=== PATIENT | female | born 1935 | race Caucasian/White ===

== ENCOUNTER 2017-06-25 21:30 | Emergency (ER) | payer MEDICARE, SELFPAY ==
[2016-11-30 11:50] VITALS: BMI 16.0
[2017-06-25 21:30] VITALS: BP 131/80; PULSE 56; RESP 18; TEMP 36.8; O2SAT 100; BMI 17.7
--- NOTE | 2017-06-25 22:03 | NURSING ---
CALLED THE ENDONURSE, SHAE
[2017-06-25] MEDS: 0.9% Normal Saline 1,000 ML 150 ML IV (22:08)
--- NOTE | 2017-06-25 22:35 | ED.VISSUMM ---
- ER Visit Summary Date of Service: 06/25/17 Chief Complaint: [Foreign body sensation esophagus] History of Present Illness: The patient is a 82 F [to the emergency department chief complaint of feeling like a piece of food is stuck in her esophagus. Patient apparently was eating at [employer] around 5:30 PM when she thinks a piece of hamburger may have gotten stuck. Patient has not had this happen before. Patient denies any chest pain or shortness of breath. Patient states that she has been trying to sip some water and it seems like it is staying down and going into the stomach. Patient is somewhat of a poor historian as she does have some history of dementia. And also with history of hypertension, pulmonary hypertension, A. fib, hypothyroidism.] Physical Examination: [HEENT-PERRLA, EOMI. Cranial nerves II through XII grossly intact. TMs clear. Mucous membranes moist. No adenopathy. Cardiovascular-regular rate and rhythm without murmur or ectopy Lungs-clear to auscultation, chest wall stable without crepitus or subcu emphysema Abdomen-normoactive bowel sounds, soft, nontender, no rebound or rigidity, no peritoneal signs. Extremities-intact ?4, normal range of motion, normal pulses, atraumatic] Test Results: [None indicated] Emergency Department Course and Treatment: [I had patient drink Coke and she was able to swallow however with each swallow she had discomfort in her esophagus and would belch.] Treatment Plan: [Case discussed with Dr. Romario Dupree who will present to the emergency department to perform endoscopy.] Patient had endoscopy and was noted that she had a large piece of meat within the stomach. Patient had appearance of Marshall's esophagitis. Disposition: [discharged to home in stable condition] Impression: [Esophageal foreign body-passed] This note was generated with [employer] dictation software. It may contain incorrect words, spelling, and punctuation that were not noted in review of the chart prior to signing ED Disposition - Plan for ED Patient: Chief Complaint: Foreign Body Referrals: Augie Rajan Chi, MD [Primary Care Provider] -
--- NOTE | 2017-06-25 22:38 | ED.DCSUM_ITS ---
- ER Visit Summary Date of Service: 06/25/17 Chief Complaint: [Foreign body sensation esophagus] History of Present Illness: The patient is a 82 F [to the emergency department chief complaint of feeling like a piece of food is stuck in her esophagus. Patient apparently was eating at [employer] around 5:30 PM when she thinks a piece of hamburger may have gotten stuck. Patient has not had this happen before. Patient denies any chest pain or shortness of breath. Patient states that she has been trying to sip some water and it seems like it is staying down and going into the stomach. Patient is somewhat of a poor historian as she does have some history of dementia. And also with history of hypertension, pulmonary hypertension, A. fib, hypothyroidism.] Physical Examination: [HEENT-PERRLA, EOMI. Cranial nerves II through XII grossly intact. TMs clear. Mucous membranes moist. No adenopathy. Cardiovascular-regular rate and rhythm without murmur or ectopy Lungs-clear to auscultation, chest wall stable without crepitus or subcu emphysema Abdomen-normoactive bowel sounds, soft, nontender, no rebound or rigidity, no peritoneal signs. Extremities-intact ?4, normal range of motion, normal pulses, atraumatic] Test Results: [None indicated] Emergency Department Course and Treatment: [I had patient drink Coke and she was able to swallow however with each swallow she had discomfort in her esophagus and would belch.] Treatment Plan: [Case discussed with Dr. Romario Dupree who will present to the emergency department to perform endoscopy.] Patient had endoscopy and was noted that she had a large piece of meat within the stomach. Patient had appearance of Marshall's esophagitis. Disposition: [discharged to home in stable condition] Impression: [Esophageal foreign body-passed] This note was generated with [employer] dictation software. It may contain incorrect words, spelling, and punctuation that were not noted in review of the chart prior to signing ED Disposition - Plan for ED Patient: Chief Complaint: Foreign Body Referrals: Augie Rajan Chi, MD [Primary Care Provider] -
--- NOTE | 2017-06-25 23:20 | ED.DEP ---
ED Disposition - Plan for ED Patient: Chief Complaint: Foreign Body Instructions: ED Foreign Body Esophageal Rslv Referrals: Augie Rajan Chi, MD [Primary Care Provider] - Romario Dupree MD [STAFF PHYSICIAN] - 1-2 Weeks
[2017-06-25] MEDS: Propofol 200 MG/20 ML Vial IV BOLUS (23:23)
[2017-06-25 23:24] VITALS: BP 178/55; PULSE 55; RESP 20; O2SAT 100
--- NOTE | 2017-06-25 23:25 | ED.RN ---
Dr. Dupree and Johanna (RN) here to do scope.
--- NOTE | 2017-06-25 23:28 | ED.DEP ---
ED Disposition - Plan for ED Patient: Chief Complaint: Foreign Body Instructions: ED Foreign Body Esophageal Rslv Prescriptions: Sucralfate [Carafate] 1 gm PO 4X/DAY #400 ml Referrals: Romario Dupree MD [STAFF PHYSICIAN] - 1-2 Weeks Augie Rajan Chi, MD [Primary Care Provider] -
--- NOTE | 2017-06-25 23:29 | PCM.CONS.GEN ---
Problem List (1) Esophageal foreign body Status: Acute (2) History of left heart catheterization Status: Chronic Comment: PTCA/DONNELL to LCX 09/24/2016; DONNELL to PDA and RELATIONSHIP MANAGEMENT LEAD-PLVB 11/17/2016; PCI to Diag and LAD 11/29/2016 (3) Atherosclerosis of [place] coronary artery of [place] heart without angina pectoris Status: Chronic (4) UDAY (acute kidney injury) Status: Acute Comment: Due to prerenal azotemia, related to Lasix (5) Hypotension Status: Resolved Comment: with hydration (6) Hypophosphatemia Status: Acute (7) NSTEMI (non-ST elevated myocardial infarction) Status: Chronic Comment: NSTEMI December 2016 (8) Hypothyroidism Status: Chronic Qualifiers: Reason for Consult Date of Consultation: 06/25/17 History of Present Illness: The patient is a 82 year old F with complaint of esophageal foreign body. She ate a hamburger at approximately 4PM. She has a sensation of choking since that time. She was given liquids in the ER which caused her to choke further. I was called for esophageal foreign body. EGD was performed in the ED. The food had passed into the stomach, but the patent was noted to have distal esophageal changes consistent with Marshall's esophagitis. Past Medical History Past Medical History (Chronic Problems): Chronic Problems (Last Updated 04/28/17 @ 09:04 by Todd Steiner HAIR DRESSER-C) History of left heart catheterization (Chronic) PTCA/DONNELL to LCX 09/24/2016; DONNELL to PDA and RELATIONSHIP MANAGEMENT LEAD-PLVB 11/17/2016; PCI to Diag and LAD 11/29/2016 Atherosclerosis of [place] coronary artery of [place] heart without angina pectoris (Chronic) Essential (primary) hypertension (Chronic) Dysphagia (Chronic) Elevated troponin (Chronic) not trending Pulmonary hypertension (Chronic) Malnutrition (Chronic) Dementia (Chronic) History of PTCA (Chronic) PTCA to the OD on 11/29/16 with no stent PTCA/DONNELL Proximal LAD 11/29/16 HFrEF (heart failure with reduced ejection fraction) (Chronic) EF 01/12 65% Chronic anemia (Chronic) Paroxysmal atrial fibrillation (Chronic) Coronary artery disease (Chronic) Vitamin D deficiency (Chronic) Hyperlipidemia (Chronic) NSTEMI (non-ST elevated myocardial infarction) (Chronic) NSTEMI December 2016 ST elevation (STEMI) myocardial infarction involving left circumflex coronary artery (Chronic) stent 09/24/16 Hypothyroidism (Chronic) Adult BMI <19 kg/sq m (Chronic) Allergies tuberculin,PPD,multi-puncture Adverse Reaction (Verified 06/25/17 21:32) Unknown caused big blister on lip Home Medications: Ambulatory Orders Medication Instructions Recorded Levothyroxine Sodium 125 mcg PO DAILY 05/31/16 Aspirin E.C. [Ecotrin] 81 mg PO DAILY@0800 tab 09/26/16 Ferrous Gluconate 325 mg PO BIDCM 02/03/17 Acetaminophen [Tylenol Tablet] 650 mg PO Q6H PRN PRN tab 02/08/17 Donepezil HCl [Aricept] 5 mg PO QHS tab 02/08/17 Quetiapine Fumarate [Seroquel] 12.5 mg PO DAILY tab 02/08/17 Quetiapine Fumarate [Seroquel] 25 mg PO QHS tab 02/08/17 amiodarone 200 mg tablet 200 mg PO DAILY #90 tab 05/19/17 atorvastatin 20 mg tablet 20 mg PO QHS #90 tab 05/19/17 clopidogrel 75 mg tablet 75 mg PO DAILY #90 tab 05/19/17 lisinopril 20 mg tablet 20 mg PO DAILY #90 tab 05/19/17 metoprolol tartrate 50 mg tablet 50 mg PO BID #180 tab 05/19/17 pantoprazole 40 mg tablet,delayed 40 mg PO DAILY #90 tab 05/19/17 release Surgical History: total hip arthroplasty Psychiatric History: No pertinent psych hx Smoking Status: Never smoker - *Family History Maternal History Items: Stroke Paternal History Items: Stroke Patient Problems: Active and Suspected Problems (Last Updated 04/28/17 @ 09:04 by Todd Steinre HAIR DRESSER-C) Esophageal foreign body (Acute) - Physical Exam General: Alert, Oriented x3, - - anxious and choking on spit Lungs: Clear to auscultation, Normal air movement Cardiovascular: Regular rate, Murmur Abdomen: Soft, Non Tender Vital Signs Temp Pulse Resp BP Pulse Ox 98.2 F 55 L 20 H 178/55 H 100 06/25/17 21:30 06/25/17 23:24 06/25/17 23:24 06/25/17 23:24 06/25/17 23:24 Oxygen Flow Rate 4 Oxygen Delivery Method Nasal Cannula Weight: 42.7 kg Body Mass Index (BMI) 17.7 Finger Stick Blood Glucose 71 Assessment/Plan Active and Suspected Problems (Last Updated 04/28/17 @ 09:04 by Todd Steiner HAIR DRESSER-C) Esophageal foreign body (Acute) Marshall's esophagitis - esophageal foreign body. The patient will be discharged on Carafate and to continue her PPI. She should follow up in 1 week in my office and plan for repeaat EGD in 3-4 weeks. She should stay on clear liquids for the next 3 days
[2017-06-25 23:34] VITALS: BP 149/68; PULSE 57; RESP 14; O2SAT 100
--- NOTE | 2017-06-25 23:35 | CON.PCM_ITS ---
Problem List (1) Esophageal foreign body Status: Acute (2) History of left heart catheterization Status: Chronic Comment: PTCA/DONNELL to LCX 09/24/2016; DONNELL to PDA and IOS PROGRAMMER-PLVB 11/17/2016; PCI to Diag and LAD 11/29/2016 (3) Atherosclerosis of [place] coronary artery of [place] heart without angina pectoris Status: Chronic (4) UDAY (acute kidney injury) Status: Acute Comment: Due to prerenal azotemia, related to Lasix (5) Hypotension Status: Resolved Comment: with hydration (6) Hypophosphatemia Status: Acute (7) NSTEMI (non-ST elevated myocardial infarction) Status: Chronic Comment: NSTEMI December 2016 (8) Hypothyroidism Status: Chronic Qualifiers: Reason for Consult Date of Consultation: 06/25/17 History of Present Illness: The patient is a 82 year old F with complaint of esophageal foreign body. She ate a hamburger at approximately 4PM. She has a sensation of choking since that time. She was given liquids in the ER which caused her to choke further. I was called for esophageal foreign body. EGD was performed in the ED. The food had passed into the stomach, but the patent was noted to have distal esophageal changes consistent with Marshall's esophagitis. Past Medical History Past Medical History (Chronic Problems): Chronic Problems (Last Updated 04/28/17 @ 09:04 by Todd Steiner ORTHOTICS ASSISTANT-C) History of left heart catheterization (Chronic) PTCA/DONNELL to LCX 09/24/2016; DONNELL to PDA and IOS PROGRAMMER-PLVB 11/17/2016; PCI to Diag and LAD 11/29/2016 Atherosclerosis of [place] coronary artery of [place] heart without angina pectoris (Chronic) Essential (primary) hypertension (Chronic) Dysphagia (Chronic) Elevated troponin (Chronic) not trending Pulmonary hypertension (Chronic) Malnutrition (Chronic) Dementia (Chronic) History of PTCA (Chronic) PTCA to the OD on 11/29/16 with no stent PTCA/DONNELL Proximal LAD 11/29/16 HFrEF (heart failure with reduced ejection fraction) (Chronic) EF 01/12 65% Chronic anemia (Chronic) Paroxysmal atrial fibrillation (Chronic) Coronary artery disease (Chronic) Vitamin D deficiency (Chronic) Hyperlipidemia (Chronic) NSTEMI (non-ST elevated myocardial infarction) (Chronic) NSTEMI December 2016 ST elevation (STEMI) myocardial infarction involving left circumflex coronary artery (Chronic) stent 09/24/16 Hypothyroidism (Chronic) Adult BMI <19 kg/sq m (Chronic) Allergies tuberculin,PPD,multi-puncture Adverse Reaction (Verified 06/25/17 21:32) Unknown caused big blister on lip Home Medications: Ambulatory Orders Medication Instructions Recorded Levothyroxine Sodium 125 mcg PO DAILY 05/31/16 Aspirin E.C. [Ecotrin] 81 mg PO DAILY@0800 tab 09/26/16 Ferrous Gluconate 325 mg PO BIDCM 02/03/17 Acetaminophen [Tylenol Tablet] 650 mg PO Q6H PRN PRN tab 02/08/17 Donepezil HCl [Aricept] 5 mg PO QHS tab 02/08/17 Quetiapine Fumarate [Seroquel] 12.5 mg PO DAILY tab 02/08/17 Quetiapine Fumarate [Seroquel] 25 mg PO QHS tab 02/08/17 amiodarone 200 mg tablet 200 mg PO DAILY #90 tab 05/19/17 atorvastatin 20 mg tablet 20 mg PO QHS #90 tab 05/19/17 clopidogrel 75 mg tablet 75 mg PO DAILY #90 tab 05/19/17 lisinopril 20 mg tablet 20 mg PO DAILY #90 tab 05/19/17 metoprolol tartrate 50 mg tablet 50 mg PO BID #180 tab 05/19/17 pantoprazole 40 mg tablet,delayed 40 mg PO DAILY #90 tab 05/19/17 release Surgical History: total hip arthroplasty Psychiatric History: No pertinent psych hx Smoking Status: Never smoker - *Family History Maternal History Items: Stroke Paternal History Items: Stroke Patient Problems: Active and Suspected Problems (Last Updated 04/28/17 @ 09:04 by Todd Steiner ORTHOTICS ASSISTANT- C) Esophageal foreign body (Acute) - Physical Exam General: Alert, Oriented x3, - - anxious and choking on spit Lungs: Clear to auscultation, Normal air movement Cardiovascular: Regular rate, Murmur Abdomen: Soft, Non Tender Vital Signs Temp Pulse Resp BP Pulse Ox 98.2 F 55 L 20 H 178/55 H 100 06/25/17 21:30 06/25/17 23:24 06/25/17 23:24 06/25/17 23:24 06/25/17 23:24 Oxygen Flow Rate 4 Oxygen Delivery Method Nasal Cannula Weight: 42.7 kg Body Mass Index (BMI) 17.7 Finger Stick Blood Glucose 71 Assessment/Plan Active and Suspected Problems (Last Updated 04/28/17 @ 09:04 by Todd Steiner ORTHOTICS ASSISTANT- C) Esophageal foreign body (Acute) Marshall's esophagitis - esophageal foreign body. The patient will be discharged on Carafate and to continue her PPI. She should follow up in 1 week in my office and plan for repeaat EGD in 3-4 weeks. She should stay on clear liquids for the next 3 days
--- NOTE | 2017-06-25 23:35 | PCM.OPRPT ---
Problem List (1) Esophageal foreign body Status: Acute (2) History of left heart catheterization Status: Chronic Comment: PTCA/DONNELL to LCX 09/24/2016; DONNELL to PDA and SHELL SHOP SUPERVISOR-PLVB 11/17/2016; PCI to Diag and LAD 11/29/2016 (3) Atherosclerosis of [place] coronary artery of [place] heart without angina pectoris Status: Chronic (4) UDAY (acute kidney injury) Status: Acute Comment: Due to prerenal azotemia, related to Lasix (5) Hypotension Status: Resolved Comment: with hydration (6) Hypophosphatemia Status: Acute (7) NSTEMI (non-ST elevated myocardial infarction) Status: Chronic Comment: NSTEMI December 2016 (8) Hypothyroidism Status: Chronic Qualifiers: Report of Operation Date of Procedure: 06/25/17 Pre-Operative Diagnosis: esophageal foreign body Post-Operative Diagnosis: esophageal foreign body, Marshall's esophagitis Surgery/Procedure Performed:: EGD reflector driller and deburrer: None Type of Anesthesia:: IV Sedation Specimen's removed: None Description of Procedure: The patient was maintained in the emergency department. Sign in was performed verifying patient, site, planned procedure, critical nursing information, the patient was monitored with cardiac, pulse oximetric, and blood pressure monitoring devices. propofol was provided for sedation - Dr Machado by the emergency room physician and documented under separate cover. Following IV sedation and after the oropharynx was sprayed with Cetacaine spray, a video gastroscope was inserted in the oropharynx and advanced down the esophagus without difficulty. There was no residual esophageal foreign bodies. The scope was advanced through the stomach,There was food in the body of the stomach The scope was retroflexed area. There was felt to be no abnormalities. As the scope was withdrawn, the patient had distal esophagitis consistent with longer segment Marshall's esophagitis The remainder the esophagus was normal. - Admit VTE Documentation VTE Present on Admission: No
== END 2017-06-25 23:51 | disposition home or self-care (01) ==
PROVIDERS: Surgery; Emergency Provider Emergency Medicine; Family Provider Family Medicine Geriatric Medicine; PCP Family Medicine Geriatric Medicine
PROC: 0DJ08ZZ Inspection of Upper Intestinal Tract, Via Natural or Artificial Opening Endoscopic (ICD-10-PCS; CPT 43235; principal; 2017-06-25 23:00)
DX: T18.128A Food in esophagus causing other injury, initial encounter (principal); X58.XXXA Exposure to other specified factors, initial encounter; Y93.89 Activity, other specified; Y92.511 Restaurant or cafe as the place of occurrence of the external cause; Y99.8 Other external cause status; K22.70 Barrett's esophagus without dysplasia; N17.9 Acute kidney failure, unspecified; R39.2 Extrarenal uremia; I25.2 Old myocardial infarction; E83.39 Other disorders of phosphorus metabolism; I95.9 Hypotension, unspecified; F03.90 Unspecified dementia, unspecified severity, without behavioral disturbance, psychotic disturbance, mood disturbance, and anxiety; I25.10 Atherosclerotic heart disease of native coronary artery without angina pectoris; I27.20 Pulmonary hypertension, unspecified; I10 Essential (primary) hypertension; I48.0 Paroxysmal atrial fibrillation; E03.9 Hypothyroidism, unspecified; D64.9 Anemia, unspecified; E78.5 Hyperlipidemia, unspecified; Z79.01 Long term (current) use of anticoagulants; Z79.82 Long term (current) use of aspirin; Z79.899 Other long term (current) drug therapy; Z98.61 Coronary angioplasty status
CPT/HCPCS: 43235; 96360; 99283; J7030; A4216

== ENCOUNTER 2017-07-07 21:56 | Emergency (ER) | payer MEDICARE, SELFPAY ==
[2016-11-30 11:50] VITALS: BMI 16.0
[2017-07-07 21:56] VITALS: BP 126/78; PULSE 55; RESP 16; TEMP 36.3; O2SAT 100; BMI 16.2
--- NOTE | 2017-07-07 22:27 | EKG12_ITS ---
Test Reason : EDEMA Blood Pressure : / mmHG Vent. Rate : 052 BPM Atrial Rate : 052 BPM P-R Int : 208 ms QRS Dur : 096 ms QT Int : 500 ms P-R-T Axes : 026 -62 -14 degrees QTc Int : 465 ms Sinus bradycardia Left anterior fascicular block Nonspecific ST and T wave abnormality Abnormal ECG Confirmed by ADA GARAY ([id number]), editorial assistant SHARMILA MURCIA ([id number] on 07/11/2017 1:00:09 PM Referred By: ZAINAB Confirmed By:ADA GARAY
--- NOTE | 2017-07-07 22:40 | RAD_ITS ---
STUDY: X-RAY CHEST REASON FOR EXAM: Female, 82 years old. CHF TECHNIQUE: Frontal and lateral views COMPARISON: February 03, 2017 FINDINGS: The lungs are mildly hyperaerated. There is no demonstrated pleural abnormality. Normal size heart. Normal mediastinum and marcella. Normal visualized pulmonary arteries. Calcified aortic arch and descending thoracic aorta. Normal visualized thoracic spine. Normal visualized ribs, clavicles, and shoulders. There is no demonstrated abnormality of the visualized soft tissue structures of the upper abdomen. RAD/Chest PA and Lateral IMPRESSION: Mild hyperaeration. Electronically Signed: Christopher Blood DO at 23:07 EST Tel [phone], Service support ,
[2017-07-07 22:44] LABS: Absolute Lymphocyte Count 0.76 X10^3/ul (0.83-4.51); Basophil# 0.02 X10^3/uL; Basophil% 0.5 % (0-1); Eosinophil# 0.06 X10^3/uL; Eosinophils% 1.4 % (0-5); Hematocrit 27.7 % (37-47); Hemoglobin 8.8 g/dl (12.0-15.0); Lymphocyte # 0.76 X10^3/ul (4.0); Lymphocyte % 17.4 % (19-41); Mean Corp Hgb Conc 31.8 g/gl (32-36); Mean Corpuscular Hgb 33.3 pg (27.0-32.0); Mean Corpuscular Volume 104.9 fL (81-99); Monocyte% 11.5 % (0-10); Neutrophil # 3.02 X10^3/uL (2.7-7.7); Neutrophil % 69.2 % (47-70); Platelet Count 301 K/mm3 (150-450); RBC Distribution Width CV 13.4 % (11.6-14.6); RBC Distribution Width SD 50.6 fl (35.1-43.9); Red Blood Count 2.64 M/mm3 (4.2-5.4); White Blood Count 4.4 K/mm3 (4.4-11.0)
[2017-07-07 22:45] LABS: POSITIVE COUNT NO; POSITIVE DIFFERENTIAL NO; POSITIVE MORPHOLOGY NO
[2017-07-07 23:20] LABS: Anion Gap 7 (5-15); BUN 20 mg/dL (7-18); Calcium,Total 8.4 mg/dL (8.5-10.1); Chloride 101 mmol/L (98-107); Creatinine, Serum 0.95 mg/dL (0.55-1.02); EST Glomerular Filtration Rate 60 mL/min (>60); Est Glom Filt Rate - Afr Amer 72 mL/min (>60); Estimated Creatinine Clearance 29.91 ml/min; Glucose 86 mg/dL (74-106); Potassium 3.5 mmol/L (3.5-5.1); Sodium Level 139 mmol/L (136-145)
--- NOTE | 2017-07-07 23:51 | ED.VISSUMM ---
- ER Visit Summary Date of Service: 07/07/17 Chief Complaint: Leg swelling History of Present Illness: The patient is a 82 F presenting for evaluation secondary to leg swelling. Patient states that over the course of the last 3-4 days she has been noticing significant amount of fluid retention in her lower legs. Patient states that she typically was not on Lasix, but restarted this 40 mg once a day and has not been getting any sort of relief from this. Patient denies that there was any preceding chest pain she denies any recent illnesses such as fever cough nausea vomiting diarrhea dysuria. She has had a mild amount of increased dyspnea on exertion lately. Patient has an underlying history of coronary disease [place] and congestive heart failure as well as A. fib does see cardiology. Physical Examination: Thin elderly female no acute distress vital signs stable. Head normocephalic. Moist mucous membranes. No JVD. Heart was regular rate and rhythm 2 out of 6 systolic murmur. Lungs sounds clear to auscultation bilaterally no rhonchi is rales or wheezes. Abdomen soft nontender. Peripheral edema noted in the lower extremities 2+ and symmetric and pitting. No skin rashes. Patient alert and oriented. Test Results: EKG demonstrates sinus bradycardia with a rate of 52. Left anterior fascicular block is noted and diffuse nonspecific T-wave flattening that is consistent with a prior EKG in January 2017. CBC demonstrates chronic anemia, chemistry negative, troponin found to be elevated at 0.16 Emergency Department Course and Treatment: Patient presented for evaluation secondary to leg swelling. Workup showed evidence of chronic anemia, normal kidney function, and an elevated troponin of 0.16. Chest x-ray did not demonstrate evidence of significant CHF and EKG showed no changes there were acute. Trending the patient's labs backwards shows that her anemia is basically unchanged, and that she chronically has a troponin leak and actually has never really had a normal troponin. Troponins were as high as 2.5 in November when she had a end STEMI, and troponin at this point is actually the lowest it has been. Given the fact that she does not have any chest discomfort associated with this I believe that she potentially could safely be discharged with increase Lasix dosing. I did discuss this with Dr. Sweet who is in agreement. Patient was given a dose of IV Lasix in the emergency department was recommended to double her dose of Lasix to 80 mg every morning and follow-up with cardiology next week. Disposition: Discharged Impression: 1. Peripheral edema 2. Chronic anemia 3. Chronic troponin leak This note was generated with [employer] dictation software. It may contain incorrect words, spelling, and punctuation that were not noted in review of the chart prior to signing ED Disposition - Plan for ED Patient: Disposition: Home or Assisted Living Chief Complaint: Edema Diagnosis: CHF (congestive heart failure) Instructions: ED CHF General Referrals: Colton White MD [STAFF PHYSICIAN] - 3-5 Days Additional Instructions: Take 80mg of lasix every morning and followup with cardiology next week
--- NOTE | 2017-07-07 23:56 | ED.DCSUM_ITS ---
- ER Visit Summary Date of Service: 07/07/17 Chief Complaint: Leg swelling History of Present Illness: The patient is a 82 F presenting for evaluation secondary to leg swelling. Patient states that over the course of the last 3-4 days she has been noticing significant amount of fluid retention in her lower legs. Patient states that she typically was not on Lasix, but restarted this 40 mg once a day and has not been getting any sort of relief from this. Patient denies that there was any preceding chest pain she denies any recent illnesses such as fever cough nausea vomiting diarrhea dysuria. She has had a mild amount of increased dyspnea on exertion lately. Patient has an underlying history of coronary disease [place] and congestive heart failure as well as A. fib does see cardiology. Physical Examination: Thin elderly female no acute distress vital signs stable. Head normocephalic. Moist mucous membranes. No JVD. Heart was regular rate and rhythm 2 out of 6 systolic murmur. Lungs sounds clear to auscultation bilaterally no rhonchi is rales or wheezes. Abdomen soft nontender. Peripheral edema noted in the lower extremities 2+ and symmetric and pitting. No skin rashes. Patient alert and oriented. Test Results: EKG demonstrates sinus bradycardia with a rate of 52. Left anterior fascicular block is noted and diffuse nonspecific T-wave flattening that is consistent with a prior EKG in January 2017. CBC demonstrates chronic anemia, chemistry negative, troponin found to be elevated at 0.16 Emergency Department Course and Treatment: Patient presented for evaluation secondary to leg swelling. Workup showed evidence of chronic anemia, normal kidney function, and an elevated troponin of 0.16. Chest x-ray did not demonstrate evidence of significant CHF and EKG showed no changes there were acute. Trending the patient's labs backwards shows that her anemia is basically unchanged, and that she chronically has a troponin leak and actually has never really had a normal troponin. Troponins were as high as 2.5 in November when she had a end STEMI, and troponin at this point is actually the lowest it has been. Given the fact that she does not have any chest discomfort associated with this I believe that she potentially could safely be discharged with increase Lasix dosing. I did discuss this with Dr. Sweet who is in agreement. Patient was given a dose of IV Lasix in the emergency department was recommended to double her dose of Lasix to 80 mg every morning and follow- up with cardiology next week. Disposition: Discharged Impression: 1. Peripheral edema 2. Chronic anemia 3. Chronic troponin leak This note was generated with [employer] dictation software. It may contain incorrect words, spelling, and punctuation that were not noted in review of the chart prior to signing ED Disposition - Plan for ED Patient: Disposition: Home or Assisted Living Chief Complaint: Edema Diagnosis: CHF (congestive heart failure) Instructions: ED CHF General Referrals: Colton White MD [STAFF PHYSICIAN] - 3-5 Days Additional Instructions: Take 80mg of lasix every morning and followup with cardiology next week
[2017-07-08] MEDS: Furosemide 40 MG/4 ML Vial IV (00:09)
[2017-07-08 00:11] VITALS: BP 132/55; PULSE 57; RESP 16; O2SAT 96
== END 2017-07-08 00:51 | disposition home or self-care (01) ==
PROVIDERS: Emergency Provider Emergency Medicine; Family Provider Family Medicine Geriatric Medicine; PCP Family Medicine Geriatric Medicine
DX: R60.0 Localized edema (principal); D64.9 Anemia, unspecified; R79.89 Other specified abnormal findings of blood chemistry; I25.10 Atherosclerotic heart disease of native coronary artery without angina pectoris; I25.2 Old myocardial infarction; I27.20 Pulmonary hypertension, unspecified; I11.0 Hypertensive heart disease with heart failure; I50.9 Heart failure, unspecified; K21.9 Gastro-esophageal reflux disease without esophagitis; F03.90 Unspecified dementia, unspecified severity, without behavioral disturbance, psychotic disturbance, mood disturbance, and anxiety; E07.9 Disorder of thyroid, unspecified; Z79.82 Long term (current) use of aspirin; Z79.01 Long term (current) use of anticoagulants; Z79.899 Other long term (current) drug therapy
CPT/HCPCS: 71046; 80048; 84484; 85025; 93005; 96374; 99283; A4216; J1940

== ENCOUNTER 2017-09-04 17:45 | Emergency (ER) | payer MEDICARE, SELFPAY ==
[2016-11-30 11:50] VITALS: BMI 16.0
[2017-09-04 17:47] VITALS: PULSE 57; RESP 24; TEMP 36.6; O2SAT 97; BMI 15.7
--- NOTE | 2017-09-04 18:07 | CT_ITS ---
STUDY: CT BRAIN WITHOUT CONTRAST REASON FOR EXAM: Female, 82 years old. Trauma RADIATION DOSAGE (If Supplied By Facility): CTDIvol = ( 44.99 ) mGy, DLP = ( 745.49 ) mGycm TECHNIQUE: Transaxial CT imaging of the brain was performed without administration of intravenous contrast material. Individualized dose optimization techniques were used for this CT. COMPARISON: Prior study of 12/16/2016 FINDINGS: There is a scalp hematoma of the right frontal region. Normal calvarium. There is mild cerebral atrophy with widening of the extra-axial spaces and ventricular dilatation. Normal white matter tracts of the cerebral hemispheres. Normal basal ganglia and thalami. Normal brainstem. Normal cerebellum. There is no intracranial hemorrhage. There are no findings of an acute ischemic infarction. Normal visualized paranasal sinuses. CT/Brain/Head without Contrast IMPRESSION: Chronic involutional changes of the brain. Findings are stable in the interval. Electronically Signed: Marcus Dietz MD at 19:08 EDT , Service support ,
[2017-09-04] MEDS: Diphth,Pertuss(Acell),Tet Vac 0.5 ML Vial IM (18:52)
--- NOTE | 2017-09-04 19:52 | ED.DCSUM_ITS ---
- ER Visit Summary Date of Service: 09/04/17 Chief Complaint: Head injury History of Present Illness: The patient is a 82 F who tripped and fell in the restroom at a local store. She hit her head on the [place] entrance. She did not lose consciousness. She denies headache. Medication list is reviewed and does include Plavix. Physical Examination: Vital signs are unremarkable. Patient sitting upright in bed no acute distress. Head neck examination reveals a 4 x 3 cm hematoma on the right forehead with a very superficial abrasion. There is a 1/2 cm laceration with scab already in place in the anterior parietal scalp. No active bleeding. Patient has no C- spine tenderness. Heart is regular rate and rhythm. Lung sounds are clear. Abdomen is soft nontender. Neuro exam reveals no focal neuro deficits. Test Results: CT scan of the head shows chronic involutional changes. Emergency Department Course and Treatment: Tetanus update is provided. The scalp wound is cleansed and sealed with Dermabond. On repeat evaluation neuro exam remains unremarkable. Treatment Plan: [] Disposition: Discharge Impression: 1. Mechanical fall 2. Forehead hematoma 3. Scalp laceration This note was generated with [employer] dictation software. It may contain incorrect words, spelling, and punctuation that were not noted in review of the chart prior to signing ED Disposition - Plan for ED Patient: Chief Complaint: Fall Referrals: Augie Rajan Chi, MD [Primary Care Provider] -
--- NOTE | 2017-09-04 19:52 | ED.DEP ---
ED Disposition - Plan for ED Patient: Disposition: Home or Assisted Living Chief Complaint: Fall Instructions: ED Mechanical Fall, ED Laceration Facial Skin Glue Referrals: Augie Rajan Chi, MD [Primary Care Provider] - 1-2 Weeks
[2017-09-04 20:23] VITALS: BP 107/57; PULSE 98; RESP 23; O2SAT 98
== END 2017-09-04 20:24 | disposition home or self-care (01) ==
PROVIDERS: Emergency Provider Emergency Medicine; Family Provider Family Medicine Geriatric Medicine; PCP Family Medicine Geriatric Medicine
DX: S01.01XA Laceration without foreign body of scalp, initial encounter (principal); S00.83XA Contusion of other part of head, initial encounter; W01.0XXA Fall on same level from slipping, tripping and stumbling without subsequent striking against object, initial encounter; Y93.9 Activity, unspecified; Y92.512 Supermarket, store or market as the place of occurrence of the external cause; I25.10 Atherosclerotic heart disease of native coronary artery without angina pectoris; I48.0 Paroxysmal atrial fibrillation; I25.2 Old myocardial infarction; I10 Essential (primary) hypertension; E78.00 Pure hypercholesterolemia, unspecified; F03.90 Unspecified dementia, unspecified severity, without behavioral disturbance, psychotic disturbance, mood disturbance, and anxiety; Z79.01 Long term (current) use of anticoagulants; Z79.82 Long term (current) use of aspirin; Z79.899 Other long term (current) drug therapy
CPT/HCPCS: 12001; 70450; 90471; 90715; 99282

== ENCOUNTER → 2017-09-14 13:42 | Outpatient (CLI) | payer MEDICARE, SELFPAY ==
[2016-11-30 11:50] VITALS: BMI 16.0
[2017-09-14 15:44] LABS: AST(SGOT) 33 U/L (15-37); Alanine Aminotransfer ALT/SGPT 57 U/L (13-56); Albumin, Serum 3.4 g/dL (3.2-5.0); Alkaline Phosphatase 73 U/L (45-117); Anion Gap 6 (5-15); BUN 30 mg/dL (7-18); BUN/Creat Ratio 20.3 RATIO (10-20); Calcium,Total 8.8 mg/dL (8.5-10.1); Chloride 104 mmol/L (98-107); Cholesterol 191 mg/dL (200); Creatinine, Serum 1.48 mg/dL (0.55-1.02); EST Glomerular Filtration Rate 36 mL/min (>60); Est Glom Filt Rate - Afr Amer 43 mL/min (>60); Globulin 3.4 g/dL (2.2-4.2); Glucose 88 mg/dL (74-106); High Density Lipoprotein 66 mg/dL; Potassium 4.5 mmol/L (3.5-5.1); Protein, Total 6.8 g/dL (6.4-8.2); Sodium Level 138 mmol/L (136-145); Thyroid Stim Hormone (TSH) 2.86 uIU/mL (0.358-3.74); Triglycerides 164 mg/dL; Very Low Density Lipoprotein 33 mg/dL (5-40)
[2017-09-14 15:52] LABS: Absolute Lymphocyte Count 0.76 X10^3/ul (0.83-4.51); Basophil# 0.02 X10^3/uL; Basophil% 0.6 % (0-1); Eosinophil# 0.14 X10^3/uL; Eosinophils% 4.2 % (0-5); Hemoglobin 10.3 g/dl (12.0-15.0); Lymphocyte # 0.76 X10^3/ul (4.0); Lymphocyte % 22.8 % (19-41); Mean Corp Hgb Conc 31.2 g/gl (32-36); Mean Corpuscular Hgb 32.8 pg (27.0-32.0); Mean Corpuscular Volume 105.1 fL (81-99); Mean Platelet Vol. 9.6 fl (6.2-12.0); Neutrophil # 2.01 X10^3/uL (2.7-7.7); Neutrophil % 60.4 % (47-70); Platelet Count 285 K/mm3 (150-450); RBC Distribution Width CV 12.8 % (11.6-14.6); RBC Distribution Width SD 47.2 fl (35.1-43.9); Red Blood Count 3.14 M/mm3 (4.2-5.4); White Blood Count 3.3 K/mm3 (4.4-11.0)
[2017-09-14 15:54] LABS: POSITIVE COUNT NO; POSITIVE DIFFERENTIAL NO; POSITIVE MORPHOLOGY NO
[2017-09-15 08:42] LABS: Vitamin D,25 Hydroxy 31.9 ng/mL (29.95-100.01)
== END ==
PROVIDERS: Family Provider Family Medicine Geriatric Medicine; PCP Family Medicine Geriatric Medicine; Visit Provider Family Medicine Geriatric Medicine
DX: E03.9 Hypothyroidism, unspecified (principal); E55.9 Vitamin D deficiency, unspecified; E78.4 Other hyperlipidemia
CPT/HCPCS: 36415; 80053; 80061; 82306; 84443; 85025

== ENCOUNTER → 2018-01-24 11:34 | Outpatient (CLI) | payer MEDICARE, SELFPAY ==
[2016-11-30 11:50] VITALS: BMI 16.0
[2018-01-24 13:12] LABS: ALB/GLOB Ratio 0.8 RATIO (0.9-2.4); AST(SGOT) 26 U/L (15-37); Alanine Aminotransfer ALT/SGPT 36 U/L (13-56); Albumin, Serum 3.2 g/dL (3.2-5.0); Alkaline Phosphatase 104 U/L (45-117); Anion Gap 9 (5-15); BUN 22 mg/dL (7-18); BUN/Creat Ratio 18.8 RATIO (10-20); Calcium,Total 8.7 mg/dL (8.5-10.1); Chloride 99 mmol/L (98-107); Creatinine, Serum 1.17 mg/dL (0.55-1.02); EST Glomerular Filtration Rate 47 mL/min (>60); Est Glom Filt Rate - Afr Amer 57 mL/min (>60); Globulin 3.8 g/dL (2.2-4.2); Glucose 67 mg/dL (74-106); Potassium 4.4 mmol/L (3.5-5.1); Sodium Level 135 mmol/L (136-145); Thyroid Stim Hormone (TSH) 5.42 uIU/mL (0.358-3.74); Vitamin D,25 Hydroxy 19.8 ng/mL (29.95-100.01)
== END ==
PROVIDERS: Family Provider Family Medicine Geriatric Medicine; PCP Family Medicine Geriatric Medicine; Visit Provider Family Medicine Geriatric Medicine
DX: E55.9 Vitamin D deficiency, unspecified (principal); I10 Essential (primary) hypertension
CPT/HCPCS: 36415; 80053; 82306; 84443

== ENCOUNTER 2018-03-01 22:43 | Inpatient (IN) | payer MEDICARE, SELFPAY ==
[2016-11-30 11:50] VITALS: BMI 16.0
[2018-03-01 22:46] VITALS: BP 153/83; PULSE 50; RESP 16; TEMP 36.1; O2SAT 92; BMI 16.0
--- NOTE | 2018-03-01 22:56 | CT_ITS ---
STUDY: CT BRAIN WITHOUT CONTRAST REASON FOR EXAM: Female, 82 years old. Altered mental status RADIATION DOSAGE (If Supplied By Facility): CTDIvol = ( 44.99 ) mGy, DLP = ( 728.62 ) mGycm TECHNIQUE: Transaxial CT imaging of the brain was performed without administration of intravenous contrast material. Individualized dose optimization techniques were used for this CT. COMPARISON: September 04, 2017 FINDINGS: Normal soft tissue structures. Normal calvarium. Normal size ventricles and extra-axial spaces for the patient's age. Stable white matter microangiopathic ischemic changes of the cerebral hemispheres. Normal basal ganglia and thalami. Normal brainstem. Normal cerebellum. There is no intracranial hemorrhage. There are no findings of an acute ischemic infarction. Normal visualized paranasal sinuses. CT/Brain/Head without Contrast IMPRESSION: Stable age-related and chronic changes of the brain. Electronically Signed: Christopher Blood DO at 23:45 EDT Tel [phone], Service support ,
--- NOTE | 2018-03-01 22:56 | RAD_ITS ---
STUDY: X-RAY CHEST REASON FOR EXAM: Female, 82 years old. Confusion, shortness of breath TECHNIQUE: Single AP portable view of the chest. COMPARISON: 07/07/2017 FINDINGS: There is hyperinflation of the lungs consistent with chronic obstructive lung disease (COPD). There is no demonstrated pleural abnormality. There is mild cardiac enlargement. Normal mediastinum and marcella. Normal visualized pulmonary arteries. There is atherosclerotic calcification of the aortic arch with tortuosity. There is demineralization of the osseous structures. Normal visualized ribs, clavicles, and shoulders. There is no demonstrated abnormality of the visualized soft tissue structures of the upper abdomen. RAD/Chest 1 View IMPRESSION: Stable COPD, osteopenia, atherosclerosis. Mild cardiac enlargement, exam. No pulmonary edema, congestive heart failure or confluent pneumonia. Electronically Signed: Amy Childers MD at 0:28 EDT , Service support ,
--- NOTE | 2018-03-01 22:56 | EKG12_ITS ---
Test Reason : NEURO Blood Pressure : / mmHG Vent. Rate : 050 BPM Atrial Rate : 050 BPM P-R Int : 230 ms QRS Dur : 094 ms QT Int : 528 ms P-R-T Axes : 070 -73 -34 degrees QTc Int : 481 ms Sinus bradycardia with 1st degree A-V block Left anterior fascicular block Nonspecific ST and T wave abnormality Abnormal ECG Confirmed by WALE ROJO, CARTER ([id number]), editor news JOSE MANUEL KING ([id number]) on 03/05/2018 12:46:53 PM Referred By: TERESA Confirmed By:CARTER ECHEVARRIA MD
--- NOTE | 2018-03-01 22:59 | ED.DCSUM_ITS ---
- ER Visit Summary Date of Service: 03/01/18 Chief Complaint: Garbled speech History of Present Illness: The patient is a 82 F who presents with garbled speech. The states that this is been intermittent for the past 2 days. At times her speech is hard to understand. Triage nurse noted that in triage the initial conversation was normal but that her speech became garbled after that. She denies any weakness of any arms or legs. She has not had any fevers. No headache. Patient has chronic left hip pain which she complains about tonight. Physical Examination: Vital signs reviewed. HEENT exam unremarkable. Heart is regular rate and rhythm without murmurs. Lungs are clear to auscultation. Abdomen is soft and nontender. Extremities reveal no edema. Does have some left hip tenderness to palpation which is chronic. Skin exam normal. Neurologic exam normal. Her NIH stroke scale score is 0. Her speech is clear and understandable at this time. Test Results: EKG is normal sinus rhythm with a rate of 50. Nonspecific ST and T wave changes noted. Chest x-ray and CAT scan of the head revealed chronic changes. Hemoglobin 9.7, sodium 135, creatinine 1.09. Glucose 82. Troponin is slightly elevated at 0.09 Emergency Department Course and Treatment: The patient had a fingerstick glucose which read 18 and then 40. I administer D50 in case this was the cause of her symptoms. However, the BMP which was drawn before the D50 showed a glucose of 82. I relayed this to the hospitalist who will recheck this as an inpatient. I am concerned the patient may be having some TIAs which are causing the garbled speech. The elevated troponin is also of concern. Patient will be admitted to the hospital on telemetry Treatment Plan: [] Disposition: Admit Impression: Elevated troponin, speech difficulty This note was generated with [employer] dictation software. It may contain incorrect words, spelling, and punctuation that were not noted in review of the chart prior to signing ED Disposition - Plan for ED Patient: Chief Complaint: Neuro S/Sx Referrals: Augie Rajan Chi, MD [Primary Care Provider] -
[2018-03-01] MEDS: Dextrose 50%-Water 25 GM/50 ML DISP.SYRIN IV (23:17)
[2018-03-01 23:18] LABS: Absolute Lymphocyte Count 0.93 X10^3/ul (0.83-4.51); Absolute Neutrophil Count 2.2 X10^3/uL (2.0-7.7); Basophil# 0.03 X10^3/uL; Basophil% 0.8 % (0-1); Eosinophils% 2.6 % (0-5); Hematocrit 31.7 % (37-47); Hemoglobin 9.7 g/dl (12.0-15.0); Lymphocyte # 0.93 X10^3/ul (4.0); Lymphocyte % 24.2 % (19-41); Mean Corp Hgb Conc 30.6 g/gl (32-36); Mean Corpuscular Hgb 31.3 pg (27.0-32.0); Mean Corpuscular Volume 102.3 fL (81-99); Mean Platelet Vol. 9.1 fl (6.2-12.0); Monocyte# 0.56 X10^3/uL; Monocyte% 14.6 % (0-10); Neutrophil # 2.22 X10^3/uL (2.7-7.7); Neutrophil % 57.8 % (47-70); Platelet Count 292 K/mm3 (150-450); RBC Distribution Width CV 14.9 % (11.6-14.6); RBC Distribution Width SD 55.7 fl (35.1-43.9); White Blood Count 3.8 K/mm3 (4.4-11.0)
[2018-03-01 23:29] LABS: POSITIVE COUNT NO; POSITIVE DIFFERENTIAL NO; POSITIVE MORPHOLOGY NO
[2018-03-01 23:31] LABS: Partial Thromboplast Time 28.4 Seconds (24.1-36.2); Prothrombin Time (Protime)PT. 12.9 SECONDS (11.7-14.9)
[2018-03-01 23:36] LABS: Anion Gap 4 (5-15); BUN 22 mg/dL (7-18); BUN/Creat Ratio 20.2 RATIO (10-20); Calcium,Total 8.9 mg/dL (8.5-10.1); Chloride 103 mmol/L (98-107); Creatinine, Serum 1.09 mg/dL (0.55-1.02); EST Glomerular Filtration Rate 51 mL/min (>60); Est Glom Filt Rate - Afr Amer 62 mL/min (>60); Estimated Creatinine Clearance 23.37 ml/min; Glucose 82 mg/dL (74-106); Potassium 4.6 mmol/L (3.5-5.1); Sodium Level 135 mmol/L (136-145)
[2018-03-01 23:57] LABS: Bacteria 0 SEEN /hpf (None Seen); Mucous, Urine 0 SEEN /hpf (<or=2+); Red Blood Cells-Urine 0 SEEN /hpf (0-5); Squamous Epithelial Cells - UA 0 SEEN /hpf (5-10); White Blood Cells 0 SEEN /hpf (0-5)
[2018-03-02] VITALS (14 sets, daily range): BP systolic 146–169; BP diastolic 50–62; PULSE 48–101; RESP 14–20; TEMP 36.6–37.1; O2SAT 97–100; BMI 13.2; BMI 13.3
[2018-03-02 00:04] LABS: Color, Urine Yellow (Yellow); Glucose, Dipstick 1000 mg/dl (Normal); Ketone-Dipstick Negative (Negative); Leukocyte Esterase-Dipstick Negative /ul (Negative); Nitrite-Dipstick Negative (Negative); Occult Blood-Urine Negative /ul (Negative); Protein-Dipstick 15 mg/dl (Negative); Urine Bilirubin Dipstick Negative (Negative); Urine Clarity Clear (Clear); Urine Urobilinogen Normal (Normal)
--- NOTE | 2018-03-02 02:19 | HP.PCM_ITS ---
Problem List (1) CVA (cerebral vascular accident) Status: Acute History of Present Illness Date of Admission: 03/02/18 Chief Complaint: decreased response The patient is a 82 year old F with a significant history of dementia; stage IV kidney disease; chronic left hip pain ;paroxysmal A. fib; ischemic cardiomyopathy status post stent; hypothyroidism and hypertension who presents with decreased response started the day before admission. Per patient's patient is no active right. Patient has become weaker and does not comprehend reports her Cherie. reported that patient is hesitant on answering questions. Patient reported that patient's has episodes where she mumbles but this is chronic. Patient denies that patient has been having garbled speech. However ED doctor reported that patient's notify him that patient has been having episodic garbled speech. Also ED doctor reported that whiles at the triage patient was noted to have episodic garbled speech. ED doctor reported that first fingerstick blood sugar was 18 and a repeat fingerstick blood sugar was 48. However BMP drawn before this to fingerstick blood sugars returned 82. Patient receive D50 in the emergency department. Importantly patient was found to have severely elevated glucose on urinalysis. Patient was found to have elevated troponin at emergency department. Past Medical History Past Medical History (Chronic Problems): Chronic Problems (Last Reviewed 03/02/18 @ 02:31 by Kel Mireles MD) Hypertension (Chronic) Ischemic cardiomyopathy (Chronic) Presence of stent in coronary artery (Chronic) PTCA/DONNELL to proximal LCx in September 2016; PTCA/DONNELL to PDA and PTCA of PLVB on November 17, 2016; PCI with PTCA to ostial diagonal and PTCA/DONNELL to proximal LAD in November 29, 2016; senior living current use of 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 drug (Chronic) Atherosclerosis of [place] coronary artery of [place] heart without angina pectoris (Chronic) Essential (primary) hypertension (Chronic) Pulmonary hypertension (Chronic) Malnutrition (Chronic) Dementia (Chronic) Chronic anemia (Chronic) Paroxysmal atrial fibrillation (Chronic) Hyperlipidemia (Chronic) NSTEMI (non-ST elevated myocardial infarction) (Chronic) NSTEMI December 2016 ST elevation (STEMI) myocardial infarction involving left circumflex coronary artery (Chronic) stent 09/24/16 Hypothyroidism (Chronic) Adult BMI <19 kg/sq m (Chronic) Medical History: Medical History (Last Reviewed 03/02/18 @ 02:31 by Kel Mireles MD) Hypertension (Chronic) I10 Ischemic cardiomyopathy (Chronic) I25.5 Atherosclerosis of [place] coronary artery of [place] heart without angina pectoris (Chronic) I25.10 Essential (primary) hypertension (Chronic) I10 UDAY (acute kidney injury) (Acute) N17.9 Due to prerenal azotemia, related to Lasix Pulmonary hypertension (Chronic) I27.2 Malnutrition (Chronic) E46 Dementia (Chronic) F03.90 Chronic anemia (Chronic) D64.9 Paroxysmal atrial fibrillation (Chronic) I48.0 Hyperlipidemia (Chronic) E78.5 NSTEMI (non-ST elevated myocardial infarction) (Chronic) I21.[address] elevation (STEMI) myocardial infarction involving left circumflex coronary artery (Chronic) I21.21 stent 09/24/16 Hypothyroidism (Chronic) E03.9 Adult BMI <19 kg/sq m (Chronic) Z68.1 Coronary artery disease (Inactive) I25.10 Dysphagia (Inactive) R13.10 Elevated troponin (Inactive) R74.8 not trending HFrEF (heart failure with reduced ejection fraction) (Inactive) I50.20 EF 01/12 65% Hypomagnesemia (Inactive) E83.42 Hypophosphatemia (Inactive) E83.39 Hypotension (Inactive) I95.9 with hydration Vitamin D deficiency (Inactive) E55.9 Allergies tuberculin,PPD,multi-puncture Adverse Reaction (Verified 03/01/18 22:48) Unknown caused big blister on lip Home Medications: Ambulatory Orders Medication Instructions Recorded Levothyroxine Sodium 125 mcg PO DAILY 05/31/16 Aspirin E.C. [Ecotrin] 81 mg PO DAILY@0800 tab 09/26/16 Ferrous Gluconate 325 mg PO BIDCM 02/03/17 Donepezil HCl [Aricept] 5 mg PO QHS tab 02/08/17 atorvastatin 20 mg tablet 20 mg PO QHS #90 tab 05/19/17 lisinopril 20 mg tablet 20 mg PO DAILY #90 tab 05/19/17 pantoprazole 40 mg tablet,delayed 40 mg PO DAILY #90 tab 05/19/17 release Cholecalciferol (VIT D3) [Vitamin 1,000 unit PO DAILY 07/07/17 D] Cyanocobalamin (Vitamin B-12) 2,500 mcg PO DAILY 07/07/17 [Vitamin B12] sucralfate 1 gram tablet 1 g PO .COMPLEX #120 tab 08/09/17 clopidogrel 75 mg tablet 75 mg PO DAILY #90 tab 11/23/17 amiodarone 200 mg tablet 200 mg PO DAILY #90 tab MDD 05/1602/07/18 tablet a day furosemide 40 mg tablet 40 mg PO QDAY 02/07/18 magnesium oxide 400 mg capsule 400 mg PO DAILY cap 02/07/18 metoprolol tartrate 50 mg tablet 50 mg PO BID #180 tab MDD 05/1602/07/18 tablet twice a day potassium chloride ER 20 mEq 20 meq PO DAILY #90 tab 02/19/18 tablet,extended release Surgical History: Surgical History (Last Reviewed 02/07/18 @ 15:13 by Staci Asencio) Presence of stent in coronary artery (Chronic) Z95.5 PTCA/DONNELL to proximal LCx in September 2016; PTCA/DONNELL to PDA and PTCA of PLVB on November 17, 2016; PCI with PTCA to ostial diagonal and PTCA/DONNELL to proximal LAD in November 29, 2016; History of cholecystectomy Z98.890, Z90.49 Hx of tonsillectomy Z98.890, Z90.89 Postsurgical percutaneous transluminal coronary angioplasty (PTCA) status Z98.61 PTCA/DONNELL to proximal LCx in September 2016; PTCA/DONNELL to PDA and PTCA of PLVB on November 17, 2016; PCI with PTCA to ostial diagonal and PTCA/DONNELL to proximal LAD in November 29, 2016; History of left heart catheterization Z98.890 Surgical History: total hip arthroplasty Psychiatric History: No pertinent psych hx Lives: Spouse/ Significant Other Smoking Status: Never smoker - *Family History Maternal Family History: Family History (Last Reviewed 03/02/18 @ 02:33 by Kel Mireles MD) Father CVA (cerebral vascular accident) Mother CVA (cerebral vascular accident) History Items: Stroke Paternal Family History: Family History (Last Reviewed 03/02/18 @ 02:33 by Kel Mireles MD) Father CVA (cerebral vascular accident) Mother CVA (cerebral vascular accident) History Items: Stroke Review of Systems Constitutional: Denies: Chills, Fever, Weight Change HEENT: Denies: Head Aches, Sinus Congestion, Sinus Drainage Cardiovascular: Denies: Chest Pain, Palpitations Respiratory: Denies: Cough, Shortness of breath at rest, Sputum production Gastrointestinal: Denies: Abdominal Pain, Nausea, Vomiting Genitourinary: Denies: Dysuria Musculoskeletal: Reports: Joint Pain - Left hip pain. Denies: Joint Tenderness Skin: Denies: Rash, Wounds Neurological: Denies: Numbness, Tingling, Focal weakness Psychiatric: Denies: Anxiety, Depression, Homicidal Ideations, Suicidal Ideations Hematologic/ Lymphatic: Denies: Easy Bruising, Easy Bleeding VTE Information - Inpt Only VTE Present on Admission: No VTE Mechan Device Prophylaxis: None VTE Pharm Prophylaxis ordered?: Yes Patient Problems: Active and Suspected Problems (Last Reviewed 03/02/18 @ 02:31 by Kel Mireles MD) CVA (cerebral vascular accident) (Acute) - Physical Exam General: Alert, Oriented x3, Cooperative, - - Patient does not know why she is at the hospital. HEENT: Atraumatic, PERRLA, EOMI, Normocephalic Neck: Supple, No JVD, Negative Carotid Bruits Lungs: Clear to auscultation, Normal air movement Cardiovascular: No murmurs, Bradycardic Abdomen: Bowel Sounds Present, Soft, Non Tender Extremities: No edema, Capillary Refill Less than 3 Seconds Skin: No rashes, No breakdown Musculoskeletal: No Tenderness to Palpation of Joints or Extremities, - - Decreased range of motion and strength in left lower extremities secondary to pain (?osteoarthritis). Right leg strength 5/5; right leg with full range of motion. Neurological: - - Hard of hearing; even with hearing aids. Psych/Mental Status: Normal Affect, Appropriate Vital Signs Temp Pulse Resp BP Pulse Ox 96.9 F L 48 L 14 156/54 H 100 03/01/18 22:46 03/02/18 01:00 03/02/18 01:00 03/02/18 01:00 03/02/18 01:00 Oxygen Flow Rate (L/min) 2 Oxygen Delivery Method Nasal Cannula Weight: 37.195 kg Body Mass Index (BMI) 16.0 Finger Stick Blood Glucose 46 Laboratory Tests Past 24 Hrs 03/01/18 03/01/18 03/01/18 23:08 23:08 23:08 WBC 3.8 L RBC 3.10 L Hgb 9.7 L Hct 31.7 L MCV 102.3 H MCH 31.3 MCHC 30.6 L RDW 14.9 H RDW Differential 55.7 H Plt Count 292 MPV 9.1 Immature Gran % (Auto) 0.000 Neut % (Auto) 57.8 Lymph % (Auto) 24.2 [place] % (Auto) 14.6 H Eos % (Auto) 2.6 Baso % (Auto) 0.8 Absolute Neuts (auto) 2.2 Absolute Lymphs (auto) 0.93 Total Counted Not Reportable PT 12.9 INR 1.0 APTT 28.4 Sodium 135 L Potassium 4.6 Chloride 103 Carbon Dioxide 28.0 Anion Gap 4 L BUN 22 H Creatinine 1.09 H Estim Creat Clear Calc 23.37 Est GFR (MDRD) Af Amer 62 Est GFR (MDRD) Non-Af 51 L BUN/Creatinine Ratio 20.2 H Glucose 82 Calcium 8.9 Troponin I 0.090 H Urine Color Urine Clarity Urine pH Ur Specific [place] Urine Protein Urine Glucose (UA) Urine Ketones Urine Occult Blood Urine Nitrite Urine Bilirubin Urine Urobilinogen Ur Leukocyte Esterase Urine RBC Urine WBC Ur Squamous Epith Cells Urine Bacteria Urine Mucus 03/01/18 23:50 WBC RBC Hgb Hct MCV MCH MCHC RDW RDW Differential Plt Count MPV Immature Gran % (Auto) Neut % (Auto) Lymph % (Auto) [place] % (Auto) Eos % (Auto) Baso % (Auto) Absolute Neuts (auto) Absolute Lymphs (auto) Total Counted PT INR APTT Sodium Potassium Chloride Carbon Dioxide Anion Gap BUN Creatinine Estim Creat Clear Calc Est GFR (MDRD) Af Amer Est GFR (MDRD) Non-Af BUN/Creatinine Ratio Glucose Calcium Troponin I Urine Color Yellow Urine Clarity Clear Urine pH 7.0 Ur Specific [place] 1.010 Urine Protein 15 H Urine Glucose (UA) 1000 H Urine Ketones Negative Urine Occult Blood Negative Urine Nitrite Negative Urine Bilirubin Negative Urine Urobilinogen Normal Ur Leukocyte Esterase Negative Urine RBC 0 SEEN Urine WBC 0 SEEN Ur Squamous Epith Cells 0 SEEN Urine Bacteria 0 SEEN Urine Mucus 0 SEEN Assessment/Plan All Active Problems (Last Reviewed 03/02/18 @ 02:31 by Kel Mireles MD) CVA (cerebral vascular accident) (Acute) Esophageal foreign body (Acute) UDAY (acute kidney injury) (Acute) Acute systolic (congestive) heart failure (Resolved) The patient is a 82 year old F with a significant history of dementia; stage IV kidney disease; chronic left hip pain ;paroxysmal A. fib; ischemic cardiomyopathy status post stent; hypothyroidism and hypertension who presents with decreased response to conversation; weakness; psychomotor retardation and of questionable garbled speech and inconsistent hypoglycemia Probable TIA Independent review of CT of head confirms that there is no acute pathology. Discussed with patient and her . Her as not want MRI imaging of patient's head. -Check TTE -Check Hba1c, -Permissive HTN for 24 hrs Review of old records showed that lipid panel on 09/14/2017 was unremarkable. Her LDL was 92; cholesterol was 191 and a triglyceride was 164. PT, OT and ST to work with patient. Aspirin Plavix and statin the patient takes for CAD continue. Differential diagnosis of her decreased response includes debility or dementia. Hypoglycemia Low blood glucose on Accu-Chek at the could be false positive. If true could explain her strokelike symptoms. Accu-Chek every 2 hours x2 ordered. 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 Elevated troponin Patient with no chest pain. Chronic. Will stop trending. Severe Protein Malnutrition Prealbumin and albumin ordered. Ensure Enlive 120 ml 4 times a day Nutritional consult Hypothyroidism Synthroid continued. First-degree AV block. Patient on metoprolol: will hold at this time due to stroke protocol. Consider discussing with patient manager manufacturing Dr. White. Amiodarone is on home medication list. Consider discussing with her manager manufacturing because of bradycardia. Paroxysmal A. fib Metoprolol and amiodarone on hold at this time. History of CAD with stents Aspirin, Plavix and statin continued. Ischemic cardiomyopathy Aspirin, Plavix and statin continue as above. Lasix and potassium continued. Dementia Aricept continued. DVT prophylaxis Subcutaneous heparin. Miscellaneous: Please verify home medications in am since patient has dementia and is unable to help verify home meds Code Visit OBSV E&M: [id number] Initial observation care L3
[2018-03-02 05:33] LABS: Albumin, Serum 3.1 g/dL (3.2-5.0); Anion Gap 7 (5-15); BUN 20 mg/dL (7-18); Calcium,Total 8.5 mg/dL (8.5-10.1); Chloride 103 mmol/L (98-107); Cholesterol 148 mg/dL (200); Creatinine, Serum 0.91 mg/dL (0.55-1.02); EST Glomerular Filtration Rate 63 mL/min (>60); Est Glom Filt Rate - Afr Amer 76 mL/min (>60); Estimated Creatinine Clearance 26.41 ml/min; Glucose 72 mg/dL (74-106); High Density Lipoprotein 73 mg/dL; Potassium 4.2 mmol/L (3.5-5.1); Prealbumin 19.1 mg/dL (20.0-40.0); Sodium Level 138 mmol/L (136-145); Triglycerides 51 mg/dL; Very Low Density Lipoprotein 10 mg/dL (5-40)
[2018-03-02] MEDS: Levothyroxine 125 MCG Tablet PO (06:28)
[2018-03-02 06:36] LABS: Bedside Glucose 60 mg/dL (70-110)
[2018-03-02] MEDS: Dextrose 50%-Water 25 GM/50 ML DISP.SYRIN IV ×2 (07:12→12:17)
[2018-03-02] MEDS: 0.9% NaCl Peripheral Flush Adult/Peds IV (07:13)
[2018-03-02 07:34] LABS: Hemoglobin A1c 4.8 % (4.2-6.3)
[2018-03-02 08:06] LABS: Bedside Glucose 127 mg/dL (70-110)
[2018-03-02 08:51] LABS: Insulin 2.8 mU/L (2.6-37.6)
[2018-03-02] MEDS: Furosemide 40 MG Tablet PO (10:56)
[2018-03-02] MEDS: Clopidogrel Bisulfate 75 MG Tablet PO (10:56)
[2018-03-02 10:58] LABS: Mucous, Urine 0 SEEN /hpf (<or=2+); Red Blood Cells-Urine 0 SEEN /hpf (0-5)
[2018-03-02 10:59] LABS: Color, Urine Yellow (Yellow); Glucose, Dipstick Normal (Normal); Ketone-Dipstick Negative (Negative); Leukocyte Esterase-Dipstick 25 /ul (Negative); Nitrite-Dipstick Negative (Negative); Occult Blood-Urine Negative /ul (Negative); Protein-Dipstick 15 mg/dl (Negative); Urine Bilirubin Dipstick Negative (Negative); Urine Clarity Sl. Cloudy (Clear); Urine Urobilinogen Normal (Normal)
[2018-03-02 11:05] LABS: Bacteria RARE /hpf (None Seen); Squamous Epithelial Cells - UA 0-5 SEEN /hpf (5-10); White Blood Cells 0-5 SEEN /hpf (0-5)
[2018-03-02 15:25] LABS: Bedside Glucose 42 mg/dL (70-110)
[2018-03-02 15:25] LABS: Bedside Glucose 69 mg/dL (70-110)
[2018-03-02 20:11] LABS: Bedside Glucose 46 mg/dL (70-110)
[2018-03-02 20:31] LABS: Bedside Glucose 84 mg/dL (70-110)
[2018-03-02] MEDS: Donepezil HCl 5 MG Tablet PO (20:54)
[2018-03-02] MEDS: Heparin Injection (Vial) 5,000 UNIT/ML VIAL 5000 UNIT SC (20:54)
[2018-03-02] MEDS: Atorvastatin Calcium 20 MG Tablet PO (20:54)
[2018-03-03] VITALS (16 sets, daily range): BP systolic 110–161; BP diastolic 41–78; PULSE 55–73; RESP 14–18; TEMP 36.4–37.4; O2SAT 94–100; BMI 13.2
[2018-03-03 00:50] LABS: Bedside Glucose 79 mg/dL (70-110)
[2018-03-03 05:06] LABS: Bedside Glucose 80 mg/dL (70-110)
[2018-03-03] MEDS: Levothyroxine 125 MCG Tablet PO (05:06)
[2018-03-03 06:58] LABS: Absolute Lymphocyte Count 0.83 X10^3/ul (0.83-4.51); Absolute Neutrophil Count 1.8 X10^3/uL (2.0-7.7); Basophil# 0.02 X10^3/uL; Basophil% 0.6 % (0-1); Eosinophils% 3.2 % (0-5); Hematocrit 30.4 % (37-47); Hemoglobin 9.7 g/dl (12.0-15.0); Lymphocyte # 0.83 X10^3/ul (4.0); Lymphocyte % 26.4 % (19-41); Mean Corp Hgb Conc 31.9 g/gl (32-36); Mean Corpuscular Hgb 32.1 pg (27.0-32.0); Mean Corpuscular Volume 100.7 fL (81-99); Mean Platelet Vol. 9.1 fl (6.2-12.0); Monocyte% 12.7 % (0-10); Neutrophil # 1.79 X10^3/uL (2.7-7.7); Neutrophil % 57.1 % (47-70); Platelet Count 273 K/mm3 (150-450); RBC Distribution Width CV 14.6 % (11.6-14.6); RBC Distribution Width SD 53.5 fl (35.1-43.9); Red Blood Count 3.02 M/mm3 (4.2-5.4); White Blood Count 3.1 K/mm3 (4.4-11.0)
[2018-03-03 07:00] LABS: POSITIVE COUNT NO; POSITIVE DIFFERENTIAL NO; POSITIVE MORPHOLOGY NO
[2018-03-03 07:25] LABS: Anion Gap 7 (5-15); BUN 16 mg/dL (7-18); BUN/Creat Ratio 20.4 RATIO (10-20); Calcium,Total 8.4 mg/dL (8.5-10.1); Chloride 94 mmol/L (98-107); Creatinine, Serum 0.78 mg/dL (0.55-1.02); EST Glomerular Filtration Rate 74 mL/min (>60); Est Glom Filt Rate - Afr Amer 90 mL/min (>60); Estimated Creatinine Clearance 24.03 ml/min; Glucose 79 mg/dL (74-106); Potassium 4.1 mmol/L (3.5-5.1); Sodium Level 131 mmol/L (136-145)
[2018-03-03 08:26] LABS: Bedside Glucose 69 mg/dL (70-110)
[2018-03-03] MEDS: Clopidogrel Bisulfate 75 MG Tablet PO (10:12)
[2018-03-03] MEDS: Furosemide 40 MG Tablet PO (10:12)
[2018-03-03] MEDS: Heparin Injection (Vial) 5,000 UNIT/ML VIAL 5000 UNIT SC ×2 (10:12→20:54)
[2018-03-03 13:20] LABS: Bedside Glucose 78 mg/dL (70-110)
[2018-03-03 17:06] LABS: Bedside Glucose 60 mg/dL (70-110)
--- NOTE | 2018-03-03 20:17 | PCM.PN.HOSP ---
Patient Problems: Active and Suspected Problems (Last Reviewed 03/02/18 @ 02:31 by Kel Mireles MD) Hypoglycemia (Acute) CVA (cerebral vascular accident) (Acute) Subjective: Still confused and unable to have a coherent conversation at times. Per the this is her baseline though a little worse. She has dementia at baseline Vitals/I&O's: Vital Signs Temp Pulse Resp BP Pulse Ox 98.2 F 69 18 161/68 H 95 03/03/18 17:05 03/03/18 19:06 03/03/18 17:05 03/03/18 17:05 03/03/18 17:05 Oxygen Flow Rate (L/min) 2 Oxygen Delivery Method Room Air Weight: 77 lb 6.116 oz Body Mass Index (BMI) 13.2 Finger Stick Blood Glucose 46 Intake and Output for Last 24 Hours 03/01/18 03/02/18 03/03/18 23:59 23:59 23:59 Intake Total 1902 / 1902 1713 / 1713 Output Total 300 / 300 0 / 0 Balance 1602 / 1602 1713 / 1713 General: Alert, Oriented x3, Cooperative, No apparent distress HEENT: Atraumatic, EOMI, Normocephalic Oral: Moist Mucosa Neck: Supple, No JVD Lungs: Clear to auscultation, Normal air movement, No rhonchi, No wheeze, No rales Cardiovascular: Regular rate, Regular Rhythm, Normal S1, Normal S2, No murmurs Abdomen: Soft, Non Tender, Non-Distended, No Hepato-splenomegaly Extremities: No edema, Capillary Refill Less than 3 Seconds Skin: No rashes, No breakdown Musculoskeletal: No Tenderness to Palpation of Joints or Extremities Neurological: Neuro grossly intact, Sensory exam intact to light touch and pain Psych/Mental Status: Normal Affect, Appropriate Laboratory Results 03/02/18 20:24: POC Glucose 84 03/03/18 00:44: POC Glucose 79 03/03/18 04:54: POC Glucose 80 03/03/18 06:24: WBC 3.1 L, RBC 3.02 L, Hgb 9.7 L, Hct 30.4 L, MCV 100.7 H, MCH 32.1 H, MCHC 31.9 L, RDW 14.6, RDW Differential 53.5 H, Plt Count 273, MPV 9.1, Immature Gran % (Auto) 0.000, Neut % (Auto) 57.1, Lymph % (Auto) 26.4, [place] % (Auto) 12.7 H, Eos % (Auto) 3.2, Baso % (Auto) 0.6, Absolute Neuts (auto) 1.8 L, Absolute Lymphs (auto) 0.83, Total Counted Not Reportable 03/03/18 06:24: Sodium 131 L, Potassium 4.1, Chloride 94 L, Carbon Dioxide 30.0, Anion Gap 7, BUN 16, Creatinine 0.78, Estim Creat Clear Calc 24.03, Est GFR (MDRD) Af Amer 90, Est GFR (MDRD) Non-Af 74, BUN/Creatinine Ratio 20.4 H, Glucose 79, Calcium 8.4 L 03/03/18 08:22: POC Glucose 69 L 03/03/18 12:56: POC Glucose 78 03/03/18 16:32: POC Glucose 60 L Current Medications Atorvastatin Calcium (Lipitor) 20 mg PO QHS [facility] Last Admin: 03/02/18 20:54 Dose: 20 mg Clopidogrel Bisulfate (Plavix) 75 mg PO DAILY [facility] Last Admin: 03/03/18 10:12 Dose: 75 mg Donepezil HCl (Aricept) 5 mg PO QHS [facility] Last Admin: 03/02/18 20:54 Dose: 5 mg Furosemide (Lasix) 40 mg PO DAILY [facility] Last Admin: 03/03/18 10:12 Dose: 40 mg Heparin Sodium (Porcine) (Heparin Na) 5,000 unit SC Q12 [facility] Last Admin: 03/03/18 10:12 Dose: 5,000 unit Dextrose () 1,000 mls @ 60 mls/hr IV .[id number] [facility] Last Admin: 03/03/18 16:45 Dose: 60 mls/hr Levothyroxine Sodium (Synthroid) 125 mcg PO DAILY@0600 [facility] Last Admin: 03/03/18 05:06 Dose: 125 mcg Magnesium Hydroxide (Milk Of Magnesia) 30 ml PO DAILY PRN PRN Reason: Constipation Nutritional Formula (Lactose Free) (Ensure Enlive) 120 ml PO 4X/DAY [facility] Last Admin: 03/03/18 17:07 Dose: Not Given Potassium Chloride (K-Dur) 20 meq PO DAILYCM [facility] Last Admin: 03/03/18 10:11 Dose: 20 meq Sodium Chloride () 5 - 30 ml IV UD PRN PRN Reason: SALINE FLUSH Last Admin: 03/02/18 07:13 Dose: 10 ml Medical Necessity - Tobacco Use Smoking Status: Never smoker Assessment/Plan All Active Problems (Last Reviewed 03/02/18 @ 02:31 by Kel Mireles MD) Hypoglycemia (Acute) CVA (cerebral vascular accident) (Acute) Esophageal foreign body (Acute) UDAY (acute kidney injury) (Acute) Acute systolic (congestive) heart failure (Resolved) 1. Dementia possibly worsening vs TIA/Debility - refuses MRI - Will continue with her medical management which she is already on at home - ASA/Plavix and a statin - c/w aricept - Of concern is her lack of appetite. He states that she eats well and we attempt to give her ensure which she does not take. I had a long discussion with the who understands that there may not be an explanation for why she is not eating other that worsening dementia. I offered remeron as a possible appetite stimulant which he refused. - Here she is requiring 2 people to steady her with a walker. I discussed that she would benefit from placement, which he also agrees to. Given our inability to improve her status, will convert to inpatient and have CM start on authorization for placement 2. Ischemic cardiomyopathy without failure/HTN/HLD/Pulm HTN/A-fib/CAD s/p 3 stents - Will c/w amiodarone and her metoprolol and monitor - On review of her medical record she had 1st degree block on EKG at her cardiologists office at the end of january and her amio and metoprolol were continued at that time - No anticoagulation d/t fall risk - c/w asa/plavix and statin - Her troponin level is at the lowest it has ever been 3. Hypoglycemia and glycosuria/Protein malnutrition - The glucose in the urine was spurious and normal on repeat - She has needed a few D50 boluses during her stay and has been continued on D5NS - Proinsulin levels and C-peptide pending, insulin level is low normal - Likely d/t lack of intake - Albumin is 3.1 and pre-albumin is 19.1, very mild protein malnutrition at this time - C/w to encourage to eat 4. Hypothyroidism - Stable - c/w synthroid DVT: heparin Diet: Regular, pureed Code Visit Inpatient E&M: 73222 Subs Hosp L2
--- NOTE | 2018-03-03 20:38 | PN_ITS ---
Patient Problems: Active and Suspected Problems (Last Reviewed 03/02/18 @ 02:31 by Kel Mireles MD) Hypoglycemia (Acute) CVA (cerebral vascular accident) (Acute) Subjective: Still confused and unable to have a coherent conversation at times. Per the this is her baseline though a little worse. She has dementia at baseline Vitals/I&O's: Vital Signs Temp Pulse Resp BP Pulse Ox 98.2 F 69 18 161/68 H 95 03/03/18 17:05 03/03/18 19:06 03/03/18 17:05 03/03/18 17:05 03/03/18 17:05 Oxygen Flow Rate (L/min) 2 Oxygen Delivery Method Room Air Weight: 77 lb 6.116 oz Body Mass Index (BMI) 13.2 Finger Stick Blood Glucose 46 Intake and Output for Last 24 Hours 03/01/18 03/02/18 03/03/18 23:59 23:59 23:59 Intake Total 1902 / 1902 1713 / 1713 Output Total 300 / 300 0 / 0 Balance 1602 / 1602 1713 / 1713 General: Alert, Oriented x3, Cooperative, No apparent distress HEENT: Atraumatic, EOMI, Normocephalic Oral: Moist Mucosa Neck: Supple, No JVD Lungs: Clear to auscultation, Normal air movement, No rhonchi, No wheeze, No rales Cardiovascular: Regular rate, Regular Rhythm, Normal S1, Normal S2, No murmurs Abdomen: Soft, Non Tender, Non-Distended, No Hepato-splenomegaly Extremities: No edema, Capillary Refill Less than 3 Seconds Skin: No rashes, No breakdown Musculoskeletal: No Tenderness to Palpation of Joints or Extremities Neurological: Neuro grossly intact, Sensory exam intact to light touch and pain Psych/Mental Status: Normal Affect, Appropriate Laboratory Results 03/02/18 20:24: POC Glucose 84 03/03/18 00:44: POC Glucose 79 03/03/18 04:54: POC Glucose 80 03/03/18 06:24: WBC 3.1 L, RBC 3.02 L, Hgb 9.7 L, Hct 30.4 L, MCV 100.7 H, MCH 32.1 H, MCHC 31.9 L, RDW 14.6, RDW Differential 53.5 H, Plt Count 273, MPV 9.1, Immature Gran % (Auto) 0.000, Neut % (Auto) 57.1, Lymph % (Auto) 26.4, [place] % (Auto) 12.7 H, Eos % (Auto) 3.2, Baso % (Auto) 0.6, Absolute Neuts (auto) 1.8 L, Absolute Lymphs (auto) 0.83, Total Counted Not Reportable 03/03/18 06:24: Sodium 131 L, Potassium 4.1, Chloride 94 L, Carbon Dioxide 30.0, Anion Gap 7, BUN 16, Creatinine 0.78, Estim Creat Clear Calc 24.03, Est GFR (MDRD) Af Amer 90, Est GFR (MDRD) Non-Af 74, BUN/Creatinine Ratio 20.4 H, Glucose 79, Calcium 8.4 L 03/03/18 08:22: POC Glucose 69 L 03/03/18 12:56: POC Glucose 78 03/03/18 16:32: POC Glucose 60 L Current Medications Atorvastatin Calcium (Lipitor) 20 mg PO QHS [facility] Last Admin: 03/02/18 20:54 Dose: 20 mg Clopidogrel Bisulfate (Plavix) 75 mg PO DAILY [facility] Last Admin: 03/03/18 10:12 Dose: 75 mg Donepezil HCl (Aricept) 5 mg PO QHS [facility] Last Admin: 03/02/18 20:54 Dose: 5 mg Furosemide (Lasix) 40 mg PO DAILY [facility] Last Admin: 03/03/18 10:12 Dose: 40 mg Heparin Sodium (Porcine) (Heparin Na) 5,000 unit SC Q12 [facility] Last Admin: 03/03/18 10:12 Dose: 5,000 unit Dextrose () 1,000 mls @ 60 mls/hr IV .[id number] [facility] Last Admin: 03/03/18 16:45 Dose: 60 mls/hr Levothyroxine Sodium (Synthroid) 125 mcg PO DAILY@0600 [facility] Last Admin: 03/03/18 05:06 Dose: 125 mcg Magnesium Hydroxide (Milk Of Magnesia) 30 ml PO DAILY PRN PRN Reason: Constipation Nutritional Formula (Lactose Free) (Ensure Enlive) 120 ml PO 4X/DAY [facility] Last Admin: 03/03/18 17:07 Dose: Not Given Potassium Chloride (K-Dur) 20 meq PO DAILYCM [facility] Last Admin: 03/03/18 10:11 Dose: 20 meq Sodium Chloride () 5 - 30 ml IV UD PRN PRN Reason: SALINE FLUSH Last Admin: 03/02/18 07:13 Dose: 10 ml Medical Necessity - Tobacco Use Smoking Status: Never smoker Assessment/Plan All Active Problems (Last Reviewed 03/02/18 @ 02:31 by Kel Mireles MD) Hypoglycemia (Acute) CVA (cerebral vascular accident) (Acute) Esophageal foreign body (Acute) UDAY (acute kidney injury) (Acute) Acute systolic (congestive) heart failure (Resolved) 1. Dementia possibly worsening vs TIA/Debility - refuses MRI - Will continue with her medical management which she is already on at home - ASA/Plavix and a statin - c/w aricept - Of concern is her lack of appetite. He states that she eats well and we attempt to give her ensure which she does not take. I had a long discussion with the who understands that there may not be an explanation for why she is not eating other that worsening dementia. I offered remeron as a possible appetite stimulant which he refused. - Here she is requiring 2 people to steady her with a walker. I discussed that she would benefit from placement, which he also agrees to. Given our inability to improve her status, will convert to inpatient and have CM start on authorization for placement 2. Ischemic cardiomyopathy without failure/HTN/HLD/Pulm HTN/A-fib/CAD s/p 3 stents - Will c/w amiodarone and her metoprolol and monitor - On review of her medical record she had 1st degree block on EKG at her cardiol ogists office at the end of january and her amio and metoprolol were continued at that time - No anticoagulation d/t fall risk - c/w asa/plavix and statin - Her troponin level is at the lowest it has ever been 3. Hypoglycemia and glycosuria/Protein malnutrition - The glucose in the urine was spurious and normal on repeat - She has needed a few D50 boluses during her stay and has been continued on D5NS - Proinsulin levels and C-peptide pending, insulin level is low normal - Likely d/t lack of intake - Albumin is 3.1 and pre-albumin is 19.1, very mild protein malnutrition at this time - C/w to encourage to eat 4. Hypothyroidism - Stable - c/w synthroid DVT: heparin Diet: Regular, pureed Code Visit Inpatient E&M: 70236 Subs Hosp L2
[2018-03-03] MEDS: Donepezil HCl 5 MG Tablet PO (20:53)
[2018-03-03] MEDS: Atorvastatin Calcium 20 MG Tablet PO (20:54)
[2018-03-03] MEDS: Sucralfate 1 GM Tablet PO (21:59)
[2018-03-04] VITALS (14 sets, daily range): BP systolic 100–145; BP diastolic 46–78; PULSE 58–76; RESP 16–20; TEMP 36.6–37.1; O2SAT 96–99; BMI 13.2
[2018-03-04 00:21] LABS: Bedside Glucose 98 mg/dL (70-110)
[2018-03-04 00:36] LABS: Bedside Glucose 83 mg/dL (70-110)
[2018-03-04] MEDS: Levothyroxine 125 MCG Tablet PO (06:31)
[2018-03-04] MEDS: Sucralfate 1 GM Tablet PO ×4 (06:31→20:58)
[2018-03-04 06:39] LABS: Anion Gap 7 (5-15); BUN 16 mg/dL (7-18); BUN/Creat Ratio 17.5 RATIO (10-20); Calcium,Total 8.2 mg/dL (8.5-10.1); Chloride 91 mmol/L (98-107); Creatinine, Serum 0.91 mg/dL (0.55-1.02); EST Glomerular Filtration Rate 63 mL/min (>60); Est Glom Filt Rate - Afr Amer 76 mL/min (>60); Estimated Creatinine Clearance 26.41 ml/min; Glucose 80 mg/dL (74-106); Sodium Level 125 mmol/L (136-145)
[2018-03-04 06:55] LABS: Bedside Glucose 92 mg/dL (70-110)
[2018-03-04 07:31] LABS: C-Peptide 2.3 ng/mL (1.1-4.4)
[2018-03-04] MEDS: Ferrous Gluconate 324 MG Tablet PO ×2 (07:56→17:10)
[2018-03-04] MEDS: Amiodarone 200 MG Tablet PO (07:56)
[2018-03-04] MEDS: Aspirin E.C. 81 MG Tablet PO (07:56)
[2018-03-04] MEDS: Furosemide 40 MG Tablet PO (07:57)
[2018-03-04] MEDS: Pantoprazole Sodium 40 MG Tablet PO (07:57)
[2018-03-04] MEDS: Clopidogrel Bisulfate 75 MG Tablet PO (07:57)
[2018-03-04] MEDS: Metoprolol Tartrate 50 MG Tablet PO ×2 (07:58→20:58)
[2018-03-04] MEDS: Cyanocobalamin 500 MCG Tablet 2500 MCG PO (07:58)
[2018-03-04] MEDS: Magnesium Oxide 400 MG Tablet PO (07:58)
[2018-03-04] MEDS: Lisinopril 20 MG Tablet PO (07:59)
--- NOTE | 2018-03-04 08:00 | PCM.PN.HOSP ---
Patient Problems: Active and Suspected Problems (Last Reviewed 03/02/18 @ 02:31 by Kel Mireles MD) Hypoglycemia (Acute) CVA (cerebral vascular accident) (Acute) Subjective: Responds to direct questions appropriately and will perform task if specifically directed, otherwise mumbles and conversation is unintelligible. No issues overnight but this morning she seems very sad and scared, I tried to redirect and even feed her without success. Vitals/I&O's: Vital Signs Temp Pulse Resp BP Pulse Ox 97.8 F 75 16 145/73 H 98 03/04/18 02:53 03/04/18 07:58 03/04/18 02:53 03/04/18 02:53 03/04/18 02:53 Oxygen Flow Rate (L/min) 2 Oxygen Delivery Method Room Air Weight: 77 lb 6.116 oz Body Mass Index (BMI) 13.2 Finger Stick Blood Glucose 46 Intake and Output for Last 24 Hours 03/02/18 03/03/18 03/04/18 23:59 23:59 23:59 Intake Total 1902 / 1902 210 / 2101 446 / 446 Output Total 300 / 300 0 / 0 Balance 1602 / 1602 210 / 2100 446 / 446 General: Alert, sad and confused this morning HEENT: Atraumatic, EOMI, Normocephalic Oral: Moist Mucosa Neck: Supple, No JVD Lungs: Clear to auscultation, Normal air movement, No rhonchi, No wheeze, No rales Cardiovascular: Regular rate, Regular Rhythm, Normal S1, Normal S2, No murmurs Abdomen: Soft, Non Tender, Non-Distended, No Hepato-splenomegaly Extremities: No edema, Capillary Refill Less than 3 Seconds Skin: No rashes, No breakdown Laboratory Results 03/02/18 06:56: C-Peptide 2.3 03/03/18 08:22: POC Glucose 69 L 03/03/18 12:56: POC Glucose 78 03/03/18 16:32: POC Glucose 60 L 03/03/18 20:30: POC Glucose 98 03/04/18 00:30: POC Glucose 83 03/04/18 04:26: POC Glucose 92 03/04/18 05:22: Sodium 125 L, Potassium 4.0, Chloride 91 L, Carbon Dioxide 27.0, Anion Gap 7, BUN 16, Creatinine 0.91, Estim Creat Clear Calc 26.41, Est GFR (MDRD) Af Amer 76, Est GFR (MDRD) Non-Af 63, BUN/Creatinine Ratio 17.5, Glucose 80, Calcium 8.2 L Current Medications Amiodarone HCl (Cordarone) 200 mg PO DAILY [facility] Last Admin: 03/04/18 07:56 Dose: 200 mg Aspirin (Ecotrin) 81 mg PO DAILY@0800 [facility] Last Admin: 03/04/18 07:56 Dose: 81 mg Atorvastatin Calcium (Lipitor) 20 mg PO QHS [facility] Last Admin: 03/03/18 20:54 Dose: 20 mg Cholecalciferol (Vitamin D) 1,000 unit PO DAILY [facility] Last Admin: 03/04/18 07:59 Dose: 1,000 unit Clopidogrel Bisulfate (Plavix) 75 mg PO DAILY [facility] Last Admin: 03/04/18 07:57 Dose: 75 mg Cyanocobalamin (Vitamin B12) 2,500 mcg PO DAILY [facility] Last Admin: 03/04/18 07:58 Dose: 2,500 mcg Donepezil HCl (Aricept) 5 mg PO QHS [facility] Last Admin: 03/03/18 20:53 Dose: 5 mg Ferrous Gluconate (Ferrous Gluconate) 324 mg PO BIDCM [facility] Last Admin: 03/04/18 07:56 Dose: 324 mg Furosemide (Lasix) 40 mg PO DAILY [facility] Last Admin: 03/04/18 07:57 Dose: 40 mg Heparin Sodium (Porcine) (Heparin Na) 5,000 unit SC Q12 [facility] Last Admin: 03/03/18 20:54 Dose: 5,000 unit Dextrose () 1,000 mls @ 60 mls/hr IV .[id number] [facility] Last Admin: 03/03/18 16:45 Dose: 60 mls/hr Levothyroxine Sodium (Synthroid) 125 mcg PO DAILY@0600 [facility] Last Admin: 03/04/18 06:31 Dose: 125 mcg Lisinopril (Zestril) 20 mg PO DAILY [facility] Last Admin: 03/04/18 07:59 Dose: 20 mg Magnesium Hydroxide (Milk Of Magnesia) 30 ml PO DAILY PRN PRN Reason: Constipation Magnesium Oxide (Mag-Ox 400) 400 mg PO DAILY [facility] Last Admin: 10/21/18 07:58 Dose: 400 mg Metoprolol Tartrate (Lopressor (Beta [place])) 50 mg PO BID [facility] Last Admin: 03/04/18 07:58 Dose: 50 mg Nutritional Formula (Lactose Free) (Ensure Enlive) 120 ml PO 4X/DAY [facility] Last Admin: 03/04/18 07:57 Dose: Not Given Pantoprazole Sodium (Protonix) 40 mg PO DAILY [facility] Last Admin: 03/04/18 07:57 Dose: 40 mg Potassium Chloride (K-Dur) 20 meq PO DAILYCM [facility] Last Admin: 03/04/18 07:56 Dose: 20 meq Sodium Chloride () 5 - 30 ml IV UD PRN PRN Reason: SALINE FLUSH Last Admin: 03/02/18 07:13 Dose: 10 ml Sucralfate (Carafate) 1 gm PO [id number] [facility] Last Admin: 03/04/18 06:31 Dose: 1 gm Medical Necessity - Tobacco Use Smoking Status: Never smoker Assessment/Plan All Active Problems (Last Reviewed 03/02/18 @ 02:31 by Kel Mireles MD) Hypoglycemia (Acute) CVA (cerebral vascular accident) (Acute) Esophageal foreign body (Acute) UDAY (acute kidney injury) (Acute) Acute systolic (congestive) heart failure (Resolved) 1. Dementia possibly worsening vs TIA/Debility - refuses MRI - Will continue with her medical management which she is already on at home - ASA/Plavix and a statin - c/w aricept - Of concern is her lack of appetite. He states that she eats well and we attempt to give her ensure which she does not take. I had a long discussion with the who understands that there may not be an explanation for why she is not eating other that worsening dementia. I offered remeron as a possible appetite stimulant which he refused. - Here she is requiring 2 people to steady her with a walker. I discussed that she would benefit from placement, which he also agrees to. Given our inability to improve her status, will convert to inpatient and have CM start on authorization for placement - Her TSH recently was close to normal and she is on synthroid, B12 a year ago was >2000 2. Ischemic cardiomyopathy without failure/HTN/HLD/Pulm HTN/A-fib/CAD s/p 3 stents - Will c/w amiodarone and her metoprolol and monitor - On review of her medical record she had 1st degree block on EKG at her cardiologists office at the end of january and her amio and metoprolol were continued at that time - No anticoagulation d/t fall risk - c/w asa/plavix and statin - Her troponin level is at the lowest it has ever been 3. Hypoglycemia and glycosuria/Protein malnutrition - The glucose in the urine was spurious and normal on repeat - She has needed a few D50 boluses during her stay and has been continued on D5NS - Proinsulin levels and C-peptide pending, insulin level is low normal - Likely d/t lack of intake - Albumin is 3.1 and pre-albumin is 19.1, very mild protein malnutrition at this time - C/w to encourage to eat 4. Hypothyroidism - Stable - c/w synthroid DVT: heparin Diet: Regular, pureed Code Visit Inpatient E&M: [id number] Subs Hosp L2
[2018-03-04] MEDS: Heparin Injection (Vial) 5,000 UNIT/ML VIAL 5000 UNIT SC ×2 (11:28→20:58)
[2018-03-04 11:40] LABS: Bedside Glucose 78 mg/dL (70-110)
[2018-03-04 16:55] LABS: Bedside Glucose 60 mg/dL (70-110)
[2018-03-04 20:15] LABS: Bedside Glucose 71 mg/dL (70-110)
[2018-03-04] MEDS: Atorvastatin Calcium 20 MG Tablet PO (20:58)
[2018-03-04] MEDS: 0.9% NaCl Peripheral Flush Adult/Peds IV (21:04)
[2018-03-04] MEDS: Donepezil HCl 5 MG Tablet PO (21:08)
[2018-03-05] VITALS (11 sets, daily range): BP systolic 99–136; BP diastolic 31–54; PULSE 50–60; RESP 16; TEMP 36.6–36.9; O2SAT 93–100
[2018-03-05 01:06] LABS: Bedside Glucose 70 mg/dL (70-110)
[2018-03-05 04:06] LABS: Bedside Glucose 69 mg/dL (70-110)
[2018-03-05 04:41] LABS: Bedside Glucose 83 mg/dL (70-110)
[2018-03-05] MEDS: Levothyroxine 125 MCG Tablet PO (06:23)
[2018-03-05] MEDS: Sucralfate 1 GM Tablet PO ×4 (06:23→20:45)
[2018-03-05 06:57] LABS: Anion Gap 9 (5-15); BUN 16 mg/dL (7-18); BUN/Creat Ratio 17.9 RATIO (10-20); Calcium,Total 8.7 mg/dL (8.5-10.1); Chloride 95 mmol/L (98-107); EST Glomerular Filtration Rate 64 mL/min (>60); Est Glom Filt Rate - Afr Amer 77 mL/min (>60); Glucose 67 mg/dL (74-106); Sodium Level 130 mmol/L (136-145)
[2018-03-05 07:01] LABS: Absolute Neutrophil Count 1.9 X10^3/uL (2.0-7.7); Basophil# 0.01 X10^3/uL; Basophil% 0.3 % (0-1); Eosinophil# 0.09 X10^3/uL; Eosinophils% 2.8 % (0-5); Hematocrit 29.5 % (37-47); Hemoglobin 9.5 g/dl (12.0-15.0); Lymphocyte % 18.6 % (19-41); Mean Corp Hgb Conc 32.2 g/gl (32-36); Mean Corpuscular Hgb 31.7 pg (27.0-32.0); Mean Corpuscular Volume 98.3 fL (81-99); Mean Platelet Vol. 9.1 fl (6.2-12.0); Monocyte# 0.59 X10^3/uL; Monocyte% 18.3 % (0-10); Neutrophil # 1.93 X10^3/uL (2.7-7.7); Neutrophil % 59.7 % (47-70); Platelet Count 281 K/mm3 (150-450); RBC Distribution Width CV 14.3 % (11.6-14.6); RBC Distribution Width SD 51.9 fl (35.1-43.9); White Blood Count 3.2 K/mm3 (4.4-11.0)
[2018-03-05 07:08] LABS: Differential Indicated SCAN CRITERIA MET; POSITIVE COUNT NO; POSITIVE DIFFERENTIAL YES; POSITIVE MORPHOLOGY NO
[2018-03-05 07:18] LABS: Differential Comment SCANNED
--- NOTE | 2018-03-05 08:13 | CPS ---
unable to get pulse ox reading....fingers cold. pt shows no signs of distress and is sitting up in chair eating breakfast.
[2018-03-05] MEDS: Ferrous Gluconate 324 MG Tablet PO ×2 (08:38→16:36)
[2018-03-05] MEDS: Heparin Injection (Vial) 5,000 UNIT/ML VIAL 5000 UNIT SC ×2 (08:38→20:46)
[2018-03-05] MEDS: Aspirin E.C. 81 MG Tablet PO (08:38)
[2018-03-05] MEDS: Amiodarone 200 MG Tablet PO (08:38)
[2018-03-05] MEDS: Furosemide 40 MG Tablet PO (08:39)
[2018-03-05] MEDS: Metoprolol Tartrate 50 MG Tablet PO (08:39)
[2018-03-05] MEDS: Pantoprazole Sodium 40 MG Tablet PO (08:40)
[2018-03-05] MEDS: Clopidogrel Bisulfate 75 MG Tablet PO (08:40)
[2018-03-05] MEDS: Magnesium Oxide 400 MG Tablet PO (08:40)
[2018-03-05] MEDS: Cyanocobalamin 500 MCG Tablet 2500 MCG PO (08:40)
[2018-03-05] MEDS: Lisinopril 20 MG Tablet PO (08:41)
[2018-03-05 09:00] LABS: Bedside Glucose 57 mg/dL (70-110)
--- NOTE | 2018-03-05 11:43 | PCM.PROGNOTE ---
<Arsenio Talbert - Last Filed: 03/05/18 11:43> Patient Problems: Active and Suspected Problems (Last Reviewed 03/02/18 @ 02:31 by Kel Mireles MD) CVA (cerebral vascular accident) (Acute) Subjective: Pt remains confused and anxious. She has difficulty expressing concerns. She speaks in short incomplete sentences. is present. He is interested in homegoing options. He notes she eats very little at home and he cannot get her to eat very much. She remains very weak, weaker than normal. She has no cough, SOB, swelling, CP, fever/chills, dizziness/lh today. She has no abdominal pain, she cannot remember when she had her last BM. No dysuria. - Physical Exam General: Alert, Cooperative, Confused HEENT: Atraumatic, PERRLA, EOMI, Normocephalic Neck: Supple, No JVD, Negative Carotid Bruits Lungs: Clear to auscultation, Normal air movement Cardiovascular: Regular rate, No murmurs Abdomen: Bowel Sounds Present, Soft, Non Tender Extremities: No edema, Capillary Refill Less than 3 Seconds Skin: No rashes, No breakdown Musculoskeletal: No Tenderness to Palpation of Joints or Extremities Neurological: Cranial nerves II-XII grossly intact Psych/Mental Status: Anxious, Depressed Vital Signs Temp Pulse Resp BP Pulse Ox 98.4 F 57 L 16 105/53 L 93 03/05/18 08:55 03/05/18 08:55 03/05/18 08:55 03/05/18 08:55 03/05/18 08:55 Oxygen Flow Rate (L/min) 2 Oxygen Delivery Method Room Air Weight: 77 lb 6.116 oz Body Mass Index (BMI) 13.2 Finger Stick Blood Glucose 46 Intake and Output for Last 24 Hours 03/03/18 03/04/18 03/05/18 23:59 23:59 23:59 Intake Total 2100 746 / 746 360 / 360 Output Total 0 / 0 650 / 650 Balance 2100 96 / 96 360 / 360 Laboratory Tests Past 24 Hrs 03/02/18 03/05/18 03/05/18 06:56 06:00 06:00 WBC 3.2 L RBC 3.00 L Hgb 9.5 L Hct 29.5 L MCV 98.3 MCH 31.7 MCHC 32.2 RDW 14.3 RDW Differential 51.9 H Plt Count 281 MPV 9.1 Immature Gran % (Auto) 0.300 Neut % (Auto) 59.7 Lymph % (Auto) 18.6 L [place] % (Auto) 18.3 H Eos % (Auto) 2.8 Baso % (Auto) 0.3 Absolute Neuts (auto) 1.9 L Absolute Lymphs (auto) 0.60 L Total Counted Not Reportable Differential Comment SCANNED Sodium 130 L Potassium 4.0 Chloride 95 L Carbon Dioxide 26.0 Anion Gap 9 BUN 16 Creatinine 0.90 Estim Creat Clear Calc 26.70 Est GFR (MDRD) Af Amer 77 Est GFR (MDRD) Non-Af 64 BUN/Creatinine Ratio 17.9 Glucose 67 L Calcium 8.7 Phosphorus Magnesium Miscellaneous Test Cancelled 03/05/18 03/05/18 06:00 09:26 WBC RBC Hgb Hct MCV MCH MCHC RDW RDW Differential Plt Count MPV Immature Gran % (Auto) Neut % (Auto) Lymph % (Auto) [place] % (Auto) Eos % (Auto) Baso % (Auto) Absolute Neuts (auto) Absolute Lymphs (auto) Total Counted Differential Comment Sodium Potassium Chloride Carbon Dioxide Anion Gap BUN Creatinine Estim Creat Clear Calc Est GFR (MDRD) Af Amer Est GFR (MDRD) Non-Af BUN/Creatinine Ratio Glucose Calcium Phosphorus Pending Magnesium Pending Miscellaneous Test Pending POC Glucose 03/05/18 03/05/18 03/05/18 08:46 04:35 03:59 POC Glucose 57 L 83 69 L 03/05/18 03/04/18 03/04/18 00:02 20:01 16:49 POC Glucose 70 71 60 L Medical Necessity - Tobacco Use Smoking Status: Never smoker Assessment/Plan All Active Problems (Last Reviewed 03/02/18 @ 02:31 by Kel Mireles MD) Hypoglycemia (Acute) CVA (cerebral vascular accident) (Acute) Esophageal foreign body (Acute) UDAY (acute kidney injury) (Acute) Acute systolic (congestive) heart failure (Resolved) 1. Acute metabolic encephalopathy 2/2 Hypoglycemia 2/2 malnutrition, decreased appetite, poor PO intake - resolved. Continue dietary supplements, encourage PO intake. refused remeron. CT with age related changes. refused MRI. TIA possible etiology, but less likely. Patient is on asa/plavix/statin. Insulin and C peptide are normal. Check TSH. 2. Dementia - progressively worsening contributing to above. Continue home meds. Hospice appropriate. 3. Severe protein calorie malnutrition - as above. check mag phos. Continue supplements, Vit D. 4. Hyponatremia - 2/2 IV fluids, fluids changed. 5. Ischemic CM, HTN, pulm HTN, Afib, CAD - stable. Conitnue home meds. No CP/SOB 6. Hypothyroidism - synthroid. Check TSH. DVT ppx: Heparin DC planning: SNF, HH, Home hospice all considerations. is considering options. This patient was seen by Arsenio Talbert PA-C under the supervision of Doctor Dillan. <Guanaco Grimaldo F - Last Filed: 03/05/18 16:28> - Physical Exam Vital Signs Temp Pulse Resp BP Pulse Ox 98.1 F 54 L 16 107/54 L 97 03/05/18 16:06 03/05/18 16:06 03/05/18 16:06 03/05/18 16:06 03/05/18 16:06 Oxygen Flow Rate (L/min) 2 Oxygen Delivery Method Room Air Weight: 77 lb 6.116 oz Body Mass Index (BMI) 13.2 Finger Stick Blood Glucose 46 Intake and Output for Last 24 Hours 03/03/18 03/04/18 03/05/18 23:59 23:59 23:59 Intake Total 2101 / 2101 746 / 746 600 / 600 Output Total 0 / 0 650 / 650 Balance 2101 / 2101 96 / 96 600 / 600 Laboratory Tests Past 24 Hrs 03/02/18 03/05/18 03/05/18 06:56 06:00 06:00 WBC 3.2 L RBC 3.00 L Hgb 9.5 L Hct 29.5 L MCV 98.3 MCH 31.7 MCHC 32.2 RDW 14.3 RDW Differential 51.9 H Plt Count 281 MPV 9.1 Immature Gran % (Auto) 0.300 Neut % (Auto) 59.7 Lymph % (Auto) 18.6 L [place] % (Auto) 18.3 H Eos % (Auto) 2.8 Baso % (Auto) 0.3 Absolute Neuts (auto) 1.9 L Absolute Lymphs (auto) 0.60 L Total Counted Not Reportable Differential Comment SCANNED Sodium 130 L Potassium 4.0 Chloride 95 L Carbon Dioxide 26.0 Anion Gap 9 BUN 16 Creatinine 0.90 Estim Creat Clear Calc 26.70 Est GFR (MDRD) Af Amer 77 Est GFR (MDRD) Non-Af 64 BUN/Creatinine Ratio 17.9 Glucose 67 L Calcium 8.7 Phosphorus Magnesium TSH Miscellaneous Test Cancelled 03/05/18 03/05/18 03/05/18 06:00 06:00 09:26 WBC RBC Hgb Hct MCV MCH MCHC RDW RDW Differential Plt Count MPV Immature Gran % (Auto) Neut % (Auto) Lymph % (Auto) [place] % (Auto) Eos % (Auto) Baso % (Auto) Absolute Neuts (auto) Absolute Lymphs (auto) Total Counted Differential Comment Sodium Potassium Chloride Carbon Dioxide Anion Gap BUN Creatinine Estim Creat Clear Calc Est GFR (MDRD) Af Amer Est GFR (MDRD) Non-Af BUN/Creatinine Ratio Glucose Calcium Phosphorus 3.8 Magnesium 1.7 TSH 3.27 Miscellaneous Test Pending 03/05/18 12:35 WBC RBC Hgb Hct MCV MCH MCHC RDW RDW Differential Plt Count MPV Immature Gran % (Auto) Neut % (Auto) Lymph % (Auto) [place] % (Auto) Eos % (Auto) Baso % (Auto) Absolute Neuts (auto) Absolute Lymphs (auto) Total Counted Differential Comment Sodium Potassium Chloride Carbon Dioxide Anion Gap BUN Creatinine Estim Creat Clear Calc Est GFR (MDRD) Af Amer Est GFR (MDRD) Non-Af BUN/Creatinine Ratio Glucose 161 H Calcium Phosphorus Magnesium TSH Miscellaneous Test POC Glucose 03/05/18 03/05/18 03/05/18 12:49 08:46 04:35 POC Glucose 161 H 57 L 83 03/05/18 03/05/18 03/04/18 03:59 00:02 20:01 POC Glucose 69 L 70 71 03/04/18 16:49 POC Glucose 60 L Code Visit Addendum: Dr. Grimaldo I personally examined the patient and reviewed the chart. I agree with the above. 1. Dementia possibly worsening vs TIA/Debility - refuses MRI - Will continue with her medical management which she is already on at home - ASA/Plavix and a statin - c/w aricept - Her TSH recently was close to normal and she is on synthroid, B12 a year ago was >2000 2. Ischemic cardiomyopathy without failure/HTN/HLD/Pulm HTN/A-fib/CAD s/p 3 stents - Will c/w amiodarone and her metoprolol and monitor - On review of her medical record she had 1st degree block on EKG at her cardiologists office at the end of january and her amio and metoprolol were continued at that time - No anticoagulation d/t fall risk - c/w asa/plavix and statin - Her troponin level is at the lowest it has ever been 3. Hypoglycemia and glycosuria/Protein malnutrition - The glucose in the urine was spurious and normal on repeat - She has needed a few D50 boluses during her stay and has been continued on D5NS - Proinsulin levels and C-peptide pending, insulin level is low normal - Likely d/t lack of intake - Albumin is 3.1 and pre-albumin is 19.1, very mild protein malnutrition at this time - C/w to encourage to eat 4. Hypothyroidism - Stable - c/w synthroid DVT: heparin Diet: Regular, pureed Inpatient E&M: 35512 Subs Hosp L2
[2018-03-05 11:53] LABS: Magnesium 1.7 mg/dL (1.6-2.6); Phosphorus 3.8 mg/dL (2.5-4.9)
[2018-03-05] MEDS: Dextrose 50%-Water 25 GM/50 ML DISP.SYRIN IV ×2 (12:13→12:14)
[2018-03-05 12:56] LABS: Bedside Glucose 161 mg/dL (70-110)
[2018-03-05 13:42] LABS: Glucose 161 mg/dL (74-106)
--- NOTE | 2018-03-05 14:32 | CASEMGMT ---
Addendum entered by Claudine Kumar 03/05/18 15:25: Return call from Pt spouse. SW spoke with him about d/c plan and recommendations for SNF at time of d/c. Pt spouse states he cannot care for pt at this time if pt continues to have issues with her blood sugar. SW presented options regarding SNF placement. would like pt to possibly go to [facility] but he would like to speak to pt prior to making a firm decision. Spouse will talk to pt tonight and notify SW of decision tomorrow. PARAMJIT Carbajal Original Note: Social Work SW met with pt in room. Pt alert and spoke with SW but unable to answer questions about homegoing plans. SW phoned pt and left VM requesting return call to discuss discharge plans. SW to continue to follow for d/c planning. PARAMJIT Carbajal
[2018-03-05 14:35] LABS: Thyroid Stim Hormone (TSH) 3.27 uIU/mL (0.358-3.74)
[2018-03-05 17:41] LABS: Bedside Glucose 102 mg/dL (70-110)
[2018-03-05] MEDS: Atorvastatin Calcium 20 MG Tablet PO (20:45)
[2018-03-05] MEDS: Donepezil HCl 5 MG Tablet PO (20:45)
[2018-03-05 22:16] LABS: Bedside Glucose 69 mg/dL (70-110)
[2018-03-05 22:51] LABS: Bedside Glucose 95 mg/dL (70-110)
[2018-03-06] VITALS (17 sets, daily range): BP systolic 95–130; BP diastolic 33–88; PULSE 52–67; RESP 16–18; TEMP 36.6–36.7; O2SAT 94–100
[2018-03-06 02:26] LABS: Bedside Glucose 80 mg/dL (70-110)
[2018-03-06 06:10] LABS: Bedside Glucose 48 mg/dL (70-110)
[2018-03-06] MEDS: Levothyroxine 125 MCG Tablet PO (06:11)
[2018-03-06] MEDS: Sucralfate 1 GM Tablet PO ×4 (06:11→21:57)
--- NOTE | 2018-03-06 06:14 | NURSING ---
blood sugar 48. Pt had blood drawn. apple sauce w 3 packetd of sugar given
[2018-03-06] MEDS: 0.9% NaCl Peripheral Flush Adult/Peds IV (06:44)
[2018-03-06 06:56] LABS: Bedside Glucose 49 mg/dL (70-110)
[2018-03-06 07:00] LABS: Bedside Glucose 107 mg/dL (70-110)
[2018-03-06 07:21] LABS: Anion Gap 8 (5-15); BUN 25 mg/dL (7-18); Calcium,Total 8.6 mg/dL (8.5-10.1); Chloride 95 mmol/L (98-107); Creatinine, Serum 0.96 mg/dL (0.55-1.02); EST Glomerular Filtration Rate 59 mL/min (>60); Est Glom Filt Rate - Afr Amer 71 mL/min (>60); Estimated Creatinine Clearance 25.04 ml/min; Glucose 71 mg/dL (74-106); Potassium 4.1 mmol/L (3.5-5.1); Sodium Level 132 mmol/L (136-145)
[2018-03-06 07:30] LABS: Bedside Glucose 41 mg/dL (70-110)
[2018-03-06 07:30] LABS: Bedside Glucose 16 mg/dL (70-110)
[2018-03-06 07:30] LABS: Bedside Glucose 19 mg/dL (70-110)
[2018-03-06 07:30] LABS: Bedside Glucose 50 mg/dL (70-110)
[2018-03-06] MEDS: Aspirin E.C. 81 MG Tablet PO (09:29)
[2018-03-06] MEDS: Ferrous Gluconate 324 MG Tablet PO ×2 (09:29→15:34)
[2018-03-06] MEDS: Amiodarone 200 MG Tablet PO (09:29)
[2018-03-06] MEDS: Magnesium Oxide 400 MG Tablet PO (09:30)
[2018-03-06] MEDS: Furosemide 40 MG Tablet PO (09:30)
[2018-03-06] MEDS: Clopidogrel Bisulfate 75 MG Tablet PO (09:30)
[2018-03-06] MEDS: Cyanocobalamin 500 MCG Tablet 2500 MCG PO (09:31)
[2018-03-06] MEDS: Lisinopril 20 MG Tablet PO (09:31)
[2018-03-06] MEDS: Pantoprazole Sodium 40 MG Tablet PO (09:31)
[2018-03-06] MEDS: Heparin Injection (Vial) 5,000 UNIT/ML VIAL 5000 UNIT SC ×2 (09:36→21:58)
[2018-03-06 09:46] LABS: Bedside Glucose 84 mg/dL (70-110)
[2018-03-06] MEDS: Metoprolol Tartrate 50 MG Tablet PO (10:58)
--- NOTE | 2018-03-06 11:14 | CASEMGMT ---
SW spoke with patient's son and regarding d/c plan. They told SW their two choices are [facility] and [facility]. SW told them SW will work on making these referrals and will get back with them. SW called [facility] and left a vm with referral and faxed over information. SW also called [facility] with referral and faxed referral. Johanna at [facility] said they do not have a contract with [facility], but they do have someone there on a one time contract agreement. Rajani CIFUENTES MSW
--- NOTE | 2018-03-06 12:30 | CASEMGMT ---
KATHRYN has not heard from [facility]. KATHRYN received call from [facility] and they are ok with taking her, but she will check with insurance to see if they will authorize one time contract. She will let KATHRYN know. Rajani CHAPPELL
[2018-03-06 12:45] LABS: Bedside Glucose 110 mg/dL (70-110)
--- NOTE | 2018-03-06 12:53 | PN_ITS ---
Addendum entered and electronically signed by MARIJA Madrid 03/06/18 14:24: Code Visit Addendum: Primary diagnosis is acute metabolic encephalopathy 2/2 hypoglycemic state complicated by underlying dementia, stroke ruled out. Original Note: <Arsenio Talbert - Last Filed: 03/06/18 14:24> Patient Problems: Active and Suspected Problems (Last Reviewed 03/02/18 @ 02:31 by Kel Mireles MD) CVA (cerebral vascular accident) (Acute) Subjective: Had episode of hypoglycemia about 1200 yesterday and was given d50 with good response. So far no hypoglycemic episodes. PO intake remains minimal. Pt resting comfortably in chair today no complaints. to decide on nursing facility today. Pt remains very confused and not forming complete thoughts verbally. - Physical Exam General: Alert, Cooperative, Confused, - - cachectic HEENT: Atraumatic, PERRLA, EOMI, Normocephalic Neck: Supple, No JVD, Negative Carotid Bruits Lungs: Clear to auscultation, Normal air movement Cardiovascular: Regular rate, No murmurs Abdomen: Bowel Sounds Present, Soft, Non Tender Extremities: No edema, Capillary Refill Less than 3 Seconds Skin: No rashes, No breakdown Musculoskeletal: No Tenderness to Palpation of Joints or Extremities Neurological: Cranial nerves II-XII grossly intact Psych/Mental Status: Normal Affect, Anxious Vital Signs Temp Pulse Resp BP Pulse Ox 97.9 F 54 L 18 121/64 H 96 03/06/18 08:18 03/06/18 12:15 03/06/18 08:18 03/06/18 08:18 03/06/18 08:18 Oxygen Flow Rate (L/min) 2 Oxygen Delivery Method Room Air Weight: 77 lb 6.116 oz Body Mass Index (BMI) 13.2 Finger Stick Blood Glucose 46 Intake and Output for Last 24 Hours 03/04/18 03/05/18 03/06/18 23:59 23:59 23:59 Intake Total 746 / 746 1040 / 1040 220 / 220 Output Total 650 / 650 150 / 150 Balance 96 / 96 890 / 890 220 / 220 Laboratory Tests Past 24 Hrs 03/05/18 03/05/18 03/06/18 06:00 12:35 05:40 Sodium 132 L Potassium 4.1 Chloride 95 L Carbon Dioxide 29.0 Anion Gap 8 BUN 25 H Creatinine 0.96 Estim Creat Clear Calc 25.04 Est GFR (MDRD) Af Amer 71 Est GFR (MDRD) Non-Af 59 L BUN/Creatinine Ratio 26.0 H Glucose 161 H 71 L Calcium 8.6 TSH 3.27 POC Glucose 03/06/18 03/06/18 03/06/18 12:40 09:28 06:57 POC Glucose 110 84 107 03/06/18 03/06/18 03/06/18 06:28 06:05 02:10 POC Glucose 49 L 48 L 80 03/05/18 03/05/18 03/05/18 22:46 20:33 17:36 POC Glucose 95 69 L 102 03/05/18 03/05/18 03/05/18 16:40 16:38 12:49 POC Glucose 50 L 41 L* 161 H 03/05/18 03/05/18 12:03 12:02 POC Glucose 19 L* 16 L* Medical Necessity - Tobacco Use Smoking Status: Never smoker Assessment/Plan All Active Problems (Last Reviewed 03/02/18 @ 02:31 by Kel Mireles MD) Hypoglycemia (Acute) CVA (cerebral vascular accident) (Acute) Esophageal foreign body (Acute) UDAY (acute kidney injury) (Acute) Acute systolic (congestive) heart failure (Resolved) 1. Acute metabolic encephalopathy 2/2 Hypoglycemia 2/2 malnutrition, decreased appetite, poor PO intake - Episodes of hypoglycemia continue periodically. refused remeron. Pt continues to have minimal PO intake. Will need supervision to closely monitor eating and blood sugars. 2. Dementia - progressively worsening contributing to above. Continue home meds. Hospice appropriate. 3. Severe protein calorie malnutrition - supplement, support electrolyte disturbances as needed. 4. Hyponatremia - improved 5. Ischemic CM, HTN, pulm HTN, Afib, CAD - stable. Conitnue home meds. No CP/SOB 6. Hypothyroidism - synthroid. Check TSH. DVT ppx: Heparin DC planning: SNF placement. This patient was seen by Arsenio Talbert PA-C under the supervision of Doctor Dillan. <Guanaco Grimaldo F - Last Filed: 03/06/18 15:37> - Physical Exam Vital Signs Temp Pulse Resp BP Pulse Ox 98.1 F 67 18 121/49 H 95 03/06/18 14:57 10/23/18 14:57 03/06/18 14:57 03/06/18 14:57 03/06/18 14:57 Oxygen Flow Rate (L/min) 2 Oxygen Delivery Method Room Air Weight: 77 lb 6.116 oz Body Mass Index (BMI) 13.2 Finger Stick Blood Glucose 46 Intake and Output for Last 24 Hours 03/04/18 03/05/18 03/06/18 23:59 23:59 23:59 Intake Total 746 / 746 1040 / 1040 220 / 220 Output Total 650 / 650 150 / 150 Balance 96 / 96 890 / 890 220 / 220 Laboratory Tests Past 24 Hrs 03/06/18 05:40 Sodium 132 L Potassium 4.1 Chloride 95 L Carbon Dioxide 29.0 Anion Gap 8 BUN 25 H Creatinine 0.96 Estim Creat Clear Calc 25.04 Est GFR (MDRD) Af Amer 71 Est GFR (MDRD) Non-Af 59 L BUN/Creatinine Ratio 26.0 H Glucose 71 L Calcium 8.6 POC Glucose 03/06/18 03/06/18 03/06/18 12:40 09:28 06:57 POC Glucose 110 84 107 03/06/18 03/06/18 03/06/18 06:28 06:05 02:10 POC Glucose 49 L 48 L 80 03/05/18 03/05/18 03/05/18 22:46 20:33 17:36 POC Glucose 95 69 L 102 03/05/18 03/05/18 03/05/18 16:40 16:38 12:03 POC Glucose 50 L 41 L* 19 L* 03/05/18 12:02 POC Glucose 16 L* Code Visit Addendum: Dr. Grimaldo I personally examined the patient and reviewed the chart. I agree with the above. 82-year-old female presenting with confusion, weakness, and hypoglycemia. She has a baseline dementia, and has malnutrition also at baseline with a low albumin and prealbumin. She has been extensively worked up for her hypoglycemia, and has not been found to be either due to elevated insulin levels, or sugar lowering medications. I feel that her hypoglycemia is mostly due to her lack of appetite. Family would not like to pursue Remeron at this time to stimulate her appetite. Currently looking for SNF placement. Inpatient E&M: 99773 Subs Hosp L2
[2018-03-06] MEDS: 0.9% Normal Saline 1,000 ML 250 ML IV (14:36)
[2018-03-06 16:06] LABS: Bedside Glucose 90 mg/dL (70-110)
[2018-03-06 20:55] LABS: Bedside Glucose 136 mg/dL (70-110)
[2018-03-06] MEDS: Atorvastatin Calcium 20 MG Tablet PO (21:58)
[2018-03-06] MEDS: Donepezil HCl 5 MG Tablet PO (21:58)
[2018-03-07] VITALS (7 sets, daily range): BP systolic 93–144; BP diastolic 43–54; PULSE 54–58; RESP 16–18; TEMP 36.4–36.7; O2SAT 98–100
[2018-03-07 00:51] LABS: Bedside Glucose 94 mg/dL (70-110)
[2018-03-07 04:25] LABS: Bedside Glucose 71 mg/dL (70-110)
[2018-03-07] MEDS: Levothyroxine 125 MCG Tablet PO (05:38)
[2018-03-07] MEDS: Sucralfate 1 GM Tablet PO ×2 (05:38→11:16)
[2018-03-07 07:05] LABS: Bedside Glucose 102 mg/dL (70-110)
[2018-03-07] MEDS: Ferrous Gluconate 324 MG Tablet PO (09:10)
[2018-03-07] MEDS: Pantoprazole Sodium 40 MG Tablet PO (09:10)
[2018-03-07] MEDS: Amiodarone 200 MG Tablet PO (09:11)
[2018-03-07] MEDS: Magnesium Oxide 400 MG Tablet PO (09:11)
[2018-03-07] MEDS: Clopidogrel Bisulfate 75 MG Tablet PO (09:11)
[2018-03-07] MEDS: Cyanocobalamin 500 MCG Tablet 2500 MCG PO (09:12)
[2018-03-07] MEDS: Aspirin E.C. 81 MG Tablet PO (09:13)
[2018-03-07] MEDS: Heparin Injection (Vial) 5,000 UNIT/ML VIAL 5000 UNIT SC (09:15)
[2018-03-07 10:00] LABS: Bedside Glucose 80 mg/dL (70-110)
--- NOTE | 2018-03-07 10:13 | CASEMGMT ---
Patient is ready for d/c today. KATHRYN did receive a call from [facility] and they can take patient. KATHRYN also received a call from Johanna at [facility] and they can take patient and [employer] gave them the one time contract. KATHRYN called patient's son, Conner and let him know. He said they will probably transport her. KATHRYN also called patient's per the son's request. Patient's other son, Dane answered the phone and said he would tell patient's . He said he will be in to the hospital today. KATHRYN called Adriane at [facility] and left her a vm letting her know that patient is going to [facility] at d/c. Plan: d/c to [facility] under skilled level of care on a convalescent stay. Family is stating they will transport patient. Rajani CHAPPELL
--- NOTE | 2018-03-07 11:28 | PCM.TXEXTCAR ---
- Diet 03/02/18 11:23 Diet: Regular Diet Food consistency:: Puree Liquid Consistency:: Regular/Thin Dietary Modifications:: Pureed Diet Is pt able to select menu?: No Diet Comments: Supervision by staff / family, seated in chair, crush meds in applesauce - Routine Orders/Code Status Routine Lab Work: CBC - 1 week, BMP - 1 week Code Status: Full Code - Wound(s) RIGHT HEEL Wound Type: Pressure Injury BUTTOCKS Wound Type: Pressure Injury - Therapies Physical Therapy: Eval and Treat Occupational Therapy: Eval and Treat Speech Therapy: Eval and Treat - Problem/Diagnosis (1) Hypoglycemia Status: Acute Current Visit: No (2) Adult BMI <19 kg/sq m Status: Chronic Current Visit: No (3) Dementia Status: Chronic Current Visit: No (4) Essential (primary) hypertension Status: Chronic Current Visit: No (5) Hyperlipidemia Status: Chronic Current Visit: No (6) Hypothyroidism Status: Chronic Current Visit: No (7) Malnutrition Status: Chronic Current Visit: No (8) Paroxysmal atrial fibrillation Status: Chronic Current Visit: No (9) Pulmonary hypertension Status: Chronic Current Visit: No (10) Dysphagia Status: Chronic Current Visit: Yes - Allergies/Procedures Done in Hospital Allergies/Adverse Reactions: Allergies tuberculin,PPD,multi-puncture Adverse Reaction (Verified 03/01/18 22:48) Unknown caused big blister on lip Procedures: None - Type of Care/Length of Stay Estimated LOS: Convalescent Care Less Than 30 days Type of Care Needed: Skilled Rehab Potential: Fair Prognosis: Fair - Additional Orders/Day of Discharge Day of Discharge: 03/07/18 - Dietary and Speech Recommendations Dietitian Recommendations/Changes: Rec TF support for nutrition as PO is inadequate & negligible to meet est. nutrition needs. Please check daily wt. Pt mostly refusing ONS but, will continue with meals as tolerated. - Follow Up Care Primary Care Physician: Augie Rajan Chi, MD [Primary Care Provider] - Please follow up with your Primary Care Physician in: 2 weeks
--- NOTE | 2018-03-07 13:48 | CASEMGMT ---
Faxed orders to [facility] at [place]. Completed convalescent on HENS. SW spoke with patient's and he said he will call his son to come and pick them up. KATHRYN let RN know patient is okay to go to [facility]. Plan: d/c to [facility] under skilled level of care on a convalescent stay. Patient's family transported her via private vehicle. Rajani CHAPPELL
--- NOTE | 2018-03-07 14:14 | DS.PCM_ITS ---
<Arsenio Talbert - Last Filed: 03/07/18 14:17> Discharge Date and Diagnosis Date of Admission: 03/02/18 Date of Discharge: 03/07/18 - Primary Discharge Diagnosis Active and Suspected Problems (Last Reviewed 03/02/18 @ 02:31 by Kel Mireles MD) Acute metabolic encephalopathy secondary to hypoglycemia secondary to poor, inadequate p.o. intake. CVA (cerebral vascular accident) (Acute) ruled out Progressively worsening dementia Dysphagia Severe protein calorie malnutrition Hyponatremia History of ischemic cardiomyopathy, hypertension, pulmonary hypertension, atrial fibrillation, coronary artery disease Hypothyroidism - Secondary Discharge Diagnosis Chronic Problems (Last Reviewed 03/02/18 @ 02:31 by Kel Mireles MD) Dysphagia (Chronic) Hypertension (Chronic) Ischemic cardiomyopathy (Chronic) Presence of stent in coronary artery (Chronic) PTCA/DONNELL to proximal LCx in September 2016; PTCA/DONNELL to PDA and PTCA of PLVB on November 17, 2016; PCI with PTCA to ostial diagonal and PTCA/DONNELL to proximal LAD in November 29, 2016; 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 coronary artery of [place] heart without angina pectoris (Chronic) Essential (primary) hypertension (Chronic) Pulmonary hypertension (Chronic) Malnutrition (Chronic) Dementia (Chronic) Chronic anemia (Chronic) Paroxysmal atrial fibrillation (Chronic) Hyperlipidemia (Chronic) NSTEMI (non-ST elevated myocardial infarction) (Chronic) NSTEMI December 2016 ST elevation (STEMI) myocardial infarction involving left circumflex coronary artery (Chronic) stent 09/24/16 Hypothyroidism (Chronic) Adult BMI <19 kg/sq m (Chronic) Hospital Course and Treatment Imaging Results: CT/Brain/Head without Contrast IMPRESSION: Stable age-related and chronic changes of the brain. RAD/Chest 1 View IMPRESSION: Stable COPD, osteopenia, atherosclerosis. Mild cardiac enlargement, exam. No pulmonary edema, congestive heart failure or confluent pneumonia. Operations: None Procedures: None Summary of Care Provided: Hospital course: The patient is a 82 year old F with a pmhx of CKDIV, ischemic CM, PAfib, hypothyroidism, HTN, dementia, hypothyroidism, chronic anemia, who presented to the ER with c/o confusion and garbled speech. She was found to be hypoglycemic at 18 which responded well to D50. She remained confused but has significant underlying dementia. She has not been eating or drinking very much at all lately per her . She was admitted to the PCU on tele to rule about concomitant CVA. CT brain was negative. refused MRI. Remeron was recommended for appetite stimulation. refused this as well. She was significantly malnourished with a BMI of 13. She was given supplements and encouraged to eat. She was seen by speech and placed on modified diet for some underlying dysphagia. She continued to eat poorly and had several more hypoglycemic episodes requiring d50. She went as low at 17 without developing typical symptoms of hypoglycemia, however this is masked by her chronic confusions. She was advised to be placed in shelter given her ongoing need for close monitoring of PO intake and glucose, and the did admit that he did not feel comfortable taking care of this at home. Also of note lisinopril was decreased while here for hypertension. She was discharged to shelter in stable condition and will need PTOT and ST, modified diet, suppelements, and monitoring of PO intake and blood sugar. Follow up with PCP in 2 weeks. This patient was seen by Arsenio Talbert PA-C under the supervision of Doctor Grimaldo. [] - Physical Exam General: Alert, Cooperative, Confused - Unable to formulate full sentences, speaks incoherently, - - Cachectic HEENT: Atraumatic, PERRLA, EOMI, Normocephalic Neck: Supple, No JVD, Negative Carotid Bruits Lungs: Clear to auscultation, Normal air movement Cardiovascular: Regular rate, No murmurs Abdomen: Bowel Sounds Present, Soft, Non Tender Extremities: No edema, Capillary Refill Less than 3 Seconds Skin: No rashes, No breakdown Musculoskeletal: No Tenderness to Palpation of Joints or Extremities Neurological: Cranial nerves II-XII grossly intact Psych/Mental Status: Normal Affect, Appropriate, Alert and oriented to time, place, person, mood and affect Vital Signs Temp Pulse Resp BP Pulse Ox 97.8 F 56 L 17 93/43 L 99 03/07/18 08:58 03/07/18 11:52 03/07/18 08:58 03/07/18 08:58 03/07/18 08:58 Oxygen Flow Rate (L/min) 2 Oxygen Delivery Method Room Air Weight: 77 lb 6.116 oz Body Mass Index (BMI) 13.2 Finger Stick Blood Glucose 46 Intake and Output for Last 24 Hours 03/05/18 03/06/18 03/07/18 23:59 23:59 23:59 Intake Total 1040 / 1040 820 / 820 150 / 150 Output Total 150 / 150 800 / 800 Balance 890 / 890 820 / 820 -650 / -650 Laboratory Tests Past 24 Hrs 03/02/18 06:56 Miscellaneous Test POC Glucose 03/07/18 03/07/18 03/07/18 09:48 05:04 04:20 POC Glucose 80 102 71 03/07/18 03/06/18 03/06/18 00:48 20:13 16:01 POC Glucose 94 136 H 90 Discharge Diet: No Restrictions, - - Supervised meals, encourage p.o. intake, monitor blood sugar. Modify diet as directed by speech therapy: Pur?ed consistency regular thin liquids okay. Crush meds in applesauce Discharge Activity: Return to Normal Activity Home Medications: Medications to take at Discharge Levothyroxine Sodium 125 mcg PO DAILY 05/31/16 Aspirin E.C. [Ecotrin] 81 mg PO DAILY@0800 tab 09/26/16 Ferrous Gluconate 325 mg PO BIDCM 02/03/17 Donepezil HCl [Aricept] 5 mg PO QHS tab 02/08/17 atorvastatin 20 mg tablet 20 mg PO QHS #90 tab 05/19/17 pantoprazole 40 mg tablet,delayed release 40 mg PO DAILY #90 tab 05/19/17 Cholecalciferol (VIT D3) [Vitamin D3] 1,000 unit PO DAILY 07/07/17 Cyanocobalamin (Vitamin B-12) [Vitamin B12] 2,500 mcg PO DAILY 07/07/17 clopidogrel 75 mg tablet 75 mg PO DAILY #90 tab 11/23/17 amiodarone 200 mg tablet 200 mg PO DAILY #90 tab MDD 1/2 tablet a day 02/07/18 furosemide 40 mg tablet 20 mg PO QDAY 02/07/18 magnesium oxide 400 mg capsule 400 mg PO DAILY cap 02/07/18 metoprolol tartrate 50 mg tablet 50 mg PO BID #180 tab MDD 1/2 tablet twice a day 02/07/18 potassium chloride ER 20 mEq tablet,extended release 20 meq PO DAILY #90 tab 02/19/18 Lisinopril [Zestril] 10 mg PO DAILY tablet 03/07/18 Magnesium Hydroxide [Milk Of Magnesia] 30 ml PO DAILY PRN udc 03/07/18 Sucralfate [Carafate] 1 gm PO 1HR_ACHS tablet 03/07/18 Primary Care Physician: Augie Rajan Chi, MD [Primary Care Provider] - Please follow up with your Primary Care Physician in: 2 weeks Disposition: [facility] facility Minutes spent on discharge:: 35 Patient Condition:: Stable Medical Necessity - Tobacco Use Smoking Status: Never smoker Meaningful Use Info Meaningful Use Diagnoses (Choose all that apply): None applicable <[place] Grimaldo - Last Filed: 03/07/18 15:28> Discharge Date and Diagnosis - Secondary Discharge Diagnosis Chronic Problems (Last Reviewed 03/02/18 @ 02:31 by Kel Mireles MD) Dysphagia (Chronic) Hypertension (Chronic) Ischemic cardiomyopathy (Chronic) Presence of stent in coronary artery (Chronic) PTCA/DONNELL to proximal LCx in September 2016; PTCA/DONNELL to PDA and PTCA of PLVB on November 17, 2016; PCI with PTCA to ostial diagonal and PTCA/DONNELL to proximal LAD in November 29, 2016; 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 coronary artery of [place] heart without angina pectoris (Chronic) Essential (primary) hypertension (Chronic) Pulmonary hypertension (Chronic) Malnutrition (Chronic) Dementia (Chronic) Chronic anemia (Chronic) Paroxysmal atrial fibrillation (Chronic) Hyperlipidemia (Chronic) NSTEMI (non-ST elevated myocardial infarction) (Chronic) NSTEMI December 2016 ST elevation (STEMI) myocardial infarction involving left circumflex coronary artery (Chronic) stent 09/24/16 Hypothyroidism (Chronic) Adult BMI <19 kg/sq m (Chronic) Hospital Course and Treatment Summary of Care Provided: The patient is a 82 year old F [] - Physical Exam Vital Signs Temp Pulse Resp BP Pulse Ox 98.0 F 58 L 18 144/54 H 98 03/07/18 14:00 03/07/18 14:00 03/07/18 14:00 03/07/18 14:00 03/07/18 14:00 Oxygen Flow Rate (L/min) 2 Oxygen Delivery Method Room Air Weight: 77 lb 6.116 oz Body Mass Index (BMI) 13.2 Finger Stick Blood Glucose 46 Intake and Output for Last 24 Hours 10/22/18 10/23/18 10/24/18 23:59 23:59 23:59 Intake Total 1040 / 1040 820 / 820 150 / 150 Output Total 150 / 150 800 / 800 Balance 890 / 890 820 / 820 -650 / -650 Laboratory Tests Past 24 Hrs 03/02/18 06:56 Miscellaneous Test POC Glucose 03/07/18 03/07/18 03/07/18 14:16 13:49 13:18 POC Glucose 76 42 L* 53 L 03/07/18 03/07/18 03/07/18 09:48 05:04 04:20 POC Glucose 80 102 71 03/07/18 03/06/18 03/06/18 00:48 20:13 16:01 POC Glucose 94 136 H 90 Code Visit Addendum: Dr. Grimaldo I personally examined the patient and reviewed the chart. I agree with the above. 82-year-old female with a history of dementia, stage IV kidney disease, chronic left hip pain, paroxysmal A. fib, ischemic cardiomyopathy status post stent, hypothyroidism, and hypertension who presented with decreased response an d weakness. She had a brain CT on admission which was negative for stroke and was found to be significantly hypoglycemic at times with a blood sugar of 16-19. At that time she would be asymptomatic and will respond with an amp of D50. She was maintained on D5 W at 100 however she developed hyponatremia and that had to be discontinued. The workup for stroke was limited because the refused to have her undergo an MRI. This was felt that a lot of her symptomatology was due to her significant hypoglycemia. She had a C-peptide and proinsulin level ordered which were both normal not indicating hyperinsulinemia or insulinoma. Will be to discharge to a detention for rehab prior to going home. Inpatient E&M: [id number] Disch Hosp
[2018-03-07 14:21] LABS: Bedside Glucose 76 mg/dL (70-110)
[2018-03-07 14:21] LABS: Bedside Glucose 53 mg/dL (70-110)
[2018-03-07 14:21] LABS: Bedside Glucose 42 mg/dL (70-110)
--- NOTE | 2018-03-07 14:45 | NURSING ---
Attempted to call report to receiving RN at the [facility]. was sent to [place]. left message for admissions nurse with return phone number for this RN. Luis Alberto ALVARENGA
== END 2018-03-07 14:30 | disposition skilled nursing facility (03) | DRG 70 ==
LOC: ED 23:11 → PCU 03-02 01:36
PROVIDERS: Physician Assistant; Admitting Provider Hospitalist; Emergency Provider Emergency Medicine; Family Provider Family Medicine Geriatric Medicine; PCP Family Medicine Geriatric Medicine; Visit Provider Family Medicine
DX: G93.41 Metabolic encephalopathy (principal); E43 Unspecified severe protein-calorie malnutrition; Z68.1 Body mass index [BMI] 19.9 or less, adult; E87.1 Hypo-osmolality and hyponatremia; I25.5 Ischemic cardiomyopathy; Z95.5 Presence of coronary angioplasty implant and graft; I25.10 Atherosclerotic heart disease of native coronary artery without angina pectoris; E03.9 Hypothyroidism, unspecified; E78.5 Hyperlipidemia, unspecified; F03.90 Unspecified dementia, unspecified severity, without behavioral disturbance, psychotic disturbance, mood disturbance, and anxiety; I27.20 Pulmonary hypertension, unspecified; E16.2 Hypoglycemia, unspecified; I48.91 Unspecified atrial fibrillation; R13.10 Dysphagia, unspecified; I25.2 Old myocardial infarction
CPT/HCPCS: 36415; 70450; 71045; 80048; 80061; 81001; 82040; 82947; 82962; 83036; 83525; 83735; 84100; 84134; 84443; 84484; 84681; 85025; 85610; 85730; 92526; 93005; 97110; 97162; 97165; 97530; 97535; 97802; 99284; J7030; J7040; A4216

== ENCOUNTER → 2018-03-12 04:00 | Outpatient (REF) | payer MEDICARE, SELFPAY ==
[2016-11-30 11:50] VITALS: BMI 16.0
[2018-03-12 07:49] LABS: Cholesterol 148 mg/dL (200); High Density Lipoprotein 68 mg/dL; Thyroid Stim Hormone (TSH) 4.32 uIU/mL (0.358-3.74); Triglycerides 53 mg/dL; Very Low Density Lipoprotein 11 mg/dL (5-40)
[2018-03-12 08:34] LABS: Vitamin D,25 Hydroxy 25.2 ng/mL (29.95-100.01)
== END ==
LOC: OLS.AVEB 04:00
PROVIDERS: Visit Provider Family Medicine
DX: I27.20 Pulmonary hypertension, unspecified (principal); E03.9 Hypothyroidism, unspecified; D63.8 Anemia in other chronic diseases classified elsewhere
CPT/HCPCS: 36415; 80061; 82306; 84443

== ENCOUNTER 2018-04-19 15:33 | Observation (INO) | payer MEDICARE, SELFPAY ==
[2016-11-30 11:50] VITALS: BMI 16.0
[2018-04-19] VITALS (7 sets, daily range): BP systolic 118–140; BP diastolic 30–51; PULSE 42–57; RESP 9–20; TEMP 36.4–36.8; O2SAT 95–100; BMI 14.7; BMI 14.1
--- NOTE | 2018-04-19 15:49 | EKG12_ITS ---
Test Reason : SYNCOPE Blood Pressure : / mmHG Vent. Rate : 046 BPM Atrial Rate : 046 BPM P-R Int : 250 ms QRS Dur : 080 ms QT Int : 532 ms P-R-T Axes : 114 -69 099 degrees QTc Int : 465 ms Sinus bradycardia with sinus arrhythmia with 1st degree A-V block Left anterior fascicular block ST & T wave abnormality, consider lateral ischemia Abnormal ECG Confirmed by BRAYAN ROJO, ESTELA ([id number]), image editor SHARMILA MURCIA ([id number]) on 04/23/2018 2:45:55 PM Referred By: MARI Confirmed By:ESTELA SCHMIDT MD
--- NOTE | 2018-04-19 15:55 | RAD_ITS ---
STUDY: X-RAY CHEST REASON FOR EXAM: Female, 83 years old. Syncopal episode. History of dementia. TECHNIQUE: Single AP portable upright view of the chest. The patient is mildly rotated to the right. COMPARISON: Upright AP chest x-ray March 01, 2018. FINDINGS: The lungs are clear and moderately expanded. There is no demonstrated pleural abnormality. The heart size is upper normal. Normal mediastinum and marcella. Normal visualized pulmonary arteries. There is stable atherosclerotic calcification of the aortic arch. There are stable degenerative changes at a few levels of the visualized lower thoracic spine. Stable old healed fracture deformities of the posterolateral left eighth and ninth ribs. 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 Surgical clips consistent with prior cholecystectomy project in the right upper quadrant of the abdomen. RAD/Chest 1 View (Portable) IMPRESSION: No acute cardiopulmonary disease. Electronically Signed: Avinash Jacques MD at 16:12 EST , Service support ,
[2018-04-19] MEDS: Aspirin 81 MG TAB.CHEW 324 MG PO (15:56)
[2018-04-19 16:06] LABS: Absolute Lymphocyte Count 0.76 X10^3/ul (0.83-4.51); Absolute Neutrophil Count 2.6 X10^3/uL (2.0-7.7); Basophil# 0.02 X10^3/uL; Basophil% 0.5 % (0-1); Eosinophil# 0.09 X10^3/uL; Eosinophils% 2.2 % (0-5); Hemoglobin 9.4 g/dl (12.0-15.0); Lymphocyte # 0.76 X10^3/ul (4.0); Lymphocyte % 18.5 % (19-41); Mean Corp Hgb Conc 31.3 g/gl (32-36); Mean Corpuscular Hgb 31.5 pg (27.0-32.0); Mean Corpuscular Volume 100.7 fL (81-99); Mean Platelet Vol. 8.9 fl (6.2-12.0); Monocyte# 0.66 X10^3/uL; Monocyte% 16.1 % (0-10); Neutrophil # 2.58 X10^3/uL (2.7-7.7); Neutrophil % 62.7 % (47-70); Platelet Count 249 K/mm3 (150-450); RBC Distribution Width CV 14.3 % (11.6-14.6); RBC Distribution Width SD 51.7 fl (35.1-43.9); Red Blood Count 2.98 M/mm3 (4.2-5.4); White Blood Count 4.1 K/mm3 (4.4-11.0)
[2018-04-19 16:07] LABS: POSITIVE COUNT NO; POSITIVE DIFFERENTIAL NO; POSITIVE MORPHOLOGY NO
[2018-04-19 16:26] LABS: Anion Gap 5 (5-15); BUN 40 mg/dL (7-18); BUN/Creat Ratio 27.4 RATIO (10-20); Calcium,Total 8.6 mg/dL (8.5-10.1); Chloride 101 mmol/L (98-107); Creatinine, Serum 1.46 mg/dL (0.55-1.02); EST Glomerular Filtration Rate 36 mL/min (>60); Est Glom Filt Rate - Afr Amer 44 mL/min (>60); Estimated Creatinine Clearance 16.87 ml/min; Glucose 75 mg/dL (74-106); Potassium 5.9 mmol/L (3.5-5.1); Sodium Level 135 mmol/L (136-145)
[2018-04-19 16:39] LABS: BNP,B-Type NATRIURETIC PEPTIDE 337.5 pg/mL (0-100)
--- NOTE | 2018-04-19 17:04 | ED.VISSUMM ---
- ER Visit Summary Date of Service: 04/19/18 Chief Complaint: [] Syncope x2 History of Present Illness: The patient is a 83 F [] history of heart disease A. fib reports that she had syncope x2 at nursing center she apparently had syncope 2 or 3 days ago at nursing Center her workup there was unremarkable, per the she was simply sitting in her wheelchair when she passed out twice for about 10 seconds each, she had no muscle movement during these episodes or incontinence or tongue biting. She woke after about 10-20 seconds, she has not been ill in any way with no fever cough chest pain normal bowel bladder habits no new medications Physical Examination: [] Heart rate is about 50 she appears to have A. fib but a baseline underlying sinus rhythm her blood pressure is 120/80 she is awake and alert now General, no distress resting comfortably HEENT is generally unremarkable The neck is supple no adenopathy Cardiovascular, irregular rate and rhythm, anywhere from 45-55 Lungs, clear bilateral Abdomen, soft nontender Extremities, no clubbing cyanosis or edema Neurologic, awake alert answering questions appropriately moving all 4 extremities NIH is 0, per she is at her mental status and neurologic baseline EKG shows a sinus rhythm with a first-degree block but on the monitor she appears to be going in and out of A. fib and there is some history to support A. fib Given all the above screening labs are obtained, screening labs are generally unremarkable her troponin returns at 0.06, chest x-ray unremarkable, EKG again showed nothing acute, she is remained stable here in the department he was dynamically stable, I spoke with the hospitalist above I see her for admission Test Results: [] Emergency Department Course and Treatment: [] Treatment Plan: [] Disposition: [] Admit stable Impression: [] Syncope x2, A. fib, abnormal troponin This note was generated with [employer] software. It may contain incorrect words, spelling, and punctuation that were not noted in review of the chart prior to signing ED Disposition - Plan for ED Patient: Chief Complaint: Syncope Referrals: Augie Rajan Chi, MD [Primary Care Provider] -
--- NOTE | 2018-04-19 17:25 | PCM.HP.STD ---
History of Present Illness Date of Admission: 04/19/18 Chief Complaint: Syncope The patient is a 83 year old F with an extensive past medical history as listed below. She was admitted through the ED with a complaint of recurrent episodes of syncope for the past few days. She had one episode of brief loss of consciousness about 2 days ago which resolved after a few seconds. Subsequent to that she had 2 more episodes of syncope today and states that he noted that her blood pressure dropped at that time. She denied any lightheadedness or dizziness or any chest pain or palpitations. She has not had such symptoms in the past. She was never brought to the ED. In the ED, vitals were significant for blood pressure 1 37/43 and pulse rate of 42 on admission. Labs showed sodium of 135 and K of 5.9. Creatinine 1.46. Initial troponin was 0.061 and BNP was 337.5. CBC showed white cell count of 4.1 and hemoglobin of 9.4. She is being admitted to be managed for syncope, for syncope likely cardiac. [] Past Medical History Past Medical History (Chronic Problems): Chronic Problems (Last Reviewed 03/02/18 @ 02:31 by Kel Mireles MD) Dysphagia (Chronic) Hypertension (Chronic) Ischemic cardiomyopathy (Chronic) Presence of stent in coronary artery (Chronic) PTCA/DONNELL to proximal LCx in September 2016; PTCA/DONNELL to PDA and PTCA of PLVB on November 17, 2016; PCI with PTCA to ostial diagonal and PTCA/DONNELL to proximal LAD in November 29, 2016; [facility] current use of 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 drug (Chronic) Atherosclerosis of [place] coronary artery of [place] heart without angina pectoris (Chronic) Essential (primary) hypertension (Chronic) Pulmonary hypertension (Chronic) Malnutrition (Chronic) Dementia (Chronic) Chronic anemia (Chronic) Paroxysmal atrial fibrillation (Chronic) Hyperlipidemia (Chronic) NSTEMI (non-ST elevated myocardial infarction) (Chronic) NSTEMI December 2016 ST elevation (STEMI) myocardial infarction involving left circumflex coronary artery (Chronic) stent 09/24/16 Hypothyroidism (Chronic) Adult BMI <19 kg/sq m (Chronic) Medical History: Medical History (Last Reviewed 03/02/18 @ 02:31 by Kel Mireles MD) Hypertension (Chronic) I10 Ischemic cardiomyopathy (Chronic) I25.5 Atherosclerosis of [place] coronary artery of [place] heart without angina pectoris (Chronic) I25.10 Essential (primary) hypertension (Chronic) I10 UDAY (acute kidney injury) (Acute) N17.9 Due to prerenal azotemia, related to Lasix Pulmonary hypertension (Chronic) I27.2 Malnutrition (Chronic) E46 Dementia (Chronic) F03.90 Chronic anemia (Chronic) D64.9 Paroxysmal atrial fibrillation (Chronic) I48.0 Hyperlipidemia (Chronic) E78.5 NSTEMI (non-ST elevated myocardial infarction) (Chronic) I21.[address] elevation (STEMI) myocardial infarction involving left circumflex coronary artery (Chronic) I21.21 stent 09/24/16 Hypothyroidism (Chronic) E03.9 Adult BMI <19 kg/sq m (Chronic) Z68.1 Coronary artery disease (Inactive) I25.10 Dysphagia (Inactive) R13.10 Elevated troponin (Inactive) R74.8 not trending HFrEF (heart failure with reduced ejection fraction) (Inactive) I50.20 EF 01/12 65% Hypomagnesemia (Inactive) E83.42 Hypophosphatemia (Inactive) E83.39 Hypotension (Inactive) I95.9 with hydration Vitamin D deficiency (Inactive) E55.9 Allergies tuberculin,PPD,multi-puncture Adverse Reaction (Verified 04/19/18 15:47) Unknown caused big blister on lip Home Medications: Ambulatory Orders Medication Instructions Recorded Aspirin E.C. [Ecotrin] 81 mg PO DAILY@0800 tab 09/26/16 Ferrous Gluconate 325 mg PO BIDCM 02/03/17 Donepezil HCl [Aricept] 5 mg PO QHS tab 02/08/17 atorvastatin 20 mg tablet 20 mg PO QHS #90 tab 05/19/17 Cholecalciferol (VIT D3) [Vitamin 1,000 unit PO DAILY 07/07/17 D3] clopidogrel 75 mg tablet 75 mg PO DAILY #90 tab 11/23/17 amiodarone 200 mg tablet 200 mg PO DAILY #90 tab 02/07/18 magnesium oxide 400 mg capsule 400 mg PO DAILY cap 02/07/18 metoprolol tartrate 50 mg tablet 50 mg PO BID #180 tab 02/07/18 Lisinopril [Zestril] 10 mg PO DAILY tablet 03/07/18 Magnesium Hydroxide [Milk Of 30 ml PO DAILY PRN udc 03/07/18 Magnesia] Acetaminophen [Tylenol] 650 mg PO Q6H PRN PRN 04/19/18 Bisacodyl [Dulcolax] 10 mg RECTAL DAILY PRN PRN 04/19/18 Cyanocobalamin [Vitamin B12] 2,500 mcg PO DAILY@0800 04/19/18 Furosemide [Lasix] 20 mg PO DAILY 04/19/18 Levothyroxine [Synthroid] 137 mcg PO DAILY 04/19/18 Mineral Oil 1 bottle RC DAILY PRN PRN 04/19/18 Multivitamins,Therapeutic 1 tablet PO DAILY 04/19/18 [Multivitamin] Pantoprazole Sodium [Protonix] 40 mg PO DAILY 04/19/18 Potassium Chloride [K-Dur] 20 meq PO DAILY 04/19/18 Sucralfate [Carafate] 1 gm PO 4X/DAY 04/19/18 busPIRone [Buspar] 10 mg PO TID 04/19/18 Surgical History: Surgical History (Last Reviewed 02/07/18 @ 15:13 by Staci Asencio) Presence of stent in coronary artery (Chronic) Z95.5 PTCA/DONNELL to proximal LCx in September 2016; PTCA/DONNELL to PDA and PTCA of PLVB on November 17, 2016; PCI with PTCA to ostial diagonal and PTCA/DONNELL to proximal LAD in November 29, 2016; History of cholecystectomy Z98.890, Z90.49 Hx of tonsillectomy Z98.890, Z90.89 Postsurgical percutaneous transluminal coronary angioplasty (PTCA) status Z98.61 PTCA/DONNELL to proximal LCx in September 2016; PTCA/DONNELL to PDA and PTCA of PLVB on November 17, 2016; PCI with PTCA to ostial diagonal and PTCA/DONNELL to proximal LAD in November 29, 2016; History of left heart catheterization Z98.890 Surgical History: total hip arthroplasty Psychiatric History: No pertinent psych hx Lives: Prison Smoking Status: Never smoker - *Family History Maternal Family History: Family History (Last Reviewed 03/02/18 @ 02:33 by Kel Mireles MD) Father CVA (cerebral vascular accident) Mother CVA (cerebral vascular accident) History Items: Stroke Paternal Family History: Family History (Last Reviewed 03/02/18 @ 02:33 by Kel Mireles MD) Father CVA (cerebral vascular accident) Mother CVA (cerebral vascular accident) History Items: Stroke Review of Systems Constitutional: Denies: Chills, Fever, Malaise, Weakness, Weight Change, Fatigue Eyes: Denies: Blurred vision HEENT: Denies: Head Aches, Sinus Congestion, Sinus Drainage Cardiovascular: Reports: Syncope. Denies: Chest Pain, Chest Pressure, Chest Tightness, Edema, Heaviness, Orthopnea, Palpitations, Paroxysmal Noc. Dyspnea Respiratory: Denies: Cough, Shortness of Breath, Shortness of breath at rest, Shortness of breath upon exertion, Sputum production Gastrointestinal: Denies: Abdominal Pain, Nausea, Vomiting Genitourinary: Denies: Dysuria Musculoskeletal: Reports: - - heel pain from pressure ulcer. Denies: Joint Pain, Joint Tenderness Skin: Denies: Rash, Wounds Neurological: Denies: Numbness, Tingling, Focal weakness Psychiatric: Denies: Anxiety, Depression, Homicidal Ideations, Suicidal Ideations Hematologic/ Lymphatic: Denies: Easy Bruising, Easy Bleeding VTE Information - Inpt Only VTE Present on Admission: No VTE Pharm Prophylaxis ordered?: Yes - Physical Exam General: Alert, Oriented x3, Cooperative, No apparent distress HEENT: Atraumatic, PERRLA, EOMI, Normocephalic Oral: Moist Mucosa Neck: Supple, No JVD, Negative Carotid Bruits Lungs: Clear to auscultation, Normal air movement, No rhonchi, No wheeze, No rales Cardiovascular: Normal S1, Normal S2, No murmurs, Bradycardic Abdomen: Bowel Sounds Present, Soft, Non Tender, Non-Distended, No Hepato-splenomegaly Extremities: No clubbing, No cyanosis, No edema, Capillary Refill Less than 3 Seconds Skin: No rashes, No breakdown, Ulcer/ Wound - on right heel- bandaged Musculoskeletal: No Tenderness to Palpation of Joints or Extremities Lymphatic: No Cervical, Supraclavicular, or Inguinal Adenopathy Neurological: Cranial nerves II-XII grossly intact Psych/Mental Status: Normal Affect, Appropriate, Alert and oriented to time, place, person, mood and affect Vital Signs Temp Pulse Resp BP Pulse Ox 98.3 F 52 L 17 136/43 H 98 04/19/18 15:34 04/19/18 17:06 04/19/18 17:06 04/19/18 17:06 04/19/18 17:06 Oxygen Delivery Method Room Air Weight: 80 lb 11.027 oz Body Mass Index (BMI) 14.7 Finger Stick Blood Glucose 46 Laboratory Tests Past 24 Hrs 04/19/18 04/19/18 04/19/18 16:00 16:00 16:00 WBC 4.1 L RBC 2.98 L Hgb 9.4 L Hct 30.0 L MCV 100.7 H MCH 31.5 MCHC 31.3 L RDW 14.3 RDW Differential 51.7 H Plt Count 249 MPV 8.9 Immature Gran % (Auto) 0.000 Neut % (Auto) 62.7 Lymph % (Auto) 18.5 L [place] % (Auto) 16.1 H Eos % (Auto) 2.2 Baso % (Auto) 0.5 Absolute Neuts (auto) 2.6 Absolute Lymphs (auto) 0.76 L Total Counted Not Reportable Sodium 135 L Potassium 5.9 H Chloride 101 Carbon Dioxide 29.0 Anion Gap 5 BUN 40 H Creatinine 1.46 H Estim Creat Clear Calc 16.87 Est GFR (MDRD) Af Amer 44 L Est GFR (MDRD) Non-Af 36 L BUN/Creatinine Ratio 27.4 H Glucose 75 Calcium 8.6 Troponin I 0.061 H B-Natriuretic Peptide 337.5 H Diagnostic Data Chest X-Ray 04/19/18 15:55 IMPRESSION: No acute cardiopulmonary disease. Electronically Signed: Avinash Jacques MD at 16:12 EST , Service support , Assessment/Plan All Active Problems (Last Reviewed 03/02/18 @ 02:31 by Kel Mireles MD) Hypoglycemia (Acute) CVA (cerebral vascular accident) (Acute) Esophageal foreign body (Acute) UDAY (acute kidney injury) (Acute) Acute systolic (congestive) heart failure (Resolved) 83 y/o female presenting with repeated episodes of syncope 1. Syncope, likely due to cardiac etiology has had 4 episodes of syncope over last 3 days says she gets hypotensive with syncope, but cannot say how low BP gets BP was in 12s on admission; HR was in 40s on admission EKG showed no acute ST changes admit to PCU with telemetry cardiology consult in the morning. Hold rate limiting meds fall precautions. 2. Symptomatic Bradycardia: as under 1. 3. Afib: now bradycardic. Will hold amiodarone and metoprolol. 4.Hyperkalemia: K is 5.9. Will give kayexalate and monitor. EKG showed no significant changes. 5. Hypertension: on lisinopril. Will hold o/a of hyperkalemia. Hold metoprolol o/.a of bradycardia and syncope 6. Hypothyroidism: On Synthroid. 7. Heart Failure preserved ejection fraction: EF is known to be 65%. On lisinopril and metoprolol as well as furosemide. Will hold lisinopril and metoprolol stated above. 8. CAD: On aspirin, Plavix and statin. 9. UDAY: Creatinine is 1.45 with baseline being around 1. Will hydrate and monitor. 10. Dementia: On donepezil 11. Right heel pressure ulcer: present on admission. Foot is heavily bandaged and painful to touch , so unable to review to stage ulcer. WIll consult wound nurse. DVT prophylaxis: Heparin CODE STATUS: Patient counseled extensively about different types of CODE STATUS including full code, DNR CCA and DNR CCA. Patient elects to be full code. Total [id number]-rt-[id number] time 17 minutes. Code Visit Inpatient E&M: 21132 Init Hosp L3 Procedures: 09999 Advncd Care Plan 30 Min
--- NOTE | 2018-04-19 17:29 | HP.PCM_ITS ---
History of Present Illness Date of Admission: 04/19/18 Chief Complaint: Syncope The patient is a 83 year old F with an extensive past medical history as listed below. She was admitted through the ED with a complaint of recurrent episodes of syncope for the past few days. She had one episode of brief loss of consciousness about 2 days ago which resolved after a few seconds. Subsequent to that she had 2 more episodes of syncope today and states that he noted that her blood pressure dropped at that time. She denied any lightheadedness or dizziness or any chest pain or palpitations. She has not had such symptoms in the past. She was never brought to the ED. In the ED, vitals were significant for blood pressure 1 37/43 and pulse rate of 42 on admission. Labs showed sodium of 135 and K of 5.9. Creatinine 1.46. Initial troponin was 0.061 and BNP was 337.5. CBC showed white cell count of 4.1 and hemoglobin of 9.4. She is being admitted to be managed for syncope, for syncope likely cardiac. [] Past Medical History Past Medical History (Chronic Problems): Chronic Problems (Last Reviewed 03/02/18 @ 02:31 by Kel Mireles MD) Dysphagia (Chronic) Hypertension (Chronic) Ischemic cardiomyopathy (Chronic) Presence of stent in coronary artery (Chronic) PTCA/DONNELL to proximal LCx in September 2016; PTCA/DONNELL to PDA and PTCA of PLVB on November 17, 2016; PCI with PTCA to ostial diagonal and PTCA/DONNELL to proximal LAD in November 29, 2016; [facility] current use of 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 drug (Chronic) 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) Essential (primary) hypertension (Chronic) Pulmonary hypertension (Chronic) Malnutrition (Chronic) Dementia (Chronic) Chronic anemia (Chronic) Paroxysmal atrial fibrillation (Chronic) Hyperlipidemia (Chronic) NSTEMI (non-ST elevated myocardial infarction) (Chronic) NSTEMI December 2016 ST elevation (STEMI) myocardial infarction involving left circumflex coronary artery (Chronic) stent 09/24/16 Hypothyroidism (Chronic) Adult BMI <19 kg/sq m (Chronic) Medical History: Medical History (Last Reviewed 03/02/18 @ 02:31 by Kel Mireles MD) Hypertension (Chronic) I10 Ischemic cardiomyopathy (Chronic) I25.5 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) I25.10 Essential (primary) hypertension (Chronic) I10 UDAY (acute kidney injury) (Acute) N17.9 Due to prerenal azotemia, related to Lasix Pulmonary hypertension (Chronic) I27.2 Malnutrition (Chronic) E46 Dementia (Chronic) F03.90 Chronic anemia (Chronic) D64.9 Paroxysmal atrial fibrillation (Chronic) I48.0 Hyperlipidemia (Chronic) E78.5 NSTEMI (non-ST elevated myocardial infarction) (Chronic) I21.[address] elevation (STEMI) myocardial infarction involving left circumflex coronary artery (Chronic) I21.21 stent 09/24/16 Hypothyroidism (Chronic) E03.9 Adult BMI <19 kg/sq m (Chronic) Z68.1 Coronary artery disease (Inactive) I25.10 Dysphagia (Inactive) R13.10 Elevated troponin (Inactive) R74.8 not trending HFrEF (heart failure with reduced ejection fraction) (Inactive) I50.20 EF 01/12 65% Hypomagnesemia (Inactive) E83.42 Hypophosphatemia (Inactive) E83.39 Hypotension (Inactive) I95.9 with hydration Vitamin D deficiency (Inactive) E55.9 Allergies tuberculin,PPD,multi-puncture Adverse Reaction (Verified 04/19/18 15:47) Unknown caused big blister on lip Home Medications: Ambulatory Orders Medication Instructions Recorded Aspirin E.C. [Ecotrin] 81 mg PO DAILY@0800 tab 09/26/16 Ferrous Gluconate 325 mg PO BIDCM 02/03/17 Donepezil HCl [Aricept] 5 mg PO QHS tab 02/08/17 atorvastatin 20 mg tablet 20 mg PO QHS #90 tab 05/19/17 Cholecalciferol (VIT D3) [Vitamin 1,000 unit PO DAILY 07/07/17 D3] clopidogrel 75 mg tablet 75 mg PO DAILY #90 tab 11/23/17 amiodarone 200 mg tablet 200 mg PO DAILY #90 tab 02/07/18 magnesium oxide 400 mg capsule 400 mg PO DAILY cap 02/07/18 metoprolol tartrate 50 mg tablet 50 mg PO BID #180 tab 02/07/18 Lisinopril [Zestril] 10 mg PO DAILY tablet 03/07/18 Magnesium Hydroxide [Milk Of 30 ml PO DAILY PRN udc 03/07/18 Magnesia] Acetaminophen [Tylenol] 650 mg PO Q6H PRN PRN 04/19/18 Bisacodyl [Dulcolax] 10 mg RECTAL DAILY PRN PRN 04/19/18 Cyanocobalamin [Vitamin B12] 2,500 mcg PO DAILY@0800 04/19/18 Furosemide [Lasix] 20 mg PO DAILY 04/19/18 Levothyroxine [Synthroid] 137 mcg PO DAILY 04/19/18 Mineral Oil 1 bottle RC DAILY PRN PRN 04/19/18 Multivitamins,Therapeutic 1 tablet PO DAILY 04/19/18 [Multivitamin] Pantoprazole Sodium [Protonix] 40 mg PO DAILY 04/19/18 Potassium Chloride [K-Dur] 20 meq PO DAILY 04/19/18 Sucralfate [Carafate] 1 gm PO 4X/DAY 04/19/18 busPIRone [Buspar] 10 mg PO TID 04/19/18 Surgical History: Surgical History (Last Reviewed 02/07/18 @ 15:13 by Staci Asencio) Presence of stent in coronary artery (Chronic) Z95.5 PTCA/DONNELL to proximal LCx in September 2016; PTCA/DONNELL to PDA and PTCA of PLVB on November 17, 2016; PCI with PTCA to ostial diagonal and PTCA/DONNELL to proximal LAD in November 29, 2016; History of cholecystectomy Z98.890, Z90.49 Hx of tonsillectomy Z98.890, Z90.89 Postsurgical percutaneous transluminal coronary angioplasty (PTCA) status Z98.61 PTCA/DONNELL to proximal LCx in September 2016; PTCA/DONNELL to PDA and PTCA of PLVB on November 17, 2016; PCI with PTCA to ostial diagonal and PTCA/DONNELL to proximal LAD in November 29, 2016; History of left heart catheterization Z98.890 Surgical History: total hip arthroplasty Psychiatric History: No pertinent psych hx Lives: [place] Smoking Status: Never smoker - *Family History Maternal Family History: Family History (Last Reviewed 03/02/18 @ 02:33 by Kel Mireles MD) Father CVA (cerebral vascular accident) Mother CVA (cerebral vascular accident) History Items: Stroke Paternal Family History: Family History (Last Reviewed 03/02/18 @ 02:33 by Kel Mireles MD) Father CVA (cerebral vascular accident) Mother CVA (cerebral vascular accident) History Items: Stroke Review of Systems Constitutional: Denies: Chills, Fever, Malaise, Weakness, Weight Change, Fatigue Eyes: Denies: Blurred vision HEENT: Denies: Head Aches, Sinus Congestion, Sinus Drainage Cardiovascular: Reports: Syncope. Denies: Chest Pain, Chest Pressure, Chest Tightness, Edema, Heaviness, Orthopnea, Palpitations, Paroxysmal Noc. Dyspnea Respiratory: Denies: Cough, Shortness of Breath, Shortness of breath at rest, Shortness of breath upon exertion, Sputum production Gastrointestinal: Denies: Abdominal Pain, Nausea, Vomiting Genitourinary: Denies: Dysuria Musculoskeletal: Reports: - - heel pain from pressure ulcer. Denies: Joint Pain, Joint Tenderness Skin: Denies: Rash, Wounds Neurological: Denies: Numbness, Tingling, Focal weakness Psychiatric: Denies: Anxiety, Depression, Homicidal Ideations, Suicidal Ideations Hematologic/ Lymphatic: Denies: Easy Bruising, Easy Bleeding VTE Information - Inpt Only VTE Present on Admission: No VTE Pharm Prophylaxis ordered?: Yes - Physical Exam General: Alert, Oriented x3, Cooperative, No apparent distress HEENT: Atraumatic, PERRLA, EOMI, Normocephalic Oral: Moist Mucosa Neck: Supple, No JVD, Negative Carotid Bruits Lungs: Clear to auscultation, Normal air movement, No rhonchi, No wheeze, No rales Cardiovascular: Normal S1, Normal S2, No murmurs, Bradycardic Abdomen: Bowel Sounds Present, Soft, Non Tender, Non-Distended, No Hepato- splenomegaly Extremities: No clubbing, No cyanosis, No edema, Capillary Refill Less than 3 Seconds Skin: No rashes, No breakdown, Ulcer/ Wound - on right heel- bandaged Musculoskeletal: No Tenderness to Palpation of Joints or Extremities Lymphatic: No Cervical, Supraclavicular, or Inguinal Adenopathy Neurological: Cranial nerves II-XII grossly intact Psych/Mental Status: Normal Affect, Appropriate, Alert and oriented to time, place, person, mood and affect Vital Signs Temp Pulse Resp BP Pulse Ox 98.3 F 52 L 17 136/43 H 98 04/19/18 15:34 04/19/18 17:06 04/19/18 17:06 04/19/18 17:06 04/19/18 17:06 Oxygen Delivery Method Room Air Weight: 80 lb 11.027 oz Body Mass Index (BMI) 14.7 Finger Stick Blood Glucose 46 Laboratory Tests Past 24 Hrs 04/19/18 04/19/18 04/19/18 16:00 16:00 16:00 WBC 4.1 L RBC 2.98 L Hgb 9.4 L Hct 30.0 L MCV 100.7 H MCH 31.5 MCHC 31.3 L RDW 14.3 RDW Differential 51.7 H Plt Count 249 MPV 8.9 Immature Gran % (Auto) 0.000 Neut % (Auto) 62.7 Lymph % (Auto) 18.5 L [place] % (Auto) 16.1 H Eos % (Auto) 2.2 Baso % (Auto) 0.5 Absolute Neuts (auto) 2.6 Absolute Lymphs (auto) 0.76 L Total Counted Not Reportable Sodium 135 L Potassium 5.9 H Chloride 101 Carbon Dioxide 29.0 Anion Gap 5 BUN 40 H Creatinine 1.46 H Estim Creat Clear Calc 16.87 Est GFR (MDRD) Af Amer 44 L Est GFR (MDRD) Non-Af 36 L BUN/Creatinine Ratio 27.4 H Glucose 75 Calcium 8.6 Troponin I 0.061 H B-Natriuretic Peptide 337.5 H Diagnostic Data Chest X-Ray 04/19/18 15:55 IMPRESSION: No acute cardiopulmonary disease. Electronically Signed: Avinash Jacques MD at 16:12 EST , Service support , Assessment/Plan All Active Problems (Last Reviewed 03/02/18 @ 02:31 by Kel Mireles MD) Hypoglycemia (Acute) CVA (cerebral vascular accident) (Acute) Esophageal foreign body (Acute) UDAY (acute kidney injury) (Acute) Acute systolic (congestive) heart failure (Resolved) 83 y/o female presenting with repeated episodes of syncope 1. Syncope, likely due to cardiac etiology * has had 4 episodes of syncope over last 3 days * says she gets hypotensive with syncope, but cannot say how low BP gets * BP was in 12s on admission; HR was in 40s on admission * EKG showed no acute ST changes * admit to PCU with telemetry * cardiology consult in the morning. Hold rate limiting meds * fall precautions. * 2. Symptomatic Bradycardia: as under 1. 3. Afib: now bradycardic. Will hold amiodarone and metoprolol. 4.Hyperkalemia: K is 5.9. Will give kayexalate and monitor. EKG showed no significant changes. 5. Hypertension: on lisinopril. Will hold o/a of hyperkalemia. Hold metoprolol o/.a of bradycardia and syncope 6. Hypothyroidism: On Synthroid. 7. Heart Failure preserved ejection fraction: * EF is known to be 65%. On lisinopril and metoprolol as well as furosemide. * Will hold lisinopril and metoprolol stated above. * 8. CAD: On aspirin, Plavix and statin. 9. UDAY: Creatinine is 1.45 with baseline being around 1. Will hydrate and monitor. 10. Dementia: On donepezil 11. Right heel pressure ulcer: present on admission. Foot is heavily bandaged and painful to touch , so unable to review to stage ulcer. WIll consult wound nurse. DVT prophylaxis: Heparin CODE STATUS: Patient counseled extensively about different types of CODE STATUS including full code, DNR CCA and DNR CCA. Patient elects to be full code. Total bjpg-fl-mawn time 17 minutes. Code Visit Inpatient E&M: 37512 Init Hosp L3 Procedures: 81483 Advncd Care Plan 30 Min
--- NOTE | 2018-04-19 17:39 | ED.RN ---
ALL PILLS CRUSHED AND GIVEN IN APPLESAUCE OR PUDDING PER .
[2018-04-19] MEDS: busPIRone 15 MG TABLET 10 MG PO (22:29)
[2018-04-19] MEDS: Sodium Polystyrene Sulfonate 15 GM/60 ML UDC 30 GM PO (22:29)
[2018-04-19] MEDS: Donepezil HCl 5 MG Tablet PO (22:29)
[2018-04-19] MEDS: Sucralfate 1 GM Tablet PO (22:29)
[2018-04-19] MEDS: Atorvastatin Calcium 20 MG Tablet PO (22:29)
[2018-04-19 23:56] LABS: Bedside Glucose 83 mg/dL (70-110)
[2018-04-20] VITALS (7 sets, daily range): BP systolic 95–108; BP diastolic 40–50; PULSE 53–63; RESP 18; TEMP 36.3–37.3; O2SAT 95–98
[2018-04-20 03:15] LABS: Bedside Glucose 72 mg/dL (70-110)
[2018-04-20] MEDS: Sucralfate 1 GM Tablet PO ×2 (06:37→12:10)
[2018-04-20] MEDS: busPIRone 15 MG TABLET 10 MG PO ×2 (06:37→13:09)
[2018-04-20] MEDS: Levothyroxine 137 MCG Tablet PO (06:37)
[2018-04-20 06:50] LABS: Absolute Lymphocyte Count 0.82 X10^3/ul (0.83-4.51); Absolute Neutrophil Count 1.8 X10^3/uL (2.0-7.7); Basophil# 0.02 X10^3/uL; Basophil% 0.7 % (0-1); Eosinophil# 0.08 X10^3/uL; Eosinophils% 2.6 % (0-5); Hematocrit 27.5 % (37-47); Hemoglobin 8.6 g/dl (12.0-15.0); Lymphocyte # 0.82 X10^3/ul (4.0); Lymphocyte % 26.8 % (19-41); Mean Corp Hgb Conc 31.3 g/gl (32-36); Mean Corpuscular Hgb 31.5 pg (27.0-32.0); Mean Corpuscular Volume 100.7 fL (81-99); Mean Platelet Vol. 8.8 fl (6.2-12.0); Monocyte# 0.31 X10^3/uL; Monocyte% 10.1 % (0-10); Neutrophil # 1.83 X10^3/uL (2.7-7.7); Neutrophil % 59.8 % (47-70); Platelet Count 240 K/mm3 (150-450); RBC Distribution Width CV 14.2 % (11.6-14.6); RBC Distribution Width SD 51.4 fl (35.1-43.9); Red Blood Count 2.73 M/mm3 (4.2-5.4); White Blood Count 3.1 K/mm3 (4.4-11.0)
[2018-04-20 06:52] LABS: POSITIVE COUNT NO; POSITIVE DIFFERENTIAL NO; POSITIVE MORPHOLOGY NO
[2018-04-20 07:07] LABS: Anion Gap 7 (5-15); BUN 27 mg/dL (7-18); BUN/Creat Ratio 27.1 RATIO (10-20); Calcium,Total 8.3 mg/dL (8.5-10.1); Chloride 105 mmol/L (98-107); EST Glomerular Filtration Rate 56 mL/min (>60); Est Glom Filt Rate - Afr Amer 68 mL/min (>60); Glucose 72 mg/dL (74-106); Potassium 4.5 mmol/L (3.5-5.1); Sodium Level 140 mmol/L (136-145)
[2018-04-20 07:10] LABS: Bedside Glucose 82 mg/dL (70-110)
--- NOTE | 2018-04-20 07:24 | EKG12_ITS ---
Test Reason : ARRYTHMIA Blood Pressure : / mmHG Vent. Rate : 056 BPM Atrial Rate : 056 BPM P-R Int : 208 ms QRS Dur : 090 ms QT Int : 486 ms P-R-T Axes : 049 -75 156 degrees QTc Int : 468 ms Sinus bradycardia Left anterior fascicular block Possible Lateral infarct , age undetermined Abnormal ECG When compared with ECG of 19-APR-2018 15:45, MANUAL COMPARISON REQUIRED, DATA IS UNCONFIRMED Confirmed by BRAYAN ROJO, ESTELA ([id number]), production editor SHARMILA MURCIA ([id number] on 04/23/2018 2:53:18 PM Referred By: LINDA Confirmed By:ESTELA SCHMIDT MD
--- NOTE | 2018-04-20 07:24 | ECHOD_ITS ---
Reason For Study: aRRHYTHMIA Procedure This was a 2D Doppler, Color Flow transthoracic echocardiogram. Exam performed portable in patient room. Left Ventricle Normal LV size. Left ventricular systolic function is normal. The estimated ejection fraction is 60 %. Stage 1 diastolic dysfunction. No regional wall motion abnormalities noted. Right Ventricle Normal RV size. Normal systolic function. Atria Normal left atrium. Normal right atrium. Mitral Valve Normal mitral valve. Tricuspid Valve Normal tricuspid valve. Mild tricuspid valve insufficiency. Pulmonary artery systolic pressure is 30 mmHg. Aortic Valve Trisinus/trileaflet aortic valve. Mild focal aortic valve calcification. Pulmonic Valve Normal pulmonic valve. Great Vessels Normal aortic root. The pulmonary artery is normal size. Normal inferior vena cava. Pericardium/Pleural No pericardial effusion. MMode/2D Measurements & Calculations LVIDd: 3.3 cm IVSd: 1.0 cm LVOT diam: 2.0 cm LVIDs: 2.4 cm LVPWd: 0.97 cm LVOT area: 3.0 cm2 FS: 29.0 % ACS: 1.0 cm LAV(MOD-bp): 46.3 ml LA A4 area: 18.0 cm2 LA dimension: 3.8 cm LAV(MOD-bp) Indexed: 36.4 ml/m2 LAV(MOD-sp2): 42.3 ml LAV(MOD-sp4): 51.8 ml RA A4 area: 15.1 cm2 Time Measurements MV dec time: 0.26 sec Doppler Measurements & Calculations MV E max german: 76.0 cm/sec Med Peak E' German: 5.5 cm/sec MV V2 max: 96.3 cm/sec MV A max german: 87.9 cm/sec E/E' med: 13.9 MV max P.7 mmHg MV E/A: 0.87 MV V2 mean: 56.5 cm/sec MV mean P.5 mmHg MV V2 VTI: 31.2 cm MVA(VTI): 2.2 cm2 MV P1/2t max german: 94.4 cm/sec Ao V2 max: 163.5 cm/sec LV V1 max: 100.8 cm/sec MV P1/2t: 75.0 msec Ao max P.7 mmHg LV V1 max P.1 mmHg Ao V2 mean: 108.3 cm/sec LV V1 mean P.9 mmHg MV dec slope: 368.5 cm/sec2 Ao mean P.3 mmHg LV V1 mean: 63.4 cm/sec MVA(P1/2t): 2.9 cm2 Ao V2 VTI: 35.4 cm LV V1 VTI: 22.2 cm MIKE(I,D): 1.9 cm2 MIKE(V,D): 1.9 cm2 SV(LVOT): 67.7 ml PA V2 max: 87.6 cm/sec TR max german: 251.8 cm/sec TR max P.4 mmHg Interpretation Summary Normal LV size. Left ventricular systolic function is normal. The estimated ejection fraction is 60 %. Stage 1 diastolic dysfunction. Mild focal aortic valve calcification. Mild tricuspid valve insufficiency. Compared to prior study, there is no significant change. Ordering Physician: Alexia White Referring Physician: Augie Rajan Chi Performed By: Jayy Santiago RCS
--- NOTE | 2018-04-20 07:43 | PCM.CONS.C ---
Reason for Consult Date of Consultation: 04/20/18 History of Present Illness: The patient is a 83 year old F with a history of previous ST elevation myocardial infarction for which she underwent angioplasty and stenting of the circumflex artery. She also had disease in the left anterior descending artery and right coronary artery. She presented today to the emergency room with a syncopal episode. [] She was admitted through the ED with a complaint of recurrent episodes of syncope for the past few days. She had one episode of brief loss of consciousness about 2 days ago which resolved after a few seconds. Subsequent to that she had 2 more episodes of syncope today and states that he noted that her blood pressure dropped at that time. She denied any lightheadedness or dizziness or any chest pain or palpitations. She has not had such symptoms in the past. She was never brought to the ED. In the ED, vitals were significant for blood pressure 1 37/43 and pulse rate of 42 on admission. Labs showed sodium of 135 and K of 5.9. Creatinine 1.46. Initial troponin was 0.061 and BNP was 337.5. CBC showed white cell count of 4.1 and hemoglobin of 9.4. She is being admitted to be managed for syncope, for syncope likely cardiac. Her EKG did not demonstrate any significant cardiac abnormalities. [] Past Medical History Allergies/Adverse Reactions: Allergies tuberculin,PPD,multi-puncture Adverse Reaction (Verified 04/19/18 15:47) Unknown caused big blister on lip Home Medications: Ambulatory Orders Medication Instructions Recorded Aspirin E.C. [Ecotrin] 81 mg PO DAILY@0800 tab 09/26/16 Ferrous Gluconate 325 mg PO BIDCM 02/03/17 Donepezil HCl [Aricept] 5 mg PO QHS tab 02/08/17 atorvastatin 20 mg tablet 20 mg PO QHS #90 tab 05/19/17 Cholecalciferol (VIT D3) [Vitamin 1,000 unit PO DAILY 07/07/17 D3] clopidogrel 75 mg tablet 75 mg PO DAILY #90 tab 11/23/17 amiodarone 200 mg tablet 200 mg PO DAILY #90 tab 02/07/18 magnesium oxide 400 mg capsule 400 mg PO DAILY cap 02/07/18 metoprolol tartrate 50 mg tablet 50 mg PO BID #180 tab 02/07/18 Lisinopril [Zestril] 10 mg PO DAILY tablet 03/07/18 Magnesium Hydroxide [Milk Of 30 ml PO DAILY PRN udc 03/07/18 Magnesia] Acetaminophen [Tylenol] 650 mg PO Q6H PRN PRN 04/19/18 Bisacodyl [Dulcolax] 10 mg RECTAL DAILY PRN PRN 04/19/18 Cyanocobalamin [Vitamin B12] 2,500 mcg PO DAILY@0800 04/19/18 Furosemide [Lasix] 20 mg PO DAILY 04/19/18 Levothyroxine [Synthroid] 137 mcg PO DAILY 04/19/18 Mineral Oil 1 bottle RC DAILY PRN PRN 04/19/18 Multivitamins,Therapeutic 1 tablet PO DAILY 04/19/18 [Multivitamin] Pantoprazole Sodium [Protonix] 40 mg PO DAILY 04/19/18 Potassium Chloride [K-Dur] 20 meq PO DAILY 04/19/18 Sucralfate [Carafate] 1 gm PO 4X/DAY 04/19/18 busPIRone [Buspar] 10 mg PO TID 04/19/18 Past Medical History (Chronic Problems): Chronic Problems (Last Reviewed 03/02/18 @ 02:31 by Kel Mireles MD) Dysphagia (Chronic) Hypertension (Chronic) Ischemic cardiomyopathy (Chronic) Presence of stent in coronary artery (Chronic) PTCA/DONNELL to proximal LCx in September 2016; PTCA/DONNELL to PDA and PTCA of PLVB on November 17, 2016; PCI with PTCA to ostial diagonal and PTCA/DONNELL to proximal LAD in November 29, 2016; detention current use of 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 drug (Chronic) Atherosclerosis of [place] coronary artery of [place] heart without angina pectoris (Chronic) Essential (primary) hypertension (Chronic) Pulmonary hypertension (Chronic) Malnutrition (Chronic) Dementia (Chronic) Chronic anemia (Chronic) Paroxysmal atrial fibrillation (Chronic) Hyperlipidemia (Chronic) NSTEMI (non-ST elevated myocardial infarction) (Chronic) NSTEMI December 2016 ST elevation (STEMI) myocardial infarction involving left circumflex coronary artery (Chronic) stent 09/24/16 Hypothyroidism (Chronic) Adult BMI <19 kg/sq m (Chronic) Surgical History: total hip arthroplasty Psychiatric History: No pertinent psych hx - *Family History Maternal Family History: Family History (Last Reviewed 03/02/18 @ 02:33 by Kel Mireles MD) Father CVA (cerebral vascular accident) Mother CVA (cerebral vascular accident) History Items: Stroke Paternal Family History: Family History (Last Reviewed 03/02/18 @ 02:33 by Kel Mireles MD) Father CVA (cerebral vascular accident) Mother CVA (cerebral vascular accident) History Items: Stroke Lives: Skilled Nursing Smoking Status: Never smoker Alcohol: None Drugs: None Subjectve: Elderly lady in no apparent distress Objective: Vital Signs Temp Pulse Resp BP Pulse Ox 99.2 F H 58 L 18 107/50 L 95 04/20/18 06:41 04/20/18 06:41 04/20/18 06:41 04/20/18 06:41 04/20/18 06:41 Oxygen Delivery Method Room Air Weight: 77 lb Body Mass Index (BMI) 14.1 Finger Stick Blood Glucose 46 Intake and Output for Last 24 Hours 04/18/18 04/19/18 04/20/18 23:59 23:59 23:59 Intake Total 240 / 240 Output Total 650 / 650 Balance -410 / -410 General: Awake, Alert, Oriented x 3 HEENT: PERRL, EOMI, Sclera Non Icteric Neck: Supple, Good ROM, No Lymph Node Enlargement Lungs: Clear to auscultation Cardiovascular: Regular Rhythm, Normal S1, Normal S2, No Murmurs, No Rubs, No Gallops Vascular: No Carotid Bruits, Normal Femoral Pulses, Normal Radial Pulses, Normal Dorsalis Pedal Pulse, Normal Posterior Tibial Pulses Abdomen: Bowel Sounds Present, Soft, Non Tender, No HSM, No Organomegaly Extremities: No Cyanosis, No Clubbing, No edema Lymphatic: No Lymph Node Enlargement Neurological: No Focal Motor or Sensory Deficit 04/19/18 16:00: WBC 4.1 L, RBC 2.98 L, Hgb 9.4 L, Hct 30.0 L, MCV 100.7 H, MCH 31.5, MCHC 31.3 L, RDW 14.3, RDW Differential 51.7 H, Plt Count 249, MPV 8.9, Immature Gran % (Auto) 0.000, Neut % (Auto) 62.7, Lymph % (Auto) 18.5 L, [place] % (Auto) 16.1 H, Eos % (Auto) 2.2, Baso % (Auto) 0.5, Absolute Neuts (auto) 2.6, Total Counted Not Reportable 04/19/18 16:00: Sodium 135 L, Potassium 5.9 H, Chloride 101, Carbon Dioxide 29.0, Anion Gap 5, BUN 40 H, Creatinine 1.46 H, Est GFR (MDRD) Af Amer 44 L, Est GFR (MDRD) Non-Af 36 L, BUN/Creatinine Ratio 27.4 H, Glucose 75, Calcium 8.6, Troponin I 0.061 H 04/19/18 16:00: B-Natriuretic Peptide 337.5 H 04/20/18 06:25: WBC 3.1 L, RBC 2.73 L, Hgb 8.6 L, Hct 27.5 L, MCV 100.7 H, MCH 31.5, MCHC 31.3 L, RDW 14.2, RDW Differential 51.4 H, Plt Count 240, MPV 8.8, Immature Gran % (Auto) 0.000, Neut % (Auto) 59.8, Lymph % (Auto) 26.8, [place] % (Auto) 10.1 H, Eos % (Auto) 2.6, Baso % (Auto) 0.7, Absolute Neuts (auto) 1.8 L, Total Counted Not Reportable 04/20/18 06:25: Sodium 140, Potassium 4.5, Chloride 105, Carbon Dioxide 28.0, Anion Gap 7, BUN 27 H, Creatinine 1.00, Est GFR (MDRD) Af Amer 68, Est GFR (MDRD) Non-Af 56 L, BUN/Creatinine Ratio 27.1 H, Glucose 72 L, Calcium 8.3 L Rhythm: Sinus rhythm no bradycardia arrhythmias noted EKG: Normal sinus rhythm with no acute changes Assessment/Plan 1. Recurrent syncope The etiology is not clear at this particular time I would recommend continued telemetry monitoring. If no apparent etiology is found then I would suggest that she have an implantable loop recorder placed as an outpatient. Her blood pressure medications would be adjusted. 2. Atrial fibrillation Patient has history of atrial fibrillation. At this particular time she appears to be maintaining sinus rhythm. The plan will be to continue the same medications with a reduction in her beta-mary dose. 3. History of congestive heart failure Appears to have a mildly elevated natruretic peptide level and appears to have mild congestive heart failure. Will reassess left ventricular function. Thank you for allowing me to participate in the care of your patient. Please don't hesitate to call if any issues arise
--- NOTE | 2018-04-20 07:51 | CON.PCM_ITS ---
Reason for Consult Date of Consultation: 04/20/18 History of Present Illness: The patient is a 83 year old F with a history of previous ST elevation myocardial infarction for which she underwent angioplasty and stenting of the circumflex artery. She also had disease in the left anterior descending artery and right coronary artery. She presented today to the emergency room with a syncopal episode. [] She was admitted through the ED with a complaint of recurrent episodes of syncope for the past few days. She had one episode of brief loss of consciousness about 2 days ago which resolved after a few seconds. Subsequent to that she had 2 more episodes of syncope today and states that he noted that her blood pressure dropped at that time. She denied any lightheadedness or dizziness or any chest pain or palpitations. She has not had such symptoms in the past. She was never brought to the ED. In the ED, vitals were significant for blood pressure 1 37/43 and pulse rate of 42 on admission. Labs showed sodium of 135 and K of 5.9. Creatinine 1.46. Initial troponin was 0.061 and BNP was 337.5. CBC showed white cell count of 4.1 and hemoglobin of 9.4. She is being admitted to be managed for syncope, for syncope likely cardiac. Her EKG did not demonstrate any significant cardiac abnormalities. [] Past Medical History Allergies/Adverse Reactions: Allergies tuberculin,PPD,multi-puncture Adverse Reaction (Verified 04/19/18 15:47) Unknown caused big blister on lip Home Medications: Ambulatory Orders Medication Instructions Recorded Aspirin E.C. [Ecotrin] 81 mg PO DAILY@0800 tab 09/26/16 Ferrous Gluconate 325 mg PO BIDCM 02/03/17 Donepezil HCl [Aricept] 5 mg PO QHS tab 02/08/17 atorvastatin 20 mg tablet 20 mg PO QHS #90 tab 05/19/17 Cholecalciferol (VIT D3) [Vitamin 1,000 unit PO DAILY 07/07/17 D3] clopidogrel 75 mg tablet 75 mg PO DAILY #90 tab 11/23/17 amiodarone 200 mg tablet 200 mg PO DAILY #90 tab 02/07/18 magnesium oxide 400 mg capsule 400 mg PO DAILY cap 02/07/18 metoprolol tartrate 50 mg tablet 50 mg PO BID #180 tab 02/07/18 Lisinopril [Zestril] 10 mg PO DAILY tablet 03/07/18 Magnesium Hydroxide [Milk Of 30 ml PO DAILY PRN udc 03/07/18 Magnesia] Acetaminophen [Tylenol] 650 mg PO Q6H PRN PRN 04/19/18 Bisacodyl [Dulcolax] 10 mg RECTAL DAILY PRN PRN 04/19/18 Cyanocobalamin [Vitamin B12] 2,500 mcg PO DAILY@0800 04/19/18 Furosemide [Lasix] 20 mg PO DAILY 04/19/18 Levothyroxine [Synthroid] 137 mcg PO DAILY 04/19/18 Mineral Oil 1 bottle RC DAILY PRN PRN 04/19/18 Multivitamins,Therapeutic 1 tablet PO DAILY 04/19/18 [Multivitamin] Pantoprazole Sodium [Protonix] 40 mg PO DAILY 04/19/18 Potassium Chloride [K-Dur] 20 meq PO DAILY 04/19/18 Sucralfate [Carafate] 1 gm PO 4X/DAY 04/19/18 busPIRone [Buspar] 10 mg PO TID 04/19/18 Past Medical History (Chronic Problems): Chronic Problems (Last Reviewed 03/02/18 @ 02:31 by Kel Mireles MD) Dysphagia (Chronic) Hypertension (Chronic) Ischemic cardiomyopathy (Chronic) Presence of stent in coronary artery (Chronic) PTCA/DONNELL to proximal LCx in September 2016; PTCA/DONNELL to PDA and PTCA of PLVB on November 17, 2016; PCI with PTCA to ostial diagonal and PTCA/DONNELL to proximal LAD in November 29, 2016; [facility] current use of 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 drug (Chronic) Atherosclerosis of [place] coronary artery of [place] heart without angina pectoris (Chronic) Essential (primary) hypertension (Chronic) Pulmonary hypertension (Chronic) Malnutrition (Chronic) Dementia (Chronic) Chronic anemia (Chronic) Paroxysmal atrial fibrillation (Chronic) Hyperlipidemia (Chronic) NSTEMI (non-ST elevated myocardial infarction) (Chronic) NSTEMI December 2016 ST elevation (STEMI) myocardial infarction involving left circumflex coronary artery (Chronic) stent 09/24/16 Hypothyroidism (Chronic) Adult BMI <19 kg/sq m (Chronic) Surgical History: total hip arthroplasty Psychiatric History: No pertinent psych hx - *Family History Maternal Family History: Family History (Last Reviewed 03/02/18 @ 02:33 by Kel Mireles MD) Father CVA (cerebral vascular accident) Mother CVA (cerebral vascular accident) History Items: Stroke Paternal Family History: Family History (Last Reviewed 03/02/18 @ 02:33 by Kel Mireles MD) Father CVA (cerebral vascular accident) Mother CVA (cerebral vascular accident) History Items: Stroke Lives: Care Home Smoking Status: Never smoker Alcohol: None Drugs: None Subjectve: Elderly lady in no apparent distress Objective: Vital Signs Temp Pulse Resp BP Pulse Ox 99.2 F H 58 L 18 107/50 L 95 04/20/18 06:41 04/20/18 06:41 04/20/18 06:41 04/20/18 06:41 04/20/18 06:41 Oxygen Delivery Method Room Air Weight: 77 lb Body Mass Index (BMI) 14.1 Finger Stick Blood Glucose 46 Intake and Output for Last 24 Hours 04/18/18 04/19/18 04/20/18 23:59 23:59 23:59 Intake Total 240 / 240 Output Total 650 / 650 Balance -410 / -410 General: Awake, Alert, Oriented x 3 HEENT: PERRL, EOMI, Sclera Non Icteric Neck: Supple, Good ROM, No Lymph Node Enlargement Lungs: Clear to auscultation Cardiovascular: Regular Rhythm, Normal S1, Normal S2, No Murmurs, No Rubs, No Gallops Vascular: No Carotid Bruits, Normal Femoral Pulses, Normal Radial Pulses, Normal Dorsalis Pedal Pulse, Normal Posterior Tibial Pulses Abdomen: Bowel Sounds Present, Soft, Non Tender, No HSM, No Organomegaly Extremities: No Cyanosis, No Clubbing, No edema Lymphatic: No Lymph Node Enlargement Neurological: No Focal Motor or Sensory Deficit 04/19/18 16:00: WBC 4.1 L, RBC 2.98 L, Hgb 9.4 L, Hct 30.0 L, MCV 100.7 H, MCH 31.5, MCHC 31.3 L, RDW 14.3, RDW Differential 51.7 H, Plt Count 249, MPV 8.9, Immature Gran % (Auto) 0.000, Neut % (Auto) 62.7, Lymph % (Auto) 18.5 L, [place] % (Auto) 16.1 H, Eos % (Auto) 2.2, Baso % (Auto) 0.5, Absolute Neuts (auto) 2.6, Total Counted Not Reportable 04/19/18 16:00: Sodium 135 L, Potassium 5.9 H, Chloride 101, Carbon Dioxide 29.0, Anion Gap 5, BUN 40 H, Creatinine 1.46 H, Est GFR (MDRD) Af Amer 44 L, Est GFR (MDRD) Non-Af 36 L, BUN/Creatinine Ratio 27.4 H, Glucose 75, Calcium 8.6, Troponin I 0.061 H 04/19/18 16:00: B-Natriuretic Peptide 337.5 H 04/20/18 06:25: WBC 3.1 L, RBC 2.73 L, Hgb 8.6 L, Hct 27.5 L, MCV 100.7 H, MCH 31.5, MCHC 31.3 L, RDW 14.2, RDW Differential 51.4 H, Plt Count 240, MPV 8.8, Immature Gran % (Auto) 0.000, Neut % (Auto) 59.8, Lymph % (Auto) 26.8, [place] % (Auto) 10.1 H, Eos % (Auto) 2.6, Baso % (Auto) 0.7, Absolute Neuts (auto) 1.8 L, Total Counted Not Reportable 04/20/18 06:25: Sodium 140, Potassium 4.5, Chloride 105, Carbon Dioxide 28.0, Anion Gap 7, BUN 27 H, Creatinine 1.00, Est GFR (MDRD) Af Amer 68, Est GFR (MDRD) Non-Af 56 L, BUN/Creatinine Ratio 27.1 H, Glucose 72 L, Calcium 8.3 L Rhythm: Sinus rhythm no bradycardia arrhythmias noted EKG: Normal sinus rhythm with no acute changes Assessment/Plan 1. Recurrent syncope * The etiology is not clear at this particular time I would recommend continued telemetry monitoring. If no apparent etiology is found then I would suggest that she have an implantable loop recorder placed as an outpatient. * Her blood pressure medications would be adjusted. * 2. Atrial fibrillation * Patient has history of atrial fibrillation. At this particular time she appears to be maintaining sinus rhythm. The plan will be to continue the same medications with a reduction in her beta-mary dose. * 3. History of congestive heart failure * Appears to have a mildly elevated natruretic peptide level and appears to have mild congestive heart failure. * Will reassess left ventricular function. * * Thank you for allowing me to participate in the care of your patient. Please don't hesitate to call if any issues arise
[2018-04-20 08:15] LABS: Magnesium 1.8 mg/dL (1.6-2.6)
--- NOTE | 2018-04-20 08:22 | NURSING ---
wound photo: right heel
[2018-04-20] MEDS: Aspirin E.C. 81 MG Tablet PO (12:08)
[2018-04-20] MEDS: Multivitamins,Therapeutic Tablet 1 TABLET PO (12:09)
[2018-04-20] MEDS: Magnesium Oxide 400 MG Tablet PO (12:09)
[2018-04-20] MEDS: Ferrous Gluconate 324 MG Tablet PO (12:09)
[2018-04-20] MEDS: Amiodarone 200 MG Tablet PO (12:09)
[2018-04-20] MEDS: Clopidogrel Bisulfate 75 MG Tablet PO (12:09)
[2018-04-20] MEDS: Pantoprazole Sodium 40 MG Tablet PO (12:10)
[2018-04-20] MEDS: Dextrose 50%-Water 25 GM/50 ML DISP.SYRIN IV (13:04)
[2018-04-20] MEDS: 0.9% NaCl Peripheral Flush Adult/Peds IV (13:08)
--- NOTE | 2018-04-20 13:12 | CASEMGMT ---
POA form on chart w/Living will provision completed. SW printed and placed copy of POA in paper chart. STEPHANIE Garza, JDE DEVELOPER
--- NOTE | 2018-04-20 13:13 | CASEMGMT ---
Addendum entered by Jeanette Panda 04/20/18 13:26: Son called to nurse's station, states he cannot call back but is in room, can speak w/him. SW spoke w/ in room, he confirms the plan is to return to [facility] at discharge. will take pt back as long as he can go get pt's clothing. also asked about pt being in observation status. SW explained will look into this and let him know. SW spoke w/CM, pt will likely stay in observation status. SW spoke w/, let him know that pt does not have an inpt diagnosis, cannot change it to inpt unless pt qualifies. states that if pt stays observation he will have to pay 3/4 of the bill. SW explained that even if we make pt inpt, if she does not qualify, insurance would not cover it. SW explained to pt and that there is actually a chance pt may be discharged today, the doctor is just waiting to hear back from the leather tacker. states understanding, but states that telling pt she may be discharged just made her anxious. SW apologized to , explained was not the intent to make the pt anxious. states he understands, he is not mad at this SW, he is just frustrated. SW offered support. Green sheet will be placed on chart in event pt is not able to be discharged today. STEPHANIE Garza, ROUTE DELIVERY CLERK Original Note: SW called pt's son to check that discharge plan is for pt to return to [facility] at discharge. Message left to call SW back. STEPHANIE Garza, ROUTE DELIVERY CLERK
[2018-04-20 13:25] LABS: Bedside Glucose 58 mg/dL (70-110)
[2018-04-20 13:25] LABS: Bedside Glucose 49 mg/dL (70-110)
[2018-04-20 13:25] LABS: Bedside Glucose 127 mg/dL (70-110)
--- NOTE | 2018-04-20 13:41 | CASEMGMT ---
Patient is from [facility]. KATHRYN spoke with Johanna at [facility] and patient can return whenever she is ready. KATHRYN put green sheet on the chart. Plan: d/c back to [facility] at [place]. Rajani CIFUENTES MSW
--- NOTE | 2018-04-20 14:15 | PCM.TXEXTCAR ---
- Diet 04/19/18 18:26 Diet: Regular diet with continued MNS medpass Food consistency:: Puree Liquid Consistency:: Regular/Thin Supplementation: provide chocolate magic cup w/ lunch and dinner. - Routine Orders/Code Status Enema Type: Fleetz Enema Frequency: Daily PRN Suppository Type: Dulcolax 10mg Suppository Frequency: Daily PRN Keep PO Greater than or Equal to (%): 92 Routine Lab Work: - - Repeat CBC, BMP within 1 week. Code Status: Full Code - Wound(s) R FOOT Wound Type: Stasis Ulcer right heel Wound Type: Pressure Injury Dressing Change: applied Mepilex dressing - Suggestions for Active Care Change Position every (hours): 2 Hours to sit in a chair: 6 Times a day to sit in chair: 3 - Therapies Weight Bearing: Full weight bearing Physical Therapy: Eval and Treat Occupational Therapy: Eval and Treat - Problem/Diagnosis (1) Syncope Status: Acute Current Visit: Yes (2) Symptomatic bradycardia Status: Acute Current Visit: Yes (3) CVA (cerebral vascular accident) Status: Chronic Current Visit: No (4) Hypertension Status: Chronic Current Visit: No (5) Ischemic cardiomyopathy Status: Chronic Current Visit: No (6) Atherosclerosis of [place] coronary artery of [place] heart without angina pectoris Status: Chronic Current Visit: No (7) Essential (primary) hypertension Status: Chronic Current Visit: No (8) Pulmonary hypertension Status: Chronic Current Visit: No (9) Malnutrition Status: Chronic Current Visit: No (10) Dementia Status: Chronic Current Visit: No (11) Chronic anemia Status: Chronic Current Visit: No (12) Paroxysmal atrial fibrillation Status: Chronic Current Visit: No (13) Hyperlipidemia Status: Chronic Current Visit: No (14) NSTEMI (non-ST elevated myocardial infarction) Status: Chronic Comment: NSTEMI December 2016 Current Visit: No (15) Hypothyroidism Status: Chronic Current Visit: No (16) Adult BMI <19 kg/sq m Status: Chronic Current Visit: No - Allergies/Procedures Done in Hospital Allergies/Adverse Reactions: Allergies tuberculin,PPD,multi-puncture Adverse Reaction (Verified 04/19/18 15:47) Unknown caused big blister on lip Procedures: 2-D Echocardiogram, EKG - Type of Care/Length of Stay Estimated LOS: More Than 30 Days Type of Care Needed: Skilled Rehab Potential: Fair Prognosis: Fair - Additional Orders/Day of Discharge Additional Orders: (1) HOB, aspiration precautions constant. (2) IS 10/hr 7a-7p. (3) Fall precautions. (4) Wound Care to be continued at facility per state patrol officer in addition to follow-up at [facility]. (5) Position changes for offloading a 2 hours. (6) Heel boots BL continuously when not ambulating. (7) Dressing care L heel: Mepilex dressings, offloading. H&P will serve as current which was dated: 04/19/18 Day of Discharge: 04/20/18 - Dietary and Speech Recommendations Dietitian Recommendations/Changes: Rec diet change to liberal REGULAR diet d/t low BMI/dementia and increased nutrition needs. Rec continue ONS medpass. Will provide chocolate magic cup w/ lunch and dinner for increased nutrition if consumed - Follow Up Care Primary Care Physician: Augie Rajan Chi, MD [Primary Care Provider] - Please follow up with your Primary Care Physician in: Follow-up within 3-5 days. Please Follow Up With: Colton White MD When: Follow-up in 2-4 weeks.
--- NOTE | 2018-04-20 14:18 | PCM.DC.SUM ---
Discharge Date and Diagnosis Date of Admission: 04/19/18 Date of Discharge: 04/20/18 - Primary Discharge Diagnosis 1. Syncope 2. Mild bradycardia 3. Hyperkalemia 4. 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 Chronic elevated troponin 6. Hypertension 7. Hypothyroidism 8. Chronic diastolic CHF 9. CAD 10. Paroxysmal atrial fibrillation 11. Severe protein calorie malnutrition - Secondary Discharge Diagnosis Chronic Problems (Last Reviewed 03/02/18 @ 02:31 by Kel Mireles MD) Dysphagia (Chronic) Hypertension (Chronic) Ischemic cardiomyopathy (Chronic) Presence of stent in coronary artery (Chronic) PTCA/DONNELL to proximal LCx in September 2016; PTCA/DONNELL to PDA and PTCA of PLVB on November 17, 2016; PCI with PTCA to ostial diagonal and PTCA/DONNELL to proximal LAD in November 29, 2016; care home current use of 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 drug (Chronic) Atherosclerosis of [place] coronary artery of [place] heart without angina pectoris (Chronic) Essential (primary) hypertension (Chronic) Pulmonary hypertension (Chronic) Malnutrition (Chronic) Dementia (Chronic) Chronic anemia (Chronic) Paroxysmal atrial fibrillation (Chronic) Hyperlipidemia (Chronic) NSTEMI (non-ST elevated myocardial infarction) (Chronic) NSTEMI December 2016 ST elevation (STEMI) myocardial infarction involving left circumflex coronary artery (Chronic) stent 09/24/16 Hypothyroidism (Chronic) Adult BMI <19 kg/sq m (Chronic) Hospital Course and Treatment Imaging Results: Diagnostic Data Chest X-Ray 04/19/18 15:55 IMPRESSION: No acute cardiopulmonary disease. Electronically Signed: Avinash Jacques MD at 16:12 EST , Service support , Consultations 04/20/18 04:24 Consult: Onc/Wound/gynecologist Routine Comment: Reason for Consult:: wound to R heel Dr. Keith- Cardiology Operations: None Procedures: 2-D Echocardiogram Summary of Care Provided: The patient is a 83 year old F admitted 04/19/2018 due to syncope. She has a recent history of recurrent episodes of syncope. Cardiology consulted. Patient follows with Dr. White as outpatient. Echocardiogram showed an EF of 60%, stage I diastolic dysfunction. No change from prior. Syncope suspected secondary to orthostasis. Patient has a history of paroxysmal atrial relation. Noted to have mild bradycardia during admission. Metoprolol decreased to 25 mg twice daily. Amiodarone decreased to 100 mg daily. Patient noted to have acute kidney injury on chronic kidney disease stage II-III. Resolved with IV fluids. Patient also with hyperkalemia due to acute kidney injury with chronic potassium supplementation. Resolved with Kayexalate. Patient has chronic elevated troponin, troponin noted to be significantly lower than prior labs. Patient's other past medical history includes hypertension, hypothyroidism, chronic diastolic CHF, CAD, paroxysmal atrial fibrillation. Patient has severe protein calorie malnutrition with a BMI of 14. Patient denies further syncope. She will follow-up with primary care physician and cardiology as outpatient. Possible loop recorder placement as outpatient if patient has recurrent episodes of syncope. General: Awake, Alert, Oriented x 3 HEENT: PERRL, EOMI, Sclera Non Icteric Neck: Supple, no JVD, negative carotid bruits Lungs: Clear to auscultation Cardiovascular: Regular Rhythm, Normal S1, Normal S2, No Murmurs, No Rubs, No Gallops, mild bradycardia Vascular: No Carotid Bruits, Normal Radial Pulses Abdomen: Bowel Sounds Present, Soft, Non Tender Extremities: No Cyanosis, No Clubbing, No edema Lymphatic: No Lymph Node Enlargement Neurological: No Focal Motor or Sensory Deficit Psych/mental status: Anxious Patient seen and examined prior to discharge. Physical assessment as noted above. Patient is stable for discharge with follow up recommendations as noted above. This patient was seen by SHWETA Delacruz under the supervision of . - Physical Exam Vital Signs Temp Pulse Resp BP Pulse Ox 98.6 F 56 L 18 98/40 L 95 04/20/18 10:21 04/20/18 10:21 04/20/18 10:21 04/20/18 10:21 04/20/18 10:21 Oxygen Delivery Method Room Air Weight: 77 lb Body Mass Index (BMI) 14.1 Finger Stick Blood Glucose 46 Intake and Output for Last 24 Hours 04/18/18 04/19/18 04/20/18 23:59 23:59 23:59 Intake Total 524 / 524 Output Total 650 / 650 Balance -126 / -126 Laboratory Tests Past 24 Hrs 04/19/18 04/19/18 04/19/18 16:00 16:00 16:00 WBC 4.1 L RBC 2.98 L Hgb 9.4 L Hct 30.0 L MCV 100.7 H MCH 31.5 MCHC 31.3 L RDW 14.3 RDW Differential 51.7 H Plt Count 249 MPV 8.9 Immature Gran % (Auto) 0.000 Neut % (Auto) 62.7 Lymph % (Auto) 18.5 L [place] % (Auto) 16.1 H Eos % (Auto) 2.2 Baso % (Auto) 0.5 Absolute Neuts (auto) 2.6 Absolute Lymphs (auto) 0.76 L Total Counted Not Reportable Sodium 135 L Potassium 5.9 H Chloride 101 Carbon Dioxide 29.0 Anion Gap 5 BUN 40 H Creatinine 1.46 H Estim Creat Clear Calc 16.87 Est GFR (MDRD) Af Amer 44 L Est GFR (MDRD) Non-Af 36 L BUN/Creatinine Ratio 27.4 H Glucose 75 Calcium 8.6 Magnesium Troponin I 0.061 H B-Natriuretic Peptide 337.5 H 04/20/18 04/20/18 04/20/18 06:25 06:25 06:25 WBC 3.1 L RBC 2.73 L Hgb 8.6 L Hct 27.5 L MCV 100.7 H MCH 31.5 MCHC 31.3 L RDW 14.2 RDW Differential 51.4 H Plt Count 240 MPV 8.8 Immature Gran % (Auto) 0.000 Neut % (Auto) 59.8 Lymph % (Auto) 26.8 [place] % (Auto) 10.1 H Eos % (Auto) 2.6 Baso % (Auto) 0.7 Absolute Neuts (auto) 1.8 L Absolute Lymphs (auto) 0.82 L Total Counted Not Reportable Sodium 140 Potassium 4.5 Chloride 105 Carbon Dioxide 28.0 Anion Gap 7 BUN 27 H Creatinine 1.00 Estim Creat Clear Calc 23.50 Est GFR (MDRD) Af Amer 68 Est GFR (MDRD) Non-Af 56 L BUN/Creatinine Ratio 27.1 H Glucose 72 L Calcium 8.3 L Magnesium 1.8 Troponin I 0.071 H B-Natriuretic Peptide 04/20/18 04/20/18 09:33 12:15 WBC RBC Hgb Hct MCV MCH MCHC RDW RDW Differential Plt Count MPV Immature Gran % (Auto) Neut % (Auto) Lymph % (Auto) [place] % (Auto) Eos % (Auto) Baso % (Auto) Absolute Neuts (auto) Absolute Lymphs (auto) Total Counted Sodium Potassium Chloride Carbon Dioxide Anion Gap BUN Creatinine Estim Creat Clear Calc Est GFR (MDRD) Af Amer Est GFR (MDRD) Non-Af BUN/Creatinine Ratio Glucose Calcium Magnesium Troponin I 0.078 H 0.081 H B-Natriuretic Peptide POC Glucose 04/20/18 04/20/18 04/20/18 13:20 12:41 12:12 POC Glucose 127 H 58 L 49 L 04/20/18 04/20/18 04/19/18 06:55 03:11 23:00 POC Glucose 82 72 83 Home Medications: Medications to take at Discharge Aspirin E.C. [Ecotrin] 81 mg PO DAILY@0800 tab 09/26/16 Ferrous Gluconate 325 mg PO BIDCM 02/03/17 Donepezil HCl [Aricept] 5 mg PO QHS tab 02/08/17 atorvastatin 20 mg tablet 20 mg PO QHS #90 tab 05/19/17 Cholecalciferol (VIT D3) [Vitamin D3] 1,000 unit PO DAILY 07/07/17 clopidogrel 75 mg tablet 75 mg PO DAILY #90 tab 11/23/17 magnesium oxide 400 mg capsule 400 mg PO DAILY cap 02/07/18 Lisinopril [Zestril] 10 mg PO DAILY tablet 03/07/18 Magnesium Hydroxide [Milk Of Magnesia] 30 ml PO DAILY PRN udc 03/07/18 Acetaminophen [Tylenol Tablet] 650 mg PO Q6H PRN PRN 04/19/18 Bisacodyl [Dulcolax] 10 mg RECTAL DAILY PRN PRN 04/19/18 Cyanocobalamin [Vitamin B12] 2,500 mcg PO DAILY@0800 04/19/18 Furosemide [Lasix] 20 mg PO DAILY 04/19/18 Levothyroxine [Synthroid] 137 mcg PO DAILY 04/19/18 Mineral Oil 1 bottle RC DAILY PRN PRN 04/19/18 Multivitamins,Therapeutic [Multivitamin] 1 tablet PO DAILY 04/19/18 Pantoprazole Sodium [Protonix] 40 mg PO DAILY 04/19/18 Sucralfate [Carafate] 1 gm PO 4X/DAY 04/19/18 busPIRone [Buspar] 10 mg PO TID 04/19/18 Ensure Enlive 120 ml PO 4X/DAY liquid 04/20/18 Primary Care Physician: Augie Rajan Chi, MD [Primary Care Provider] - Please follow up with your Primary Care Physician in: 3-5 days Please Follow Up With: Colton White MD When: 2-4 Weeks Disposition: [facility] facility Minutes spent on discharge:: 35 Patient Condition:: Stable Medical Necessity - Tobacco Use Smoking Status: Never smoker Meaningful Use Info Meaningful Use Diagnoses (Choose all that apply): None applicable
--- NOTE | 2018-04-20 14:19 | TREXTCAR_ITS ---
- Diet 04/19/18 18:26 Diet: Regular diet with continued MNS medpass Food consistency:: Puree Liquid Consistency:: Regular/Thin Supplementation: provide chocolate magic cup w/ lunch and dinner. - Routine Orders/Code Status Enema Type: Fleetz Enema Frequency: Daily PRN Suppository Type: Dulcolax 10mg Suppository Frequency: Daily PRN Keep PO Greater than or Equal to (%): 92 Routine Lab Work: - - Repeat CBC, BMP within 1 week. Code Status: Full Code - Wound(s) R FOOT Wound Type: Stasis Ulcer right heel Wound Type: Pressure Injury Dressing Change: applied Mepilex dressing - Suggestions for Active Care Change Position every (hours): 2 Hours to sit in a chair: 6 Times a day to sit in chair: 3 - Therapies Weight Bearing: Full weight bearing Physical Therapy: Eval and Treat Occupational Therapy: Eval and Treat - Problem/Diagnosis (1) Syncope Status: Acute Current Visit: Yes (2) Symptomatic bradycardia Status: Acute Current Visit: Yes (3) CVA (cerebral vascular accident) Status: Chronic Current Visit: No (4) Hypertension Status: Chronic Current Visit: No (5) Ischemic cardiomyopathy Status: Chronic Current Visit: No (6) Atherosclerosis of [place] coronary artery of [place] heart without angina pectoris Status: Chronic Current Visit: No (7) Essential (primary) hypertension Status: Chronic Current Visit: No (8) Pulmonary hypertension Status: Chronic Current Visit: No (9) Malnutrition Status: Chronic Current Visit: No (10) Dementia Status: Chronic Current Visit: No (11) Chronic anemia Status: Chronic Current Visit: No (12) Paroxysmal atrial fibrillation Status: Chronic Current Visit: No (13) Hyperlipidemia Status: Chronic Current Visit: No (14) NSTEMI (non-ST elevated myocardial infarction) Status: Chronic Comment: NSTEMI December 2016 Current Visit: No (15) Hypothyroidism Status: Chronic Current Visit: No (16) Adult BMI <19 kg/sq m Status: Chronic Current Visit: No - Allergies/Procedures Done in Hospital Allergies/Adverse Reactions: Allergies tuberculin,PPD,multi-puncture Adverse Reaction (Verified 04/19/18 15:47) Unknown caused big blister on lip Procedures: 2-D Echocardiogram, EKG - Type of Care/Length of Stay Estimated LOS: More Than 30 Days Type of Care Needed: Skilled Rehab Potential: Fair Prognosis: Fair - Additional Orders/Day of Discharge Additional Orders: (1) HOB, aspiration precautions constant. (2) IS 10/hr 7a- 7p. (3) Fall precautions. (4) Wound Care to be continued at facility per deputy sheriff generalist/bailiff in addition to follow[facility]up at [facility]. (5) Position changes for offloading a 2 hours. (6) Heel boots BL continuously when not ambulating. (7) Dressing care L heel: Mepilex dressings, offloading. H&P will serve as current which was dated: 04/19/18 Day of Discharge: 04/20/18 - Dietary and Speech Recommendations Dietitian Recommendations/Changes: Rec diet change to liberal REGULAR diet d/t low BMI/dementia and increased nutrition needs. Rec continue ONS medpass. Will provide chocolate magic cup w/ lunch and dinner for increased nutrition if consumed - Follow Up Care Primary Care Physician: Augie Rajan Chi, MD [Primary Care Provider] - Please follow up with your Primary Care Physician in: Follow-up within 3-5 days. Please Follow Up With: Colton White MD When: Follow-up in 2-4 weeks.
--- NOTE | 2018-04-20 14:49 | CASEMGMT ---
Patient is ready for d/c back to [facility]. KATHRYN called Johanna at [facility] and let her know patient will be returning today. KATHRYN faxed orders. KATHRYN spoke with patient's and he plans on taking patient back to [facility] as he did last time. Plan: Return to [facility] under skilled level of care. Rajani CIFUENTES MSW
== END 2018-04-20 14:20 | disposition skilled nursing facility (03) ==
LOC: ED 16:39 → PCU 18:21
PROVIDERS: Admitting Provider Student in an Organized Health Care Education/Training Program; Emergency Provider Emergency Medicine; Family Provider Family Medicine Geriatric Medicine; PCP Family Medicine Geriatric Medicine; Visit Provider Family Medicine
DX: R55 Syncope and collapse (principal); I48.2 Chronic atrial fibrillation; I13.0 Hypertensive heart and chronic kidney disease with heart failure and stage 1 through stage 4 chronic kidney disease, or unspecified chronic kidney disease; N18.3 Chronic kidney disease, stage 3 (moderate); I50.32 Chronic diastolic (congestive) heart failure; E78.5 Hyperlipidemia, unspecified; E03.9 Hypothyroidism, unspecified; I25.10 Atherosclerotic heart disease of native coronary artery without angina pectoris; E43 Unspecified severe protein-calorie malnutrition; Z68.1 Body mass index [BMI] 19.9 or less, adult; E87.5 Hyperkalemia; L89.610 Pressure ulcer of right heel, unstageable; F03.90 Unspecified dementia, unspecified severity, without behavioral disturbance, psychotic disturbance, mood disturbance, and anxiety; Z79.82 Long term (current) use of aspirin; Z79.899 Other long term (current) drug therapy; Z79.02 Long term (current) use of antithrombotics/antiplatelets; Z95.5 Presence of coronary angioplasty implant and graft; I25.2 Old myocardial infarction; I27.20 Pulmonary hypertension, unspecified; I48.0 Paroxysmal atrial fibrillation; D64.9 Anemia, unspecified; N17.9 Acute kidney failure, unspecified
CPT/HCPCS: 36415; 71045; 80048; 82962; 83735; 83880; 84484; 85025; 93005; 93306; 96374; 97164; 97165; 97802; 99218; 99285; J7030; J7040; A4216; G0378

== ENCOUNTER → 2018-04-25 05:00 | Outpatient (REF) | payer MEDICARE, SELFPAY ==
[2016-11-30 11:50] VITALS: BMI 16.0
[2018-04-19 19:03] VITALS: BMI 14.1
[2018-04-25 09:17] LABS: Thyroid Stim Hormone (TSH) 2.75 uIU/mL (0.358-3.74)
--- OUTSIDE RECORDS SUMMARY | 2018-06-11 01:20 | XMS RPT_ITS ---
:1935 Author Organization [place] Support Name Relationship Address Phone WilianLeann Unavailable [address] + [address] [place] [address] Tray Fernandez Unavailable [address] + [place] [address] R Unavailable Unavailable Unavailable Leann Fernandez Unavailable [address] + [address] [place] [address] Tray Fernandez Unavailable [address] + [place] [address] R Unavailable Unavailable Unavailable LEANN FERNANDEZ Unavailable [address] + [address] [place] [address] TRAY FERNANDEZ Unavailable [address] + [place] [address] R Unavailable Unavailable Unavailable LEANN FERNANDEZ Unavailable [address] + [address] [place] [address] TRAY FERNANDEZ Unavailable [address] + [place] [address] R Unavailable Unavailable Unavailable Leann Fernandez Unavailable [address] + [address] [place] [address] Tray Fernandez Unavailable [address] + [place] [address] R Unavailable Unavailable Unavailable Leann Fernandez Unavailable [address] + [address] [place] [address] Conner Fernandez Unavailable UNK + [place] [address] R Unavailable Unavailable Unavailable Leann Fernandez Unavailable [address] + [address] [place] [address] FernandezConner wheeler Unavailable UNK + [place] [address] R Unavailable Unavailable Unavailable Leann Fernandez Unavailable [address] + [address] [place] [address] FernandezConner wheeler Unavailable UNK + [place] [address] R Unavailable Unavailable Unavailable Leann Fernandez Unavailable [address] + [address] [place] [address] FernandezConner wheeler Unavailable UNK + [place] [address] R Unavailable Unavailable Unavailable Leann Fernandez Unavailable [address] + [address] [place] [address] Conner Fernandez Unavailable UNK + [place] [address] R Unavailable Unavailable Unavailable Leann Fernandez Unavailable [address] [place] [address] RD + [address] [place] [address] Fernandez Conner Unavailable UNK + [place] [address] R Unavailable Unavailable Unavailable LEANN FERNANDEZ Unavailable [address] [place] [address] RD + [address] [place] [address] R Unavailable Unavailable Unavailable LEANN FERNANDEZ Unavailable [address] + [address] [place] [address] R Unavailable Unavailable Unavailable Leann Fernandez Unavailable [address] + [address] [place] [address] Conner Fernandez Unavailable UNK + [place] [address] R Unavailable Unavailable Unavailable LEANN FERNANDEZ Unavailable [address] + [address] [place] [address] R Unavailable Unavailable Unavailable LEANN FERNANDEZ Unavailable [address] + [address] [place] [address] R Unavailable Unavailable Unavailable LEANN FERNANDEZ Unavailable [address] + [address] [place] [address] R Unavailable Unavailable Unavailable LEANN FERNANDEZ Unavailable [address] + [address] [place] [address] R Unavailable Unavailable Unavailable LEANN FERNANDEZ Unavailable [address] + [address] [place] [address] R Unavailable Unavailable Unavailable LEANN FERNANDEZ Unavailable [address] + [address] [place] [address] R Unavailable Unavailable Unavailable LEANN FERNANDEZ Unavailable [address] [place] [address] RD + [address] [place] [address] R Unavailable Unavailable Unavailable LEANN FERNANDEZ Unavailable [address] [place] [address] RD + [address] [place] [address] R Unavailable Unavailable Unavailable LEANN FERNANDEZ Unavailable [address] [place] [address] RD + [address] [place] [address] R Unavailable Unavailable Unavailable LEANN FERNANDEZ Unavailable [address] [place] [address] RD + [address] [place] [address] R Unavailable Unavailable Unavailable LEANN FERNANDEZ Unavailable [address] [place] [address] RD + [address] [place] [address] R Unavailable Unavailable Unavailable Care Team Providers Name Role Phone NUPUR FIORE (MARIJA) Attending Unavailable MAIN LENZ Referring Unavailable Colton Cruz Attending Unavailable Liban Keith Attending Unavailable Alexia White Referring Unavailable Colton Echevarria Attending Unavailable Satinder, Augie Chi Referring Unavailable Satinder, Augie Chi Primary Care Unavailable Janice Mckinney Attending Unavailable Satinder, Augie Chi Primary Care Unavailable Silvestre Rdz Attending Unavailable Nelda Ramsey Attending Unavailable Todd Steiner Attending Unavailable Satinder, Augie Chi Referring Unavailable Satinder, Augie Chi Primary Care Unavailable Satinder, Augie Chi Primary Care Unavailable Bree Escoto Attending Unavailable Satinder, Augie Chi Attending Unavailable Satinder, Augie Chi Primary Care Unavailable Todd Steiner Attending Unavailable Satinder, Augie Chi Referring Unavailable Satinder, Augie Chi Attending Unavailable Satinder, Augie Chi Primary Care Unavailable Staci Asencio Attending Unavailable Colton Echevarria Attending Unavailable Satinder, Augie Chi Referring Unavailable Satinder, Augie Chi Primary Care Unavailable Kel Mireles Admitting Unavailable Guanaco Grimaldo Attending Unavailable Kel Mireles Admitting Unavailable Kel Mireles Attending Unavailable Satinder, Augie Chi Primary Care Unavailable Agyepong, Kel Consulting Unavailable Agyepong, Kel Admitting Unavailable LynnoniGuanaco moctezuma F Attending Unavailable Satinder, Augie Chi Primary Care Unavailable KotsonisConnies F Consulting Unavailable Agyepong, Kel Admitting Unavailable KotsoniConnie moctezumas F Attending Unavailable Satinder, Augie Chi Primary Care Unavailable KotsonisConnies F Consulting Unavailable Agyepong, Kel Admitting Unavailable Satinder, Augie Chi Primary Care Unavailable KotsonisSukhiGuanaco F Consulting Unavailable KotsonisSukhiGuanaco F Attending Unavailable Agyepong, Kel Admitting Unavailable Satinder, Augie Chi Primary Care Unavailable Kotsonis, Guanaco F Consulting Unavailable KytsonisConnies F Attending Unavailable Agyepong, Kel Admitting Unavailable Satinder, Augie Chi Primary Care Unavailable Kotsonis, Guanaco F Consulting Unavailable KotsonisSukhiGuanaco F Attending Unavailable Colton Cruz Attending Unavailable Satinder, Augie Chi Attending Unavailable Satinder, Augie Chi Primary Care Unavailable Satinder, Augie Chi Primary Care Unavailable Koram, Karin Jennifer Admitting Unavailable White, Alexia Attending Unavailable Inna, Liban Consulting Unavailable Koram, Karin Jennifer Admitting Unavailable Koram, Karin Jennifer Attending Unavailable Satinder, Augie Chi Primary Care Unavailable Koram, Karin Jennifer Consulting Unavailable Koram, Karin Jennifer Admitting Unavailable White, Alexia Attending Unavailable Satinder, Augie Chi Primary Care Unavailable Inna, Ilban Consulting Unavailable White, Alexia Consulting Unavailable PROBLEMS PROBLEMS DATE TYPE CONDITION / CODE ATTENDING STATUS SOURCE 05/14/2018 Unknown E03.9 - Colton Cruz Active [place] Hypothyroidism, Community unspecified / Hospital E03.9(ICD-10) Repository 05/09/2018 Unknown R55 - Syncope and Inna, [place] Active [place] collapse / Community R55(ICD-10) Hospital Repository 04/04/2018 Unknown I27.20 - Pulmonary Colton Cruz Active [place] hypertension, Community unspecified / Hospital I27.20(ICD-10) Repository 04/04/2018 Unknown D64.9 - Anemia, Colton Cruz Active [place] unspecified / Community D64.9(ICD-10) Hospital Repository 03/13/2018 Unknown G45.9 - Transient Kotsonis, Active [place] cerebral ischemic [place] Cheema Community attack, unspecified Hospital / G45.9(ICD-10) Repository 02/07/2018 Unknown I48.0 - Paroxysmal MoodispaColton green Active [place] atrial fibrillation Community / I48.0(ICD-10) Hospital Repository 01/24/2018 Unknown E55.9 - Vitamin D Satinder, Augie Chi Active [place] deficiency, Community unspecified / Hospital E55.9(ICD-10) Repository 01/24/2018 Unknown I10 - Essential Satinder, Augie Chi Active [place] (primary) Community hypertension / Hospital I10(ICD-10) Repository 09/14/2017 Unknown E78.4 - Other Satinder, Augie Chi Active [place] hyperlipidemia / Community E78.4(ICD-10) Hospital Repository PROCEDURES PROCEDURES No Procedure Records FoundRESULTS RESULTS THYROID STIM HORMONE Collected: 04/25/2018 Status: F Source: [place] (TSH) 7:15 AM [facility] REPOSITORY Order Comment: 124 TYPE CODE TESTS RESULT OUT OF RANGE REFERENCE UNITS LAB L501.9520 0.358-3.74 uIU/mL Normal TSH 2.75 Performed By: #### [id number] #### [facility] [address] [facility], [address] 12 LEAD ELECTROCARDIOGRAM Observed: 04/23/2018 Status: F Source: [place] 2:53 PM [facility] REPOSITORY [facility] Cardiovascular Services [address] [place] [address] 12 Lead EKG 04/20/18 0807 MR#: [id number] Acct: [id number] Name: GLADIS FERNANDEZ Rep #: [id number] : 1935 83 From: Liban Keith MD Attending Dr: Alexia White Status: DIS EVETTE Ordering Dr: Alexia White Date: 04/20/18 Location: [facility] Sex: F C Admitted: 04/19/18 Test Reason : ARRYTHMIA Blood Pressure : / mmHG Vent. Rate : 056 BPM Atrial Rate : 056 BPM P-R Int : 208 ms QRS Dur : 090 ms QT Int : 486 ms P-R-T Axes : 049 -75 156 degrees QTc Int : 468 ms Sinus bradycardia Left anterior fascicular block Possible Lateral infarct , age undetermined Abnormal ECG When compared with ECG of 19-APR-2018 15:45, MANUAL COMPARISON REQUIRED, DATA IS UNCONFIRMED Confirmed by LIBAN KEITH MD ([id number]), city editor SHARMILA MURCIA ([id number]) on 04/23/2018 2:53:18 PM Referred By: LINDA Confirmed By:LIBAN KEITH MD 04/23/18 1453 Date Liban Keith MD CC: Alexia White; Augie Rajan MD Signed 12 LEAD ELECTROCARDIOGRAM Observed: 04/23/2018 Status: F Source: [place] 2:46 PM [facility] REPOSITORY [facility] Cardiovascular Services [address] [place] [address] 12 Lead EKG 04/19/18 1545 MR#: [id number] Acct: [id number] Name: GLADIS FERNANDEZ Rep #: [id number] : 1935 83 From: Liban Keith MD Attending Dr: Alexia White Status: DIS EVETTE Ordering Dr: Sally Zayas MD Date: 04/19/18 Location: [facility] Sex: F C Admitted: 04/19/18 Test Reason : SYNCOPE Blood Pressure : / mmHG Vent. Rate : 046 BPM Atrial Rate : 046 BPM P-R Int : 250 ms QRS Dur : 080 ms QT Int : 532 ms P-R-T Axes : 114 -69 099 degrees QTc Int : 465 ms Sinus bradycardia with sinus arrhythmia with 1st degree A- V block Left anterior fascicular block ST AND T wave abnormality, consider lateral ischemia Abnormal ECG Confirmed by LIBAN KEITH MD ([id number]), city editor SHARMILA MURCIA ([id number]) on 04/23/2018 2:45:55 PM Referred By: MARI Confirmed By:LIBAN KEITH MD 04/23/18 1445 Date Liban Keith MD CC: MD Aguillon Jwayyedorota; Alexia White; Augie Rajan MD Signed CONSULTATION Observed: 04/23/2018 Status: F Source: [place] 7:29 AM [facility] REPOSITORY [facility] Medical Records Department [address] [place] [address] Consultation 04/20/18 0743 MR#: [id number] Acct: [id number] Name: GLADIS FERNANDEZ Rep #: [id number] : 1935 83 From: Liban Keith MD PCP: Augie Rajan MD, Chi Status: DIS EVETTE Y Location: [place] [address] Reason for Consult Date of Consultation: 04/20/18 History of Present Illness: The patient is a 83 year old F with a history of previous ST elevation myocardial infarction for which she underwent angioplasty and stenting of the circumflex artery. She also had disease in the left anterior descending artery and right coronary artery. She presented today to the emergency room with a syncopal episode. [] She was admitted through the ED with a complaint of recurrent episodes of syncope for the past few days. She had one episode of brief loss of consciousness about 2 days ago which resolved after a few seconds. Subsequent to that she had 2 more episodes of syncope today and states that he noted that her blood pressure dropped at that time. She denied any lightheadedness or dizziness or any chest pain or palpitations. She has not had such symptoms in the past. She was never brought to the ED. In the ED, vitals were significant for blood pressure 1 37/43 and pulse rate of 42 on admission. Labs showed sodium of 135 and K of 5.9. Creatinine 1.46. Initial troponin was 0.061 and BNP was 337.5. CBC showed white cell count of 4.1 and hemoglobin of 9.4. She is being admitted to be managed for syncope, for syncope likely cardiac. Her EKG did not demonstrate any significant cardiac abnormalities. [] Past Medical History Allergies/Adverse Reactions: Allergies tuberculin,PPD,multi-puncture Adverse Reaction (Verified 04/19/18 15:47) Unknown caused big blister on lip Home Medications: Ambulatory Orders Medication Instructions Recorded Aspirin E.C. [Ecotrin] 81 mg PO DAILY@0800 tab 09/26/16 Ferrous Gluconate 325 mg PO BIDCM 02/03/17 Past Medical History (Chronic Problems): Chronic Problems (Last Reviewed 03/02/18 @ 02:31 by Kel Mireles MD) Dysphagia (Chronic) Hypertension (Chronic) Ischemic cardiomyopathy (Chronic) Presence of stent in coronary artery (Chronic) PTCA/DONNELL to proximal LCx in September 2016; PTCA/DONNELL to PDA and PTCA of PLVB on November 17, 2016; PCI with PTCA to ostial diagonal and PTCA/DONNELL to proximal LAD in November 29, 2016; residential current use of 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 drug (Chronic) Atherosclerosis [place] coronary artery [place] heart without angina pectoris (Chronic) Essential (primary) hypertension (Chronic) Pulmonary hypertension (Chronic) Malnutrition (Chronic) Dementia (Chronic) Chronic anemia (Chronic) Paroxysmal atrial fibrillation (Chronic) Hyperlipidemia (Chronic) NSTEMI (non-ST elevated myocardial infarction) (Chronic) NSTEMI December 2016 ST elevation (STEMI) myocardial infarction involving left circumflex coronary artery (Chronic) stent 09/24/16 Hypothyroidism (Chronic) Adult BMI <19 kg/sq m (Chronic) Surgical History: total hip arthroplasty Psychiatric History: No pertinent psych hx - *Family History Maternal Family History: Family History (Last Reviewed 03/02/18 @ 02:33 by Kel Mireles MD) Father CVA (cerebral vascular accident) Mother CVA (cerebral vascular accident) History Items: Stroke Paternal Family History: Family History (Last Reviewed 03/02/18 @ 02:33 by Kel Mireles MD) Father CVA (cerebral vascular accident) Mother CVA (cerebral vascular accident) History Items: Stroke Lives: Long-Term Smoking Status: Never smoker Alcohol: None Drugs: None Subjectve: Elderly lady in no apparent distress Objective: Vital Signs Temp Pulse Resp BP Pulse Ox 99.2 F H 58 L 18 107/50 L 95 04/20/18 06:41 04/20/18 06:41 04/20/18 06:41 04/20/18 06:41 04/20/18 06:41 Oxygen Delivery Method Room Air Weight: 77 lb Body Mass Index (BMI) 14.1 Finger Stick Blood Glucose 46 Intake and Output for Last 24 Hours Intake Total 240 / 240 Output Total 650 / 650 Balance -410 / -410 General: Awake, Alert, Oriented x 3 HEENT: PERRL, EOMI, Sclera Non Icteric Neck: Supple, Good ROM, No Lymph Node Enlargement Lungs: Clear to auscultation Cardiovascular: Regular Rhythm, Normal S1, Normal S2, No Murmurs, No Rubs, No Gallops Vascular: No Carotid Bruits, Normal Femoral Pulses, Normal Radial Pulses, Normal Dorsalis Pedal Pulse, Normal Posterior Tibial Pulses Abdomen: Bowel Sounds Present, Soft, Non Tender, No HSM, No Organomegaly Extremities: No Cyanosis, No Clubbing, No edema Lymphatic: No Lymph Node Enlargement Neurological: No Focal Motor or Sensory Deficit 04/19/18 16:00: WBC 4.1 L, RBC 2.98 L, Hgb 9.4 L, Hct 30.0 L, MCV 100.7 H, MCH 31.5, MCHC 31.3 L, RDW 14.3, RDW Differential 51.7 H, Plt Count 249, MPV 8.9, Immature Gran % (Auto) 0.000, Neut % (Auto) 62.7, Lymph % (Auto) 18.5 L, [place] % (Auto) 16.1 H, Eos % (Auto) 2.2, Baso % (Auto) 0.5, Absolute Neuts (auto) 2.6, Total Counted Not Reportable 04/19/18 16:00: Sodium 135 L, Potassium 5.9 H, Chloride 101, Carbon Dioxide 29.0, Anion Gap 5, BUN 40 H, Creatinine 1.46 H, Est GFR (MDRD) Af Amer 44 L, Est GFR (MDRD) Non-Af 36 L, BUN/Creatinine Ratio 27.4 H, Glucose 75, Calcium 8.6, Troponin I 0.061 H 04/19/18 16:00: B-Natriuretic Peptide 337.5 H 04/20/18 06:25: WBC 3.1 L, RBC 2.73 L, Hgb 8.6 L, Hct 27.5 L, MCV 100.7 H, MCH 31.5, MCHC 31.3 L, RDW 14.2, RDW Differential 51.4 H, Plt Count 240, MPV 8.8, Immature Gran % (Auto) 0.000, Neut % (Auto) 59.8, Lymph % (Auto) 26.8, [place] % (Auto) 10.1 H, Eos % (Auto) 2.6, Baso % (Auto) 0.7, Absolute Neuts (auto) 1.8 L, Total Counted Not Reportable 04/20/18 06:25: Sodium 140, Potassium 4.5, Chloride 105, Carbon Dioxide 28.0, Anion Gap 7, BUN 27 H, Creatinine 1.00, Est GFR (MDRD) Af Amer 68, Est GFR (MDRD) Non-Af 56 L, BUN/Creatinine Ratio 27.1 H, Glucose 72 L, Calcium 8.3 L Rhythm: Sinus rhythm no bradycardia arrhythmias noted EKG: Normal sinus rhythm with no acute changes Assessment/Plan 1. Recurrent syncope * The etiology is not clear at this particular time I would recommend continued telemetry monitoring. If no apparent etiology is found then I would suggest that she have an implantable loop recorder placed as an outpatient. * Her blood pressure medications would be adjusted. * 2. Atrial fibrillation * Patient has history of atrial fibrillation. At this particular time she appears to be maintaining sinus rhythm. The plan will be to continue the same medications with a reduction in her beta-mary dose. * 3. History of congestive heart failure * Appears to have a mildly elevated natruretic peptide level and appears to have mild congestive heart failure. * Will reassess left ventricular function. * * Thank you for allowing me to participate in the care of your patient. Please don't hesitate to call if any issues arise 04/23/18 0729 <Electronically signed by Liban Keith MD> Date Liban Keith MD Cosigner Signature (if applicable): Date CC: Liban Keith MD; Augie Rajan MD Signed DISCHARGE SUMMARY Observed: 04/20/2018 Status: F Source: [place] 3:09 PM [facility] REPOSITORY [facility] Medical Records Department [address] [place] [address] Discharge Summary 04/20/18 1418 MR#: [id number] Acct: [id number] Name: GLADIS FERNANDEZ Rep #: [id number] : 1935 83 From: Leora Patterson CLINICAL PRACTITIONER-C PCP: Satinder ROJO,Augie Gonzalez Status: [place] EVETTE Y Location: [place] [address] ADDENDUM by Alexia White on 04/20/18 at 1509 Code Visit ATTENDING PHYSICIAN DISCHARGE NOTE: I have seen and examined the patient independently and agree with the assessment, plan, history per Leora Patterson as noted. Discharge Diagnoses: (1) Syncopal event suspected secondary to symptomatic bradycardia and UDAY, possible secondary to poor intake and nephrotoxic regimen (2) Chronic Atrial Fibrillation (3) HTN (4) HLD (5) Hyperkalemia (6) Hypothyroidism (7) CAD (8) Diastolic CHF, Chronic (9) Dementia, Unclear Type with Unclear Behavioral Disturbance history (10) Chronic Noninfected R Heel Pressure Ulcer, Unclear stage (11) Severe Protein-Calorie Malnutrition Discharge Summary: The patient is an 83 y/o F w/ PMHx: Chronic Anemia, Chronic atrial fibrillation, HTN, HLD, Hypothyroidism, Chronic Diastolic CHF, CAD, Dementia, Unclear Type with Unclear Behavioral Disturbance history, Chronic Noninfected R Heel Pressure Ulcer, Unclear stage who presents to the [facility] ED on 04/19/18 w/ history of recurrent episodes of syncope over the last several days with noted loss of consciousness to be very brief with subsequent episodes with noted blood pressure dropping although denied lightheadedness or dizziness at that time. In the ED upon presentation blood pressure was low normal however heart rate was noted to be 42 in addition to mild hyperkalemia 5.9 as well as creatinine 1.46 with baseline 1. Patient cardiac enzyme was also mildly elevated 0.061. She was admitted to PCU, maintained on telemetry, serial cardiac enzymes were obtained and remained indeterminate, patient was gently hydrated and repeat renal function improved with creatinine 1.0, mag 1.8 with IV 2 gm to increase > 2 given, held BB and amiodarone decreased, ECHO obtained w/ normal LV size, normal LV systolic Fx, EF 60%, stage I diastolic dysfunction, mild focal AV calcification, mild TVI, no change from prior. Patient w/ improvement following gently hydrate, amiodarone decreased to 100 mg daily, metoprolol decreased to 25 mg BID per Cardiology discretion. Patient discharged to SNF in improved condition w/ possible planned outpatient Loop Recorder placement additionally. Discharge Time: > 35 Minutes DAY OF DISCHARGE PROGRESS NOTE: Subjective: Patient without acute event overnight per self and nursing report. Patient without any recurrent syncopal events. Patient remained pleasantly confused during her admission. Patient denies fever, chills, nausea, emesis, abdominal pain, chest pain or dyspnea. Patient agreeable to discharge to SNF. Patient will be discharged with follow-up with primary care physician within 3-5 days in addition to follow-up at [facility] for chronic heel ulcer in addition to Dr. Echevarria in 2-4 weeks. Objective: T 98.6, heart rate 59, BP 98/40, respiratory rate 18, 95% on room air. Physical Examination: General: awake, alert, oriented to self, place, pleasantly confused, cooperative, seated upright in the bed, NAD. Skin: normal color, turgor, no icterus, cyanosis. HEENT: AT/NC, EOMI, PERRLA, MMM. Lungs: Diminished BS BL, > bases, no rales, ronchi or wheezing; Heart: Bradycardia; no gallop, rub audible. Abdomen: soft, cachetic habitus, NTTP, ND, normal BS. Extremities: no cyanosis, clubbing, or edema. Neurological: patient awake, alert, oriented as noted; cognitive function decreased, baseline dementia; pupils equally reactive to light and accomodation; cranial nerves II-XII grossly normal, moving all 4 extremities, strength moderately globally decreased. Psychiatric: affect appears pleasant, no acute evidence of depressive or anxiety feelings. Assessment and Plan: Please see hospital summary above. OBSV E AND M: [id number] Observation care discharge 04/20/18 1509 <Electronically signed by Alexia White > Date Alexia White cc: SHWETA Patterson; Alexia White; Augie Rajan MD * Signed Discharge Date and Diagnosis Date of Admission: 04/19/18 Date of Discharge: 04/20/18 - Primary Discharge Diagnosis 1. Syncope 2. Mild bradycardia 3. Hyperkalemia 4. 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 Chronic elevated troponin 6. Hypertension 7. Hypothyroidism 8. Chronic diastolic CHF 9. CAD 10. Paroxysmal atrial fibrillation 11. 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) Atheros[place] coronary artery of [place] heart without angina pectoris (Chronic) Essential (primary) hypertension (Chronic) Pulmonary hypertension (Chronic) Malnutrition (Chronic) Dementia (Chronic) Chronic anemia (Chronic) Paroxysmal atrial fibrillation (Chronic) Hyperlipidemia (Chronic) NSTEMI (non-ST elevated myocardial infarction) (Chronic) NSTEMI December 2016 ST elevation (STEMI) myocardial infarction involving left circumflex coronary artery (Chronic) stent 09/24/16 Hypothyroidism (Chronic) Adult BMI <19 kg/sq m (Chronic) Hospital Course and Treatment Imaging Results: Diagnostic Data Chest X-Ray 04/19/18 15:55 IMPRESSION: No acute cardiopulmonary disease. Electronically Signed: Avinash Jacques MD at 16:12 EST , Service support , Consultations 04/20/18 04:24 Consult: Onc/Wound/binder fixer Routine Comment: Reason for Consult:: wound to R heel Dr. Keith- Cardiology Operations: None Procedures: 2-D Echocardiogram Summary of Care Provided: The patient is a 83 year old F admitted 04/19/2018 due to syncope. She has a recent history of recurrent episodes of syncope. Cardiology consulted. Patient follows with Dr. Echevarria as outpatient. Echocardiogram showed an EF of 60%, stage I diastolic dysfunction. No change from prior. Syncope suspected secondary to orthostasis. Patient has a history of paroxysmal atrial relation. Noted to have mild bradycardia during admission. Metoprolol decreased to 25 mg twice daily. Amiodarone decreased to 100 mg daily. Patient noted to have acute kidney injury on chronic kidney disease stage II-III. Resolved with IV fluids. Patient also with hyperkalemia due to acute kidney injury with chronic potassium supplementation. Resolved with Kayexalate. Patient has chronic elevated troponin, troponin noted to be significantly lower than prior labs. Patient's other past medical history includes hypertension, hypothyroidism, chronic diastolic CHF, CAD, paroxysmal atrial fibrillation. Patient has severe protein calorie malnutrition with a BMI of 14. Patient denies further syncope. She will follow-up with primary care physician and cardiology as outpatient. Possible loop recorder placement as outpatient if patient has recurrent episodes of syncope. General: Awake, Alert, Oriented x 3 HEENT: PERRL, EOMI, Sclera Non Icteric Neck: Supple, no JVD, negative carotid bruits Lungs: Clear to auscultation Cardiovascular: Regular Rhythm, Normal S1, Normal S2, No Murmurs, No Rubs, No Gallops, mild bradycardia Vascular: No Carotid Bruits, Normal Radial Pulses Abdomen: Bowel Sounds Present, Soft, Non Tender Extremities: No Cyanosis, No Clubbing, No edema Lymphatic: No Lymph Node Enlargement Neurological: No Focal Motor or Sensory Deficit Psych/mental status: Anxious Patient seen and examined prior to discharge. Physical assessment as noted above. Patient is stable for discharge with follow up recommendations as noted above. This patient was seen by SHWETA Delacruz under the supervision of . - Physical Exam Vital Signs Temp Pulse Resp BP Pulse Ox 98.6 F 56 L 18 98/40 L 95 04/20/18 10:21 04/20/18 10:21 04/20/18 10:21 04/20/18 10:21 04/20/18 10:21 Oxygen Delivery Method Room Air Weight: 77 lb Body Mass Index (BMI) 14.1 Finger Stick Blood Glucose 46 Intake and Output for Last 24 Hours Intake Total 524 / 524 Output Total 650 / 650 Balance -126 / -126 Laboratory Tests Past 24 Hrs WBC 4.1 L RBC 2.98 L WBC 3.1 L POC Glucose POC Glucose 127 H 58 L 49 L POC Glucose 82 72 83 Home Medications: Medications to take at Discharge Aspirin E.C. [Ecotrin] 81 mg PO DAILY@0800 tab 09/26/16 Ferrous Gluconate 325 mg PO BIDCM 02/03/17 Donepezil HCl [Aricept] 5 mg PO QHS tab 02/08/17 atorvastatin 20 mg tablet 20 mg PO QHS #90 tab 05/19/17 Cholecalciferol (VIT D3) [Vitamin D3] 1,000 unit PO DAILY 07/07/17 clopidogrel 75 mg tablet 75 mg PO DAILY #90 tab 11/23/17 magnesium oxide 400 mg capsule 400 mg PO DAILY cap 02/07/18 Lisinopril [Zestril] 10 mg PO DAILY tablet 03/07/18 Magnesium Hydroxide [Milk Of Magnesia] 30 ml PO DAILY PRN udc 03/07/18 Acetaminophen [Tylenol Tablet] 650 mg PO Q6H PRN PRN 04/19/18 Bisacodyl [Dulcolax] 10 mg RECTAL DAILY PRN PRN 04/19/18 Cyanocobalamin [Vitamin B12] 2,500 mcg PO DAILY@0800 04/19/18 Furosemide [Lasix] 20 mg PO DAILY 04/19/18 Levothyroxine [Synthroid] 137 mcg PO DAILY 04/19/18 Mineral Oil 1 bottle RC DAILY PRN PRN 04/19/18 Multivitamins,Therapeutic [Multivitamin] 1 tablet PO DAILY 04/19/18 Pantoprazole Sodium [Protonix] 40 mg PO DAILY 04/19/18 Sucralfate [Carafate] 1 gm PO 4X/DAY 04/19/18 busPIRone [Buspar] 10 mg PO TID 04/19/18 Ensure Enlive 120 ml PO 4X/DAY liquid 04/20/18 Primary Care Physician: Augie Rajan Chi, MD [Primary Care Provider] - Please follow up with your Primary Care Physician in: 3-5 days Please Follow Up With: Colton Echevarria MD When: 2-4 Weeks Disposition: [facility] facility Minutes spent on discharge:: 35 Patient Condition:: Stable Medical Necessity - Tobacco Use Smoking Status: Never smoker Meaningful Use Info Meaningful Use Diagnoses (Choose all that apply): None applicable 04/20/18 1452 <Electronically signed by Leora ROCK> Date Leora ROCK 04/20/18 1456<Electronically signed by Alexia White > Cosigner Signature (if applicable): Date Alexia White CC: SHWETA Patterson; Alexia White; Augie Rajan MD Signed TRANSFER TO [facility] Observed: 04/20/2018 Status: F Source: [facility] 2:22 PM [facility] REPOSITORY [facility] Medical Records Department [address] [place] [address] Transfer to [facility] MR#: [id number] Acct: [id number] Name: GLADIS FERNANDEZ Rep #: [id number] : 1935 83 From: Alexia White PCP: Augie Rajan MD, Chi Status: ADM EVETTE GLADIS FERNANDEZ (Patient) (Health Ins. Claim No.) (Day of Discharge to Facility) Certification of patient admission REQUIRED AT TIME OF ADMISSION. I CERTIFY THAT POST-HOSPITAL ECF SERVICES ARE REQUIRED TO BE GIVEN ON AN IN-PATIENT BASIS BECAUSE OF THE ABOVE NAMED PATIENT'S NEED FOR [facility]DC CARE ON A CONTINUING BASIS FOR THE CONDITION(S) FOR WHICH HE/SHE WAS RECEIVING IN-PATIENT HOSPITAL SERVICES PRIOR TO HIS/HER TRANSFER TO THE [facility]. 04/20/18 1422 <Electronically signed by Alexia White > Date Alexia White - Diet 04/19/18 18:26 Diet: Regular diet with continued MNS medpass Food consistency:: Puree Liquid Consistency:: Regular/Thin Supplementation: provide chocolate magic cup w/ lunch and dinner. - Routine Orders/Code Status Enema Type: Fleetz Enema Frequency: Daily PRN Suppository Type: Dulcolax 10mg Suppository Frequency: Daily PRN Keep PO Greater than or Equal to (%): 92 Routine Lab Work: - - Repeat CBC, BMP within 1 week. Code Status: Full Code - Wound(s) R FOOT Wound Type: Stasis Ulcer right heel Wound Type: Pressure Injury Dressing Change: applied Mepilex dressing - Suggestions for Active Care Change Position every (hours): 2 Hours to sit in a chair: 6 Times a day to sit in chair: 3 - Therapies Weight Bearing: Full weight bearing Physical Therapy: Eval and Treat Occupational Therapy: Eval and Treat - Problem/Diagnosis (1) Syncope Status: Acute Current Visit: Yes (2) Symptomatic bradycardia Status: Acute Current Visit: Yes (3) CVA (cerebral vascular accident) Status: Chronic Current Visit: No (4) Hypertension Status: Chronic Current Visit: No (5) Ischemic cardiomyopathy Status: Chronic Current Visit: No (6) Atherosclerosis [place] coronary artery [place] heart without angina pectoris Status: Chronic Current Visit: No (7) Essential (primary) hypertension Status: Chronic Current Visit: No (8) Pulmonary hypertension Status: Chronic Current Visit: No (9) Malnutrition Status: Chronic Current Visit: No (10) Dementia Status: Chronic Current Visit: No (11) Chronic anemia Status: Chronic Current Visit: No (12) Paroxysmal atrial fibrillation Status: Chronic Current Visit: No (13) Hyperlipidemia Status: Chronic Current Visit: No (14) NSTEMI (non-ST elevated myocardial infarction) Status: Chronic Comment: NSTEMI December 2016 Current Visit: No (15) Hypothyroidism Status: Chronic Current Visit: No (16) Adult BMI <19 kg/sq m Status: Chronic Current Visit: No - Allergies/Procedures Done in Hospital Allergies/Adverse Reactions: Allergies tuberculin,PPD,multi-puncture Adverse Reaction (Verified 04/19/18 15:47) Unknown caused big blister on lip Procedures: 2-D Echocardiogram, EKG - Type of Care/Length of Stay Estimated LOS: More Than 30 Days Type of Care Needed: Skilled Rehab Potential: Fair Prognosis: Fair - Additional Orders/Day of Discharge Additional Orders: (1) HOB, aspiration precautions constant. (2) IS 10/hr 7a-7p. (3) Fall precautions. (4) Wound Care to be continued at facility per urgent care nurse practitioner in addition to follow-up at [facility] [place] [facility]. (5) Position changes for offloading a 2 hours. (6) Heel boots BL continuously when not ambulating. (7) Dressing care L heel: Mepilex dressings, offloading. H AND P will serve as current which was dated: 04/19/18 Day of Discharge: 04/20/18 - Dietary and Speech Recommendations Dietitian Recommendations/Changes: Rec diet change to liberal REGULAR diet d/t low BMI/dementia and increased nutrition needs. Rec continue ONS medpass. Will provide chocolate magic cup w/ lunch and dinner for increased nutrition if consumed - Follow Up Care Primary Care Physician: Augie Rajan Chi, MD [Primary Care Provider] - Please follow up with your Primary Care Physician in: Follow- up within 3-5 days. Please Follow Up With: Colton Echevarria MD When: Follow-up in 2-4 weeks. 04/20/18 1422 <Electronically signed by Alexia White > Date Alexia White CC: Liban Keith MD; Augie Rajan MD Signed BEDSIDE GLUCOSE Collected: 04/20/2018 Status: F Source: [facility] 1:20 PM [facility] REPOSITORY TYPE CODE TESTS RESULT OUT OF REFERENCE UNITS RANGE LAB L501.080 70-110 mg/dL High BEDSIDE GLU 127 Result Comment: MANAGEMENT OF PATIENT CARE PER NURSING PROTOCOL Performed By: #### L501.080 #### [facility] [place] [facility] Point of Care [address] [place] [address] BEDSIDE GLUCOSE Collected: 04/20/2018 Status: F Source: [facility] 12:41 PM [facility] REPOSITORY TYPE CODE TESTS RESULT OUT OF REFERENCE UNITS RANGE LAB L501.080 70-110 mg/dL Low BEDSIDE GLU 58 Result Comment: MANAGEMENT OF PATIENT CARE PER NURSING PROTOCOL Performed By: #### L501.080 #### [facility] [place] [facility] Point of Care [address] [place] [address] TROPONIN-I Collected: 04/20/2018 Status: F Source: [facility] 12:15 PM [facility] REPOSITORY Order Comment: 'TROP' Serial specimen #1, #2 or #3: 3 'TROP' Serial specimen #1, #2, #3, or #4: 3 TYPE CODE TESTS RESULT OUT OF RANGE REFERENCE UNITS LAB L501.4010 <0.045 ng/mL High 0.081 TROPONIN-I Result Comment: TROPONIN-I EXPECTED VALUES <0.045 Negative 0.045 - 0.590 Consistent with Cardiac Damage > OR = 0.600 Critical Value Not every elevated troponin is indicative of WA. These values should be used with clinical judgement in examining the patient's clinical picture for diagnosis. To establish a diagnosis of WA versus myocardial injury, there must be a demonstrated rise and/or fall in the troponin values, in addition to ischemic symptoms, EKG changes, new regional wall motion abnormality, and/or angiographical evidence. PLEASE NOTE: REFERENCE RANGES EDITED 17 Performed By: #### L501.4010 #### [facility] [place] [facility] [address] [place], [address] BEDSIDE GLUCOSE Collected: 04/20/2018 Status: F Source: [facility] 12:12 PM [facility] REPOSITORY TYPE CODE TESTS RESULT OUT OF REFERENCE UNITS RANGE LAB L501.080 70-110 mg/dL Low BEDSIDE GLU 49 Result Comment: MANAGEMENT OF PATIENT CARE PER NURSING PROTOCOL Performed By: #### L501.080 #### [facility] [place] [facility] Point of Care [address] [facility] [address] ECHOCARDIOGRAM COMPLETE Observed: 04/20/2018 Status: F Source: [facility] 11:27 AM [facility] REPOSITORY [facility] Cardiovascular Services [address] [place] [address] Echo Complete 04/20/18 0911 MR#: [id number] Acct: [id number] Name: GLADIS FERNANDEZ Rep #: [id number] : 1935 83 From: Liban Keith MD Attending Dr: Alexia White Status: ADM EVETTE Ordering Dr: Alexia White Date: 04/20/18 Location: U Sex: F C Admitted: 04/19/18 Reason For Study: aRRHYTHMIA Procedure This was a 2D Doppler, Color Flow transthoracic echocardiogram. Exam performed portable in patient room. Left Ventricle Normal LV size. Left ventricular systolic function is normal. The estimated ejection fraction is 60 %. Stage 1 diastolic dysfunction. No regional wall motion abnormalities noted. Right Ventricle Normal RV size. Normal systolic function. Atria Normal left atrium. Normal right atrium. Mitral Valve Normal mitral valve. Tricuspid Valve Normal tricuspid valve. Mild tricuspid valve insufficiency. Pulmonary artery systolic pressure is 30 mmHg. Aortic Valve Trisinus/trileaflet aortic valve. Mild focal aortic valve calcification. Pulmonic Valve Normal pulmonic valve. Great Vessels Normal aortic root. The pulmonary artery is normal size. Normal inferior vena cava. Pericardium/Pleural No pericardial effusion. MMode/2D Measurements AND Calculations LVIDd: 3.3 cm IVSd: 1.0 cm LVOT diam: 2.0 cm LVIDs: 2.4 cm LVPWd: 0.97 cm LVOT area: 3.0 cm2 FS: 29.0 % ACS: 1.0 cm LAV(MOD-bp): 46.3 ml LA A4 area: 18.0 cm2 LA dimension: 3.8 cm LAV(MOD-bp) Indexed: 36.4 ml/m2 LAV(MOD-sp2): 42.3 ml LAV(MOD-sp4): 51.8 ml RA A4 area: 15.1 cm2 Time Measurements MV dec time: 0.26 sec Doppler Measurements AND Calculations MV E max anand: 76.0 cm/sec Med Peak E' Anand: 5.5 cm/sec MV V2 max: 96.3 cm/sec MV A max anand: 87.9 cm/sec E/E' med: 13.9 MV max P.7 mmHg MV E/A: 0.87 MV V2 mean: 56.5 cm/sec MV mean P.5 mmHg MV V2 VTI: 31.2 cm MVA(VTI): 2.2 cm2 MV P1/2t max anand: 94.4 cm/sec Ao V2 max: 163.5 cm/sec LV V1 max: 100.8 cm/sec MV P1/2t: 75.0 msec Ao max P.7 mmHg LV V1 max P.1 mmHg Ao V2 mean: 108.3 cm/sec LV V1 mean P.9 mmHg MV dec slope: 368.5 cm/sec2 Ao mean P.3 mmHg LV V1 mean: 63.4 cm/sec MVA(P1/2t): 2.9 cm2 Ao V2 VTI: 35.4 cm LV V1 VTI: 22.2 cm MIKE(I,D): 1.9 cm2 MIKE(V,D): 1.9 cm2 SV(LVOT): 67.7 ml PA V2 max: 87.6 cm/sec TR max anand: 251.8 cm/sec TR max P.4 mmHg Interpretation Summary Normal LV size. Left ventricular systolic function is normal. The estimated ejection fraction is 60 %. Stage 1 diastolic dysfunction. Mild focal aortic valve calcification. Mild tricuspid valve insufficiency. Compared to prior study, there is no significant change. Ordering Physician: Alexia White Referring Physician: Augie Rajan Chi Performed By: Jayy Santiago, IAM 04/20/181125 Date Liabn Keith MD CC: Alexia White; Augie Rajan MD Date Dictated: 04/20/18910 Date Transcribed: 04/20/181125 Office Helper: Signed TROPONIN-I Collected: 04/20/2018 Status: F Source: [facility] 9:33 AM [facility] REPOSITORY Order Comment: 'TROP' Serial specimen #1, #2 or #3: 2 'TROP' Serial specimen #1, #2, #3, or #4: 2 TYPE CODE TESTS RESULT OUT OF RANGE REFERENCE UNITS LAB L501.4010 <0.045 ng/mL High 0.078 TROPONIN-I Result Comment: TROPONIN-I EXPECTED VALUES <0.045 Negative 0.045 - 0.590 Consistent with Cardiac Damage > OR = 0.600 Critical Value Not every elevated troponin is indicative of [place]. These values should be used with clinical judgement in examining the patient's clinical picture for diagnosis. To establish a diagnosis of WA versus myocardial injury, there must be a demonstrated rise and/or fall in the troponin values, in addition to ischemic symptoms, EKG changes, new regional wall motion abnormality, and/or angiographical evidence. PLEASE NOTE: REFERENCE RANGES EDITED 17 Performed By: #### L501.4010 #### [facility] [place] [facility] [address] [place], [place], [address] BEDSIDE GLUCOSE Collected: 04/20/2018 Status: F Source: [facility] 6:55 AM [facility] REPOSITORY TYPE CODE TESTS RESULT OUT OF RANGE REFERENCE UNITS LAB L501.080 70-110 mg/dL Normal BEDSIDE GLU 82 Result Comment: MANAGEMENT OF PATIENT CARE PER NURSING PROTOCOL Performed By: #### L501.080 #### [facility] [place] [facility] Point of Care [address] [place], [place] [address] CBC W/DIFF, AUTOMATED Collected: 04/20/2018 Status: F Source: [facility] 6:25 AM [facility] REPOSITORY TYPE CODE TESTS RESULT OUT OF RANGE REFERENCE UNITS LAB L100.1000 4.4-11.0 K/mm3 Low WBC 3.1 LAB L100.1200 4.2-5.4 M/mm3 Low RBC 2.73 LAB L100.1300 12.0-15.0 g/dl Low HGB 8.6 LAB L100.1400 37-47 % Low HCT 27.5 LAB L100.1500 81-99 fL High MCV 100.7 LAB L100.1600 27.0-32.0 pg Normal MCH 31.5 LAB L100.1700 32-36 g/gl Low MCHC 31.3 LAB L100.1810 11.6-14.6 % Normal RDW CV 14.2 LAB L100.1820 35.1-43.9 fl High RDW SD 51.4 LAB L100.1900 150-450 K/mm3 Normal PLT 240 LAB L100.2000 6.2-12.0 fl Normal MPV 8.8 LAB L100.2100 47-70 % Normal NEUT% 59.8 LAB L100.2200 19-41 % Normal LY% 26.8 LAB L100.2300 0-10 % High MONO% 10.1 LAB L100.2400 0-5 % Normal EO% 2.6 LAB L100.2500 0-1 % Normal BASO% 0.7 LAB L100.2550 0.0-0.9 % Normal IM GRAN % 0.000 Result Comment: IG% - Immature Granulocytes (promyelocytes, myelocytes and metamyelocytes) > 1% indicates that a LEFT SHIFT is Present. LAB L100.2620 2.0-7.7 X10 3/uL Low Absolute Neut 1.8 LAB L100.2720 0.83-4.51 X10 3/ul Low Absolute Lymph 0.82 Performed By: #### L100.0100 #### [facility] [place] [facility] [address] [place], [place], [id number] BASIC METABOLIC Collected: 04/20/2018 Status: F Source: [facility] PROFILE (BMP) 6:25 AM [facility] REPOSITORY TYPE CODE TESTS RESULT OUT OF RANGE REFERENCE UNITS LAB L501.0100 74-106 mg/dL Low GLU 72 Result Comment: Please note revised GLUCOSE reference range effective 2017. LAB L501.1000 7-18 mg/dL High BUN 27 LAB L501.1100 0.55-1.02 mg/dL Normal CREAT,SERUM 1.00 Result Comment: The validity of the calculated GFR AND GFRAA in patients over 70 years has not been determined. Clinical correlation is essential. LAB L501.1110 >60 mL/min Low EST GFR 56 Result Comment: Non- GFR Calc LAB L501.1115 >60 mL/min Normal EST GFR - AA 68 Result Comment: GFR Calc LAB L501.1255 ml/min Normal Estimated CRCL 23.50 LAB L501.1300 10-20 RATIO High BUN/CRE 27.1 LAB L501.2200 8.5-10 mg/dL Low .1 CA 8.3 LAB L501.5300 136-14 mmol/L Normal 5 NA 140 LAB L501.5600 3.5-5. mmol/L Normal 1 K 4.5 LAB L501.5900 98-107 mmol/L Normal CL 105 LAB L501.6100 21.0-3 mmol/L Normal 2.0 CO2 28.0 LAB L501.6200 5-15 Normal GAP 7 Performed By: #### L500.2500 #### [facility] [place] [facility] [address] [place], [address] TROPONIN-I Collected: 04/20/2018 Status: F Source: [facility] 6:25 AM [facility] REPOSITORY Order Comment: 'TROP' Serial specimen #1, #2 or #3: 1 'TROP' Serial specimen #1, #2, #3, or #4: 1 TYPE CODE TESTS RESULT OUT OF RANGE REFERENCE UNITS LAB L501.4010 <0.045 ng/mL High 0.071 TROPONIN-I Result Comment: TROPONIN-I EXPECTED VALUES <0.045 Negative 0.045 - 0.590 Consistent with Cardiac Damage > OR = 0.600 Critical Value Not every elevated troponin is indicative of WA. These values should be used with clinical judgement in examining the patient's clinical picture for diagnosis. To establish a diagnosis of WA versus myocardial injury, there must be a demonstrated rise and/or fall in the troponin values, in addition to ischemic symptoms, EKG changes, new regional wall motion abnormality, and/or angiographical evidence. PLEASE NOTE: REFERENCE RANGES EDITED 17 Performed By: #### L501.4010, L501.5200 #### [facility] [place] [facility] [address] [place], [address] MAGNESIUM Collected: 04/20/2018 Status: F Source: [facility] 6:25 AM [facility] REPOSITORY Order Comment: 'TROP' Serial specimen #1, #2 or #3: 1 'TROP' Serial specimen #1, #2, #3, or #4: 1 TYPE CODE TESTS RESULT OUT OF RANGE REFERENCE UNITS LAB L501.5200 1.6-2.6 mg/dL Normal MG 1.8 Performed By: #### L501.4010, L501.5200 #### [facility] [place] [facility] [address] [place], [address] BEDSIDE GLUCOSE Collected: 04/20/2018 Status: F Source: [facility] 3:11 AM [facility] REPOSIT[facility] TYPE CODE TESTS RESULT OUT OF RANGE REFERENCE UNITS LAB L501.080 70-110 mg/dL Normal BEDSIDE GLU 72 Result Comment: MANAGEMENT OF PATIENT CARE PER NURSING PROTOCOL Performed By: #### L501.080 #### [facility] [place] [facility] Point of Care [address] [place] [address] EMERGENCY DEPARTMENT Observed: 04/19/2018 Status: F Source: [facility] SUMMARY 11:26 PM [facility] REPOSITORY [facility] Medical Records Department [address] [place] [address] Emergency Department Summary 04/19/18 1704 MR#: [id number] Acct: [id number] Name: GLADIS FERNANDEZ Rep #: [id number] : 1935 83 From: Sally Zayas MD PCP: Satinder ROJO,Augie Gonzalez Status: ADM EVETTE - ER Visit Summary Date of Service: 04/19/18 Chief Complaint: [] Syncope x2 History of Present Illness: The patient is a 83 F [] history of heart disease A. fib reports that she had syncope x2 at nursing center she apparently had syncope 2 or 3 days ago at nursing Center her workup there was unremarkable, per the she was simply sitting in her wheelchair when she passed out twice for about 10 seconds each, she had no muscle movement during these episodes or incontinence or tongue biting. She woke after about 10-20 seconds, she has not been ill in any way with no fever cough chest pain normal bowel bladder habits no new medications Physical Examination: [] Heart rate is about 50 she appears to have A. fib but a baseline underlying sinus rhythm her blood pressure is 120/80 she is awake and alert now General, no distress resting comfortably HEENT is generally unremarkable The neck is supple no adenopathy Cardiovascular, irregular rate and rhythm, anywhere from 45-55 Lungs, clear bilateral Abdomen, soft nontender Extremities, no clubbing cyanosis or edema Neurologic, awake alert answering questions appropriately moving all 4 extremities NIH is 0, per she is at her mental status and neurologic baseline EKG shows a sinus rhythm with a first-degree block but on the monitor she appears to be going in and out of A. fib and there is some history to support A. fib Given all the above screening labs are obtained, screening labs are generally unremarkable her troponin returns at 0.06, chest x-ray unremarkable, EKG again showed nothing acute, she is remained stable here in the department he was dynamically stable, I spoke with the hospitalist above I see her for admission Test Results: [] Emergency Department Course and Treatment: [] Treatment Plan: [] Disposition: [] Admit stable Impression: [] Syncope x2, A. fib, abnormal troponin This note was generated with [employer] CK1 dictation software. It may contain incorrect words, spelling, and punctuation that were not noted in review of the chart prior to signing ED Disposition - Plan for ED Patient: Chief Complaint: Syncope Referrals: Augie Rajan Chi, MD [Primary Care Provider] - What to do if you have Problems For any increased pain, shortness of breath, bleeding, nausea or vomiting, chest pain, or any unexpected problems, contact your Primary Care Provider. Call [facility] ([phone]) or report to the closest Emergency Room. Call 911 if necessary. 04/19/18 9692 <Electronically signed by Sally Zayas MD> Date Sally Zayas MD Cosigner Signature (If Indicated): Date CC: Augie Rajan MD BEDSIDE GLUCOSE Collected: 04/19/2018 Status: F Source: [facility] 11:00 PM [facility] REPOSITORY TYPE CODE TESTS RESULT OUT OF RANGE REFERENCE UNITS LAB L501.080 70-110 mg/dL Normal BEDSIDE GLU 83 Result Comment: MANAGEMENT OF PATIENT CARE PER NURSING PROTOCOL Performed By: #### L501.080 #### [facility] [place] [facility] Point of Care [address] [place] [address] HISTORY AND PHYSICAL Observed: 04/19/2018 Status: F Source: [facility] EXAM 7:44 PM [facility] REPOSITORY [facility] Medical Records Department [address] [place] [address] History and Physical 04/19/18 1725 MR#: [id number] Acct: [id number] Name: GLADIS FERNANDEZ Rep #: [id number] : 1935 83 From: Karin Ayala MD PCP: Augie Rajan MD, Chi Status: ADM EVETTE Y Location: [place] [address] History of Present Illness Date of Admission: 04/19/18 Chief Complaint: Syncope The patient is a 83 year old F with an extensive past medical history as listed below. She was admitted through the ED with a complaint of recurrent episodes of syncope for the past few days. She had one episode of brief loss of consciousness about 2 days ago which resolved after a few seconds. Subsequent to that she had 2 more episodes of syncope today and states that he noted that her blood pressure dropped at that time. She denied any lightheadedness or dizziness or any chest pain or palpitations. She has not had such symptoms in the past. She was never brought to the ED. In the ED, vitals were significant for blood pressure 1 37/43 and pulse rate of 42 on admission. Labs showed sodium of 135 and K of 5.9. Creatinine 1.46. Initial troponin was 0.061 and BNP was 337.5. CBC showed white cell count of 4.1 and hemoglobin of 9.4. She is being admitted to be managed for syncope, for syncope likely cardiac. 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 drug (Chronic) Atherosclerosis [place] coronary artery [place] heart without angina pectoris (Chronic) Essential (primary) hypertension (Chronic) Pulmonary hypertension (Chronic) Malnutrition (Chronic) Dementia (Chronic) Chronic anemia (Chronic) Paroxysmal atrial fibrillation (Chronic) Hyperlipidemia (Chronic) NSTEMI (non-ST elevated myocardial infarction) (Chronic) NSTEMI December 2016 ST elevation (STEMI) myocardial infarction involving left circumflex coronary artery (Chronic) stent 09/24/16 Hypothyroidism (Chronic) Adult BMI <19 kg/sq m (Chronic) Medical History: Medical History (Last Reviewed 03/02/18 @ 02:31 by Kel Mireles MD) Hypertension (Chronic) I10 Ischemic cardiomyopathy (Chronic) I25.5 Atherosclerosis [place] coronary [place] heart without angina pectoris (Chronic) I25.10 Essential (primary) hypertension (Chronic) I10 UDAY (acute kidney injury) (Acute) N17.9 Due to prerenal azotemia, related to Lasix Pulmonary hypertension (Chronic) I27.2 Malnutrition (Chronic) E46 Dementia (Chronic) F03.90 Chronic anemia (Chronic) D64.9 Paroxysmal atrial fibrillation (Chronic) I48.0 Hyperlipidemia (Chronic) E78.5 NSTEMI (non-ST elevated myocardial infarction) (Chronic) I21.[address] elevation (STEMI) myocardial infarction involving left circumflex coronary artery (Chronic) I21.21 stent 09/24/16 Hypothyroidism (Chronic) E03.9 Adult BMI <19 kg/sq m (Chronic) Z68.1 Coronary artery disease (Inactive) I25.10 Dysphagia (Inactive) R13.10 Elevated troponin (Inactive) R74.8 not trending HFrEF (heart failure with reduced ejection fraction) (Inactive) I50.20 EF 01/12 65% Hypomagnesemia (Inactive) E83.42 Hypophosphatemia (Inactive) E83.39 Hypotension (Inactive) I95.9 with hydration Vitamin D deficiency (Inactive) E55.9 Allergies tuberculin,PPD,multi-puncture Adverse Reaction (Verified 04/19/18 15:47) Unknown caused big blister on lip Home Medications: Ambulatory Orders Medication Instructions Recorded Aspirin E.C. [Ecotrin] 81 mg PO DAILY@0800 tab 09/26/16 Ferrous Gluconate 325 mg PO BIDCM 02/03/17 Surgical History: Surgical History (Last Reviewed 02/07/18 @ 15:13 by Staci Asencio) Presence of stent in coronary artery (Chronic) Z95.5 PTCA/DONNELL to proximal LCx in September 2016; PTCA/DONNELL to PDA and PTCA of PLVB on November 17, 2016; PCI with PTCA to ostial diagonal and PTCA/DONNELL to proximal LAD in November 29, 2016; History of cholecystectomy Z98.890, Z90.49 Hx of tonsillectomy Z98.890, Z90.89 Postsurgical percutaneous transluminal coronary angioplasty (PTCA) status Z98.61 PTCA/DONNELL to proximal LCx in September 2016; PTCA/DONNELL to PDA and PTCA of PLVB on November 17, 2016; PCI with PTCA to ostial diagonal and PTCA/DONNELL to proximal LAD in November 29, 2016; History of left heart catheterization Z98.890 Surgical History: total hip arthroplasty Psychiatric History: No pertinent psych hx Lives: Long-Term Smoking Status: Never smoker - *Family History Maternal Family History: Family History (Last Reviewed 03/02/18 @ 02:33 by Kel Mireles MD) Father CVA (cerebral vascular accident) Mother CVA (cerebral vascular accident) History Items: Stroke Paternal Family History: Family History (Last Reviewed 03/02/18 @ 02:33 by Kel Mireles MD) Father CVA (cerebral vascular accident) Mother CVA (cerebral vascular accident) History Items: Stroke Review of Systems Constitutional: Denies: Chills, Fever, Malaise, Weakness, Weight Change, Fatigue Eyes: Denies: Blurred vision HEENT: Denies: Head Aches, Sinus Congestion, Sinus Drainage Cardiovascular: Reports: Syncope. Denies: Chest Pain, Chest Pressure, Chest Tightness, Edema, Heaviness, Orthopnea, Palpitations, Paroxysmal Noc. Dyspnea Respiratory: Denies: Cough, Shortness of Breath, Shortness of breath at rest, Shortness of breath upon exertion, Sputum production Gastrointestinal: Denies: Abdominal Pain, Nausea, Vomiting Genitourinary: Denies: Dysuria Musculoskeletal: Reports: - - heel pain from pressure ulcer. Denies: Joint Pain, Joint Tenderness Skin: Denies: Rash, Wounds Neurological: Denies: Numbness, Tingling, Focal weakness Psychiatric: Denies: Anxiety, Depression, Homicidal Ideations, Suicidal Ideations Hematologic/ Lymphatic: Denies: Easy Bruising, Easy Bleeding VTE Information - Inpt Only VTE Present on Admission: No VTE Pharm Prophylaxis ordered?: Yes - Physical Exam General: Alert, Oriented x3, Cooperative, No apparent distress HEENT: Atraumatic, PERRLA, EOMI, Normocephalic Oral: Moist Mucosa Neck: Supple, No JVD, Negative Carotid Bruits Lungs: Clear to auscultation, Normal air movement, No rhonchi, No wheeze, No rales Cardiovascular: Normal S1, Normal S2, No murmurs, Bradycardic Abdomen: Bowel Sounds Present, Soft, Non Tender, Non-Distended, No Hepato-splenomegaly Extremities: No clubbing, No cyanosis, No edema, Capillary Refill Less than 3 Seconds Skin: No rashes, No breakdown, Ulcer/ Wound - on right heel- bandaged Musculoskeletal: No Tenderness to Palpation of Joints or Extremities Lymphatic: No Cervical, Supraclavicular, or Inguinal Adenopathy Neurological: Cranial nerves II-XII grossly intact Psych/Mental Status: Normal Affect, Appropriate, Alert and oriented to time, place, person, mood and affect Vital Signs Temp Pulse Resp BP Pulse Ox 98.3 F 52 L 17 136/43 H 98 04/19/18 15:34 04/19/18 17:06 04/19/18 17:06 04/19/18 17:06 04/19/18 17:06 Oxygen Delivery Method Room Air Weight: 80 lb 11.027 oz Body Mass Index (BMI) 14.7 Finger Stick Blood Glucose 46 Laboratory Tests Past 24 Hrs WBC 4.1 L Diagnostic Data Chest X-Ray 04/19/18 15:55 IMPRESSION: No acute cardiopulmonary disease. Electronically Signed: Avinash Jacques MD at 16:12 EST , Service support , Assessment/Plan All Active Problems (Last Reviewed 03/02/18 @ 02:31 by Kel Mireles MD) Hypoglycemia (Acute) CVA (cerebral vascular accident) (Acute) Esophageal foreign body (Acute) UDAY (acute kidney injury) (Acute) Acute systolic (congestive) heart failure (Resolved) 83 y/o female presenting with repeated episodes of syncope 1. Syncope, likely due to cardiac etiology * has had 4 episodes of syncope over last 3 days * says she gets hypotensive with syncope, but cannot say how low BP gets * BP was in 12s on admission; HR was in 40s on admission * EKG showed no acute ST changes * admit to PCU with telemetry * cardiology consult in the morning. Hold rate limiting meds * fall precautions. * 2. Symptomatic Bradycardia: as under 1. 3. Afib: now bradycardic. Will hold amiodarone and metoprolol. 4.Hyperkalemia: K is 5.9. Will give kayexalate and monitor. EKG showed no significant changes. 5. Hypertension: on lisinopril. Will hold o/a of hyperkalemia. Hold metoprolol o/.a of bradycardia and syncope 6. Hypothyroidism: On Synthroid. 7. Heart Failure preserved ejection fraction: * EF is known to be 65%. On lisinopril and metoprolol as well as furosemide. * Will hold lisinopril and metoprolol stated above. * 8. CAD: On aspirin, Plavix and statin. 9. UDAY: Creatinine is 1.45 with baseline being around 1. Will hydrate and monitor. 10. Dementia: On donepezil 11. Right heel pressure ulcer: present on admission. Foot is heavily bandaged and painful to touch , so unable to review to stage ulcer. WIll consult wound nurse. DVT prophylaxis: Heparin CODE STATUS: Patient counseled extensively about different types of CODE STATUS including full code, DNR CCA and DNR CCA. Patient elects to be full code. Total [id number] time 17 minutes. Code Visit Inpatient E AND M: 42947 Init Hosp L3 Procedures: 94260 Advncd Care Plan 30 Min 04/19/181943 <Electronically signed by Karin Ayala MD> Date Karin Ayala MD Cosigner Signature: Date (if applicable) CC: Karin Ayala MD; Augie Rajan MD Signed CBC W/DIFF, AUTOMATED Collected: 04/19/2018 Status: F Source: [place] 4:00 PM [facility] REPOSITORY TYPE CODE TESTS RESULT OUT OF RANGE REFERENCE UNITS LAB L100.1000 4.4-11.0 K/mm3 Low WBC 4.1 LAB L100.1200 4.2-5.4 M/mm3 Low RBC 2.98 LAB L100.1300 12.0-15.0 g/dl Low HGB 9.4 LAB L100.1400 37-47 % Low HCT 30.0 LAB L100.1500 81-99 fL High MCV 100.7 LAB L100.1600 27.0-32.0 pg Normal MCH 31.5 LAB L100.1700 32-36 g/gl Low MCHC 31.3 LAB L100.1810 11.6-14.6 % Normal RDW CV 14.3 LAB L100.1820 35.1-43.9 fl High RDW SD 51.7 LAB L100.1900 150-450 K/mm3 Normal PLT 249 LAB L100.2000 6.2-12.0 fl Normal MPV 8.9 LAB L100.2100 47-70 % Normal NEUT% 62.7 LAB L100.2200 19-41 % Low LY% 18.5 LAB L100.2300 0-10 % High MONO% 16.1 LAB L100.2400 0-5 % Normal EO% 2.2 LAB L100.2500 0-1 % Normal BASO% 0.5 LAB L100.2550 0.0-0.9 % Normal IM GRAN % 0.000 Result Comment: IG% - Immature Granulocytes (promyelocytes, myelocytes and metamyelocytes) > 1% indicates that a LEFT SHIFT is Present. LAB L100.2620 2.0-7.7 X10 3/uL Normal Absolute Neut 2.6 LAB L100.2720 0.83-4.51 X10 3/ul Low Absolute Lymph 0.76 Performed By: #### L100.0100 #### [facility] [address] [place], [place], [address] BASIC METABOLIC Collected: 04/19/2018 Status: F Source: [place] [facility] ([facility]) 4:00 PM [facility] REPOSITORY TYPE CODE TESTS RESULT OUT OF RANGE REFERENCE UNITS LAB L501.0100 74-106 mg/dL Normal GLU 75 Result Comment: Please note revised GLUCOSE reference range effective 2017. LAB L501.1000 7-18 mg/dL High BUN 40 LAB L501.1100 0.55-1.02 mg/dL High CREAT,SERUM 1.46 Result Comment: The validity of the calculated GFR AND GFRAA in patients over 70 years has not been determined. Clinical correlation is essential. LAB L501.1110 >60 mL/min Low EST GFR 36 Result Comment: Non- GFR Calc LAB L501.1115 >60 mL/min Low EST GFR - AA 44 Result Comment: GFR Calc LAB L501.1255 ml/min Normal Estimated CRCL 16.87 LAB L501.1300 10-20 RATIO High BUN/CRE 27.4 LAB L501.2200 8.5-10 mg/dL Normal .1 CA 8.6 LAB L501.5300 136-14 mmol/L Low 5 NA 135 LAB L501.5600 3.5-5. mmol/L High 1 K 5.9 LAB L501.5900 98-107 mmol/L Normal CL 101 LAB L501.6100 21.0-3 mmol/L Normal 2.0 CO2 29.0 LAB L501.6200 5-15 Normal GAP 5 Performed By: #### L500.2500, L501.4010 #### [facility] [place] [facility] [address] [place], [address] TROPONIN-I Collected: 04/19/2018 Status: F Source: [place] 4:00 PM [facility] REPOSITORY TYPE CODE TESTS RESULT OUT OF RANGE REFERENCE UNITS LAB L501.4010 <0.045 ng/mL High 0.061 TROPONIN-I Result Comment: TROPONIN-I EXPECTED VALUES <0.045 Negative 0.045 - 0.590 Consistent with Cardiac Damage > OR = 0.600 Critical Value Not every elevated troponin is indicative of WA. These values should be used with clinical judgement in examining the patient's clinical picture for diagnosis. To establish a diagnosis of WA versus myocardial injury, there must be a demonstrated rise and/or fall in the troponin values, in addition to ischemic symptoms, EKG changes, new regional wall motion abnormality, and/or angiographical evidence. PLEASE NOTE: REFERENCE RANGES EDITED 17 Performed By: #### L500.2500, L501.4010 #### [facility] [place] [facility] [address] [place], [address] BNP,B-TYPE NATRIURETIC Collected: 04/19/2018 Status: F Source: [place] 4:00 PM [facility] REPOSITORY TYPE CODE TESTS RESULT OUT OF RANGE REFERENCE UNITS LAB L503.6620 0-100 pg/mL High B-TYPE 337.5 BRANDEE PEP Performed By: #### L503.6620 #### [facility] [place] [facility] [address], [address] CHEST 1 VIEW Observed: 04/19/2018 Status: F Source: [place] (PORTABLE) 3:50 PM [facility] REPOSITORY [facility] Imaging Services [address] [place] [address] Chest 1 View (Portable) MR#: [id number] Acct: [id number] Name: Gladis Fernandez Rep #: [id number] : 1935 F 83 From: Sp Jacques MD PCP: Satinder ROJO,[employer] Status: PRE ER Study: Chest 1 View (Portable) Date of Exam: 04/19/18 Exam# [id number] Ordering Dr: Sally Zayas MD STUDY: X-RAY CHEST REASON FOR EXAM: Female, 83 years old. Syncopal episode. History of dementia. TECHNIQUE: Single AP portable upright view of the chest. The patient is mildly rotated to the right. COMPARISON: Upright AP chest x-ray March 01, 2018. FINDINGS: The lungs are clear and moderately expanded. There is no demonstrated pleural abnormality. The heart size is upper normal. Normal mediastinum and marcella. Normal visualized pulmonary arteries. There is stable atherosclerotic calcification of the aortic arch. There are stable degenerative changes at a few levels of the visualized lower thoracic spine. Stable old healed fracture deformities of the posterolateral left eighth and ninth ribs. 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 Surgical clips consistent with prior cholecystectomy project in the right upper quadrant of the abdomen. RAD/Chest 1 View (Portable) IMPRESSION: No acute cardiopulmonary disease. Electronically Signed: Avinash Jacques MD at 16:12 EST , Service support , CC: MD Pal Zayas; Augie Rajan MD Office Helper: Signed LIPID PROFILE Collected: 03/12/2018 Status: F Source: [place] 4:55 AM [facility] REPOSITORY Order Comment: ROOM 124 TYPE CODE TESTS RESULT OUT OF RANGE REFERENCE UNITS LAB L501.4900 200 mg/dL Normal CHOL 148 Result Comment: <200 mg/dL Desirable 200-240 mg/dL Borderline >240 mg/dL High Risk LAB L501.5000 mg/dL Normal TRIG 53 Result Comment: The drugs N-Acetylcysteine and Metamizole may falsely depress this assay. Serum Triglycerides Reference Interval Normal <150 mg/dL Borderline high 150 - 199 mg/dL High 200 - 499 mg/dL Very High > or = 500 mg/dL LAB L501.6400 mg/dL Normal HDL 68 Result Comment: The drugs N-Acetylcysteine and Metamizole may falsely depress this assay. Reference Range HDL <40 mg/dL Low HDL Cholesterol HDL >or= 60 mg/dL High HDL Cholesterol LAB L501.6500 0-130 mg/dL Normal LDL 69 LAB L501.6600 5-40 mg/dL Normal VLDL 11 Performed By: #### L500.4100, L501.9520 #### [facility] [place] [facility] [address] [place], [address] THYROID STIM HORMONE Collected: 03/12/2018 Status: F Source: [place] (TSH) 4:55 AM [facility] REPOSITORY Order Comment: ROOM 124 TYPE CODE TESTS RESULT OUT OF RANGE REFERENCE UNITS LAB L501.9520 0.358-3.74 uIU/mL High TSH 4.32 Performed By: #### L500.4100, L501.9520 #### [facility] [place] [facility] [address] [address] [facility] [place], [address] VITAMIN D,25 HYDROXY Collected: 03/12/2018 Status: F Source: [place] 4:55 AM [facility] REPOSITORY Order Comment: ROOM 124 TYPE CODE TESTS RESULT OUT OF REFERENCE UNITS RANGE LAB L506.1000 29.95-100.01 ng/mL Low Vitamin D 25.2 25-OH Result Comment: Vitamin D 25(OH) Status Range Deficiency <20 ng/mL (50nmol/L) Insuffciency 20 - 30 ng/mL (50 - 75 nmol/L) Sufficiency 30 - 100 ng/mL (75 - 250 nmol/L) Toxicity >100 ng/mL (>250 nmol/L) Performed By: #### L506.1000 #### [facility] [place] [facility] [address] [place], [address] DISCHARGE SUMMARY Observed: 03/07/2018 Status: F Source: [place] 3:29 PM [facility] REPOSITORY [facility] Medical Records Department [address] [place] [address] Discharge Summary 03/07/18 1412 MR#: [id number] Acct: [id number] Name: GLADIS FERNANDEZ Rep #: [id number] : 1935 82 From: Arsenio DUTTON PCP: Satinder ROJO,Augie Gonzalez Status: DIS IN Y Location: [facility] [id number] <Arsenio Talbert - Last Filed: 03/07/18 14:17> Discharge Date and Diagnosis Date of Admission: 03/02/18 Date of Discharge: 03/07/18 - Primary Discharge Diagnosis Active and Suspected Problems (Last Reviewed 03/02/18 @ 02:31 by Kel Mireles MD) Acute metabolic encephalopathy secondary to hypoglycemia secondary to poor, inadequate p.o. intake. CVA (cerebral vascular accident) (Acute) ruled out Progressively worsening dementia Dysphagia Severe protein calorie malnutrition Hyponatremia History of ischemic cardiomyopathy, hypertension, pulmonary hypertension, atrial fibrillation, coronary artery disease Hypothyroidism - Secondary Discharge Diagnosis Chronic Problems (Last Reviewed 03/02/18 @ 02:31 by Kel Mireles MD) Dysphagia (Chronic) Hypertension (Chronic) Ischemic cardiomyopathy (Chronic) Presence of stent in coronary artery (Chronic) PTCA/DONNELL to proximal LCx in September 2016; PTCA/DONNELL to PDA and PTCA of PLVB on November 17, 2016; PCI with PTCA to ostial diagonal and PTCA/DONNELL to proximal LAD in November 29, 2016; 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 drug (Chronic) Atheros[place] coronary artery [place] heart without angina pectoris (Chronic) Essential (primary) hypertension (Chronic) Pulmonary hypertension (Chronic) Malnutrition (Chronic) Dementia (Chronic) Chronic anemia (Chronic) Paroxysmal atrial fibrillation (Chronic) Hyperlipidemia (Chronic) NSTEMI (non-ST elevated myocardial infarction) (Chronic) NSTEMI December 2016 ST elevation (STEMI) myocardial infarction involving left circumflex coronary artery (Chronic) stent 09/24/16 Hypothyroidism (Chronic) Adult BMI <19 kg/sq m (Chronic) Hospital Course and Treatment Imaging Results: CT/Brain/Head without Contrast IMPRESSION: Stable age-related and chronic changes of the brain. RAD/Chest 1 View IMPRESSION: Stable COPD, osteopenia, atherosclerosis. Mild cardiac enlargement, exam. No pulmonary edema, congestive heart failure or confluent pneumonia. Operations: None Procedures: None Summary of Care Provided: Hospital course: The patient is a 82 year old F with a pmhx of CKDIV, ischemic CM, PAfib, hypothyroidism, HTN, dementia, hypothyroidism, chronic anemia, who presented to the ER with c/o confusion and garbled speech. She was found to be hypoglycemic at 18 which responded well to D50. She remained confused but has significant underlying dementia. She has not been eating or drinking very much at all lately per her . She was admitted to the PCU on tele to rule about concomitant CVA. CT brain was negative. refused MRI. Remeron was recommended for appetite stimulation. refused this as well. She was significantly malnourished with a BMI of 13. She was given supplements and encouraged to eat. She was seen by speech and placed on modified diet for some underlying dysphagia. She continued to eat poorly and had several more hypoglycemic episodes requiring d50. She went as low at 17 without developing typical symptoms of hypoglycemia, however this is masked by her chronic confusions. She was advised to be placed in custodial given her ongoing need for close monitoring of PO intake and glucose, and the did admit that he did not feel comfortable taking care of this at home. Also of note lisinopril was decreased while here for hypertension. She was discharged to custodial in stable condition and will need PTOT and ST, modified diet, suppelements, and monitoring of PO intake and blood sugar. Follow up with PCP in 2 weeks. This patient was seen by Arsenio Talbert PA-C under the supervision of Doctor Grimaldo. [] - Physical Exam General: Alert, Cooperative, Confused - Unable to formulate full sentences, speaks incoherently, - - Cachectic HEENT: Atraumatic, PERRLA, EOMI, Normocephalic Neck: Supple, No JVD, Negative Carotid Bruits Lungs: Clear to auscultation, Normal air movement Cardiovascular: Regular rate, No murmurs Abdomen: Bowel Sounds Present, Soft, Non Tender Extremities: No edema, Capillary Refill Less than 3 Seconds Skin: No rashes, No breakdown Musculoskeletal: No Tenderness to Palpation of Joints or Extremities Neurological: Cranial nerves II-XII grossly intact Psych/Mental Status: Normal Affect, Appropriate, Alert and oriented to time, place, person, mood and affect Vital Signs Temp Pulse Resp BP Pulse Ox 97.8 F 56 L 17 93/43 L 99 03/07/18 08:58 03/07/18 11:52 03/07/18 08:58 03/07/18 08:58 03/07/18 08:58 Oxygen Flow Rate (L/min) 2 Oxygen Delivery Method Room Air Weight: 77 lb 6.116 oz Body Mass Index (BMI) 13.2 Finger Stick Blood Glucose 46 Intake and Output for Last 24 Hours Intake Total 1040 / 1040 820 / 820 150 / 150 Output Total 150 / 150 800 / 800 Balance 890 / 890 820 / 820 -650 / -650 Laboratory Tests Past 24 Hrs Miscellaneous Test POC Glucose POC Glucose 80 102 71 POC Glucose 94 136 H 90 Discharge Diet: No Restrictions, - - Supervised meals, encourage p.o. intake, monitor blood sugar. Modify diet as directed by speech therapy: Pur ed consistency regular thin liquids okay. Crush meds in applesauce Discharge Activity: Return to Normal Activity Home Medications: Medications to take at Discharge Levothyroxine Sodium 125 mcg PO DAILY 05/31/16 Aspirin E.C. [Ecotrin] 81 mg PO DAILY@0800 tab 09/26/16 Ferrous Gluconate 325 mg PO BIDCM 02/03/17 Donepezil HCl [Aricept] 5 mg PO QHS tab 02/08/17 atorvastatin 20 mg tablet 20 mg PO QHS #90 tab 05/19/17 pantoprazole 40 mg tablet,delayed release 40 mg PO DAILY #90 tab 05/19/17 Cholecalciferol (VIT D3) [Vitamin D3] 1,000 unit PO DAILY 07/07/17 Cyanocobalamin (Vitamin B-12) [Vitamin B12] 2,500 mcg PO DAILY 07/07/17 clopidogrel 75 mg tablet 75 mg PO DAILY #90 tab 11/23/17 amiodarone 200 mg tablet 200 mg PO DAILY #90 tab MDD 1/2 tablet a day 02/07/18 furosemide 40 mg tablet 20 mg PO QDAY 02/07/18 magnesium oxide 400 mg capsule 400 mg PO DAILY cap 02/07/18 metoprolol tartrate 50 mg tablet 50 mg PO BID #180 tab MDD 1/2 tablet twice a day 02/07/18 potassium chloride ER 20 mEq tablet,extended release 20 meq PO DAILY #90 tab 02/19/18 Lisinopril [Zestril] 10 mg PO DAILY tablet 03/07/18 Magnesium Hydroxide [Milk Of Magnesia] 30 ml PO DAILY PRN udc 03/07/18 Sucralfate [Carafate] 1 gm PO 1HR_ACHS tablet 03/07/18 Primary Care Physician: Augie Rajan Chi, MD [Primary Care Provider] - Please follow up with your Primary Care Physician in: 2 weeks Disposition: [facility] facility Minutes spent on discharge:: 35 Patient Condition:: Stable Medical Necessity - Tobacco Use Smoking Status: Never smoker Meaningful Use Info Meaningful Use Diagnoses (Choose all that apply): None applicable <[place] Grimaldo - Last Filed: 03/07/18 15:28> Discharge Date and Diagnosis - Secondary Discharge Diagnosis Chronic Problems (Last Reviewed 03/02/18 @ 02:31 by Kel Mireles MD) Dysphagia (Chronic) Hypertension (Chronic) Ischemic cardiomyopathy (Chronic) Presence of stent in coronary artery (Chronic) PTCA/DONNELL to proximal LCx in September 2016; PTCA/DONNELL to PDA and PTCA of PLVB on November 17, 2016; PCI with PTCA to ostial diagonal and PTCA/DONNELL to proximal LAD in November 29, 2016; 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 drug (Chronic) Atherosclerosis [place] coronary artery [place] heart without angina pectoris (Chronic) Essential (primary) hypertension (Chronic) Pulmonary hypertension (Chronic) Malnutrition (Chronic) Dementia (Chronic) Chronic anemia (Chronic) Paroxysmal atrial fibrillation (Chronic) Hyperlipidemia (Chronic) NSTEMI (non-ST elevated myocardial infarction) (Chronic) NSTEMI December 2016 ST elevation (STEMI) myocardial infarction involving left circumflex coronary artery (Chronic) stent 09/24/16 Hypothyroidism (Chronic) Adult BMI <19 kg/sq m (Chronic) Hospital Course and Treatment Summary of Care Provided: The patient is a 82 year old F [] - Physical Exam Vital Signs Temp Pulse Resp BP Pulse Ox 98.0 F 58 L 18 144/54 H 98 03/07/18 14:00 03/07/18 14:00 03/07/18 14:00 03/07/18 14:00 03/07/18 14:00 Oxygen Flow Rate (L/min) 2 Oxygen Delivery Method Room Air Weight: 77 lb 6.116 oz Body Mass Index (BMI) 13.2 Finger Stick Blood Glucose 46 Intake and Output for Last 24 Hours Intake Total 1040 / 1040 820 / 820 150 / 150 Output Total 150 / 150 800 / 800 Balance 890 / 890 820 / 820 -650 / -650 Laboratory Tests Past 24 Hrs Miscellaneous Test POC Glucose POC Glucose 76 42 L* 53 L POC Glucose 80 102 71 POC Glucose 94 136 H 90 Code Visit Addendum: Dr. Grimaldo I personally examined the patient and reviewed the chart. I agree with the above. 82-year-old female with a history of dementia, stage IV kidney disease, chronic left hip pain, paroxysmal A. fib, ischemic cardiomyopathy status post stent, hypothyroidism, and hypertension who presented with decreased response and weakness. She had a brain CT on admission which was negative for stroke and was found to be significantly hypoglycemic at times with a blood sugar of 16-19. At that time she would be asymptomatic and will respond with an amp of D50. She was maintained on D5 W at 100 however she developed hyponatremia and that had to be discontinued. The workup for stroke was limited because the refused to have her undergo an MRI. This was felt that a lot of her symptomatology was due to her significant hypoglycemia. She had a C-peptide and proinsulin level ordered which were both normal not indicating hyperinsulinemia or insulinoma. Will be to discharge to a correction for rehab prior to going home. Inpatient E AND M: [id number] Disch Hosp 03/07/18 1430 <Electronically signed by Arsenio DUTTON> Date Arsenio DUTTON 03/07/18 1529<Electronically signed by Guanaco Grimaldo MD> Cosigner Signature (if applicable): Date Guanaco Grimaldo MD CC: MARIJA Talbert; Guanaco Grimaldo MD; Augie Rajan MD Signed BEDSIDE GLUCOSE Collected: 03/07/2018 Status: F Source: [facility] 2:16 PM [facility] REPOSITORY TYPE CODE TESTS RESULT OUT OF RANGE REFERENCE UNITS LAB L501.080 70-110 mg/dL Normal BEDSIDE GLU 76 Result Comment: MANAGEMENT OF PATIENT CARE PER NURSING PROTOCOL Performed By: #### L501.080 #### [facility] [place] [facility] Point of Care [address] [place], [place] [address] [address] BEDSIDE GLUCOSE Collected: 03/07/2018 Status: F Source: [facility] 1:49 PM [facility] REPOSITORY TYPE CODE TESTS RESULT OUT OF REFERENCE UNITS RANGE LAB L501.080 70-110 mg/dL Low alert BEDSIDE GLU 42 Result Comment: MANAGEMENT OF PATIENT CARE PER NURSING PROTOCOL Performed By: #### L501.080 #### [facility] [place] [facility] [address] [facility] [place], [place] [address] BEDSIDE GLUCOSE Collected: 03/07/2018 Status: F Source: [place] 1:18 PM [facility] REPOSITORY TYPE CODE TESTS RESULT OUT OF REFERENCE UNITS RANGE LAB L501.080 70-110 mg/dL Low BEDSIDE GLU 53 Result Comment: MANAGEMENT OF PATIENT CARE PER NURSING PROTOCOL Performed By: #### L501.080 #### [facility] [place] [facility] Point of Care [address] [facility] [place], [place] [id number] TRANSFER TO EXTENDED Observed: 03/07/2018 Status: F Source: [place] CARE 12:22 PM [facility] REPOSITORY [facility] Medical Records Department [address] [place] [address] Transfer to Extended Care MR#: [id number] Acct: [id number] Name: GLADIS FERNANDEZ Rep #: [id number] : 1935 82 From: Arsenio DUTTON PCP: Satinder ROJO,Augie [facility] Status: ADM IN GLADIS FERNANDEZ (Patient) (Health Ins. Claim No.) (Day of Discharge to Facility) Certification of patient admission REQUIRED AT TIME OF ADMISSION. I CERTIFY THAT POST-HOSPITAL ECF SERVICES ARE REQUIRED TO BE GIVEN ON AN IN-PATIENT BASIS BECAUSE OF THE ABOVE NAMED PATIENT'S NEED FOR FDC CARE ON A CONTINUING BASIS FOR THE CONDITION(S) FOR WHICH HE/SHE WAS RECEIVING IN-PATIENT HOSPITAL SERVICES PRIOR TO HIS/HER TRANSFER TO THE F. 03/07/18 1134 <Electronically signed by Arsenio DUTTON> Date Arsenio DUTTON - Diet 03/02/18 11:23 Diet: Regular Diet Food consistency:: Puree Liquid Consistency:: Regular/Thin Dietary Modifications:: Pureed Diet Is pt able to select menu?: No Diet Comments: Supervision by staff / family, seated in chair, crush meds in applesauce - Routine Orders/Code Status Routine Lab Work: CBC - 1 week, BMP - 1 week Code Status: Full Code - Wound(s) RIGHT HEEL Wound Type: Pressure Injury BUTTOCKS Wound Type: Pressure Injury - Therapies Physical Therapy: Eval and Treat Occupational Therapy: Eval and Treat Speech Therapy: Eval and Treat - Problem/Diagnosis (1) Hypoglycemia Status: Acute Current Visit: No (2) Adult BMI <19 kg/sq m Status: Chronic Current Visit: No (3) Dementia Status: Chronic Current Visit: No (4) Essential (primary) hypertension Status: Chronic Current Visit: No (5) Hyperlipidemia Status: Chronic Current Visit: No (6) Hypothyroidism Status: Chronic Current Visit: No (7) Malnutrition Status: Chronic Current Visit: No (8) Paroxysmal atrial fibrillation Status: Chronic Current Visit: No (9) Pulmonary hypertension Status: Chronic Current Visit: No (10) Dysphagia Status: Chronic Current Visit: Yes - Allergies/Procedures Done in Hospital Allergies/Adverse Reactions: Allergies tuberculin,PPD,multi-puncture Adverse Reaction (Verified 03/01/18 22:48) Unknown caused big blister on lip Procedures: None - Type of Care/Length of Stay Estimated LOS: Convalescent Care Less Than 30 days Type of Care Needed: Skilled Rehab Potential: Fair Prognosis: Fair - Additional Orders/Day of Discharge Day of Discharge: 03/07/18 - Dietary and Speech Recommendations Dietitian Recommendations/Changes: Rec TF support for nutrition as PO is inadequate AND negligible to meet est. nutrition needs. Please check daily wt. Pt mostly refusing ONS but, will continue with meals as tolerated. - Follow Up Care Primary Care Physician: Augie Rajan Chi, MD [Primary Care Provider] - Please follow up with your Primary Care Physician in: 2 weeks 03/07/18 9514 <Electronically signed by Arsenio DUTTON> Date Arsenio DUTTON CC: Augie Rajan MD Signed BEDSIDE GLUCOSE Collected: 03/07/2018 Status: F Source: [place] 9:48 AM [facility] REPOSITORY TYPE CODE TESTS RESULT OUT OF RANGE REFERENCE UNITS LAB L501.080 70-110 mg/dL Normal BEDSIDE GLU 80 Result Comment: MANAGEMENT OF PATIENT CARE PER NURSING PROTOCOL Performed By: #### L501.080 #### [facility] [place] [facility] Point of Care [address] [place] [address] BEDSIDE GLUCOSE Collected: 03/07/2018 Status: F Source: [place] 5:04 AM [facility] REPOSITORY TYPE CODE TESTS RESULT OUT OF RANGE REFERENCE UNITS LAB L501.080 70-110 mg/dL Normal BEDSIDE GLU 102 Result Comment: MANAGEMENT OF PATIENT CARE PER NURSING PROTOCOL Performed By: #### L501.080 #### [facility] [place] [facility] Point of Care [address] [place] [address] BEDSIDE GLUCOSE Collected: 03/07/2018 Status: F Source: [place] 4:20 AM [facility] REPOSITORY TYPE CODE TESTS RESULT OUT OF RANGE REFERENCE UNITS LAB L501.080 70-110 mg/dL Normal BEDSIDE GLU 71 Result Comment: MANAGEMENT OF PATIENT CARE PER NURSING PROTOCOL Performed By: #### L501.080 #### [facility] [place] [facility] Point of Care [address] [place] [address] BEDSIDE GLUCOSE Collected: 03/07/2018 Status: F Source: [place] 12:48 AM [facility] REPOSITORY TYPE CODE TESTS RESULT OUT OF RANGE REFERENCE UNITS LAB L501.080 70-110 mg/dL Normal BEDSIDE GLU 94 Result Comment: MANAGEMENT OF PATIENT CARE PER NURSING PROTOCOL Performed By: #### L501.080 #### [facility] [place] [facility] Point of Care [address] [place] [address] BEDSIDE GLUCOSE Collected: 03/06/2018 Status: F Source: [place] 8:13 PM [facility] REPOSITORY TYPE CODE TESTS RESULT OUT OF REFERENCE UNITS RANGE LAB L501.080 70-110 mg/dL High BEDSIDE GLU 136 Result Comment: MANAGEMENT OF PATIENT CARE PER NURSING PROTOCOL Performed By: #### L501.080 #### [facility] [place] [facility] Point of Care [address] [place] [address] BEDSIDE GLUCOSE Collected: 03/06/2018 Status: F Source: [place] 4:01 PM [facility] REPOSITORY TYPE CODE TESTS RESULT OUT OF RANGE REFERENCE UNITS LAB L501.080 70-110 mg/dL Normal BEDSIDE GLU 90 Result Comment: MANAGEMENT OF PATIENT CARE PER NURSING PROTOCOL Performed By: #### L501.080 #### [facility] [place] [facility] Point of Care [address] [place] [address] BEDSIDE GLUCOSE Collected: 03/06/2018 Status: F Source: [place] 12:40 PM [facility] REPOSITORY TYPE CODE TESTS RESULT OUT OF RANGE REFERENCE UNITS LAB L501.080 70-110 mg/dL Normal BEDSIDE GLU 110 Result Comment: MANAGEMENT OF PATIENT CARE PER NURSING PROTOCOL Performed By: #### L501.080 #### [facility] [place] [facility] Point of Care [address] [place] [address] BEDSIDE GLUCOSE Collected: 03/06/2018 Status: F Source: [place] 9:28 AM [facility] REPOSITORY TYPE CODE TESTS RESULT OUT OF RANGE REFERENCE UNITS LAB L501.080 70-110 mg/dL Normal BEDSIDE GLU 84 Result Comment: MANAGEMENT OF PATIENT CARE PER NURSING PROTOCOL Performed By: #### L501.080 #### [facility] [place] [facility] Point of Care [address] [place] [address] BEDSIDE GLUCOSE Collected: 03/06/2018 Status: F Source: [place] 6:57 AM [facility] REPOSITORY TYPE CODE TESTS RESULT OUT OF RANGE REFERENCE UNITS LAB L501.080 70-110 mg/dL Normal BEDSIDE GLU 107 Result Comment: MANAGEMENT OF PATIENT CARE PER NURSING PROTOCOL Performed By: #### L501.080 #### [facility] [place] [facility] Point of Care [address] [place] [address] BEDSIDE GLUCOSE Collected: 03/06/2018 Status: F Source: [place] 6:28 AM [facility] REPOSITORY TYPE CODE TESTS RESULT OUT OF REFERENCE UNITS RANGE LAB L501.080 70-110 mg/dL Low BEDSIDE GLU 49 Result Comment: MANAGEMENT OF PATIENT CARE PER NURSING PROTOCOL Performed By: #### L501.080 #### [facility] [place] [facility] Point of Care [address] [place] [address] BEDSIDE GLUCOSE Collected: 03/06/2018 Status: F Source: [place] 6:05 AM [facility] REPOSITORY TYPE CODE TESTS RESULT OUT OF REFERENCE UNITS RANGE LAB L501.080 70-110 mg/dL Low BEDSIDE GLU 48 Result Comment: MANAGEMENT OF PATIENT CARE PER NURSING PROTOCOL Performed By: #### L501.080 #### [facility] [place] [facility] Point of Care [address] [place] [address] BASIC METABOLIC Collected: 03/06/2018 Status: F Source: [facility] PROFILE (BMP) 5:40 AM [facility] REPOSITORY TYPE CODE TESTS RESULT OUT OF RANGE REFERENCE UNITS LAB L501.0100 74-106 mg/dL Low GLU 71 Result Comment: Please note revised GLUCOSE reference range effective 2017. LAB L501.1000 7-18 mg/dL High BUN 25 LAB L501.1100 0.55-1.02 mg/dL Normal CREAT,SERUM 0.96 Result Comment: The validity of the calculated GFR AND GFRAA in patients over 70 years has not been determined. Clinical correlation is essential. LAB L501.1110 >60 mL/min Low EST GFR 59 Result Comment: Non- GFR Calc LAB L501.1115 >60 mL/min Normal EST GFR - AA 71 Result Comment: GFR Calc LAB L501.1255 ml/min Normal Estimated CRCL 25.04 LAB L501.1300 10-20 RATIO High BUN/CRE 26.0 LAB L501.2200 8.5-10 mg/dL Normal .1 CA 8.6 LAB L501.5300 136-14 mmol/L Low 5 NA 132 LAB L501.5600 3.5-5. mmol/L Normal 1 K 4.1 LAB L501.5900 98-107 mmol/L Low CL 95 LAB L501.6100 21.0-3 mmol/L Normal 2.0 CO2 29.0 LAB L501.6200 5-15 Normal GAP 8 Performed By: #### L500.2500 #### [facility] [place] [facility] [address] [place], [address] BEDSIDE GLUCOSE Collected: 03/06/2018 Status: F Source: [place] 2:10 AM [facility] REPOSITORY TYPE CODE TESTS RESULT OUT OF RANGE REFERENCE UNITS LAB L501.080 70-110 mg/dL Normal BEDSIDE GLU 80 Result Comment: MANAGEMENT OF PATIENT CARE PER NURSING PROTOCOL Performed By: #### L501.080 #### [facility] [place] [facility] Point of Care [address] [place] [address] BEDSIDE GLUCOSE Collected: 03/05/2018 Status: F Source: [place] 10:46 PM [facility] REPOSITORY TYPE CODE TESTS RESULT OUT OF RANGE REFERENCE UNITS LAB L501.080 70-110 mg/dL Normal BEDSIDE GLU 95 Result Comment: MANAGEMENT OF PATIENT CARE PER NURSING PROTOCOL Performed By: #### L501.080 #### [facility] [place] [facility] Point of Care [address] [place] [address] BEDSIDE GLUCOSE Collected: 03/05/2018 Status: F Source: [place] 8:33 PM [facility] REPOSITORY TYPE CODE TESTS RESULT OUT OF REFERENCE UNITS RANGE LAB L501.080 70-110 mg/dL Low BEDSIDE GLU 69 Result Comment: MANAGEMENT OF PATIENT CARE PER NURSING PROTOCOL Performed By: #### L501.080 #### [facility] [place] [facility] Point of Care [address] [place] [address] BEDSIDE GLUCOSE Collected: 03/05/2018 Status: F Source: [place] 5:36 PM [facility] REPOSITORY TYPE CODE TESTS RESULT OUT OF RANGE REFERENCE UNITS LAB L501.080 70-110 mg/dL Normal BEDSIDE GLU 102 Result Comment: MANAGEMENT OF PATIENT CARE PER NURSING PROTOCOL Performed By: #### L501.080 #### [facility] [place] [facility] Point of Care [address] [place] [address] BEDSIDE GLUCOSE Collected: 03/05/2018 Status: F Source: [place] 4:40 PM [facility] REPOSITORY TYPE CODE TESTS RESULT OUT OF REFERENCE UNITS RANGE LAB L501.080 70-110 mg/dL Low BEDSIDE GLU 50 Result Comment: MANAGEMENT OF PATIENT CARE PER NURSING PROTOCOL Performed By: #### L501.080 #### [facility] [place] [facility] Point of Care [address] [place] [address] BEDSIDE GLUCOSE Collected: 03/05/2018 Status: F Source: [place] 4:38 PM [facility] REPOSITORY TYPE CODE TESTS RESULT OUT OF REFERENCE UNITS RANGE LAB L501.080 70-110 mg/dL Low alert BEDSIDE GLU 41 Result Comment: Snack Given MANAGEMENT OF PATIENT CARE PER NURSING PROTOCOL Performed By: #### L501.080 #### [facility] [place] [facility] Point of Care [address] [place] [address] BEDSIDE GLUCOSE Collected: 03/05/2018 Status: F Source: [place] 12:49 PM [facility] REPOSITORY TYPE CODE TESTS RESULT OUT OF REFERENCE UNITS RANGE LAB L501.080 70-110 mg/dL High BEDSIDE GLU 161 Result Comment: MANAGEMENT OF PATIENT CARE PER NURSING PROTOCOL Performed By: #### L501.080 #### [facility] [place] [facility] Point of Care [address] [place] [address] 12 LEAD ELECTROCARDIOGRAM Observed: 03/05/2018 Status: F Source: [place] 12:47 PM [facility] REPOSITORY [facility] Cardiovascular Services [address] [place] [address] 12 Lead EKG 03/01/18 2307 MR#: [id number] Acct: [id number] Name: GLADIS FERNANDEZ Rep #: [id number] : 1935 82 From: Colton Echevarria MD Attending Dr: Guanaco Grimaldo MD Status: ADM IN Ordering Dr: Triston Toledo MD Date: 03/01/18 Location: U Sex: F C Admitted: 03/03/18 Test Reason : NEURO Blood Pressure : / mmHG Vent. Rate : 050 BPM Atrial Rate : 050 BPM P-R Int : 230 ms QRS Dur : 094 ms QT Int : 528 ms P-R-T Axes : 070 -73 -34 degrees QTc Int : 481 ms Sinus bradycardia with 1st degree A-V block Left anterior fascicular block Nonspecific ST and T wave abnormality Abnormal ECG Confirmed by WALE ROJO, COLTON ([id number]), city editor JOSE MANUEL KING ([id number]) on 03/05/2018 12:46:53 PM Referred By: TERESA Confirmed By:COLTON ECHEVARRIA MD 03/05/18 1246 Date Colton Echevarria MD CC: Triston Toledo MD; Guanaco Grimaldo MD; Augie Rajan MD Signed GLUCOSE Collected: 03/05/2018 Status: F Source: [place] 12:35 PM [facility] REPOSITORY Order Comment: Comments: bedside glucose check of 19 TYPE CODE TESTS RESULT OUT OF RANGE REFERENCE UNITS LAB L501.0100 74-106 mg/dL High GLU 161 Result Comment: Fasting Glucose result greater than or equal to 126 mg/dL suggests DIABETES MELLITUS per A.D.A. criteria. Please note revised GLUCOSE reference range effective 2017. Performed By: #### L501.0100 #### [facility] [place] [facility] [address] [place], [address] BEDSIDE GLUCOSE Collected: 03/05/2018 Status: F Source: [place] 12:03 PM [facility] REPOSITORY TYPE CODE TESTS RESULT OUT OF REFERENCE UNITS RANGE LAB L501.080 70-110 mg/dL Low alert BEDSIDE GLU 19 Result Comment: MANAGEMENT OF PATIENT CARE PER NURSING PROTOCOL Performed By: #### L501.080 #### [facility] [place] [facility] Point of Care [address] [place] [address] BEDSIDE GLUCOSE Collected: 03/05/2018 Status: F Source: [place] 12:02 PM [facility] REPOSITORY TYPE CODE TESTS RESULT OUT OF REFERENCE UNITS RANGE LAB L501.080 70-110 mg/dL Low alert BEDSIDE GLU 16 Result Comment: Repeat Test MANAGEMENT OF PATIENT CARE PER NURSING PROTOCOL Performed By: #### L501.080 #### [facility] [place] [facility] Point of Care [address] [place] [address] MISCELLANEOUS LAB Collected: 03/05/2018 Status: F Source: [place] PROCEDURE 9:26 AM [facility] REPOSITORY Order Comment: Comments: SULFONYLUREAS 629054 [facility] ROOM TEMP Test(s) Ordered: SULFONYLUREAS 128049 [facility] SERUM ROOM TEMP TYPE CODE TESTS RESULT OUT OF RANGE REFERENCE UNITS LAB L801.1541 Normal [facility] TEST Result Comment: TEST RESULT LIMITS Sulfonylurea Screen, QT Acetohexamide Negative ug/mL 20 - 60 Chlorpropamide Negative ug/mL 75 - 250 Tolazamide Negative ug/mL UP TO 80 Tolbutamide Negative ug/mL 40 - 100 Glimepiride Negative ng/mL 80 - 250 Glipizide Negative ng/mL 200 - 1000 Glyburide Negative ng/mL UP TO 1500 Nateglinide Negative ng/[place] [address] Repaglinide Negative ng/mL UP TO 200 This test was developed and its performance characteristics determined by [facility]. It has not been cleared or approved by the Food and Drug Administration. TESTING PERFORMED AT [facility]. ORIGINAL REPORT ON FILE IN LAB CONTAINS ADDITIONAL TEST SITE INFORMATION. Performed By: #### L801.1541 #### [facility] [place] [facility] [address] [facility]. [place], [place], [address] BEDSIDE GLUCOSE Collected: 03/05/2018 Status: F Source: [place] 8:46 AM [facility] REPOSITORY TYPE CODE TESTS RESULT OUT OF REFERENCE UNITS RANGE LAB L501.080 70-110 mg/dL Low BEDSIDE GLU 57 Result Comment: MANAGEMENT OF PATIENT CARE PER NURSING PROTOCOL Performed By: #### L501.080 #### [facility] [place] [facility] Point of Care [address] [facility] [address] BASIC METABOLIC Collected: 03/05/2018 Status: F Source: [place] PROFILE (BMP) 6:00 AM [facility] REPOSITORY TYPE CODE TESTS RESULT OUT OF RANGE REFERENCE UNITS LAB L501.0100 74-106 mg/dL Low GLU 67 Result Comment: Please note revised GLUCOSE reference range effective 2017. LAB L501.1000 7-18 mg/dL Normal BUN 16 LAB L501.1100 0.55-1.02 mg/dL Normal CREAT,SERUM 0.90 Result Comment: The validity of the calculated GFR AND GFRAA in patients over 70 years has not been determined. Clinical correlation is essential. LAB L501.1110 >60 mL/min Normal EST GFR 64 Result Comment: Non- GFR Calc LAB L501.1115 >60 mL/min Normal EST GFR - AA 77 Result Comment: GFR Calc LAB L501.1255 ml/min Normal Estimated CRCL 26.70 LAB L501.1300 10-20 RATIO Normal BUN/CRE 17.9 LAB L501.2200 8.5-10 mg/dL Normal .1 CA 8.7 LAB L501.5300 136-14 mmol/L Low 5 NA 130 LAB L501.5600 3.5-5. mmol/L Normal 1 K 4.0 LAB L501.5900 98-107 mmol/L Low CL 95 LAB L501.6100 21.0-3 mmol/L Normal 2.0 CO2 26.0 LAB L501.6200 5-15 Normal GAP 9 Performed By: #### L500.2500 #### [facility] [place] [facility] [place], [address] CBC W/DIFF, AUTOMATED Collected: 03/05/2018 Status: F Source: [place] 6:00 AM [facility] REPOSITORY TYPE CODE TESTS RESULT OUT OF RANGE REFERENCE UNITS LAB L100.1000 4.4-11.0 K/mm3 Low WBC 3.2 LAB L100.1200 4.2-5.4 M/mm3 Low RBC 3.00 LAB L100.1300 12.0-15.0 g/dl Low HGB 9.5 LAB L100.1400 37-47 % Low HCT 29.5 LAB L100.1500 81-99 fL Normal MCV 98.3 LAB L100.1600 27.0-32.0 pg Normal MCH 31.7 LAB L100.1700 32-36 g/gl Normal MCHC 32.2 LAB L100.1810 11.6-14.6 % Normal RDW CV 14.3 LAB L100.1820 35.1-43.9 fl High RDW SD 51.9 LAB L100.1900 150-450 K/mm3 Normal PLT 281 LAB L100.2000 6.2-12.0 fl Normal MPV 9.1 LAB L100.2100 47-70 % Normal NEUT% 59.7 LAB L100.2200 19-41 % Low LY% 18.6 LAB L100.2300 0-10 % High MONO% 18.3 LAB L100.2400 0-5 % Normal EO% 2.8 LAB L100.2500 0-1 % Normal BASO% 0.3 LAB L100.2550 0.0-0.9 % Normal IM GRAN % 0.300 Result Comment: IG% - Immature Granulocytes (promyelocytes, myelocytes and metamyelocytes) > 1% indicates that a LEFT SHIFT is Present. LAB L100.2620 2.0-7.7 X10 3/uL Low Absolute Neut 1.9 LAB L100.2720 0.83-4.51 X10 3/ul Low Absolute Lymph 0.60 LAB L100.4500 Normal SMEAR COMMENT SCANNED Performed By: #### L100.0100 #### [facility] [place] [facility] [address] [place], [address] PHOSPHORUS Collected: 03/05/2018 Status: F Source: [place] 6:00 AM [facility] REPOSITORY Order Comment: Comments: ok to add on TYPE CODE TESTS RESULT OUT OF RANGE REFERENCE UNITS LAB L501.2300 2.5-4.9 mg/dL Normal PHOS 3.8 Performed By: #### L501.2300, L501.5200 #### [facility] [place] [facility] [address] [place], [address] MAGNESIUM Collected: 03/05/2018 Status: F Source: [place] 6:00 AM [facility] REPOSITORY Order Comment: Comments: ok to add on TYPE CODE TESTS RESULT OUT OF RANGE REFERENCE UNITS LAB L501.5200 1.6-2.6 mg/dL Normal MG 1.7 Performed By: #### L501.2300, L501.5200 #### [facility] [place] [facility] [address] [place], [address] THYROID STIM HORMONE Collected: 03/05/2018 Status: F Source: [place] (TSH) 6:00 AM [facility] REPOSITORY Order Comment: Comments: ok to add on TYPE CODE TESTS RESULT OUT OF RANGE REFERENCE UNITS LAB L501.9520 0.358-3.74 uIU/mL Normal TSH 3.27 Performed By: #### L501.9520 #### [facility] [place] [facility] [address] [place], [place], [address] BEDSIDE GLUCOSE Collected: 03/05/2018 Status: F Source: [place] 4:35 AM [facility] REPOSITORY TYPE CODE TESTS RESULT OUT OF RANGE REFERENCE UNITS LAB L501.080 70-110 mg/dL Normal BEDSIDE GLU 83 Result Comment: MANAGEMENT OF PATIENT CARE PER NURSING PROTOCOL Performed By: #### L501.080 #### [facility] [place] [facility] Point of Care [address] [place] [address] BEDSIDE GLUCOSE Collected: 03/05/2018 Status: F Source: [place] 3:59 AM [facility] REPOSITORY TYPE CODE TESTS RESULT OUT OF REFERENCE UNITS RANGE LAB L501.080 70-110 mg/dL Low BEDSIDE GLU 69 Result Comment: Snack Given MANAGEMENT OF PATIENT CARE PER NURSING PROTOCOL Performed By: #### L501.080 #### [facility] [place] [facility] Point of Care [address] [place], [place] [address] BEDSIDE GLUCOSE Collected: 03/05/2018 Status: F Source: [place] 12:02 AM [facility] REPOSITORY TYPE CODE TESTS RESULT OUT OF RANGE REFERENCE UNITS LAB L501.080 70-110 mg/dL Normal BEDSIDE GLU 70 Result Comment: MANAGEMENT OF PATIENT CARE PER NURSING PROTOCOL Performed By: #### L501.080 #### [facility] [place] [facility] Point of Care [address] [place] [address] BEDSIDE GLUCOSE Collected: 03/04/2018 Status: F Source: [place] 8:01 PM [facility] REPOSITORY TYPE CODE TESTS RESULT OUT OF RANGE REFERENCE UNITS LAB L501.080 70-110 mg/dL Normal BEDSIDE GLU 71 Result Comment: MANAGEMENT OF PATIENT CARE PER NURSING PROTOCOL Performed By: #### L501.080 #### [facility] [place] [facility] Point of Care [address] [place] [address] BEDSIDE GLUCOSE Collected: 03/04/2018 Status: F Source: [place] 4:49 PM [facility] REPOSITORY TYPE CODE TESTS RESULT OUT OF REFERENCE UNITS RANGE LAB L501.080 70-110 mg/dL Low BEDSIDE GLU 60 Result Comment: MANAGEMENT OF PATIENT CARE PER NURSING PROTOCOL Performed By: #### L501.080 #### [facility] Point of Care [address] [place] [address] BEDSIDE GLUCOSE Collected: 03/04/2018 Status: F Source: [place] 11:27 AM [facility] REPOSITORY TYPE CODE TESTS RESULT OUT OF RANGE REFERENCE UNITS LAB L501.080 70-110 mg/dL Normal BEDSIDE GLU 78 Result Comment: MANAGEMENT OF PATIENT CARE PER NURSING PROTOCOL Performed By: #### L501.080 #### [facility] [place] [facility] Point of Care [address] [place] [address] BASIC METABOLIC Collected: 03/04/2018 Status: F Source: [place] PROFILE (BMP) 5:22 AM [facility] REPOSITORY TYPE CODE TESTS RESULT OUT OF RANGE REFERENCE UNITS LAB L501.0100 74-106 mg/dL Normal GLU 80 Result Comment: Please note revised GLUCOSE reference range effective 2017. LAB L501.1000 7-18 mg/dL Normal BUN 16 LAB L501.1100 0.55-1.02 mg/dL Normal CREAT,SERUM 0.91 Result Comment: The validity of the calculated GFR AND GFRAA in patients over 70 years has not been determined. Clinical correlation is essential. LAB L501.1110 >60 mL/min Normal EST GFR 63 Result Comment: Non- GFR Calc LAB L501.1115 >60 mL/min Normal EST GFR - AA 76 Result Comment: GFR Calc LAB L501.1255 ml/min Normal Estimated CRCL 26.41 LAB L501.1300 10-20 RATIO Normal BUN/CRE 17.5 LAB L501.2200 8.5-10 mg/dL Low .1 CA 8.2 LAB L501.5300 136-14 mmol/L Low 5 NA 125 LAB L501.5600 3.5-5. mmol/L Normal 1 K 4.0 LAB L501.5900 98-107 mmol/L Low CL 91 LAB L501.6100 21.0-3 mmol/L Normal 2.0 CO2 27.0 LAB L501.6200 5-15 Normal GAP 7 Performed By: #### L500.2500 #### [facility] [place] [facility] [address] [place], [address] BEDSIDE GLUCOSE Collected: 03/04/2018 Status: F Source: [place] 4:26 AM [facility] REPOSITORY TYPE CODE TESTS RESULT OUT OF RANGE REFERENCE UNITS LAB L501.080 70-110 mg/dL Normal BEDSIDE GLU 92 Result Comment: MANAGEMENT OF PATIENT CARE PER NURSING PROTOCOL Performed By: #### L501.080 #### [facility] [place] [facility] Point of Care [address] [place] [address] BEDSIDE GLUCOSE Collected: 03/04/2018 Status: F Source: [place] 12:30 AM [facility] REPOSITORY TYPE CODE TESTS RESULT OUT OF RANGE REFERENCE UNITS LAB L501.080 70-110 mg/dL Normal BEDSIDE GLU 83 Result Comment: MANAGEMENT OF PATIENT CARE PER NURSING PROTOCOL Performed By: #### L501.080 #### [facility] [place] [facility] Point of Care [address] [place] [address] BEDSIDE GLUCOSE Collected: 03/03/2018 Status: F Source: [place] 8:30 PM [facility] REPOSITORY TYPE CODE TESTS RESULT OUT OF RANGE REFERENCE UNITS LAB L501.080 70-110 mg/dL Normal BEDSIDE GLU 98 Result Comment: MANAGEMENT OF PATIENT CARE PER NURSING PROTOCOL Performed By: #### L501.080 #### [facility] [place] [facility] Point of Care [address] [place] [address] BEDSIDE GLUCOSE Collected: 03/03/2018 Status: F Source: [place] 4:32 PM [facility] REPOSITORY TYPE CODE TESTS RESULT OUT OF REFERENCE UNITS RANGE LAB L501.080 70-110 mg/dL Low BEDSIDE GLU 60 Result Comment: MANAGEMENT OF PATIENT CARE PER NURSING PROTOCOL Performed By: #### L501.080 #### [facility] [place] [facility] Point of Care [address] [place] [address] BEDSIDE GLUCOSE Collected: 03/03/2018 Status: F Source: [place] 12:56 PM [facility] REPOSITORY TYPE CODE TESTS RESULT OUT OF RANGE REFERENCE UNITS LAB L501.080 70-110 mg/dL Normal BEDSIDE GLU 78 Result Comment: MANAGEMENT OF PATIENT CARE PER NURSING PROTOCOL Performed By: #### L501.080 #### [facility] Point of Care [address] [place], [place] [id number] BEDSIDE GLUCOSE Collected: 03/03/2018 Status: F Source: [place] 8:22 AM [facility] REPOSITORY TYPE CODE TESTS RESULT OUT OF REFERENCE UNITS RANGE LAB L501.080 70-110 mg/dL Low BEDSIDE GLU 69 Result Comment: MANAGEMENT OF PATIENT CARE PER NURSING PROTOCOL Performed By: #### L501.080 #### [facility] [place] [facility] Point of Care [address] [facility] [address] CBC W/DIFF, AUTOMATED Collected: 03/03/2018 Status: F Source: [place] 6:24 AM [facility] REPOSITORY TYPE CODE TESTS RESULT OUT OF RANGE REFERENCE UNITS LAB L100.1000 4.4-11.0 K/mm3 Low WBC 3.1 LAB L100.1200 4.2-5.4 M/mm3 Low RBC 3.02 LAB L100.1300 12.0-15.0 g/dl Low HGB 9.7 LAB L100.1400 37-47 % Low HCT 30.4 LAB L100.1500 81-99 fL High MCV 100.7 LAB L100.1600 27.0-32.0 pg High MCH 32.1 LAB L100.1700 32-36 g/gl Low MCHC 31.9 LAB L100.1810 11.6-14.6 % Normal RDW CV 14.6 LAB L100.1820 35.1-43.9 fl High RDW SD 53.5 LAB L100.1900 150-450 K/mm3 Normal PLT 273 LAB L100.2000 6.2-12.0 fl Normal MPV 9.1 LAB L100.2100 47-70 % Normal NEUT% 57.1 LAB L100.2200 19-41 % Normal LY% 26.4 LAB L100.2300 0-10 % High MONO% 12.7 LAB L100.2400 0-5 % Normal EO% 3.2 LAB L100.2500 0-1 % Normal BASO% 0.6 LAB L100.2550 0.0-0.9 % Normal IM GRAN % 0.000 Result Comment: IG% - Immature Granulocytes (promyelocytes, myelocytes and metamyelocytes) > 1% indicates that a LEFT SHIFT is Present. LAB L100.2620 2.0-7.7 X10 3/uL Low Absolute Neut 1.8 LAB L100.2720 0.83-4.51 X10 3/ul Normal Absolute Lymph 0.83 Performed By: #### L100.0100 #### [facility] [place] [facility] [address] [facility] [address] [place], [place], [address] BASIC METABOLIC Collected: 03/03/2018 Status: F Source: [place] PROFILE (BMP) 6:24 AM [facility] REPOSITORY TYPE CODE TESTS RESULT OUT OF RANGE REFERENCE UNITS LAB L501.0100 74-106 mg/dL Normal GLU 79 Result Comment: Please note revised GLUCOSE reference range effective 2017. LAB L501.1000 7-18 mg/dL Normal BUN 16 LAB L501.1100 0.55-1.02 mg/dL Normal CREAT,SERUM 0.78 Result Comment: The validity of the calculated GFR AND GFRAA in patients over 70 years has not been determined. Clinical correlation is essential. LAB L501.1110 >60 mL/min Normal EST GFR 74 Result Comment: Non- GFR Calc LAB L501.1115 >60 mL/min Normal EST GFR - AA 90 Result Comment: GFR Calc LAB L501.1255 ml/min Normal Estimated CRCL 24.03 LAB L501.1300 10-20 RATIO High BUN/CRE 20.4 LAB L501.2200 8.5-10 mg/dL Low .1 CA 8.4 LAB L501.5300 136-14 mmol/L Low 5 NA 131 LAB L501.5600 3.5-5. mmol/L Normal 1 K 4.1 LAB L501.5900 98-107 mmol/L Low CL 94 LAB L501.6100 21.0-3 mmol/L Normal 2.0 CO2 30.0 LAB L501.6200 5-15 Normal GAP 7 Performed By: #### L500.2500 #### [facility] [place] [facility] [address] [place], [place], [address] BEDSIDE GLUCOSE Collected: 03/03/2018 Status: F Source: [place] 4:54 AM [facility] REPOSITORY TYPE CODE TESTS RESULT OUT OF RANGE REFERENCE UNITS LAB L501.080 70-110 mg/dL Normal BEDSIDE GLU 80 Result Comment: MANAGEMENT OF PATIENT CARE PER NURSING PROTOCOL Performed By: #### L501.080 #### [facility] [place] [facility] Point of Care [address] [place] [address] BEDSIDE GLUCOSE Collected: 03/03/2018 Status: F Source: [place] 12:44 AM [facility] REPOSITORY TYPE CODE TESTS RESULT OUT OF RANGE REFERENCE UNITS LAB L501.080 70-110 mg/dL Normal BEDSIDE GLU 79 Result Comment: MANAGEMENT OF PATIENT CARE PER NURSING PROTOCOL Performed By: #### L501.080 #### [facility] [place] [facility] Point of Care [address] [place] [address] BEDSIDE GLUCOSE Collected: 03/02/2018 Status: F Source: [place] 8:24 PM [facility] REPOSITORY TYPE CODE TESTS RESULT OUT OF RANGE REFERENCE UNITS LAB L501.080 70-110 mg/dL Normal BEDSIDE GLU 84 Result Comment: MANAGEMENT OF PATIENT CARE PER NURSING PROTOCOL Performed By: #### L501.080 #### [facility] [place] [facility] Point of Care [address] [place] [address] BEDSIDE GLUCOSE Collected: 03/02/2018 Status: F Source: [place] 3:22 PM [facility] REPOSITORY TYPE CODE TESTS RESULT OUT OF REFERENCE UNITS RANGE LAB L501.080 70-110 mg/dL Low BEDSIDE GLU 69 Result Comment: MANAGEMENT OF PATIENT CARE PER NURSING PROTOCOL Performed By: #### L501.080 #### [facility] [place] [facility] Point of Care [address] [place] [address] BEDSIDE GLUCOSE Collected: 03/02/2018 Status: F Source: [place] 11:16 AM [facility] REPOSITORY TYPE CODE TESTS RESULT OUT OF REFERENCE UNITS RANGE LAB L501.080 70-110 mg/dL Low alert BEDSIDE GLU 42 Result Comment: MANAGEMENT OF PATIENT CARE PER NURSING PROTOCOL Performed By: #### L501.080 #### [facility] [place] [facility] Point of Care [address] [facility] [address] [place], [place] [address] BEDSIDE GLUCOSE Collected: 03/02/2018 Status: F Source: [place] 8:01 AM [facility] REPOSITORY TYPE CODE TESTS RESULT OUT OF REFERENCE UNITS RANGE LAB L501.080 70-110 mg/dL High BEDSIDE GLU 127 Result Comment: MANAGEMENT OF PATIENT CARE PER NURSING PROTOCOL Performed By: #### L501.080 #### [facility] [place] [facility] Point of Care [address] [place] [address] INSULIN Collected: 03/02/2018 Status: F Source: [place] 6:56 AM [facility] REPOSITORY TYPE CODE TESTS RESULT OUT OF RANGE REFERENCE UNITS LAB [id number] 2.6-37.6 mU/L Normal Insulin 2.8 Result Comment: Please Note: INSULIN METHOD AND REFERENCE RANGE CHANGE Effective 05/25/2017. Performed By: #### [id number] #### [facility] [place] [facility] [address] [place] [address]. [place], [place], [address] C-PEPTIDE Collected: 03/02/2018 Status: F Source: [place] 6:56 AM [facility] REPOSITORY TYPE CODE TESTS RESULT OUT OF RANGE REFERENCE UNITS LAB L3100.7750 1.1-4.4 ng/mL Normal C PEPTIDE 2.3 06164 Result Comment: C-Peptide reference interval is for fasting patients. Performed at: - [facility] [id number] [employer] Officer: Ole Fay PhD, Phone: [phone] Performed By: #### L3100.7750 #### [facility] (refer to report for specific site) refer to report for address and phone number MISCELLANEOUS LAB Collected: 03/02/2018 Status: F Source: [place] PROCEDURE 2 6:56 AM [facility] REPOSITORY Order Comment: PROINSULIN [id number] SER/FZ Comments: PROINSULIN [id number] SER/FZ List Test(s) Ordered by Physician: PROINSULIN [id number] SER/FZ TYPE CODE TESTS RESULT OUT OF RANGE REFERENCE UNITS LAB L801.1543 Normal [facility] TEST 2 Result Comment: TEST RESULT LIMITS Proinsulin 2.8 pmol/L 0.0 - 10.0 [facility]. ORIGINAL REPORT ON FILE IN LAB CONTAINS ADDITIONAL TEST SITE INFORMATION. Performed By: #### L801.1543 #### [facility] [place] [facility] [address] [place], [address] HISTORY AND PHYSICAL Observed: 03/02/2018 Status: F Source: [place] EXAM 6:40 AM [facility] REPOSITORY [facility] Medical Records Department [address] [place] [address] History and Physical 03/02/18 0219 MR#: [id number] Acct: [id number] Name: GLADIS FERNANDEZ Rep #: [id number] : 1935 82 From: Kel Mireles MD PCP: Augie Rajan MD, Chi Status: ADM IN Y Location: [place] [address] ADDENDUM by Kel Mireles MD on 03/02/18 at 0640 03/02/18 0640 <Electronically signed by Kel Mireles MD> Date Kel Mireles MD cc: Kel Mireles MD; Augie Rajan MD * Signed ADDENDUM by Kel Mireles MD on 03/02/18 at 0640 Code Visit Patient with persistent Hypoglycemia like this is the stroke- mimicker. Will discontinue further stroke work up. Will order insulin; C-peptide; sulfonylureas, and pro-insulin level;. Will start patient on D5W. An amp of D50 ordered.. 10/19/18 0640 <Electronically signed by Kel Mireles MD> Date Kel Mireles MD cc: Kel Mireles MD; Augie Rajan MD * Signed Problem List (1) CVA (cerebral vascular accident) Status: Acute History of Present Illness Date of Admission: 03/02/18 Chief Complaint: decreased response The patient is a 82 year old F with a significant history of dementia; stage IV kidney disease; chronic left hip pain ;paroxysmal A. fib; ischemic cardiomyopathy status post stent; hypothyroidism and hypertension who presents with decreased response started the day before admission. Per patient's patient is no active right. Patient has become weaker and does not comprehend reports her Cherie. reported that patient is hesitant on answering questions. Patient reported that patient's has episodes where she mumbles but this is chronic. Patient denies that patient has been having garbled speech. However ED doctor reported that patient's notify him that patient has been having episodic garbled speech. Also ED doctor reported that whiles at the triage patient was noted to have episodic garbled speech. ED doctor reported that first fingerstick blood sugar was 18 and a repeat fingerstick blood sugar was 48. However BMP drawn before this to fingerstick blood sugars returned 82. Patient receive D50 in the emergency department. Importantly patient was found to have severely elevated glucose on urinalysis. Patient was found to have elevated troponin at emergency department. Past Medical History Past Medical History (Chronic Problems): Chronic Problems (Last Reviewed 03/02/18 @ 02:31 by Kel Mireles MD) Hypertension (Chronic) Ischemic cardiomyopathy (Chronic) Presence of stent in coronary artery (Chronic) PTCA/DONNELL to proximal LCx in September 2016; PTCA/DONNELL to PDA and PTCA of PLVB on November 17, 2016; PCI with PTCA to ostial diagonal and PTCA/DONNELL to proximal LAD in November 29, 2016; residential current use of 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 drug (Chronic) Atherosclerosis [place] coronary artery [place] heart without angina pectoris (Chronic) Essential (primary) hypertension (Chronic) Pulmonary hypertension (Chronic) Malnutrition (Chronic) Dementia (Chronic) Chronic anemia (Chronic) Paroxysmal atrial fibrillation (Chronic) Hyperlipidemia (Chronic) NSTEMI (non-ST elevated myocardial infarction) (Chronic) NSTEMI December 2016 ST elevation (STEMI) myocardial infarction involving left circumflex coronary artery (Chronic) stent 09/24/16 Hypothyroidism (Chronic) Adult BMI <19 kg/sq m (Chronic) Medical History: Medical History (Last Reviewed 03/02/18 @ 02:31 by Kel Mireles MD) Hypertension (Chronic) I10 Ischemic cardiomyopathy (Chronic) I25.5 Atherosclerosis of [place] coronary artery [place] heart without angina pectoris (Chronic) I25.10 Essential (primary) hypertension (Chronic) I10 UDAY (acute kidney injury) (Acute) N17.9 Due to prerenal azotemia, related to Lasix Pulmonary hypertension (Chronic) I27.2 Malnutrition (Chronic) E46 Dementia (Chronic) F03.90 Chronic anemia (Chronic) D64.9 Paroxysmal atrial fibrillation (Chronic) I48.0 Hyperlipidemia (Chronic) E78.5 NSTEMI (non-ST elevated myocardial infarction) (Chronic) I21.[address] elevation (STEMI) myocardial infarction involving left circumflex coronary artery (Chronic) I21.21 stent 09/24/16 Hypothyroidism (Chronic) E03.9 Adult BMI <19 kg/sq m (Chronic) Z68.1 Coronary artery disease (Inactive) I25.10 Dysphagia (Inactive) R13.10 Elevated troponin (Inactive) R74.8 not trending HFrEF (heart failure with reduced ejection fraction) (Inactive) I50.20 EF 01/12 65% Hypomagnesemia (Inactive) E83.42 Hypophosphatemia (Inactive) E83.39 Hypotension (Inactive) I95.9 with hydration Vitamin D deficiency (Inactive) E55.9 Allergies tuberculin,PPD,multi-puncture Adverse Reaction (Verified 03/01/18 22:48) Unknown caused big blister on lip Home Medications: Ambulatory Orders Medication Instructions Recorded Levothyroxine Sodium 125 mcg PO DAILY 05/31/16 Aspirin E.C. [Ecotrin] 81 mg PO DAILY@0800 tab 09/26/16 Surgical History: Surgical History (Last Reviewed 02/07/18 @ 15:13 by Staci Asencio) Presence of stent in coronary artery (Chronic) Z95.5 PTCA/DONNELL to proximal LCx in September 2016; PTCA/DONNELL to PDA and PTCA of PLVB on November 17, 2016; PCI with PTCA to ostial diagonal and PTCA/DONNELL to proximal LAD in November 29, 2016; History of cholecystectomy Z98.890, Z90.49 Hx of tonsillectomy Z98.890, Z90.89 Postsurgical percutaneous transluminal coronary angioplasty (PTCA) status Z98.61 PTCA/DONNELL to proximal LCx in September 2016; PTCA/DONNELL to PDA and PTCA of PLVB on November 17, 2016; PCI with PTCA to ostial diagonal and PTCA/DONNELL to proximal LAD in November 29, 2016; History of left heart catheterization Z98.890 Surgical History: total hip arthroplasty Psychiatric History: No pertinent psych hx Lives: Spouse/ Significant Other Smoking Status: Never smoker - *Family History Maternal Family History: Family History (Last Reviewed 03/02/18 @ 02:33 by Kel Mireles MD) Father CVA (cerebral vascular accident) Mother CVA (cerebral vascular accident) History Items: Stroke Paternal Family History: Family History (Last Reviewed 03/02/18 @ 02:33 by Kel Mireles MD) Father CVA (cerebral vascular accident) Mother CVA (cerebral vascular accident) History Items: Stroke Review of Systems Constitutional: Denies: Chills, Fever, Weight Change HEENT: Denies: Head Aches, Sinus Congestion, Sinus Drainage Cardiovascular: Denies: Chest Pain, Palpitations Respiratory: Denies: Cough, Shortness of breath at rest, Sputum production Gastrointestinal: Denies: Abdominal Pain, Nausea, Vomiting Genitourinary: Denies: Dysuria Musculoskeletal: Reports: Joint Pain - Left hip pain. Denies: Joint Tenderness Skin: Denies: Rash, Wounds Neurological: Denies: Numbness, Tingling, Focal weakness Psychiatric: Denies: Anxiety, Depression, Homicidal Ideations, Suicidal Ideations Hematologic/ Lymphatic: Denies: Easy Bruising, Easy Bleeding VTE Information - Inpt Only VTE Present on Admission: No VTE Mechan Device Prophylaxis: None VTE Pharm Prophylaxis ordered?: Yes Patient Problems: Active and Suspected Problems (Last Reviewed 03/02/18 @ 02:31 by Kel Mireles MD) CVA (cerebral vascular accident) (Acute) - Physical Exam General: Alert, Oriented x3, Cooperative, - - Patient does not know why she is at the hospital. HEENT: Atraumatic, PERRLA, EOMI, Normocephalic Neck: Supple, No JVD, Negative Carotid Bruits Lungs: Clear to auscultation, Normal air movement Cardiovascular: No murmurs, Bradycardic Abdomen: Bowel Sounds Present, Soft, Non Tender Extremities: No edema, Capillary Refill Less than 3 Seconds Skin: No rashes, No breakdown Musculoskeletal: No Tenderness to Palpation of Joints or Extremities, - - Decreased range of motion and strength in left lower extremities secondary to pain (?osteoarthritis). Right leg strength 5/5; right leg with full range of motion. Neurological: - - Hard of hearing; even with hearing aids. Psych/Mental Status: Normal Affect, Appropriate Vital Signs Temp Pulse Resp BP Pulse Ox 96.9 F L 48 L 14 156/54 H 100 03/01/18 22:46 03/02/18 01:00 03/02/18 01:00 03/02/18 01:00 03/02/18 01:00 Oxygen Flow Rate (L/min) 2 Oxygen Delivery Method Nasal Cannula Weight: 37.195 kg Body Mass Index (BMI) 16.0 Finger Stick Blood Glucose 46 Laboratory Tests Past 24 Hrs WBC RBC Hgb Hct MCV MCH MCHC RDW RDW Differential Plt Count MPV Immature Gran % (Auto) Neut % (Auto) Lymph % (Auto) Assessment/Plan All Active Problems (Last Reviewed 03/02/18 @ 02:31 by Kel Mireles MD) CVA (cerebral vascular accident) (Acute) Esophageal foreign body (Acute) UDAY (acute kidney injury) (Acute) Acute systolic (congestive) heart failure (Resolved) The patient is a 82 year old F with a significant history of dementia; stage IV kidney disease; chronic left hip pain ;paroxysmal A. fib; ischemic cardiomyopathy status post stent; hypothyroidism and hypertension who presents with decreased response to conversation; weakness; psychomotor retardation and of questionable garbled speech and inconsistent hypoglycemia Probable TIA Independent review of CT of head confirms that there is no acute pathology. Discussed with patient and her . Her as not want MRI imaging of patient's head. -Check TTE -Check Hba1c, -Permissive HTN for 24 hrs Review of old records showed that lipid panel on 09/14/2017 was unremarkable. Her LDL was 92; cholesterol was 191 and a triglyceride was 164. PT, OT and ST to work with patient. Aspirin Plavix and statin the patient takes for CAD continue. Differential diagnosis of her decreased response includes debility or dementia. Hypoglycemia Low blood glucose on Accu-Chek at the could be false positive. If true could explain her strokelike symptoms. Accu-Chek every 2 hours x2 ordered. 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 Elevated troponin Patient with no chest pain. Chronic. Will stop trending. Severe Protein Malnutrition Prealbumin and albumin ordered. Ensure Enlive 120 ml 4 times a day Nutritional consult Hypothyroidism Synthroid continued. First-degree AV block. Patient on metoprolol: will hold at this time due to stroke protocol. Consider discussing with patient tobacco buyer Dr. Echevarria. Amiodarone is on home medication list. Consider discussing with her tobacco buyer because of bradycardia. Paroxysmal A. fib Metoprolol and amiodarone on hold at this time. History of CAD with stents Aspirin, Plavix and statin continued. Ischemic cardiomyopathy Aspirin, Plavix and statin continue as above. Lasix and potassium continued. Dementia Aricept continued. DVT prophylaxis Subcutaneous heparin. Miscellaneous: Please verify home medications in am since patient has dementia and is unable to help verify home meds Code Visit OBSV E AND M: [id number] Initial observation care L3 03/02/18 0626 <Electronically signed by Kel Mireles MD> Date Kel Mireles MD Cosigner Signature: Date (if applicable) CC: Kel Mireles MD; Augie Rajan MD Signed BEDSIDE GLUCOSE Collected: 03/02/2018 Status: F Source: [place] 6:26 AM [facility] REPOSITORY TYPE CODE TESTS RESULT OUT OF REFERENCE UNITS RANGE LAB L501.080 70-110 mg/dL Low BEDSIDE GLU 60 Result Comment: MANAGEMENT OF PATIENT CARE PER NURSING PROTOCOL Performed By: #### L501.080 #### [facility] [place] [facility] Point of Care [address] [place], [place] [address] BASIC METABOLIC Collected: 03/02/2018 Status: F Source: [place] PROFILE (BMP) 5:00 AM [facility] REPOSITORY Order Comment: 'TROP' Serial specimen #1, #2, #3, or #4: 1 TYPE CODE TESTS RESULT OUT OF RANGE REFERENCE UNITS LAB L501.0100 74-106 mg/dL Low GLU 72 Result Comment: Please note revised GLUCOSE reference range effective 2017. LAB L501.1000 7-18 mg/dL High BUN 20 LAB L501.1100 0.55-1.02 mg/dL Normal CREAT,SERUM 0.91 Result Comment: The validity of the calculated GFR AND GFRAA in patients over 70 years has not been determined. Clinical correlation is essential. LAB L501.1110 >60 mL/min Normal EST GFR 63 Result Comment: Non- GFR Calc LAB L501.1115 >60 mL/min Normal EST GFR - AA 76 Result Comment: GFR Calc LAB L501.1255 ml/min Normal Estimated CRCL 26.41 LAB L501.1300 10-20 RATIO High BUN/CRE 22.0 LAB L501.2200 8.5-10 mg/dL Normal .1 CA 8.5 LAB L501.5300 136-14 mmol/L Normal 5 NA 138 LAB L501.5600 3.5-5. mmol/L Normal 1 K 4.2 LAB L501.5900 98-107 mmol/L Normal CL 103 LAB L501.6100 21.0-3 mmol/L Normal 2.0 CO2 28.0 LAB L501.6200 5-15 Normal GAP 7 Performed By: #### L500.2500, L500.4100, L501.1800, L501.4010, L506.0500 #### [facility] [place] [facility] [address] [place], [address] LIPID PROFILE Collected: 03/02/2018 Status: F Source: [place] 5:00 AM [facility] REPOSITORY Order Comment: 'TROP' Serial specimen #1, #2, #3, or #4: 1 TYPE CODE TESTS RESULT OUT OF RANGE REFERENCE UNITS LAB L501.4900 200 mg/dL Normal CHOL 148 Result Comment: <200 mg/dL Desirable 200-240 mg/dL Borderline >240 mg/dL High Risk LAB L501.5000 mg/dL Normal TRIG 51 Result Comment: The drugs N-Acetylcysteine and Metamizole may falsely depress this assay. Serum Triglycerides Reference Interval Normal <150 mg/dL Borderline high 150 - 199 mg/dL High 200 - 499 mg/dL Very High > or = 500 mg/dL LAB L501.6400 mg/dL Normal HDL 73 Result Comment: The drugs N-Acetylcysteine and Metamizole may falsely depress this assay. Reference Range HDL <40 mg/dL Low HDL Cholesterol HDL >or= 60 mg/dL High HDL Cholesterol LAB L501.6500 0-130 mg/dL Normal LDL 65 LAB L501.6600 5-40 mg/dL Normal VLDL 10 Performed By: #### L500.2500, L500.4100, L501.1800, L501.4010, L506.0500 #### [facility] [place] [facility] [address] [place], [address] ALBUMIN, SERUM Collected: 03/02/2018 Status: F Source: [place] 5:00 AM [facility] REPOSITORY Order Comment: 'TROP' Serial specimen #1, #2, #3, or #4: 1 TYPE CODE TESTS RESULT OUT OF RANGE REFERENCE UNITS LAB L501.1800 3.2-5.0 g/dL Low ALB 3.1 Performed By: #### L500.2500, L500.4100, L501.1800, L501.4010, L506.0500 #### [facility] [place] [facility] [address] [place], [address] TROPONIN-I Collected: 03/02/2018 Status: F Source: [place] 5:00 AM [facility] REPOSITORY Order Comment: 'TROP' Serial specimen #1, #2, #3, or #4: 1 TYPE CODE TESTS RESULT OUT OF RANGE REFERENCE UNITS LAB L501.4010 <0.045 ng/mL High 0.091 TROPONIN-I Result Comment: TROPONIN-I EXPECTED VALUES <0.045 Negative 0.045 - 0.590 Consistent with Cardiac Damage > OR = 0.600 Critical Value Not every elevated troponin is indicative of WA. These values should be used with clinical judgement in examining the patient's clinical picture for diagnosis. To establish a diagnosis of WA versus myocardial injury, there must be a demonstrated rise and/or fall in the troponin values, in addition to ischemic symptoms, EKG changes, new regional wall motion abnormality, and/or angiographical evidence. PLEASE NOTE: REFERENCE RANGES EDITED 17 Performed By: #### L500.2500, L500.4100, L501.1800, L501.4010, L506.0500 #### [facility] [place] [facility] [address] [place], [address] PREALBUMIN Collected: 03/02/2018 Status: F Source: [place] 5:00 AM [facility] REPOSITORY Order Comment: 'TROP' Serial specimen #1, #2, #3, or #4: 1 TYPE CODE TESTS RESULT OUT OF REFERENCE UNITS RANGE LAB L506.0500 20.0-40.0 mg/dL Low PREALBUMIN 19.1 Performed By: #### L500.2500, L500.4100, L501.1800, L501.4010, L506.0500 #### [facility] [place] [facility] [address] [place], [address] HEMOGLOBIN A1C Collected: 03/02/2018 Status: F Source: [place] 5:00 AM [facility] REPOSITORY TYPE CODE TESTS RESULT OUT OF RANGE REFERENCE UNITS LAB L501.9985 4.2-6.3 % Normal HGB A1C 4.8 Performed By: #### L501.9985 #### [facility] [place] [facility] [address] [place], [address] URINALYSIS, COMPLETE Collected: 03/02/2018 Status: F Source: [place] 4:10 AM [facility] REPOSITORY Order Comment: How was Urine Obtained? TECHNICAL SERVICES REPRESENTATIVE TO SPECIFY TYPE CODE TESTS RESULT OUT OF RANGE REFERENCE UNITS LAB L400.3000 Yellow COLOR Normal Yellow LAB L400.3050 Clear Normal CLARITY Sl. Cloudy LAB L400.3200 Normal mg/dl Normal GLUCOSE, UR Normal LAB L400.3300 Negative mg/dL Normal BILIRUBIN URINE Negative LAB L400.3400 Negative mg/dl Normal KETONE UR Negative LAB L400.3465 1.002-1.030 Normal SP.GR. DIPSTX 1.030 LAB L400.3550 5.0 - 8.0 pH UR Normal 8.0 LAB L400.3600 Negative mg/dl High PROT 15 DIPSTX LAB L400.3700 Normal mg/dl Normal UROBILI Normal LAB L400.3750 Negative Normal NITRITE UR Negative LAB L400.3780 Negative /ul Normal OCCULT BLOOD-UR Negative LAB L400.3800 Negative /ul High LEUK 25 ESTERASE LAB L400.4050 0-5 /hpf WBC Normal 0-5 SEEN LAB L400.4100 0-5 /hpf 0 Normal RBC-UA SEEN LAB L400.4150 5-10 /hpf SQUAM Normal EPI 0-5 SEEN LAB L400.4300 None Seen /hpf Normal BACTERIA RARE LAB L400.4350 <or=2+ /hpf 0 Normal MUCUS, URINE SEEN Performed By: #### L400.0001 #### [facility] [place] [facility] [address] [facility], [address] EMERGENCY DEPARTMENT Observed: 03/02/2018 Status: F Source: [place] SUMMARY 1:28 AM [facility] REPOSITORY [facility] Medical Records Department [address] [place] [address] Emergency Department Summary 03/01/18 2258 MR#: [id number] Acct: [id number] Name: GLADIS FERNANDEZ Rep #: [id number] : 1935 82 From: Triston Toledo MD PCP: Satinder ROJO,Augie [facility] Status: REG ER - ER Visit Summary Date of Service: 03/01/18 Chief Complaint: Garbled speech History of Present Illness: The patient is a 82 F who presents with garbled speech. The states that this is been intermittent for the past 2 days. At times her speech is hard to understand. Triage nurse noted that in triage the initial conversation was normal but that her speech became garbled after that. She denies any weakness of any arms or legs. She has not had any fevers. No headache. Patient has chronic left hip pain which she complains about tonight. Physical Examination: Vital signs reviewed. HEENT exam unremarkable. Heart is regular rate and rhythm without murmurs. Lungs are clear to auscultation. Abdomen is soft and nontender. Extremities reveal no edema. Does have some left hip tenderness to palpation which is chronic. Skin exam normal. Neurologic exam normal. Her NIH stroke scale score is 0. Her speech is clear and understandable at this time. Test Results: EKG is normal sinus rhythm with a rate of 50. Nonspecific ST and T wave changes noted. Chest x-ray and CAT scan of the head revealed chronic changes. Hemoglobin 9.7, sodium 135, creatinine 1.09. Glucose 82. Troponin is slightly elevated at 0.09 Emergency Department Course and Treatment: The patient had a fingerstick glucose which read 18 and then 40. I administer D50 in case this was the cause of her symptoms. However, the BMP which was drawn before the D50 showed a glucose of 82. I relayed this to the hospitalist who will recheck this as an inpatient. I am concerned the patient may be having some TIAs which are causing the garbled speech. The elevated troponin is also of concern. Patient will be admitted to the hospital on telemetry Treatment Plan: [] Disposition: Admit Impression: Elevated troponin, speech difficulty This note was generated with [employer] CK1 dictation software. It may contain incorrect words, spelling, and punctuation that were not noted in review of the chart prior to signing ED Disposition - Plan for ED Patient: Chief Complaint: Neuro S/Sx Referrals: Augie Rajan Chi, MD [Primary Care Provider] - What to do if you have Problems For any increased pain, shortness of breath, bleeding, nausea or vomiting, chest pain, or any unexpected problems, contact your Primary Care Provider. Call [facility] ([phone]) or report to the closest Emergency Room. Call 911 if necessary. 03/02/18 0128 <Electronically signed by Triston Toledo MD> Date Triston Toledo MD Cosigner Signature (If Indicated): Date CC: Augie Rajan MD URINALYSIS, COMPLETE Collected: 03/01/2018 Status: F Source: [place] 11:50 PM [facility] REPOSITORY Order Comment: Order Date: 03/01/18 How was Urine Obtained? CLEAN CATCH TYPE CODE TESTS RESULT OUT OF RANGE REFERENCE UNITS LAB L400.3000 Yellow COLOR Normal Yellow LAB L400.3050 Clear Normal CLARITY Clear LAB L400.3200 Normal mg/dl High GLUCOSE, UR 1000 LAB L400.3300 Negative mg/dL Normal BILIRUBIN URINE Negative LAB L400.3400 Negative mg/dl Normal KETONE UR Negative LAB L400.3465 1.002-1.030 Normal SP.GR. DIPSTX 1.010 LAB L400.3550 5.0 - 8.0 pH UR Normal 7.0 LAB L400.3600 Negative mg/dl High PROT 15 DIPSTX LAB L400.3700 Normal mg/dl Normal UROBILI Normal LAB L400.3750 Negative Normal NITRITE UR Negative LAB L400.3780 Negative /ul Normal OCCULT BLOOD-UR Negative LAB L400.3800 Negative /ul LEUK Normal ESTERASE Negative LAB L400.4050 0-5 /hpf WBC 0 Normal SEEN LAB L400.4100 0-5 /hpf 0 Normal RBC-UA SEEN LAB L400.4150 5-10 /hpf SQUAM 0 Normal EPI SEEN LAB L400.4300 None Seen /hpf 0 Normal BACTERIA SEEN LAB L400.4350 <or=2+ /hpf 0 Normal MUCUS, URINE SEEN Performed By: #### L400.0001 #### [facility] [place] [facility] [address] [place], [place], [address] BEDSIDE GLUCOSE Collected: 03/01/2018 Status: F Source: [place] 11:11 PM [facility] REPOSITORY TYPE CODE TESTS RESULT OUT OF REFERENCE UNITS RANGE LAB L501.080 70-110 mg/dL Low BEDSIDE GLU 46 Result Comment: MANAGEMENT OF PATIENT CARE PER NURSING PROTOCOL Performed By: #### L501.080 #### [facility] [place] [facility] Point of Care [address] [place] [address] CBC W/DIFF, AUTOMATED Collected: 03/01/2018 Status: F Source: [place] 11:08 PM [facility] TYPE CODE TESTS RESULT OUT OF RANGE REFERENCE UNITS LAB L100.1000 4.4-11.0 K/mm3 Low WBC 3.8 LAB L100.1200 4.2-5.4 M/mm3 Low RBC 3.10 LAB L100.1300 12.0-15.0 g/dl Low HGB 9.7 LAB L100.1400 37-47 % Low HCT 31.7 LAB L100.1500 81-99 fL High MCV 102.3 LAB L100.1600 27.0-32.0 pg Normal MCH 31.3 LAB L100.1700 32-36 g/gl Low MCHC 30.6 LAB L100.1810 11.6-14.6 % High RDW CV 14.9 LAB L100.1820 35.1-43.9 fl High RDW SD 55.7 LAB L100.1900 150-450 K/mm3 Normal PLT 292 LAB L100.2000 6.2-12.0 fl Normal MPV 9.1 LAB L100.2100 47-70 % Normal NEUT% 57.8 LAB L100.2200 19-41 % Normal LY% 24.2 LAB L100.2300 0-10 % High MONO% 14.6 LAB L100.2400 0-5 % Normal EO% 2.6 LAB L100.2500 0-1 % Normal BASO% 0.8 LAB L100.2550 0.0-0.9 % Normal IM GRAN % 0.000 Result Comment: IG% - Immature Granulocytes (promyelocytes, myelocytes and metamyelocytes) > 1% indicates that a LEFT SHIFT is Present. LAB L100.2620 2.0-7.7 X10 3/uL Normal Absolute Neut 2.2 LAB L100.2720 0.83-4.51 X10 3/ul Normal Absolute Lymph 0.93 Performed By: #### L100.0100 #### [facility] [place] [facility] [address] [place], [place], [address] BASIC METABOLIC Collected: 03/01/2018 Status: F Source: [place] PROFILE (BMP) 11:08 PM [facility] REPOSITORY TYPE CODE TESTS RESULT OUT OF RANGE REFERENCE UNITS LAB L501.0100 74-106 mg/dL Normal GLU 82 Result Comment: Please note revised GLUCOSE reference range effective 2017. LAB L501.1000 7-18 mg/dL High BUN 22 LAB L501.1100 0.55-1.02 mg/dL High CREAT,SERUM 1.09 Result Comment: The validity of the calculated GFR AND GFRAA in patients over 70 years has not been determined. Clinical correlation is essential. LAB L501.1110 >60 mL/min Low EST GFR 51 Result Comment: Non- GFR Calc LAB L501.1115 >60 mL/min Normal EST GFR - AA 62 Result Comment: GFR Calc LAB L501.1255 ml/min Normal Estimated CRCL 23.37 LAB L501.1300 10-20 RATIO High BUN/CRE 20.2 LAB L501.2200 8.5-10 mg/dL Normal .1 CA 8.9 LAB L501.5300 136-14 mmol/L Low 5 NA 135 LAB L501.5600 3.5-5. mmol/L Normal 1 K 4.6 LAB L501.5900 98-107 mmol/L Normal CL 103 LAB L501.6100 21.0-3 mmol/L Normal 2.0 CO2 28.0 LAB L501.6200 5-15 Low GAP 4 Performed By: #### L500.2500, L501.4010 #### [facility] [place] [facility] [address] [facility], [address] TROPONIN-I Collected: 03/01/2018 Status: F Source: [place] 11:08 PM [facility] REPOSITORY TYPE CODE TESTS RESULT OUT OF RANGE REFERENCE UNITS LAB L501.4010 <0.045 ng/mL High 0.090 TROPONIN-I Result Comment: TROPONIN-I EXPECTED VALUES <0.045 Negative 0.045 - 0.590 Consistent with Cardiac Damage > OR = 0.600 Critical Value Not every elevated troponin is indicative of WA. These values should be used with clinical judgement in examining the patient's clinical picture for diagnosis. To establish a diagnosis of WA versus myocardial injury, there must be a demonstrated rise and/or fall in the troponin values, in addition to ischemic symptoms, EKG changes, new regional wall motion abnormality, and/or angiographical evidence. PLEASE NOTE: REFERENCE RANGES EDITED 17 Performed By: #### L500.2500, L501.4010 #### [facility] [place] [facility] [address] [place], [address] PROTHROMBIN TIME W/INR Collected: 03/01/2018 Status: F Source: [place] 11:08 PM [facility] REPOSITORY TYPE CODE TESTS RESULT OUT OF RANGE REFERENCE UNITS LAB L300.4150 11.7-14.9 SECONDS Normal PROTIME 12.9 LAB L300.4200 Normal INR 1.0 Performed By: #### L300.3900, L300.4310 #### [facility] [place] [facility] [address] [place], [address] PARTIAL THROMBOPLAST Collected: 03/01/2018 Status: F Source: [place] TIME 11:08 PM [facility] REPOSITORY TYPE CODE TESTS RESULT OUT OF RANGE REFERENCE UNITS LAB L300.4310 24.1-36.2 Seconds Normal PTT 28.4 Performed By: #### L300.3900, L300.4310 #### [facility] [place] [facility] [address] [place], [address] BRAIN/HEAD WITHOUT Observed: 03/01/2018 Status: F Source: [place] CONTRAST 10:57 PM [facility] REPOSITORY [facility] Imaging Services [address] [place] [address] Brain/Head without Contrast MR#: [id number] Acct: [id number] Name: GLADIS FERNANDEZ Rep #: [id number] : 1935 F 82 From: Christopher Blood DO PCP: Satinder ORJO,Augie [facility] Status: REG ER Study: Brain/Head without Contrast Date of Exam: 03/01/18 Exam# [id number] Ordering Dr: Triston Toledo MD STUDY: CT BRAIN WITHOUT CONTRAST REASON FOR EXAM: Female, 82 years old. Altered mental status RADIATION DOSAGE (If Supplied By Facility): CTDIvol = ( 44.99 ) mGy, DLP = ( 728.62 ) mGycm TECHNIQUE: Transaxial CT imaging of the brain was performed without administration of intravenous contrast material. Individualized dose optimization techniques were used for this CT. COMPARISON: September 04, 2017 FINDINGS: Normal soft tissue structures. Normal calvarium. Normal size ventricles and extra-axial spaces for the patient's age. Stable white matter microangiopathic ischemic changes of the cerebral hemispheres. Normal basal ganglia and thalami. Normal brainstem. Normal cerebellum. There is no intracranial hemorrhage. There are no findings of an acute ischemic infarction. Normal visualized paranasal sinuses. CT/Brain/Head without Contrast IMPRESSION: Stable age-related and chronic changes of the brain. Electronically Signed: Christopher Blood DO at 23:45 EDT Tel [phone], Service support , CC: Triston Toledo MD; Augie Rajan MD Office Helper: Signed CHEST 1 VIEW Observed: 03/01/2018 Status: F Source: [place] 10:57 PM [facility] REPOSITORY [facility] Imaging Services [address] [place] [address] Chest 1 View MR#: [id number] Acct: [id number] Name: GLADIS FERNANDEZ Rep #: [id number] : 1935 F 82 From: Amy Childers MD PCP: Augie Rajan MD, Chi Status: REG ER Study: Chest 1 View Date of Exam: 03/01/18 Exam# [id number] Ordering Dr: Triston Toledo MD STUDY: X-RAY CHEST REASON FOR EXAM: Female, 82 years old. Confusion, shortness of breath TECHNIQUE: Single AP portable view of the chest. COMPARISON: 07/07/2017 FINDINGS: There is hyperinflation of the lungs consistent with chronic obstructive lung disease (COPD). There is no demonstrated pleural abnormality. There is mild cardiac enlargement. Normal mediastinum and marcella. Normal visualized pulmonary arteries. There is atherosclerotic calcification of the aortic arch with tortuosity. There is demineralization of the osseous structures. Normal visualized ribs, clavicles, and shoulders. There is no demonstrated abnormality of the visualized soft tissue structures of the upper abdomen. RAD/Chest 1 View IMPRESSION: Stable COPD, osteopenia, atherosclerosis. Mild cardiac enlargement, exam. No pulmonary edema, congestive heart failure or confluent pneumonia. Electronically Signed: Amy Childers MD at 0:28 EDT , Service support , CC: Triston Toledo MD; Augie Rajan MD Office Helper: Signed CARDIOLOGY VISIT Observed: 02/07/2018 Status: F Source: [place] REPORT 4:22 PM [facility] REPOSITORY [facility] [address] [place] [address]. [address] [place] [address] OFFICE VISIT Date of Service: 02/07/18 MR#: [id number] Acct: [id number] Name: GLADIS FERNANDEZ Rep #: [id number] : 1935 Provider: Colton Echevarria MD Age/Sex: 82/F Location: [facility] [place] [facility] [place] Status: Signed HPI HPI Details: GLADIS FERNANDEZ, is a 82 F who presents to the office today for outpatient cardiovascular follow-up. She denies any ongoing chest discomfort or difficulty breathing at this time. She has not had any orthopnea or PND or peripheral pitting edema. She does not recall any near syncope or syncope. She states that she is eating although her states that she does not eat very much. He is going to purchase some protein type shakes for her. She was noted to be bradycardic today. An ECG was performed. She was noted to be in marked sinus bradycardia with a ventricular rate between 40 and 50 bpm. She had nonspecific ST segment abnormality. Intake Vital Signs02/07/18 Height 5 ft 3 in 02/07/18 Weight: 81 lb 02/07/18 Body Mass Index (BMI) 14.3 02/07/18 Blood Pressure 150/68 H Intake Visit Reasons: 9 M FU Allergies tuberculin,PPD,multi-puncture Adverse Reaction (Verified 09/26/18 15:08) Unknown Medications Levothyroxine Sodium 125 mcg PO DAILY 05/31/16 [History Confirmed 02/07/18] Aspirin E.C. [Ecotrin] 81 mg PO DAILY@0800 tab 09/26/16 [Rx Confirmed 02/07/18] Ferrous Gluconate 325 mg PO BIDCM 02/03/17 [History Confirmed 02/07/18] Donepezil HCl [Aricept] 5 mg PO QHS tab 02/08/17 [Rx Confirmed 02/07/18] atorvastatin 20 mg tablet 20 mg PO QHS #90 tab 05/19/17 [Rx Confirmed 02/07/18] lisinopril 20 mg tablet 20 mg PO DAILY #90 tab 05/19/17 [Rx Confirmed 02/07/18] pantoprazole 40 mg tablet,delayed release 40 mg PO DAILY #90 tab 05/19/17 [Rx Confirmed 02/07/18] Cholecalciferol (VIT D3) [Vitamin D] 1,000 unit PO DAILY 07/07/17 [History Confirmed 02/07/18] Cyanocobalamin (Vitamin B-12) [Vitamin B12] 2,500 mcg PO DAILY 07/07/17 [History Confirmed 02/07/18] sucralfate 1 gram tablet 1 g PO .COMPLEX #120 tab 08/09/17 [Rx Confirmed 02/07/18] potassium chloride 20 mEq oral packet 20 meq PO QDAY 08/10/17 [History Confirmed 02/07/18] clopidogrel 75 mg tablet 75 mg PO DAILY #90 tab 11/23/17 [Rx Confirmed 02/07/18] amiodarone 200 mg tablet 200 mg PO DAILY #90 tab MDD 1/2 tablet a day 02/07/18 [Rx Confirmed 02/07/18] furosemide 40 mg tablet 40 mg PO QDAY 02/07/18 [History Confirmed 02/07/18] magnesium oxide 400 mg capsule 400 mg PO DAILY cap 02/07/18 [History Confirmed 02/07/18] metoprolol tartrate 50 mg tablet 50 mg PO BID #180 tab MDD 1/2 tablet twice a day 02/07/18 [Rx Confirmed 02/07/18] [facility] Medical History Hypertension (Chronic) Ischemic cardiomyopathy (Chronic) Presence of stent in coronary artery (Chronic) Atherosclerosis [place] coronary artery [place] heart without angina pectoris (Chronic) Essential (primary) hypertension (Chronic) UDAY (acute kidney injury) (Acute) Pulmonary hypertension (Chronic) Malnutrition (Chronic) Dementia (Chronic) Chronic anemia (Chronic) Paroxysmal atrial fibrillation (Chronic) Hyperlipidemia (Chronic) NSTEMI (non-ST elevated myocardial infarction) (Chronic) ST elevation (STEMI) myocardial infarction involving left circumflex coronary artery (Chronic) Hypothyroidism (Chronic) Adult BMI <19 kg/sq m (Chronic) Coronary artery disease (Inactive) Dysphagia (Inactive) Elevated troponin (Inactive) HFrEF (heart failure with reduced ejection fraction) (Inactive) Hypomagnesemia (Inactive) Hypophosphatemia (Inactive) Hypotension (Inactive) Vitamin D deficiency (Inactive) Surgical History Postsurgical percutaneous transluminal coronary angioplasty (PTCA) status (Chronic) History of left heart catheterization (Resolved) History of cholecystectomy (Chronic) Hx of tonsillectomy (Chronic) Family History Father CVA (cerebral vascular accident) Mother CVA (cerebral vascular accident) Social History Smoking Status: Never smoker alcohol intake: never substance use type: does not use caffeine: Yes Type: coffee, tea what type of physical activity do you participate in: weight training frequency: 3-4 times per week duration: < 15 minutes/day seatbelt use: always do you feel safe at home: Yes ROS Const Const: Negative for fatigue, weakness, weight gain, weight loss, frequent falls or excessive sweating Eyes Eyes: Negative for change in vision, blurry vision or transient loss of vision ENT ENT: Positive for balance problems (ambulates with a cane); negative for dizziness Cardio Chest Pain: No Palpitations: No Edema: Bilateral (slight) Muscle aches with walking: None Resp Respiratory: Positive for SOB with activity (slight); negative for SOB at rest GI GI: Negative vomiting or vomiting blood/hematemesis : Negative for hematuria Musc Musc: Positive for balance problems (ambulates with a cane); negative for muscle aches/ myalgia, muscle weakness or joint pain Skin Skin: Negative non-healing lesions or rash Neuro Neuro: Negative for weakness, blurry vision, dizziness, lightheadedness, frequent falls or orthostatic symptoms Brian Hematologic/Lymphatic: Negative for easy bleeding Endo Endo: Negative for fatigue or excessive sweating Psych Psych: Negative for anxiety or depression Allergy Allergy/Immunology: Negative for hives, Negative for rash Cardiology Exam Const Appearance: cooperative, healthy appearing, comfortable, no acute distress, well developed and well groomed Nutritional Appearance: cachectic Orientation: alert, awake and oriented x3 Head Head: normal to inspection Ears: hearing grossly normal bilaterally Nose: external nose normal Face and Sinus: face symmetric Mouth: oral mucosae normal Eyes General: appearance normal, both eyes and all related structures Eyelids: eyelids normal Pupils: PERRL EOM: EOM intact bilaterally Neck Neck: no JVD and normal visual inspection Carotids: normal carotid upstroke Chest Chest inspection: normal inspection of the chest, normal respiratory effort and symmetric chest movement; negative cough Auscultation: Bilateral: Clear to Auscultation Cardio Palpation: normal PMI Rate: regular rate Rhythm: regular rhythm Heart sounds: S1 normal and S2 normal; negative rub or gallop GI GI: normal to inspection, bowel sounds present and soft Neuro General: alert, awake, oriented x3 and moves all extremities Skin Skin: no rashes or lesions noted Extremities Pulses: Normal: Right Posterior Tibial Pulse, Left Posterior Tibial Pulse, Right Radial Pulse, Left Radial Pulse Lower Extremity Edema: None: Bilateral Psych Psychological: normal affect Supplemental Info She had a transthoracic echocardiogram on 01/12/2017 Summary The estimated ejection fraction is 65% Static I diastolic dysfunction Right ventricular systolic pressure estimated to be 39 mmHg. Mild pulmonary hypertension Compared to echo report dated 11/26/2016, LV function has improved and RVSP has remained at the same She had a dobutamine stress echocardiogram on 04/23/2012. This was considered a negative study. She had a diagnostic cardiac catheterization on 11/17/2016 at [facility]. DOMINANCE: Right Dominant LEFT HEART ASSESSMENT Left Ventricular Ejection Fraction: by LV Gram 55 % Normal Left Ventricular systolic function LEFT MAIN: Mild luminal irregularities LEFT ANTERIOR DESCENDING ARTERY: Mild calcification PROX LAD: 60-70 % Stenosis DISTAL LAD: Mild luminal irregularities less than 30% DIAGONAL 1: Ostial - 70 % Stenosis CIRCUMFLEX ARTERY: Previously placed stent is patent CM 1: Proximal - Moderate luminal irregularities up to 50% RIGHT CORONARY ARTERY: Mild luminal irregularities RT PLV: 60 % Stenosis RTPDA: Proximal - long area of 70-90 % Stenosis She has undergone subsequent PTCA/stent on 11/17/2016 resulting in PTCA/DONNELL of the right PDA and PTCA of the posterior lateral ventricular branch She also underwent cardiac catheterization/PCI on 11/29/2016 at which time she required PTCA of the diagonal branch and PTCA/DONNELL of the proximal LAD Assessment AND Plan 1. Atherosclerosis of [place] coronary artery of [place] heart without angina pectoris I25.10 Plan At the present time she appears to be without acute symptoms. She will continue risk factor modification and medical management. 2. Presence of stent in coronary artery Z95.5 PTCA/DONNELL to proximal LCx in September 2016; PTCA/DONNELL to PDA and PTCA of PLVB on November 17, 2016; PCI with PTCA to ostial diagonal and PTCA/DONNELL to proximal LAD in November 29, 2016; Plan She does have a history of previous PTCA/stenting as noted above. Again at the moment she will continue medical therapy and follow-up 3. Cardiomyopathy, ischemic I25.5 Plan She has a history of an underlying ischemic mediated cardiomyopathy. She appears to be without obvious evidence of acute CHF or pulmonary edema. She will continue medical therapy and follow-up 4. Paroxysmal atrial fibrillation I48.0 Plan She remains in sinus rhythm. However she is bradycardic. Her medications will be adjusted. Her metoprolol dose will be decreased to 25 mg twice daily and her amiodarone dose will be decreased to 100 mg daily. She will be asked to have a follow- up ECG in approximately 1 month. Orders Orders: 5. Hyperlipidemia, unspecified hyperlipidemia type E78.5 Plan She will continue risk factor evaluation care as deemed appropriate. 6. Hypertension I10 Plan Her blood pressure appears to be recently well controlled. Again she will continue medical management 7. Pulmonary HTN I27.20 Plan She is without acute pulmonary symptoms at this time. She will continue medical therapy. 8. Hypothyroidism, unspecified type E03.9 Plan Her TSH level was recently evaluated was found to be somewhat elevated. This will need to be followed over time especially noting adjustment in her amiodarone therapy. Depending upon future TSH levels her thyroid supplement medication may need to be adjusted. Plan Detail Other Medications Refilled: Additional Comments Thank you for allowing me to participate in the care of your patient. Please don't hesitate to call if any issues arise. This note was generated using a voice recognition system and there may be incorrect words, spelling or punctuation that were not noted when reviewing the office note prior to saving. Follow Up 6 Months (PFM) Coding Level of Care Code Off vis,est,level 4 Diagnoses Atherosclerosis of [place] coronary artery of [place] heart without angina pectoris I25.10 Presence of stent in coronary artery Z95.5 Cardiomyopathy, ischemic I25.5 Paroxysmal atrial fibrillation I48.0 Hyperlipidemia, unspecified hyperlipidemia type E78.5 Hyperlipidemia type: unspecified Hypertension I10 Pulmonary HTN I27.20 Hypothyroidism, unspecified type E03.9 Coding Level of Care Code Off vis,est,level 4 Diagnoses Atherosclerosis of [place] coronary artery of [place] heart without angina pectoris I25.10 Presence of stent in coronary artery Z95.5 Cardiomyopathy, ischemic I25.5 Paroxysmal atrial fibrillation I48.0 Hyperlipidemia, unspecified hyperlipidemia type E78.5 Hyperlipidemia type: unspecified Hypertension I10 Pulmonary HTN I27.20 Hypothyroidism, unspecified type E03.9 02/07/18 1622 <Electronically signed by Colton Echevarria MD> Date Colton Echevarria MD Cosigner Signature: Date (if applicable) CC: Augie Rajan MD 12 LEAD EKG PERFORMED Observed: 02/07/2018 Status: F Source: [place] [facility] [place] 3:25 PM [facility] REPOSITORY [facility] [address] [place] [address] 12 Lead EKG performed by [facility] [place] 02/07/18 1524 MR#: [id number] Acct: [id number] Name: GLADIS FERNANDEZ Rep #: [id number] : 1935 82 From: Colton Echevarria MD Attending Dr: Colton Echevarria MD Status: DEP AMB Ordering Dr: Colton Echevarria MD Date: 02/07/18 Location: [facility] Sex: F C Admitted: [facility]/12 Lead EKG performed by [facility] ECG Report Interpretation Marked sinus Bradycardia -First degree A-V block Left axis deviationNonspecific ST segment abnormalityABNORMAL Electronically signed on 02/07/2018 at 18:17 by Colton Echevarria Software Version [id number] 02/07/18 1818 Date Colton Echevarria MD CC: Augie Rajan MD Date Dictated: 02/07/18 152 Date Transcribed: 02/07/181523 Office Helper: PM Signed VITAMIN D,25 HYDROXY Collected: 01/24/2018 Status: F Source: [place] 11:35 AM [facility] REPOSITORY TYPE CODE TESTS RESULT OUT OF REFERENCE UNITS RANGE LAB L506.1000 29.95-100.01 ng/mL Low Vitamin D 19.8 25-OH Result Comment: Vitamin D 25(OH) Status Range Deficiency <20 ng/mL (50nmol/L) Insuffciency 20 - 30 ng/mL (50 - 75 nmol/L) Sufficiency 30 - 100 ng/mL (75 - 250 nmol/L) Toxicity >100 ng/mL (>250 nmol/L) Performed By: #### L506.1000 #### [facility] [place] [facility] [address] [place] [place], [place], [address] COMPREHENSIVE METABOLIC Collected: 01/24/2018 Status: F [facility] 11:35 AM [facility] REPOS[facility] TYPE CODE TESTS RESULT OUT OF RANGE REFERENCE UNITS LAB L501.0100 74-106 mg/dL Low GLU 67 Result Comment: Please note revised GLUCOSE reference range effective 2017. LAB L501.1000 7-18 mg/dL High BUN 22 LAB L501.1100 0.55-1.02 mg/dL High CREAT,SERUM 1.17 Result Comment: The validity of the calculated GFR AND GFRAA in patients over 70 years has not been determined. Clinical correlation is essential. LAB L501.1110 >60 mL/min Low EST GFR 47 Result Comment: Non- GFR Calc LAB L501.1115 >60 mL/min Low EST GFR - AA 57 Result Comment: GFR Calc LAB L501.1300 10-20 RATIO Normal BUN/CRE 18.8 LAB L501.1500 6.4-8.2 g/dL T Normal PROT 7.0 LAB L501.1800 3.2-5.0 g/dL Normal ALB 3.2 LAB L501.1950 2.2-4.2 g/dL Normal GLOB 3.8 LAB L501.2000 0.9-2.4 RATIO Low A/G 0.8 LAB L501.2200 8.5-10.1 mg/dL CA Normal 8.7 LAB L501.4100 15-37 U/L Normal AST 26 LAB L501.4305 45-117 U/L Normal ALK P 104 LAB L501.4405 13-56 U/L Normal ALT 36 LAB L501.4600 0.20-1.00 mg/dL T Normal BILI 0.30 LAB L501.5300 136-145 mmol/L Low NA 135 LAB L501.5600 3.5-5.1 mmol/L K Normal 4.4 LAB L501.5900 98-107 mmol/L CL Normal 99 LAB L501.6100 21.0-32.0 mmol/L Normal CO2 27.0 LAB L501.6200 5-15 Normal GAP 9 Performed By: #### L500.4050, L501.9520 #### [facility] [place] [facility] [address] [facility]. [place], [place], [address] THYROID STIM HORMONE Collected: 01/24/2018 Status: F Source: [facility] ([facility]) 11:35 AM [facility] REPOS[facility] TYPE CODE TESTS RESULT OUT OF RANGE REFERENCE UNITS LAB L501.9520 0.358-3.74 uIU/mL High TSH 5.42 Performed By: #### L500.4050, L501.9520 #### [facility] [place] [facility] [address] [place], [address] CARDIOLOGY VISIT Observed: 10/25/2017 Status: F Source: [facility] RE[facility] 1:20 PM [facility] REPOSIT[facility] [address] [place] [address] OFFICE VISIT Date of Service: 10/25/17 MR#: [id number] Acct: [id number] Name: GLADIS FERNANDEZ Rep #: [id number] : 1935 Provider: VICENTE Steiner Age/Sex: 82/F Location: [facility] Status: Signed HPI HPI Details: GLADIS FERNANDEZ, is a 82 F who presents to the office today for a cardiovascular outpatient follow-up. She has history of coronary artery disease status post ST elevated myocardial infarction with PTCA/DONNELL to proximal LCx in September 2016, PTCA/DONNELL to PDA and PTCA of PLVB on November 17, 2016, and PCI with PTCA to ostial diagonal and PTCA/DONNELL to proximal LAD in November 29, 2016. She also has a history of ischemic cardiomyopathy, paroxysmal atrial fibrillation, hypertension, and anemia. Pt denies chest, arm, jaw, or neck discomfort. Her exercise tolerance is stable via cane and walker. Pt denies symptoms of CHF, palpitations, lightheadedness, dizziness, near syncopal or syncopal episodes. Pt denies edema or claudication issues. Pt. denies orthopnea, PND, fever, chills, blood in urine, blood in stool, myalgia, or unexplainable fatigue. Intake Vital Signs10/25/17 Blood Pressure 100/45 Intake Visit Reasons: 6 M FU Forming Machine Adjuster Required: No Is patient in pain?: No Allergies tuberculin,PPD,multi-puncture Adverse Reaction (Verified 10/25/17 11:13) Unknown Medications Levothyroxine Sodium 125 mcg PO DAILY 05/31/16 [History Confirmed 10/25/17] Aspirin E.C. [Ecotrin] 81 mg PO DAILY@0800 tab 09/26/16 [Rx Confirmed 10/25/17] Ferrous Gluconate 325 mg PO BIDCM 02/03/17 [History Confirmed 10/25/17] Donepezil HCl [Aricept] 5 mg PO QHS tab 02/08/17 [Rx Confirmed 10/25/17] Quetiapine Fumarate [Seroquel] 12.5 mg PO DAILY tab 02/08/17 [Rx Confirmed 10/25/17] Quetiapine Fumarate [Seroquel] 25 mg PO QHS tab 02/08/17 [Rx Confirmed 10/25/17] amiodarone 200 mg tablet 200 mg PO DAILY #90 tab 05/19/17 [Rx Confirmed 10/25/17] atorvastatin 20 mg tablet 20 mg PO QHS #90 tab 05/19/17 [Rx Confirmed 10/25/17] clopidogrel 75 mg tablet 75 mg PO DAILY #90 tab 05/19/17 [Rx Confirmed 10/25/17] lisinopril 20 mg tablet 20 mg PO DAILY #90 tab 05/19/17 [Rx Confirmed 10/25/17] metoprolol tartrate 50 mg tablet 50 mg PO BID #180 tab 05/19/17 [Rx Confirmed 10/25/17] pantoprazole 40 mg tablet,delayed release 40 mg PO DAILY #90 tab 05/19/17 [Rx Confirmed 10/25/17] Antiarthritic Combination No.2 [Glucosamine-Chondroitin] 900 mg PO DAILY 07/07/17 [History Confirmed 10/25/17] Cholecalciferol (VIT D3) [Vitamin D] 1,000 unit PO DAILY 07/07/17 [History Confirmed 10/25/17] Cyanocobalamin (Vitamin B-12) [Vitamin B12] 2,500 mcg PO DAILY 07/07/17 [History Confirmed 10/25/17] Lorazepam [Ativan] 0.5 tab PO BID 07/07/17 [History Confirmed 10/25/17] furosemide 40 mg tablet 40 mg PO QDAY 08/09/17 [History Confirmed 10/25/17] magnesium oxide 250 mg tablet 250 mg PO QDAY tab 08/09/17 [History Confirmed 10/25/17] sucralfate 1 gram tablet 1 g PO .COMPLEX #120 tab 08/09/17 [Rx Confirmed 10/25/17] potassium chloride 20 mEq oral packet 20 meq PO QDAY 08/10/17 [History Confirmed 10/25/17] [facility] Medical History Atherosclerosis of [place] coronary artery of [place] heart without angina pectoris (Chronic) Essential (primary) hypertension (Chronic) UDAY (acute kidney injury) (Acute) Dysphagia (Chronic) Hypotension (Resolved) Elevated troponin (Chronic) Pulmonary hypertension (Chronic) Malnutrition (Chronic) Dementia (Chronic) Hypophosphatemia (Acute) Hypomagnesemia (Acute) HFrEF (heart failure with reduced ejection fraction) (Chronic) Chronic anemia (Chronic) Paroxysmal atrial fibrillation (Chronic) Coronary artery disease (Chronic) Vitamin D deficiency (Chronic) Hyperlipidemia (Chronic) NSTEMI (non-ST elevated myocardial infarction) (Chronic) ST elevation (STEMI) myocardial infarction involving left circumflex coronary artery (Chronic) Hypothyroidism (Chronic) Adult BMI <19 kg/sq m (Chronic) Surgical History History of left heart catheterization (Chronic) History of PTCA (Chronic) History of cholecystectomy (Chronic) Hx of tonsillectomy (Chronic) Family History Father CVA (cerebral vascular accident) Mother CVA (cerebral vascular accident) Social History Smoking Status: Never smoker alcohol intake: never substance use type: does not use caffeine: Yes Type: coffee, tea what type of physical activity do you participate in: weight training frequency: 3-4 times per week duration: < 15 minutes/day seatbelt use: always do you feel safe at home: Yes ROS Const Const: Negative for weakness, body ache, fever(s), chills or fatigue ENT ENT: Negative for dizziness Cardio Chest Pain: No Palpitations: No Edema: None Muscle aches with walking: None Resp Respiratory: Negative for SOB with activity, SOB at rest, SOB orthopnea\SOB lying down or paroxysmal nocturnal dyspnea GI GI: Negative nausea, black,tarry stools, bright, red blood in stools or vomiting blood/hematemesis : Negative for hematuria or frequent nighttime urination/ nocturia Musc Musc: Negative for muscle aches/ myalgia Skin Skin: Negative non-healing lesions or rash Neuro Neuro: Negative for lightheadedness, near syncope, syncope, orthostatic symptoms, weakness or dizziness Endo Endo: Negative for fatigue Allergy Allergy/Immunology: Negative for rash Cardiology Exam Const Appearance: cooperative, healthy appearing, comfortable and no acute distress Orientation: alert, awake and oriented x3 Head Head: normal to inspection Ears: hearing grossly normal bilaterally Nose: external nose normal Face and Sinus: face symmetric Mouth: oral mucosae normal Eyes General: appearance normal, both eyes and all related structures Eyelids: eyelids normal Neck Neck: no JVD and normal visual inspection Carotids: normal carotid upstroke Chest Chest inspection: normal inspection of the chest and normal respiratory effort; negative cough Auscultation: Bilateral: Clear to Auscultation Cardio Rate: regular rate Rhythm: regular rhythm Heart sounds: S1 normal and S2 normal; negative rub or gallop GI GI: normal to inspection Neuro General: alert, awake, oriented x3 and CN's II-XI intact bilaterally Skin Skin: no rashes or lesions noted Extremities Pulses: Normal: Right Posterior Tibial Pulse, Left Posterior Tibial Pulse, Right Radial Pulse, Left Radial Pulse Lower Extremity Edema: None: Bilateral Psych Psychological: normal affect Supplemental Info Echocardiogram from December 2016 showed an ejection fraction of 65%, stage I diastolic dysfunction, RVSP of 39 mmHg, mild pulmonary hypertension, and when compared to previous echocardiogram in November 2016 LV function has improved and RVSP has remained the same. Heart catheterization from September 2016 resulted in successful PTCA/DONNELL of proximal LCx. Diagnostic heart catheterization from November 17, 2016 showed severe disease involving the [place] RCA posterior descending artery, and moderately severe disease involving the mid LAD. Previously placed stent to the LCx was patent. She underwent successful PTCA/DONNELL to PDA and PTCA of PLVB. Heart catheterization from November 29, 2016 resulted in successful PCI with PTCA to ostial diagonal and PTCA/DONNELL to proximal LAD. Medical management of ostial PL branch of the RCA was recommended. Assessment AND Plan 1. Atherosclerosis of [place] coronary artery of [place] heart without angina pectoris I25.10 PTCA/DONNELL to proximal LCx in September 2016; PTCA/DONNELL to PDA and PTCA of PLVB on November 17, 2016; PCI with PTCA to ostial diagonal and PTCA/DONNELL to proximal LAD in November 29, 2016; Plan Patient denies any chest pain, arm pain, jaw pain, neck pain, shortness of breath, or fatigue suggestive of angina at this time. We will continue to monitor this. We will not make any medication regimen changes and will continue risk factor modification. 2. Essential (primary) hypertension I10 Plan Patient's blood pressure is well-controlled today in the office. We will continue to monitor this. We will not make any medication regimen changes. 3. Hyperlipidemia, unspecified hyperlipidemia type E78.5 Plan Patient's most recent lipid panel from September 2017 showed cholesterol: 191, HDL: 66, LDL: 92, and triglycerides: 164. This is being followed by primary care physician. She will continue current statin medication. 4. Paroxysmal atrial fibrillation I48.0 Plan Patient appears to be maintaining a regular rhythm. She will continue with amiodarone and metoprolol. She is not on oral anticoagulation due to maintaining regular rhythm and dual antiplatelet therapy. We will continue to monitor this. 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 She has had a recent chest x-ray. She declines further evaluation with the pulmonary function test. She denies any dyspnea at this time. She will continue current amiodarone dosage. Plan Detail Additional Comments She will keep January appointment with Dr. Echevarria for further evaluation. However, she was instructed if still doing well and does not feel the need for this appointment to have it rescheduled. Thank you for allowing us to participate in the patients plan of care, if you have any questions please do not hesitate to call. This note was generated using a voice recognition system and there may be incorrect words, spelling or punctuation that were not noted when reviewing the office note prior to saving. 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 Coding Level of Care Code Off vis,est,level 3 Diagnoses Atherosclerosis of [place] coronary artery of [place] heart without angina pectoris I25.10 Essential (primary) hypertension I10 Hyperlipidemia, unspecified hyperlipidemia type E78.5 Hyperlipidemia type: unspecified Paroxysmal atrial fibrillation I48.0 residential current use of 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 drug Z79.899 10/25/17 1320 <Electronically signed by Todd ROCK> Date Todd ROCK Cosigner Signature: Date (if applicable) CC: Augie Rajan MD COMPREHENSIVE METABOLIC Collected: 09/14/2017 Status: F Source: [facility] [place] 1:44 PM [facility] REPOSIT[facility] TYPE CODE TESTS RESULT OUT OF RANGE REFERENCE UNITS LAB L501.0100 74-106 mg/dL Normal GLU 88 Result Comment: Please note revised GLUCOSE reference range effective 2017. LAB L501.1000 7-18 mg/dL High BUN 30 LAB L501.1100 0.55-1.02 mg/dL High CREAT,SERUM 1.48 Result Comment: The validity of the calculated GFR AND GFRAA in patients over 70 years has not been determined. Clinical correlation is essential. LAB L501.1110 >60 mL/min Low EST GFR 36 Result Comment: Non- GFR Calc LAB L501.1115 >60 mL/min Low EST GFR - AA 43 Result Comment: GFR Calc LAB L501.1300 10-20 RATIO High BUN/CRE 20.3 LAB L501.1500 6.4-8.2 g/dL T Normal PROT 6.8 LAB L501.1800 3.2-5.0 g/dL Normal ALB 3.4 LAB L501.1950 2.2-4.2 g/dL Normal GLOB 3.4 LAB L501.2000 0.9-2.4 RATIO Normal A/G 1.0 LAB L501.2200 8.5-10.1 mg/dL CA Normal 8.8 LAB L501.4100 15-37 U/L Normal AST 33 LAB L501.4305 45-117 U/L Normal ALK P 73 LAB L501.4405 13-56 U/L High ALT 57 LAB L501.4600 0.20-1.00 mg/dL T Normal BILI 0.30 LAB L501.5300 136-145 mmol/L NA Normal 138 LAB L501.5600 3.5-5.1 mmol/L K Normal 4.5 LAB L501.5900 98-107 mmol/L CL Normal 104 LAB L501.6100 21.0-32.0 mmol/L Normal CO2 28.0 LAB L501.6200 5-15 Normal GAP 6 Performed By: #### L500.4050, L500.4100, L501.9520 #### [facility] [address] [place], [place], [id number] LIPID PROFILE Collected: 09/14/2017 Status: F Source: [facility] 1:44 PM [facility] REPOSITORY TYPE CODE TESTS RESULT OUT OF RANGE REFERENCE UNITS LAB L501.4900 200 mg/dL Normal CHOL 191 Result Comment: <200 mg/dL Desirable 200-240 mg/dL Borderline >240 mg/dL High Risk LAB L501.5000 mg/dL Normal TRIG 164 Result Comment: The drugs N-Acetylcysteine and Metamizole may falsely depress this assay. Serum Triglycerides Reference Interval Normal <150 mg/dL Borderline high 150 - 199 mg/dL High 200 - 499 mg/dL Very High > or = 500 mg/dL LAB L501.6400 mg/dL Normal HDL 66 Result Comment: The drugs N-Acetylcysteine and Metamizole may falsely depress this assay. Reference Range HDL <40 mg/dL Low HDL Cholesterol HDL >or= 60 mg/dL High HDL Cholesterol LAB L501.6500 0-130 mg/dL Normal LDL 92 LAB L501.6600 5-40 mg/dL Normal VLDL 33 Performed By: #### L500.4050, L500.4100, L501.9520 #### [facility] [address] [place], [place], [id number] THYROID STIM HORMONE Collected: 09/14/2017 Status: F Source: [place] ([facility]) 1:44 PM [facility] REPOSIT[facility] TYPE CODE TESTS RESULT OUT OF RANGE REFERENCE UNITS LAB L501.9520 0.358-3.74 uIU/mL Normal TSH 2.86 Performed By: #### L500.4050, L500.4100, L501.9520 #### [facility] [place] [facility] [address] [place], [place], [address] CBC W/DIFF, AUTOMATED Collected: 09/14/2017 Status: F Source: [place] 1:44 PM [facility] REPOS[facility] TYPE CODE TESTS RESULT OUT OF RANGE REFERENCE UNITS LAB L100.1000 4.4-11.0 K/mm3 Low WBC 3.3 LAB L100.1200 4.2-5.4 M/mm3 Low RBC 3.14 LAB L100.1300 12.0-15.0 g/dl Low HGB 10.3 LAB L100.1400 37-47 % Low HCT 33.0 LAB L100.1500 81-99 fL High MCV 105.1 LAB L100.1600 27.0-32.0 pg High MCH 32.8 LAB L100.1700 32-36 g/gl Low MCHC 31.2 LAB L100.1810 11.6-14.6 % Normal RDW CV 12.8 LAB L100.1820 35.1-43.9 fl High RDW SD 47.2 LAB L100.1900 150-450 K/mm3 Normal PLT 285 LAB L100.2000 6.2-12.0 fl Normal MPV 9.6 LAB L100.2100 47-70 % Normal NEUT% 60.4 LAB L100.2200 19-41 % Normal LY% 22.8 LAB L100.2300 0-10 % High MONO% 12.0 LAB L100.2400 0-5 % Normal EO% 4.2 LAB L100.2500 0-1 % Normal BASO% 0.6 LAB L100.2550 0.0-0.9 % Normal IM GRAN % 0.000 Result Comment: IG% - Immature Granulocytes (promyelocytes, myelocytes and metamyelocytes) > 1% indicates that a LEFT SHIFT is Present. LAB L100.2620 2.0-7.7 X10 3/uL Normal Absolute Neut 2.0 LAB L100.2720 0.83-4.51 X10 3/ul Low Absolute Lymph 0.76 Performed By: #### L100.0100 #### [facility] [address] [place], [address] VITAMIN D,25 HYDROXY Collected: 09/14/2017 Status: F Source: [place] 1:44 PM [facility] REPOS[facility] TYPE CODE TESTS RESULT OUT OF RANGE REFERENCE UNITS LAB L506.1000 29.95-100.01 ng/mL Normal Vitamin D 31.9 25-OH Result Comment: Vitamin D 25(OH) Status Range Deficiency <20 ng/mL (50nmol/L) Insuffciency 20 - 30 ng/mL (50 - 75 nmol/L) Sufficiency 30 - 100 ng/mL (75 - 250 nmol/L) Toxicity >100 ng/mL (>250 nmol/L) Performed By: #### L506.1000 #### [facility] [place] [facility] [address] [place], [address] EMERGENCY DEPARTMENT Observed: 09/05/2017 Status: F Source: [place] SUMMARY 12:34 AM [facility] REPOSITORY [facility] Medical Records Department [address] [place] [address] Emergency Department Summary 09/04/17 1950 MR#: [id number] Acct: [id number] Name: GLADIS FERNANDEZ Rep #: [id number] : 1935 82 From: Bree Escoto MD PCP: Augie Rajan MD, Chi Status: DEP ER - ER Visit Summary Date of Service: 09/04/17 Chief Complaint: Head injury History of Present Illness: The patient is a 82 F who tripped and fell in the restroom at a local store. She hit her head on the [place] entrance. She did not lose consciousness. She denies headache. Medication list is reviewed and does include Plavix. Physical Examination: Vital signs are unremarkable. Patient sitting upright in bed no acute distress. Head neck examination reveals a 4 x 3 cm hematoma on the right forehead with a very superficial abrasion. There is a 1/2 cm laceration with scab already in place in the anterior parietal scalp. No active bleeding. Patient has no C-spine tenderness. Heart is regular rate and rhythm. Lung sounds are clear. Abdomen is soft nontender. Neuro exam reveals no focal neuro deficits. Test Results: CT scan of the head shows chronic involutional changes. Emergency Department Course and Treatment: Tetanus update is provided. The scalp wound is cleansed and sealed with Dermabond. On repeat evaluation neuro exam remains unremarkable. Treatment Plan: [] Disposition: Discharge Impression: 1. Mechanical fall 2. Forehead hematoma 3. Scalp laceration This note was generated with [employer] CK1 dictation software. It may contain incorrect words, spelling, and punctuation that were not noted in review of the chart prior to signing ED Disposition - Plan for ED Patient: Chief Complaint: Fall Referrals: Augie Rajan Chi, MD [Primary Care Provider] - What to do if you have Problems For any increased pain, shortness of breath, bleeding, nausea or vomiting, chest pain, or any unexpected problems, contact your Primary Care Provider. Call [facility] ([phone]) or report to the closest Emergency Room. Call 911 if necessary. 09/05/1733 <Electronically signed by Bree Escoto MD> Date Bree Escoto MD Cosigner Signature (If Indicated): Date ____ CC: Augie Rajan MD DISCHARGE INSTRUCTION Observed: 09/04/2017 Status: F Source: [place] 7:54 PM [facility] REPOSIT[facility] Medical Records Department [address] [place] [address] Discharge Instruction 09/04/171951 MR#: [id number] Acct: [id number] Name: GLADIS FERNANDEZ Ritesh Rep #: [id number] : 1935 82 From: Bree Escoto MD PCP: Augie Rajan MD, Chi Status: REG ER ED Disposition - Plan for ED Patient: Disposition: Home or Assisted Living Chief Complaint: Fall Instructions: ED Mechanical Fall, ED Laceration Facial Skin Glue Referrals: Augie Rajan Chi, MD [Primary Care Provider] - 1-2 Weeks What to do if you have Problems For any increased pain, shortness of breath, bleeding, nausea or vomiting, chest pain, or any unexpected problems, contact your Primary Care Provider. Call [facility] ([phone]) or report to the closest Emergency Room. Call 911 if necessary. 09/04/171953 <Electronically signed by Bree Escoto MD> Date Bree Escoto MD Cosigner Signature (If Indicated): Date CC: Augie Rajan MD BRAIN/HEAD WITHOUT Observed: 09/04/2017 Status: F Source: [place] CONTRAST 6:08 PM [facility] REPOSITORY [facility] [place] [place] [address] Brain/Head without Contrast MR#: [id number] Acct: [id number] Name: GLADIS FERNANDEZ Rep #: [id number] : 1935 F 82 From: Marcus Dietz MD PCP: Augie Rajan MD, Chi Status: REG ER Study: Brain/Head without Contrast Date of Exam: 09/04/17 Exam# [id number] Ordering Dr: Bree Escoto MD STUDY: CT BRAIN WITHOUT CONTRAST REASON FOR EXAM: Female, 82 years old. Trauma RADIATION DOSAGE (If Supplied By Facility): CTDIvol = ( 44.99 ) mGy, DLP = ( 745.49 ) mGycm TECHNIQUE: Transaxial CT imaging of the brain was performed without administration of intravenous contrast material. Individualized dose optimization techniques were used for this CT. COMPARISON: Prior study of 12/16/2016 FINDINGS: There is a scalp hematoma of the right frontal region. Normal calvarium. There is mild cerebral atrophy with widening of the extra- axial spaces and ventricular dilatation. Normal white matter tracts of the cerebral hemispheres. Normal basal ganglia and thalami. Normal brainstem. Normal cerebellum. There is no intracranial hemorrhage. There are no findings of an acute ischemic infarction. Normal visualized paranasal sinuses. CT/Brain/Head without Contrast IMPRESSION: Chronic involutional changes of the brain. Findings are stable in the interval. Electronically Signed: Marcus Dietz MD at 19:08 EDT , Service support , CC: Bree Escoto MD; Augie Rajan MD Office Helper: Signed CARDIOLOGY VISIT Observed: 08/10/2017 Status: F Source: [place] REPORT 3:28 PM [facility] REPOSITORY [facility] [address] [place] [address] OFFICE VISIT Date of Service: 08/09/17 MR#: [id number] Acct: [id number] Name: GLADIS FERNANDEZ Rep #: [id number] : 1935 Provider: VICENTE Steiner Age/Sex: 82/F Location: [facility] Status: Signed HPI HPI Details: GLADIS FERNANDEZ, is a 82 F who presents to the office today for a cardiovascular outpatient follow-up. She has history of coronary artery disease status post ST elevated myocardial infarction in September 2016 with drug-eluting stent to her circumflex. In November 2016 she underwent drug-eluting stent to her right PDA, drug-eluting stent to proximal LAD, balloon angioplasty to posterior left ventricular branch, and angioplasty to her ostial diagonal. She also has a history of ischemic cardiomyopathy, paroxysmal atrial fibrillation, hypertension, and anemia. Patient presented to [facility] emergency department in June 2017 for worsening lower extremity edema. Her Lasix was increased and she was discharged home. Pt denies chest, arm, jaw, or neck discomfort. Her exercise tolerance is stable via cane and walker. Pt denies symptoms of CHF, palpitations, lightheadedness, dizziness, near syncopal or syncopal episodes. Pt denies edema or claudication issues. Pt. denies orthopnea, PND, fever, chills, blood in urine, blood in stool, myalgia, or unexplainable fatigue. Intake Vital Signs08/09/17 Height 5 ft 3 in 08/09/17 Weight: 84 lb 08/09/17 Body Mass Index (BMI) 14.8 08/09/17 Blood Pressure 110/42 08/09/17 Blood Pressure Location Lt brachial Intake Visit Reasons: edema Forming Machine Adjuster Required: No Accompanied by: Is patient in pain?: No Allergies tuberculin,PPD,multi-puncture Adverse Reaction (Verified 08/09/17 13:04) Unknown Medications Levothyroxine Sodium 125 mcg PO DAILY 05/31/16 [History Confirmed 07/07/17] Aspirin E.C. [Ecotrin] 81 mg PO DAILY@0800 tab 05/15/17 [Rx Confirmed 07/07/17] Ferrous Gluconate 325 mg PO BIDCM 02/03/17 [History Confirmed 07/07/17] Acetaminophen [Tylenol Tablet] 650 mg PO Q6H PRN PRN tab 02/08/17 [Rx Confirmed 07/07/17] Donepezil HCl [Aricept] 5 mg PO QHS tab 02/08/17 [Rx Confirmed 07/07/17] Quetiapine Fumarate [Seroquel] 12.5 mg PO DAILY tab 02/08/17 [Rx Confirmed 07/07/17] Quetiapine Fumarate [Seroquel] 25 mg PO QHS tab 02/08/17 [Rx Confirmed 07/07/17] amiodarone 200 mg tablet 200 mg PO DAILY #90 tab 05/19/17 [Rx Confirmed 07/07/17] atorvastatin 20 mg tablet 20 mg PO QHS #90 tab 05/19/17 [Rx Confirmed 07/07/17] clopidogrel 75 mg tablet 75 mg PO DAILY #90 tab 05/19/17 [Rx Confirmed 07/07/17] lisinopril 20 mg tablet 20 mg PO DAILY #90 tab 05/19/17 [Rx Confirmed 07/07/17] metoprolol tartrate 50 mg tablet 50 mg PO BID #180 tab 05/19/17 [Rx Confirmed 07/07/17] pantoprazole 40 mg tablet,delayed release 40 mg PO DAILY #90 tab 05/19/17 [Rx Confirmed 07/07/17] Antiarthritic Combination No.2 [Glucosamine-Chondroitin] 900 mg PO DAILY 07/07/17 [History Confirmed 07/07/17] Cholecalciferol (VIT D3) [Vitamin D] 1,000 unit PO DAILY 07/07/17 [History Confirmed 07/07/17] Cyanocobalamin (Vitamin B-12) [Vitamin B12] 2,500 mcg PO DAILY 07/07/17 [History Confirmed 07/07/17] Lorazepam [Ativan] 0.5 tab PO BID 07/07/17 [History Confirmed 07/07/17] furosemide 40 mg tablet 40 mg PO QDAY 08/09/17 [History Confirmed 08/09/17] sucralfate 100 mg/mL oral suspension 1 g PO 4X/DAY #400 ml 08/09/17 [Rx Confirmed 08/09/17] [facility] Medical History Atherosclerosis of [place] coronary artery of [place] heart without angina pectoris (Chronic) Essential (primary) hypertension (Chronic) UDAY (acute kidney injury) (Acute) Dysphagia (Chronic) Hypotension (Resolved) Elevated troponin (Chronic) Pulmonary hypertension (Chronic) Malnutrition (Chronic) Dementia (Chronic) Hypophosphatemia (Acute) Hypomagnesemia (Acute) HFrEF (heart failure with reduced ejection fraction) (Chronic) Chronic anemia (Chronic) Paroxysmal atrial fibrillation (Chronic) Coronary artery disease (Chronic) Vitamin D deficiency (Chronic) Hyperlipidemia (Chronic) NSTEMI (non-ST elevated myocardial infarction) (Chronic) ST elevation (STEMI) myocardial infarction involving left circumflex coronary artery (Chronic) Hypothyroidism (Chronic) Adult BMI <19 kg/sq m (Chronic) Surgical History History of left heart catheterization (Chronic) History of PTCA (Chronic) History of cholecystectomy (Chronic) Hx of tonsillectomy (Chronic) Family History Father CVA (cerebral vascular accident) Mother CVA (cerebral vascular accident) Social History Smoking Status: Never smoker alcohol intake: never substance use type: does not use caffeine: Yes Type: coffee, tea what type of physical activity do you participate in: weight training frequency: 3-4 times per week duration: < 15 minutes/day seatbelt use: always do you feel safe at home: Yes ROS Const Const: Negative for fatigue, weakness, body ache, fever(s) or chills ENT ENT: Negative for dizziness Cardio Chest Pain: No Palpitations: No Edema: None Muscle aches with walking: None Resp Respiratory: Negative for SOB with activity, SOB at rest, SOB orthopnea\SOB lying down or paroxysmal nocturnal dyspnea GI GI: Negative nausea, black,tarry stools, bright, red blood in stools or vomiting blood/hematemesis : Negative for hematuria or frequent nighttime urination/ nocturia Musc Musc: Negative for muscle aches/ myalgia Neuro Neuro: Negative for weakness, dizziness, lightheadedness, near syncope, syncope or orthostatic symptoms Endo Endo: Negative for fatigue Cardiology Exam Const Appearance: cooperative, healthy appearing, comfortable and no acute distress Orientation: alert, awake and oriented x3 Head Head: normal to inspection Mouth: oral mucosae normal Neck Neck: no JVD and normal visual inspection Carotids: normal carotid upstroke Chest Chest inspection: normal inspection of the chest and normal respiratory effort Auscultation: Bilateral: Clear to Auscultation Cardio Rate: regular rate Rhythm: regular rhythm Heart sounds: murmur (LLSB systolic murmur); negative rub or gallop Murmur: Grade 2/6 GI GI: normal to inspection Neuro General: alert, awake, oriented x3 and CN's II-XI intact bilaterally Skin Skin: no rashes or lesions noted Extremities Pulses: Normal: Right Posterior Tibial Pulse, Left Posterior Tibial Pulse, Right Radial Pulse, Left Radial Pulse Lower Extremity Edema: None: Bilateral Psych Psychological: normal affect Supplemental Info Echocardiogram from December 2016 showed an ejection fraction of 65%, stage I diastolic dysfunction, RVSP of 39 mmHg, mild pulmonary hypertension, and when compared to previous echocardiogram in November 2016 LV function has improved and RVSP has remained the same. Diagnostic heart catheterization from November 2016 showed severe disease involving the [place] right coronary artery posterior descending artery, and moderately severe disease involving the mid left anterior descending artery. Previous placed stent in the LCx is patent. Patient underwent PCI with PTCA to the ostial diagonal and PTCA/DONNELL to the proximal LAD. Medical management descending artery was recommended. Assessment AND Plan 1. Atherosclerosis of [place] coronary artery of [place] heart without angina pectoris I25.10 S/P drug-eluting stent to LCx in September 2016; drug-eluting stent to right PDA, drug-eluting stent to proximal LAD, balloon angioplasty to posterior left ventricular branch, and angioplasty to ostial diagonal in November 2016; Plan - SHWETA Owens Patient denies any chest pain, arm pain, jaw pain, neck pain, shortness of breath, or fatigue suggestive of angina at this time. We will continue to monitor this. We will not make any medication regimen changes and will continue risk factor modification. 2. Ischemic cardiomyopathy I25.5 Plan - SHWETA Owens Echocardiogram from December 2016 showed an ejection fraction of 65%, stage I diastolic dysfunction, RVSP of 39 mmHg, and mild pulmonary hypertension. Patient's Lasix was increased to 80 mg daily. She states that her swelling has returned to baseline. She will return to Lasix 40 mg and monitor symptoms. If she develops any concerning symptoms we can increase Lasix as needed. 3. Paroxysmal atrial fibrillation I48.0 Plan - SHWETA Owens Patient appears maintaining regular rhythm. She will continue with current medications which include 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 beta-mary. 4. Essential (primary) hypertension I10 Plan - SHWETA Owens Patient's blood pressure is well-controlled today in the office. We will continue to monitor this. We will not make any medication regimen changes. Plan Detail Other Medications Changed: Additional Comments - SHWETA Owens Patient will keep future scheduled appointments. She has an appointment coming up in 3 months and if doing well or no changes, this can be rescheduled. Discussed the above patient with Dr. Keith in Dr. Echevarria's absence, he agrees with the plan of care. Thank you for allowing us to participate in the patients plan of care, if you have any questions please do not hesitate to call. This note was generated using a voice recognition system and there may be incorrect words, spelling or punctuation that were not noted when reviewing the office note prior to saving. Coding Level of Care Code Off vis,est,level 3 Diagnoses Atherosclerosis of [place] coronary artery of [place] heart without angina pectoris I25.10 Ischemic cardiomyopathy I25.5 Paroxysmal atrial fibrillation I48.0 Essential (primary) hypertension I10 Coding Level of Care Code Off vis,est,level 3 Diagnoses Atherosclerosis of [place] coronary artery of [place] heart without angina pectoris I25.10 Ischemic cardiomyopathy I25.5 Paroxysmal atrial fibrillation I48.0 Essential (primary) hypertension I10 08/09/17 1634 <Electronically signed by Todd ROCK> Date Todd ROCK 08/10/17 1527<Electronically signed by Liban Keith MD> Cosigner Signature: Date (if applicable) Liban Keith MD CC: Augie Rajan MD 12 LEAD ELECTROCARDIOGRAM Observed: 07/11/2017 Status: F Source: [place] 1:00 PM [facility] REPOSITORY [facility] Cardiovascular Services [address] [place] [address] 12 Lead EKG 07/07/17 2234 MR#: [id number] Acct: [id number] Name: GLADIS FERNANDEZ Rep #: [id number] : 1935 82 From: Pete Garay MD Attending Dr: Status: DEP ER Ordering Dr: Silvestre Rdz MD Date: 07/07/17 Location: ED Sex: F C Admitted: Test Reason : EDEMA Blood Pressure : / mmHG Vent. Rate : 052 BPM Atrial Rate : 052 BPM P-R Int : 208 ms QRS Dur : 096 ms QT Int : 500 ms P-R-T Axes : 026 -62 -14 degrees QTc Int : 465 ms Sinus bradycardia Left anterior fascicular block Nonspecific ST and T wave abnormality Abnormal ECG Confirmed by PETE GARAY ([id number]), city editor SHARMILA MURCIA ([id number]) on 07/11/2017 1:00:09 PM Referred By: ZAINAB Confirmed By:PETE GARAY 07/11/17 1300 Date Pete Garay MD CC: Silvestre Rdz; Augie Rajan MD Signed PROGRESS Observed: 07/10/2017 Status: COMPLETED Source: [place] 2:04 PM [facility] REPOSITORY HNO ID: [id number] Author: Nupur Fiore (Pa) Service: (none) Author Type: Physician Field Hockey Coach Type: Progress Notes Filed: 07/10/2017 2:46 PM Note Text: FOLLOW UP VISIT - ENDOSCOPY NAME: Gladis Fernandez CLINIC NO.: [id number] DATE OF SERVICE: 07/10/2017 : 1935 REFERRING PHYSICIAN: Augie Rajan MD Gladis is a patient I am following for esophageal foreign body and history of long-segment Cooper's esophagitis. Dr. Lenz performed upper endoscopy in the emergency department on 06/25/17. The patient was found to have no residual esophageal foreign bodies but was noted to have distal esophagitis consistent with longer segment Cooper's esophagitis. The patient was placed on carafate in addition to her PPI that she takes nursing home. The patient previously had EGD with biopsy by Dr. Conner Raymond on 06/02/16. 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 Pylori for which she was treated at that time. The patient notes no complaints since the procedure. She has been chewing her food more thoroughly and notes absolutely no trouble swallowing regular foods at this time. She denies any complaints of reflux or abdominal discomfort currently. VITALS: There were no vitals taken for this visit. On examination, the abdomen is benign. Assessment IMPRESSION: long-segment Cooper's esophagus, history of H. Pylori, dysphagia and esophageal foreign body. Recommend follow-up EGD PLAN: Long discussion with patient and spouse regarding Cooper's esophagus diagnosis, discussed that this is a precancerous condition, discussed recommendation for follow-up endoscopy with biopsies to monitor for dysplasia. Patient verbalized understanding of all above and adamantly states that she does not want any more endoscopies done at this time. She has also declined tertiary referral to GI for further monitoring and treatment of her Cooper's. In addition to above conversation, patient was provided with printed patient information about Cooper's esophagus and we discussed the importance of her remaining on her PPI long-term, in addition to dietary and lifestyle modifications to prevent further irritation to her esophagus. If she notes any recurrence of her dysphagia or choking symptoms, or changes her mind and would like to pursue endoscopy, she is to contact us. 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 Nupur Fiore PA-C EMERGENCY DEPARTMENT Observed: 07/08/2017 Status: F Source: [place] SUMMARY 6:59 AM [facility] REPOSITORY [facility] Medical Records Department [address] [place] [address] Emergency Department Summary 07/07/17 2351 MR#: [id number] Acct: [id number] Name: GLADIS FERNANDEZ Rep #: [id number] : 1935 82 From: Silvestre Rdz MD PCP: Satinder ROJO,Augie Gonzalez Status: DEP ER - ER Visit Summary Date of Service: 07/07/17 Chief Complaint: Leg swelling History of Present Illness: The patient is a 82 F presenting for evaluation secondary to leg swelling. Patient states that over the course of the last 3-4 days she has been noticing significant amount of fluid retention in her lower legs. Patient states that she typically was not on Lasix, but restarted this 40 mg once a day and has not been getting any sort of relief from this. Patient denies that there was any preceding chest pain she denies any recent illnesses such as fever cough nausea vomiting diarrhea dysuria. She has had a mild amount of increased dyspnea on exertion lately. Patient has an underlying history of coronary disease [place] and congestive heart failure as well as A. fib does see cardiology. Physical Examination: Thin elderly female no acute distress vital signs stable. Head normocephalic. Moist mucous membranes. No JVD. Heart was regular rate and rhythm 2 out of 6 systolic murmur. Lungs sounds clear to auscultation bilaterally no rhonchi is rales or wheezes. Abdomen soft nontender. Peripheral edema noted in the lower extremities 2+ and symmetric and pitting. No skin rashes. Patient alert and oriented. Test Results: EKG demonstrates sinus bradycardia with a rate of 52. Left anterior fascicular block is noted and diffuse nonspecific T-wave flattening that is consistent with a prior EKG in January 2017. CBC demonstrates chronic anemia, chemistry negative, troponin found to be elevated at 0.16 Emergency Department Course and Treatment: Patient presented for evaluation secondary to leg swelling. Workup showed evidence of chronic anemia, normal kidney function, and an elevated troponin of 0.16. Chest x-ray did not demonstrate evidence of significant CHF and EKG showed no changes there were acute. Trending the patient's labs backwards shows that her anemia is basically unchanged, and that she chronically has a troponin leak and actually has never really had a normal troponin. Troponins were as high as 2.5 in November when she had a end STEMI, and troponin at this point is actually the lowest it has been. Given the fact that she does not have any chest discomfort associated with this I believe that she potentially could safely be discharged with increase Lasix dosing. I did discuss this with Dr. Garay who is in agreement. Patient was given a dose of IV Lasix in the emergency department was recommended to double her dose of Lasix to 80 mg every morning and follow-up with cardiology next week. Disposition: Discharged Impression: 1. Peripheral edema 2. Chronic anemia 3. Chronic troponin leak This note was generated with [employer] CK1 dictation software. It may contain incorrect words, spelling, and punctuation that were not noted in review of the chart prior to signing ED Disposition - Plan for ED Patient: Disposition: Home or Assisted Living Chief Complaint: Edema Diagnosis: CHF (congestive heart failure) Instructions: ED CHF General Referrals: Colton Echevarria MD [STAFF PHYSICIAN] - 3-5 Days Additional Instructions: Take 80mg of lasix every morning and followup with cardiology next week What to do if you have Problems For any increased pain, shortness of breath, bleeding, nausea or vomiting, chest pain, or any unexpected problems, contact your Primary Care Provider. Call [facility] ([phone]) or report to the closest Emergency Room. Call 911 if necessary. 07/08/17 0659 <Electronically signed by Silvestre Rdz MD> Date Silvestre Rdz MD Cosigner Signature (If Indicated): Date CC: Augie Rajan MD CBC W/DIFF, AUTOMATED Collected: 07/07/2017 Status: F Source: [place] 10:34 PM [facility] REPOSITORY TYPE CODE TESTS RESULT OUT OF RANGE REFERENCE UNITS LAB L100.1000 4.4-11.0 K/mm3 Normal WBC 4.4 LAB L100.1200 4.2-5.4 M/mm3 Low RBC 2.64 LAB L100.1300 12.0-15.0 g/dl Low HGB 8.8 LAB L100.1400 37-47 % Low HCT 27.7 LAB L100.1500 81-99 fL High MCV 104.9 LAB L100.1600 27.0-32.0 pg High MCH 33.3 LAB L100.1700 32-36 g/gl Low MCHC 31.8 LAB L100.1810 11.6-14.6 % Normal RDW CV 13.4 LAB L100.1820 35.1-43.9 fl High RDW SD 50.6 LAB L100.1900 150-450 K/mm3 Normal PLT 301 LAB L100.2000 6.2-12.0 fl Normal MPV 9.0 LAB L100.2100 47-70 % Normal NEUT% 69.2 LAB L100.2200 19-41 % Low LY% 17.4 LAB L100.2300 0-10 % High MONO% 11.5 LAB L100.2400 0-5 % Normal EO% 1.4 LAB L100.2500 0-1 % Normal BASO% 0.5 LAB L100.2550 0.0-0.9 % Normal IM GRAN % 0.000 Result Comment: IG% - Immature Granulocytes (promyelocytes, myelocytes and metamyelocytes) > 1% indicates that a LEFT SHIFT is Present. LAB L100.2620 2.0-7.7 X10 3/uL Normal Absolute Neut 3.0 LAB L100.2720 0.83-4.51 X10 3/ul Low Absolute Lymph 0.76 Performed By: #### L100.0100 #### [facility] [address] [place], [place], [address] BASIC METABOLIC Collected: 07/07/2017 Status: F Source: [place] PROFILE ([facility]) 10:34 PM [facility] REPOSITORY Order Comment: 'TROP' Serial specimen #1, #2, #3, or #4: 1 TYPE CODE TESTS RESULT OUT OF RANGE REFERENCE UNITS LAB L501.0100 74-106 mg/dL Normal GLU 86 Result Comment: Please note revised GLUCOSE reference range effective 2017. LAB L501.1000 7-18 mg/dL High BUN 20 LAB L501.1100 0.55-1.02 mg/dL Normal CREAT,SERUM 0.95 Result Comment: The validity of the calculated GFR AND GFRAA in patients over 70 years has not been determined. Clinical correlation is essential. LAB L501.1110 >60 mL/min Normal EST GFR 60 Result Comment: Non- GFR Calc LAB L501.1115 >60 mL/min Normal EST GFR - AA 72 Result Comment: GFR Calc LAB L501.1255 ml/min Normal Estimated CRCL 29.91 LAB L501.1300 10-20 RATIO High BUN/CRE 21.0 LAB L501.2200 8.5-10 mg/dL Low .1 CA 8.4 LAB L501.5300 136-14 mmol/L Normal 5 NA 139 LAB L501.5600 3.5-5. mmol/L Normal 1 K 3.5 LAB L501.5900 98-107 mmol/L Normal CL 101 LAB L501.6100 21.0-3 mmol/L Normal 2.0 CO2 31.0 LAB L501.6200 5-15 Normal GAP 7 Performed By: #### L500.2500, L501.4010 #### [facility] [address] [place], [address] TROPONIN-I Collected: 07/07/2017 Status: F Source: [place] 10:34 PM [facility] REPOSITORY Order Comment: 'TROP' Serial specimen #1, #2, #3, or #4: 1 TYPE CODE TESTS RESULT OUT OF RANGE REFERENCE UNITS LAB L501.4010 <0.06 ng/mL High 0.16 TROPONIN-I Result Comment: TROPONIN-I EXPECTED VALUES <0.05 NEGATIVE 0.06 - 0.59 AT RISK OF [place] > OR = 0.60 SUGGEST [place] Performed By: #### L500.2500, L501.4010 #### [facility] [address] [place], [address] CHEST PA AND LATERAL Observed: 07/07/2017 Status: F Source: [place] 10:27 PM [facility] REPOSITORY [facility] Imaging Services [address] [place] [address] Chest PA and Lateral MR#: [id number] Acct: [id number] Name: GLADIS FERNANDEZ Rep #: [id number] : 1935 F 82 From: Christopher Blood DO PCP: Satinder ROJO,Augie Gonzalez Status: REG ER Study: Chest PA and Lateral Date of Exam: 07/07/17 Exam# [id number] Ordering Dr: Silvestre Rdz MD STUDY: X-RAY CHEST REASON FOR EXAM: Female, 82 years old. CHF TECHNIQUE: Frontal and lateral views COMPARISON: February 03, 2017 FINDINGS: The lungs are mildly hyperaerated. There is no demonstrated pleural abnormality. Normal size heart. Normal mediastinum and marcella. Normal visualized pulmonary arteries. Calcified aortic arch and descending thoracic aorta. Normal visualized thoracic spine. Normal visualized ribs, clavicles, and shoulders. There is no demonstrated abnormality of the visualized soft tissue structures of the upper abdomen. RAD/Chest PA and Lateral IMPRESSION: Mild hyperaeration. Electronically Signed: Christopher Blood DO at 23:07 EST Tel [phone], Service support , CC: Silvestre Rdz; Augie Rajan MD Office Helper: Signed PROGRESS Observed: 06/29/2017 Status: COMPLETED Source: [place] 8:30 PM [facility] REPOSITORY HNO ID: [id number] Author: Main Lenz Service: (none) Author Type: Physician Type: Progress Notes Filed: 06/29/2017 8:34 PM Note Text: OPERATIVE NOTATION FOR [facility] SURGICAL PROCEDURE. June 25, 2017 Gladis Fernandez 1935 [id number] female PROCEDURE: EGD WITH REMOVAL OF FOREIGN BODY - 44224- SURGEON: Serena Lenz M.D. 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 Main Lenz MD EMERGENCY DEPARTMENT Observed: 06/27/2017 Status: F Source: [place] SUMMARY 4:40 PM [facility] REPOSITORY [facility] Medical Records Department [address] [place] [address] Emergency Department Summary 06/25/17 2235 MR#: [id number] Acct: [id number] Name: GLADIS FERNANDEZ Rep #: [id number] : 1935 82 From: Janice Mckinney DO PCP: Satinder ROJO,Augie Gonzalez Status: DEP ER - ER Visit Summary Date of Service: 06/25/17 Chief Complaint: [Foreign body sensation esophagus] History of Present Illness: The patient is a 82 F [to the emergency department chief complaint of feeling like a piece of food is stuck in her esophagus. Patient apparently was eating at [employer] around 5:30 PM when she thinks a piece of hamburger may have gotten stuck. Patient has not had this happen before. Patient denies any chest pain or shortness of breath. Patient states that she has been trying to sip some water and it seems like it is staying down and going into the stomach. Patient is somewhat of a poor historian as she does have some history of dementia. And also with history of hypertension, pulmonary hypertension, A. fib, hypothyroidism.] Physical Examination: [HEENT-PERRLA, EOMI. Cranial nerves II through XII grossly intact. TMs clear. Mucous membranes moist. No adenopathy. Cardiovascular-regular rate and rhythm without murmur or ectopy Lungs-clear to auscultation, chest wall stable without crepitus or subcu emphysema Abdomen-normoactive bowel sounds, soft, nontender, no rebound or rigidity, no peritoneal signs. Extremities-intact 4, normal range of motion, normal pulses, atraumatic] Test Results: [None indicated] Emergency Department Course and Treatment: [I had patient drink Coke and she was able to swallow however with each swallow she had discomfort in her esophagus and would belch.] Treatment Plan: [Case discussed with Dr. Main Lenz who will present to the emergency department to perform endoscopy.] Patient had endoscopy and was noted that she had a large piece of meat within the stomach. Patient had appearance of Cooper's esophagitis. Disposition: [discharged to home in stable condition] Impression: [Esophageal foreign body-passed] This note was generated with [employer] CK1 dictation software. It may contain incorrect words, spelling, and punctuation that were not noted in review of the chart prior to signing ED Disposition - Plan for ED Patient: Chief Complaint: Foreign Body Referrals: Augie Rajan Chi, MD [Primary Care Provider] - What to do if you have Problems For any increased pain, shortness of breath, bleeding, nausea or vomiting, chest pain, or any unexpected problems, contact your Primary Care Provider. Call [facility] ([phone]) or report to the closest Emergency Room. Call 911 if necessary. 06/27/17 1640 <Electronically signed by Janice Mckinney DO> Date Janice Mckinney DO Cosigner Signature (If Indicated): Date CC: Augie Rajan MD OPERATIVE REPORT Observed: 06/25/2017 Status: F Source: [place] 11:41 PM [facility] REPOSITORY [facility] Medical Records Department [address] [place] [address] Operative Report 06/25/17 2335 MR#: [id number] Acct: [id number] Name: GLADIS FERNANDEZ Rep #: [id number] : 1935 82 From: Main Lenz MD PCP: Augie Rajan MD, Chi Status: REG ER Y Location: ED Problem List (1) Esophageal foreign body Status: Acute (2) History of left heart catheterization Status: Chronic Comment: PTCA/DONNELL to LCX 09/24/2016; DONNELL to PDA and AERONAUTICAL PROJECT ENGINEER-PLVB 11/17/2016; PCI to Diag and LAD 11/29/2016 (3) Atherosclerosis [place] coronary artery [place] heart without angina pectoris Status: Chronic (4) UDAY (acute kidney injury) Status: Acute Comment: Due to prerenal azotemia, related to Lasix (5) Hypotension Status: Resolved Comment: with hydration (6) Hypophosphatemia Status: Acute (7) NSTEMI (non-ST elevated myocardial infarction) Status: Chronic Comment: NSTEMI December 2016 (8) Hypothyroidism Status: Chronic Qualifiers: Report of Operation Date of Procedure: 06/25/17 Pre-Operative Diagnosis: esophageal foreign body Post-Operative Diagnosis: esophageal foreign body, Cooper's esophagitis Surgery/Procedure Performed:: EGD image consultant: None Type of Anesthesia:: IV Sedation Specimen's removed: None Description of Procedure: The patient was maintained in the emergency department. Sign in was performed verifying patient, site, planned procedure, critical nursing information, the patient was monitored with cardiac, pulse oximetric, and blood pressure monitoring devices. propofol was provided for sedation - Dr Machado by the emergency room physician and documented under separate cover. Following IV sedation and after the oropharynx was sprayed with Cetacaine spray, a video gastroscope was inserted in the oropharynx and advanced down the esophagus without difficulty. There was no residual esophageal foreign bodies. The scope was advanced through the stomach,There was food in the body of the stomach The scope was retroflexed area. There was felt to be no abnormalities. As the scope was withdrawn, the patient had distal esophagitis consistent with longer segment Cooper's esophagitis The remainder the esophagus was normal. - Admit VTE Documentation VTE Present on Admission: No 06/25/17 2341 <Electronically signed by Main Lenz MD> Date Main Lenz MD CC: Main Lenz MD; Augie Rajan MD Signed CONSULTATION Observed: 06/25/2017 Status: F Source: [place] 11:35 PM [facility] REPOSITORY [facility] Medical Records Department [address] [place] [address] Consultation 06/25/17 2329 MR#: [id number] Acct: [id number] Name: GLADIS FERNANDEZ Rep #: [id number] : 1935 82 From: Main Lenz MD PCP: Auige Rajan MD, Chi Status: REG ER Y Location: ED Problem List (1) Esophageal foreign body Status: Acute (2) History of left heart catheterization Status: Chronic Comment: PTCA/DONNELL to LCX 09/24/2016; DONNELL to PDA and AERONAUTICAL PROJECT ENGINEER-PLVB 11/17/2016; PCI to Diag and LAD 11/29/2016 (3) Atherosclerosis [place] coronary artery of [place] heart without angina pectoris Status: Chronic (4) UDAY (acute kidney injury) Status: Acute Comment: Due to prerenal azotemia, related to Lasix (5) Hypotension Status: Resolved Comment: with hydration (6) Hypophosphatemia Status: Acute (7) NSTEMI (non-ST elevated myocardial infarction) Status: Chronic Comment: NSTEMI December 2016 (8) Hypothyroidism Status: Chronic Qualifiers: Reason for Consult Date of Consultation: 06/25/17 History of Present Illness: The patient is a 82 year old F with complaint of esophageal foreign body. She ate a hamburger at approximately 4PM. She has a sensation of choking since that time. She was given liquids in the ER which caused her to choke further. I was called for esophageal foreign body. EGD was performed in the ED. The food had passed into the stomach, but the patent was noted to have distal esophageal changes consistent with Cooper's esophagitis. 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) Essential (primary) hypertension (Chronic) Dysphagia (Chronic) Elevated troponin (Chronic) not trending Pulmonary hypertension (Chronic) Malnutrition (Chronic) Dementia (Chronic) History of PTCA (Chronic) PTCA to the OD on 11/29/16 with no stent PTCA/DONNELL Proximal LAD 11/29/16 HFrEF (heart failure with reduced ejection fraction) (Chronic) EF 01/12 65% Chronic anemia (Chronic) Paroxysmal atrial fibrillation (Chronic) Coronary artery disease (Chronic) Vitamin D deficiency (Chronic) Hyperlipidemia (Chronic) NSTEMI (non-ST elevated myocardial infarction) (Chronic) NSTEMI December 2016 ST elevation (STEMI) myocardial infarction involving left circumflex coronary artery (Chronic) stent 09/24/16 Hypothyroidism (Chronic) Adult BMI <19 kg/sq m (Chronic) Allergies tuberculin,PPD,multi-puncture Adverse Reaction (Verified 06/25/17 21:32) Unknown caused big blister on lip Home Medications: Ambulatory Orders Medication Instructions Recorded Surgical History: total hip arthroplasty Psychiatric History: No pertinent psych hx Smoking Status: Never smoker - *Family History Maternal History Items: Stroke Paternal History Items: Stroke Patient Problems: Active and Suspected Problems (Last Updated 04/28/17 @ 09:04 by FLORY OwensC) Esophageal foreign body (Acute) - Physical Exam General: Alert, Oriented x3, - - anxious and choking on spit Lungs: Clear to auscultation, Normal air movement Cardiovascular: Regular rate, Murmur Abdomen: Soft, Non Tender Vital Signs Temp Pulse Resp BP Pulse Ox 98.2 F 55 L 20 H 178/55 H 100 06/25/17 21:30 06/25/17 23:24 06/25/17 23:24 06/25/17 23:24 06/25/17 23:24 Oxygen Flow Rate 4 Oxygen Delivery Method Nasal Cannula Weight: 42.7 kg Body Mass Index (BMI) 17.7 Finger Stick Blood Glucose 71 Assessment/Plan Active and Suspected Problems (Last Updated 04/28/17 @ 09:04 by Todd Steiner NP-C) Esophageal foreign body (Acute) Cooper's esophagitis - esophageal foreign body. The patient will be discharged on Carafate and to continue her PPI. She should follow up in 1 week in my office and plan for repeaat EGD in 3-4 weeks. She should stay on clear liquids for the next 3 days 06/25/17 6640 <Electronically signed by Main Lenz MD> Date Main Lenz MD Cosigner Signature (if applicable): Date CC: Augie Rajan MD Signed DISCHARGE INSTRUCTION Observed: 06/25/2017 Status: F Source: [place] 11:30 PM REPLACED BY [facility] REPOSITORY [facility] Medical Records Department [address] [place] [address] Discharge Instruction 06/25/172327 MR#: [id number] Acct: [id number] Name: FERNANDEZGLADIS Rep #: [id number] : 1935 82 From: Janice Mckinney DO PCP: Augie Rajan MD, Chi Status: REG ER ED Disposition - Plan for ED Patient: Chief Complaint: Foreign Body Instructions: ED Foreign Body Esophageal Rslv Prescriptions: Sucralfate [Carafate] 1 gm PO 4X/DAY #400 ml Referrals: Main Lenz MD [STAFF PHYSICIAN] - 1-2 Weeks Augie Rajan Chi, MD [Primary Care Provider] - What to do if you have Problems For any increased pain, shortness of breath, bleeding, nausea or vomiting, chest pain, or any unexpected problems, contact your Primary Care Provider. Call [facility] Registry ([phone]) or report to the closest Emergency Room. Call 911 if necessary. 06/25/172329 <Electronically signed by Janice Mckinney DO> Date Janice Mckinney DO Cosigner Signature (If Indicated): Date CC: Augie Rajan MD DISCHARGE INSTRUCTION Observed: 06/25/2017 Status: F Source: [place] 11:21 PM [facility] REPOSITORY [facility] Medical Records Department [address] [place] [address] Discharge Instruction 06/25/172319 MR#: [id number] Acct: [id number] Name: GLADIS FERNANDEZ Rep #: [id number] : 1935 82 From: Janice Mckinney DO PCP: Augie Rajan MD, Chi Status: REG ER ED Disposition - Plan for ED Patient: Chief Complaint: Foreign Body Instructions: ED Foreign Body Esophageal Rslv Referrals: Augie Rajan Chi, MD [Primary Care Provider] - Main Lenz MD [STAFF PHYSICIAN] - 1-2 Weeks What to do if you have Problems For any increased pain, shortness of breath, bleeding, nausea or vomiting, chest pain, or any unexpected problems, contact your Primary Care Provider. Call [facility] ([phone]) or report to the closest Emergency Room. Call 911 if necessary. 06/25/17 759 <Electronically signed by Janice Mckinney DO> Date Janice Mckinney DO Cosigner Signature (If Indicated): Date CC: Augie Rajan MD CNOP Observed: 06/25/2017 Status: COMPLETED Source: [place] 12:00 AM [facility] REPOSITORY Operative Note (Enc) (GENSWS) Progress Notes: Main Lenz MD 06/29/2017 8:34 PM Signed OPERATIVE NOTATION FOR [facility] SURGICAL PROCEDURE. June 25, 2017 Gladis Awad Fernandez 1935 [id number] female PROCEDURE: EGD WITH REMOVAL OF FOREIGN BODY - 84151- SURGEON: Serena Lenz M.D. 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 Main Lenz MD Encounter Status:Closed by MAIN LENZ MD on 06/29/17 ALLERGIES ALLERGIES DATE TYPE / CODE NAME / CODE REACTION SEVERITY SOURCE 04/19/2018 Drug tuberculin,PPD,m Unknown Unknown [facility] Allergy/416 ulti-puncture/[address] [address](SNOM [id number](RXNORM) Repository ED CT) Drug NO KNOWN [facility] Class/24031 ALLERGIES [facility] 1003(SNOMED Repository CT) ENCOUNTERS ENCOUNTERS ADMIT/DISCHARGE ACCOUNT ADMITTING ENCOUNTER LOCATION SOURCE NUMBER CLASS 04/25/2018 [id number] [facility] ing:OLS.AVED Repository 04/20/2018 [id number] Ambulatory BMSBuilding:W [facility] Repository 04/19/2018/04/20/20 [id number] Alvarogi[facility]in [facility] [address] ing:PCURoom: Repository [id number]: 1 04/19/2018 [id number] Karin Ayala Ambulatory BMSBuilding:B [place] Rodriguez MS.[facility] Repository 04/19/2018 [id number] Alvarogiovanni Karin Ambulatory BMSBuilding:B Adamskhadijah Rodriguez MS.[facility] Repository 04/13/2018 [id number] [facility] ing:LAB.FUTUR Repository E 03/12/2018 [id number] [facility] ing:OLS.AVEB Repository 03/03/2018/03/07/20 [id number] Agyepong, Inpatient [address] ing:PCURoom: Repository [id number]: 1 03/03/2018 [id number] Agyepong, Ambulatory BMSBuilding:Isai Begum MS.[facility] Repository 03/03/2018 [id number] Agyepong, Ambulatory BMSBuilding:Isai Begum MS.[facility] Repository 03/03/2018 [id number] Agyepong, Ambulatory BMSBuilding:Isai Begum MS.[facility] Repository 03/02/2018 [id number] Agyepong, Ambulatory BMSBuilding:Isai Begum MS.[facility] Repository 03/02/2018 [id number] Agyepong, Ambulatory BMSBuilding:Isai Begum MS.[facility] Repository 03/02/2018 [id number] Agyepong, Ambulatory BMSBuilding:Isai Begum MS.[facility] Repository 02/07/2018/02/08/20 [id number] Ambulatory BMSBuilding:Isai Messer MS.[facility] Repository 02/06/2018 [id number] Ambulatory BMSBuilding:Isai [place].[facility] Repository 01/24/2018 [id number] Ambulatory [facility] Hospital ing:POLAB3 Repository 10/25/2017/10/26/19 [id number] Ambulatory BMSBuilding:Isai Messer MS.[facility] Repository 09/14/2017 [id number] Ambulatory [facility] Hospital ing:POLAB3 Repository 09/04/2017/09/05/19 [id number] Emergency [address] Hospital ing:ED Repository 08/09/2017/08/10/19 [id number] Ambulatory BMSBuilding:Isai Messer MS.[facility] Repository 08/09/2017 [id number] Ambulatory BMSBuilding:Isai [place].[facility] Repository 07/26/2017 [id number] Ambulatory BMSBuilding:Isai [place].[facility] Repository 07/10/2017/07/15/19 [id number] Ambulatory [address] Repository 07/07/2017/07/08/19 [id number] Emergency [place] ing:ED Repository 06/25/2017/06/25/19 [id number] Emergency [place] ing:ED Repository PAYERS PAYERS ENCOUNTER GUARANTOR PAYER SUBSCRIBER SOURCE 04/25/2018 LEANN Lilly Primary Gladis [place] [id number] Insurance:JORGE McfaddenDOB: [facility] [id number] Number: Repository [address]Uqp: 330 [id number] [phone] (HP) Date:1724-34-05AV [facility] [address] [place] [address]SJ: 04/25/2018 Secondary NOT GIVENUNK [place] Insurance:SELF PAY [facility] Number: Effective Repository Date:2018-04-25 04/20/2018 LEANN Maxx Primary GLADIS [place] [id number] Insurance:JORGE MCFADDENDOB: [facility] [id number] Number: Repository [address]Tzt: 330 [id number] [phone] (HP) Date:1383-07-94EX [address] [place] [address]WK: 04/20/2018 Secondary NOT GIVENUNK [place] Insurance:SELF PAY [facility] Number: Effective Repository Date:2018-04-20 04/19/2018 LEANN Maxx Primary GLADIS [place] [id number] Insurance:JORGE MCFADDENDOB: [facility] [id number] Number: Repository [address]Six: 330 [id number] [phone] (HP) Date:5093-70-49IY [facility] [address] [place] [address]ON: 04/19/2018 Secondary NOT GIVENUNK [place] Insurance:SELF PAY [facility] Number: Effective Repository Date:2018-04-19 04/19/2018 LEANN Lilly Primary GLADIS [place] [id number] Insurance:JORGE MCFADDENDOB: [facility] [id number] Number: Repository [address]Tci: 330 [id number] [phone] (HP) Date:5991-11-06DX [address] [place] [address]LW: 04/19/2018 Secondary NOT GIVENUNK [place] Insurance:SELF PAY [facility] Number: Effective Repository Date:2018-04-19 04/19/2018 LEANN Lilly Primary GLADIS [place] [id number] Insurance:JORGE MCFADDENDOB: [facility] [id number] Number: Repository [address]Awg: 330 [id number] [phone] (HP) Date:0450-61-27YG [facility] [address] [place] [address]BS: 04/19/2018 Secondary NOT GIVENUNK [place] Insurance:SELF PAY [facility] Number: Effective Repository Date:2018-04-19 04/13/2018 LEANN Lilly Primary GLADIS [place] [id number] Insurance:JORGE MCFADDENDOB: [facility] [id number] Number: Repository [address]Ogg: 330 [id number] [phone] (HP) Date:5814-51-11JP [facility] [address] [address]TY: 04/13/2018 Secondary NOT GIVENUNK [place] Insurance:SELF PAY [facility] Number: Effective Repository Date:2018-03-15 03/12/2018 LEANN Lilly Primary Gladis [place] [id number] Insurance:JORGE McfaddenDOB: [facility] [id number] Number: Repository [address]Mrq: (330 [id number] [phone] (HP) Date:5485-45-84SL [address] [place] [address]HR: 03/12/2018 Secondary NOT GIVENUNK [place] Insurance:SELF PAY [facility] Number: Effective Repository Date:2018-03-12 03/03/2018 LEANN Lilly [facility] [place] [id number] Insurance:JORGE MCFADDENDOB: [facility] [id number] Number: Repository [address]Igd: 330 [id number] [phone] (HP) Date:3932-23-12FF [address] [place] [address]VP: 03/03/2018 Secondary NOT GIVENUNK [place] Insurance:SELF PAY [facility] Number: Effective Repository Date:2018-03-01 03/03/2018 LEANN Lilly [facility] [place] [id number] Insurance:JORGE MCFADDENDOB: [facility] [id number] Number: Repository [address]Kkl: 330 [id number] [phone] Date:8623-31-26NN [facility] [address] [place] [address]UF: 03/03/2018 Secondary NOT GIVENUNK [place] Insurance:SELF PAY [facility] Number: Effective Repository Date:2018-03-03 03/03/2018 LEANN Lilly [facility] [place] [id number] Insurance:JORGE MCFADDENDOB: [facility] [id number] Number: Repository [address]Rme: (330 [id number] [phone] () Date:0647-54-21IR [address] [place] [address]RR: 03/03/2018 Secondary NOT GIVENUNK [place] Insurance:SELF PAY [facility] Number: Effective Repository Date:2018-03-03 03/03/2018 LEANN Lilly Primary GLADIS Awad [place] [id number] Insurance:JORGE MCFADDENDOB: [facility] [id number] Number: Repository [address]Bzk: 330 [id number] [phone] (HP) Date:9411-44-15EI [facility] [address] [place] [address]XU: 03/03/2018 Secondary NOT GIVENUNK [place] Insurance:SELF PAY [facility] Number: Effective Repository Date:2018-03-03 03/02/2018 LEANN Lilly Primary GLADIS Awad [place] [id number] Insurance:JORGE MCFADDENDOB: [facility] [id number] Number: Repository [address]Vne: 330 [id number] [phone] (HP) Date:6761-87-28EY [address] [place] [address]FF: 03/02/2018 Secondary NOT GIVENUNK [place] Insurance:SELF PAY [facility] Number: Effective Repository Date:2018-03-02 03/02/2018 LEANN Lilly Primary GLADIS Awad [place] [id number] Insurance:JORGE MCFADDENDOB: [facility] [id number] Number: Repository [address]Fhm: 330 [id number] [phone] (HP) Date:1949-66-86VR [address] [place] [address]DX: 03/02/2018 Secondary NOT GIVENUNK [place] Insurance:SELF PAY [facility] Number: Effective Repository Date:2018-03-02 03/02/2018 LEANN Lilly Primary GLADIS Awad [place] [id number] Insurance:JORGE MCFADDENDOB: [facility] [id number] Number: Repository [id number]: (330 [id number] [phone] (HP) Date:3519-23-74HC [facility] [address] [place] [address]DL: 03/02/2018 Secondary NOT GIVENUNK [place] Insurance:SELF PAY [facility] Number: Effective Repository Date:2018-03-02 02/07/2018 LEANN Lilly Primary [facility] [place] [id number] Insurance:JORGE MCFADDENDOB: [facility] [id number] Number: Repository [address]Xus: 330 [id number] [phone] (HP) Date:1746-14-59XD [facility] [address] [place] [address]OU: 02/07/2018 Secondary NOT GIVENUNK [place] Insurance:SELF PAY [facility] Number: Effective Repository Date:2018-02-07 02/06/2018 LEANN Lilly [facility] [place] [id number] Insurance:JORGE MCFADDENDOB: [facility] [id number] Number: Repository [address]Mzl: (330 [id number] [phone] (HP) Date:3712-28-91ND [facility] [address] [place] [address]EQ: 02/06/2018 Secondary NOT GIVENUNK [place] Insurance:SELF [facility] Center Number: Effective Repository Date:2018-02-06 01/24/2018 LEANN Lilly [facility] [place] [id number] Insurance:JORGE MCFADDENDOB: [facility] [id number] Number: Repository [id number]: 330 [id number] [phone] (HP) Date:9858-91-63SN [facility] [address] [place] [id number]: 01/24/2018 Secondary NOT GIVENUNK [place] Insurance:SELF PAY [facility] Number: Effective Repository Date:2018-01-24 10/25/2017 Leann Lilly Primary [place]ADIS [place]ad [place] [id number] Insurance:JORGE MCFADDENDOB: [facility] [id number] Number: Repository [id number]: 330 [id number] [phone] () Date:[id number] [address] [place] [address]NN: 10/25/2017 Secondary NOT GIVENUNK [place] Insurance:SELF PAY [facility] Number: Effective Repository Date:2017-10-25 09/14/2017 Leann Maxx Primary [place] [id number] Insurance:JORGE MCFADDENDOB: [facility] [id number] Number: Repository [id number]: 330 [id number] [phone] () Date:0109-79-93QW [facility] [place] [address]IE: 09/14/2017 Secondary NOT GIVENUNK [place] Insurance:SELF PAY [facility] Number: Effective Repository Date:2017-09-14 09/04/2017 Leann Lilly Primary GLADIS Awad [place] [id number] Insurance:JORGE MCFADDENDOB: [facility] [id number] Number: Repository [id number]: 330 [id number] [phone] (HP) Date:7527-53-82AW [facility] [place] [address]CK: 09/04/2017 Secondary NOT GIVENUNK [place] Insurance:SELF PAY [facility] Number: Effective Repository Date:2017-09-04 08/09/2017 Leann Lilly Primary [place] Awad [place] [id number] Insurance:JORGE MCFADDENDOB: [facility] [id number] Number: Repository [id number]: 330 [id number] [phone] (HP) Date:0261-02-45ZS [address] [place] [id number]: 08/09/2017 Secondary NOT GIVENUNK [place] Insurance:SELF PAY [facility] Number: Effective Repository Date:2017-08-09 08/09/2017 Leann Lilly Primary GLADIS C [place] [id number] Insurance:JORGE MCFADDENDOB: [facility] [id number] Number: Repository [id number]: ([phone] [id number] [phone] (HP) Date:1828-81-44BA [facility] [address] [address]TD: 08/09/2017 Secondary NOT GIVENUNK [place] Insurance:SELF PAY [facility] Number: Effective Repository Date:2017-08-09 07/26/2017 Leann Lilly Primary [place]ADIS C [place] [id number] Insurance:JORGE MCFADDENDOB: [facility] [id number] Number: Repository [id number]: ([phone] [id number] [phone] (HP) Date:5987-88-09NS [facility] [address] [place] [address]PV: 07/26/2017 Secondary NOT GIVENUNK [place] Insurance:SELF PAY [facility] Number: Effective Repository Date:2017-04-26 07/07/2017 Leann Lilly Primary [place]IS C [place] [id number] Insurance:JORGE MCFADDENDOB: [facility] [id number] [place] [address] Number: Repository [id number]: 330 [id number] [phone] (HP) Date:6438-80-34MA [facility] [address] [place] [address]WZ: 07/07/2017 Secondary NOT GIVENUNK [place] Insurance:SELF PAY [facility] Number: Effective Repository Date:2017-07-07 06/25/2017 Leann Lilly Primary GLADIS C [place] [id number] Insurance:JORGE MCFADDENDOB: [facility] [id number] Number: Repository [id number]: [phone] [id number] [phone] () Date:6506-88-72WJ [address] [address]UG: 06/25/2017 Secondary NOT GIVENUNK [place] Insurance:SELF PAY [facility] Number: Effective Repository Date:2017-06-25
== END ==
LOC: OLS.AVED 05:00
PROVIDERS: Visit Provider Family Medicine
DX: E03.9 Hypothyroidism, unspecified (principal)
CPT/HCPCS: 36415; 84443

== ENCOUNTER → 2018-08-28 05:00 | Outpatient (REF) | payer MEDICARE, MEDICAID, SELFPAY ==
[2016-11-30 11:50] VITALS: BMI 16.0
[2018-08-09 13:19] VITALS: BMI 15.1
[2018-08-28 08:51] LABS: Absolute Lymphocyte Count 0.73 X10^3/ul (0.83-4.51); Absolute Neutrophil Count 2.6 X10^3/uL (2.0-7.7); Basophil# 0.04 X10^3/uL; Basophil% 0.9 % (0-1); Eosinophil# 0.28 X10^3/uL; Eosinophils% 6.2 % (0-5); Hematocrit 26.2 % (37-47); Hemoglobin 8.3 g/dl (12.0-15.0); Lymphocyte # 0.73 X10^3/ul (4.0); Lymphocyte % 16.2 % (19-41); Mean Corp Hgb Conc 31.7 g/gl (32-36); Mean Corpuscular Hgb 29.3 pg (27.0-32.0); Mean Corpuscular Volume 92.6 fL (81-99); Mean Platelet Vol. 8.2 fl (6.2-12.0); Monocyte# 0.83 X10^3/uL; Monocyte% 18.4 % (0-10); Neutrophil # 2.63 X10^3/uL (2.7-7.7); Neutrophil % 58.3 % (47-70); Platelet Count 332 K/mm3 (150-450); RBC Distribution Width CV 14.1 % (11.6-14.6); Red Blood Count 2.83 M/mm3 (4.2-5.4); White Blood Count 4.5 K/mm3 (4.4-11.0)
[2018-08-28 08:58] LABS: Anion Gap 5 (5-15); BUN 19 mg/dL (7-18); BUN/Creat Ratio 20.3 RATIO (10-20); Calcium,Total 8.8 mg/dL (8.5-10.1); Chloride 97 mmol/L (98-107); Creatinine, Serum 0.94 mg/dL (0.55-1.02); EST Glomerular Filtration Rate 61 mL/min (>60); Est Glom Filt Rate - Afr Amer 74 mL/min (>60); Glucose 72 mg/dL (74-106); Potassium 4.5 mmol/L (3.5-5.1); Sodium Level 129 mmol/L (136-145); Thyroid Stim Hormone (TSH) 0.18 uIU/mL (0.358-3.74)
[2018-08-28 09:01] LABS: POSITIVE COUNT NO; POSITIVE DIFFERENTIAL NO; POSITIVE MORPHOLOGY NO
== END ==
LOC: OLS.AVEB 05:00
PROVIDERS: Visit Provider Family Medicine
DX: D64.9 Anemia, unspecified (principal); E03.9 Hypothyroidism, unspecified
CPT/HCPCS: 36415; 80048; 84443; 85025

== ENCOUNTER → 2018-09-06 07:15 | Outpatient (REF) | payer MEDICARE, MEDICAID, SELFPAY ==
[2016-11-30 11:50] VITALS: BMI 16.0
[2018-08-09 13:19] VITALS: BMI 15.1
[2018-09-06 08:41] LABS: Anion Gap 5 (5-15); BUN 19 mg/dL (7-18); BUN/Creat Ratio 23.3 RATIO (10-20); Calcium,Total 8.3 mg/dL (8.5-10.1); Chloride 97 mmol/L (98-107); Creatinine, Serum 0.81 mg/dL (0.55-1.02); EST Glomerular Filtration Rate 71 mL/min (>60); Est Glom Filt Rate - Afr Amer 86 mL/min (>60); Glucose 84 mg/dL (74-106); Potassium 4.9 mmol/L (3.5-5.1); Sodium Level 131 mmol/L (136-145)
== END ==
LOC: OLS.AVEB 07:15
PROVIDERS: Visit Provider Family Medicine
DX: D64.9 Anemia, unspecified (principal); F03.90 Unspecified dementia, unspecified severity, without behavioral disturbance, psychotic disturbance, mood disturbance, and anxiety; I10 Essential (primary) hypertension; E78.5 Hyperlipidemia, unspecified; D03.9 Melanoma in situ, unspecified
CPT/HCPCS: 36415; 80048

== ENCOUNTER → 2020-01-27 10:31 | Outpatient (CLI) | payer MEDICARE, MEDICAID, SELFPAY ==
[2016-11-30 11:50] VITALS: BMI 16.0
[2020-01-27 09:45] VITALS: BMI 19.2
--- NOTE | 2020-01-27 10:45 | RAD_ITS ---
STUDY: X-RAY CHEST REASON FOR EXAM: Female, 84 years old. Amiodarone therapy TECHNIQUE: Frontal and lateral views COMPARISON: 04/19/2018. FINDINGS: The lungs are hyperaerated. There is no demonstrated pleural abnormality. Possible mild left atrial enlargement. Normal mediastinum and marcella. Normal visualized pulmonary arteries. Calcified aortic arch and descending thoracic aorta. Mild degenerative changes of the thoracic spine. Mild wedge compression of the lower thoracic vertebral segment. Normal visualized ribs, clavicles, and shoulders. There is no demonstrated abnormality of the visualized soft tissue structures of the upper abdomen. RAD/Chest PA and Lateral IMPRESSION: Possible mild left atrial enlargement. Mild new compression of the lower thoracic vertebral segment. Electronically Signed: Christopher Blood DO at 23:50 EDT Tel [phone], Service support ,
== END ==
PROVIDERS: PCP Family Medicine Geriatric Medicine; Referring Provider Internal Medicine Cardiovascular Disease; Visit Provider Internal Medicine Cardiovascular Disease
DX: I25.10 Atherosclerotic heart disease of native coronary artery without angina pectoris (principal); I25.5 Ischemic cardiomyopathy; I48.0 Paroxysmal atrial fibrillation; I10 Essential (primary) hypertension; E78.5 Hyperlipidemia, unspecified; R00.1 Bradycardia, unspecified; R55 Syncope and collapse; Z95.5 Presence of coronary angioplasty implant and graft
CPT/HCPCS: 71046

== ENCOUNTER → 2020-12-03 13:51 | Outpatient (CLI) | payer MEDICARE, MEDICAID, SELFPAY ==
[2016-11-30 11:50] VITALS: BMI 16.0
[2020-11-23 15:56] VITALS: BMI 23.6
--- NOTE | 2020-12-03 13:57 | ECHOD_ITS ---
Reason For Study: SYNCOPE, DYSPNEA, ICMP Procedure This was a 2D Doppler, Color Flow transthoracic echocardiogram. Pt scanned in wheelchair sitting upright due to inability to walk/ transfer to bed- she also states she has chronic pain in her back. Exam performed in department. Left Ventricle Normal LV size. Left ventricular systolic function is normal. The estimated ejection fraction is 55 %. No regional wall motion abnormalities noted. Right Ventricle Normal RV size. Normal systolic function. Atria The left atrium is moderately enlarged. The right atrium is mildly enlarged. No doppler evidence for ASD. Mitral Valve There is moderate to severe mitral annular calcification. Extension of the mitral annular calcification on the base of the posterior mitral valve leaflet. Mild diffuse mitral valve thickening. Mild (1+) mitral valve insufficiency. Tricuspid Valve Normal tricuspid valve. Moderate (2+) eccentric tricuspid valve insufficiency. Right ventricular systolic pressure estimated to be 64 mmHg. Aortic Valve Trisinus/trileaflet aortic valve. Mild diffuse aortic valve thickening. Moderate to severe focal aortic valve calcification. Pulmonic Valve The pulmonic valve is not well visualized. Great Vessels Normal sized aortic root. Calcified aortic root. Pericardium/Pleural No pericardial effusion. MMode/2D Measurements & Calculations LVIDd: 4.8 cm IVSd: 0.72 cm LVOT diam: 1.9 cm LVIDs: 3.4 cm LVPWd: 0.66 cm LVOT area: 2.7 cm2 RVDd: 4.0 cm FS: 29.2 % Ao root diam: 2.4 cm LAV(MOD-bp): 61.3 ml LA A4 area: 20.6 cm2 LAV(MOD-bp) Indexed: 38.6 ml/m2 LAV(MOD-sp2): 60.3 ml LAV(MOD-sp4): 54.4 ml LA dimension(2D): 4.0 cm RA A4 area: 17.2 cm2 Time Measurements MV dec time: 0.10 sec Doppler Measurements & Calculations MV E max german: 113.2 cm/sec Lat Peak E' German: 6.6 cm/sec Med Peak E' German: 3.9 cm/sec MV A max german: 59.9 cm/sec E/E' lat: 17.2 E/E' med: 28.8 MV E/A: 1.9 MV V2 max: 114.7 cm/sec Ao V2 max: 194.7 cm/sec TR max german: 372.6 cm/sec MV max P.3 mmHg Ao max P.2 mmHg TR max P.5 mmHg MV V2 mean: 55.9 cm/sec Ao V2 mean: 144.8 cm/sec MV mean P.4 mmHg Ao mean P.2 mmHg MV V2 VTI: 28.7 cm Ao V2 VTI: 45.4 cm ECHO/Echo Complete Interpretation Summary Left ventricular systolic function is normal. The estimated ejection fraction is 55 %. The left atrium is moderately enlarged. The right atrium is mildly enlarged. There is moderate to severe mitral annular calcification. Extension of the mitral annular calcification on the base of the posterior mitr al valve leaflet. Mild diffuse mitral valve thickening. Mild (1+) mitral valve insufficiency. Moderate (2+) eccentric tricuspid valve insufficiency. Mild diffuse aortic valve thickening. Moderate to severe focal aortic valve calcification. Calcified aortic root. Right ventricular systolic pressure estimated to be 64 mmHg. Transmitral diastolic flow velocities suggest diastolic dysfunction (pseudonorm al pattern). Ordering Physician: Colton White Referring Physician: Colton White Performed By: Leia Dietrich, RDCS, RVT
== END ==
PROVIDERS: PCP Family Medicine Geriatric Medicine; Referring Provider Internal Medicine Cardiovascular Disease; Visit Provider Internal Medicine Cardiovascular Disease
DX: R55 Syncope and collapse (principal); I25.10 Atherosclerotic heart disease of native coronary artery without angina pectoris; I10 Essential (primary) hypertension; I48.0 Paroxysmal atrial fibrillation; I25.5 Ischemic cardiomyopathy; E78.5 Hyperlipidemia, unspecified; R00.1 Bradycardia, unspecified; Z95.5 Presence of coronary angioplasty implant and graft
CPT/HCPCS: 93306

== ENCOUNTER 2020-12-21 11:55 | Inpatient (IN) | payer MEDICARE, MEDICAID, SELFPAY ==
[2016-11-30 11:50] VITALS: BMI 16.0
[2020-11-23 15:56] VITALS: BMI 23.6
[2020-12-21] VITALS (21 sets, daily range): BP systolic 76–123; BP diastolic 26–91; PULSE 50–61; RESP 15–22; TEMP 35.7–36.9; O2SAT 90–100; BMI 17.4; BMI 16.5
--- NOTE | 2020-12-21 12:34 | ED.VIS.GI ---
HPI HPI - GI History of Present Illness Chief Complaint: GI Bleed Narrative Narrative: Patient is poor historian due to some dementia. She comes from a senior care. provides most of the history, who is not at the senior care, but states she has been having 4 days of some abdominal pain and diarrhea, today it was black so they sent her. She did have an episode of vomiting on the way here, it apparently looked like coffee-ground emesis, and the patient had a near syncopal episode with this with transient episode of bradycardia that resolved on its own. She is on aspirin and clopidogrel with a history of stents in her heart. [facility] Medical History Adult BMI <19 kg/sq m UDAY (acute kidney injury) Atherosclerosis of [place] coronary artery of [place] heart without angina pectoris Chronic anemia Coronary artery disease Dementia Dementia Dysphagia Edema Elevated troponin Essential (primary) hypertension Essential hypertension HFrEF (heart failure with reduced ejection fraction) Hyperlipidemia Hypertension Hypomagnesemia Hypophosphatemia Hypotension Hypothyroidism Ischemic cardiomyopathy Malnutrition NSTEMI (non-ST elevated myocardial infarction) Paroxysmal atrial fibrillation Pulmonary hypertension Shortness of breath ST elevation (STEMI) myocardial infarction involving left circumflex coronary artery Vitamin D deficiency Home Medications aspirin 81 mg PO DAILY@0800 tab 09/26/16 [Rx Last Taken 02/03/17 81 MG] atorvastatin 20 mg tablet 20 mg PO QHS #90 tab 05/19/17 [Rx Last Taken Unknown] cholecalciferol (vitamin D3) 1,000 unit PO DAILY 07/07/17 [History Last Taken Unknown] clopidogrel 75 mg tablet 75 mg PO DAILY #90 tab 11/23/17 [Rx Last Taken Unknown] magnesium oxide 400 mg PO DAILY cap 02/07/18 [History Last Taken Unknown] lisinopril 10 mg PO DAILY tab 03/07/18 [Rx Last Taken Unknown] pantoprazole 40 mg PO DAILY 04/19/18 [History Last Taken Unknown] amiodarone 100 mg PO DAILY #30 tab 04/20/18 [Rx Last Taken Unknown] lorazepam 0.5 mg tablet 0.5 mg PO BID tab 08/09/18 [History Last Taken Unknown] acetaminophen 325 mg tablet 500 mg PO Q6H PRN PRN tab 04/23/19 [History Last Taken Unknown] donepezil 5 mg tablet 10 mg PO QHS tab 04/23/19 [History Last Taken Unknown] ferrous gluconate 324 mg (37.5 mg iron) tablet 325 mg PO BID tab 01/27/20 [History Last Taken Unknown] magnesium hydroxide 400 mg/5 mL oral suspension 30 ml PO DAILY PRN ml 01/27/20 [History Last Taken Unknown] furosemide 20 mg tablet 40 mg PO BID tab 11/18/20 [History Last Taken Unknown] potassium chloride 20 mEq tablet,extended release 40 meq PO BID tab 11/18/20 [History Last Taken Unknown] hydroxyzine HCl 25 mg tablet 25 mg PO .COMPLEX tab 11/23/20 [History Last Taken Unknown] levothyroxine 150 mcg tablet 150 mcg PO DAILY 11/23/20 [History Last Taken Unknown] metoprolol tartrate 25 mg tablet 25 mg PO BID tab 11/23/20 [History Last Taken Unknown] ondansetron HCl 4 mg tablet 4 mg PO Q6H PRN 11/23/20 [History Last Taken Unknown] Allergy/AdvReac Type Severity Reaction Status Date / Time tuberculin,PPD,multi-puncture AdvReac Unknown Verified 11/23/20 16:04 Family History Father CVA (cerebral vascular accident) Mother CVA (cerebral vascular accident) Surgical History History of cholecystectomy History of left heart catheterization Hx of tonsillectomy Postsurgical percutaneous transluminal coronary angioplasty (PTCA) status Presence of stent in coronary artery Social History (Updated 12/21/20 @ 14:[address] Alexia White MD) housing: senior care Smoking Status: Never smoker alcohol intake: never substance use type: does not use caffeine: Yes Type: coffee and tea what type of physical activity do you participate in: weight training frequency: 3-4 times per week duration: < 15 minutes/day seatbelt use: always do you feel safe at home: Yes ROS ROS ED Constitutional Constitutional ED: Reports malaise; Denies chills or fever(s) Eyes Eyes: Denies change in vision or diplopia ENT ENT ED: Denies rhinorrhea or sore throat Cardiovascular Cardiovascular: Denies chest pain or palpitations Respiratory/Chest Respiratory/Chest: Denies cough or dyspnea Gastrointestinal Gastrointestinal: Reports abdominal pain, diarrhea, melena and vomiting; Denies nausea Genitourinary Genitourinary ED: Denies dysuria or hematuria Musculoskeletal Musculoskeletal: Denies back pain or neck pain Integumentary Denies abscess or rash Neurologic Neurologic: Denies headache(s), paresthesias or weakness Psychiatric Psychiatric: Denies anxiety or suicidal thoughts EXAM Physical Exam Const Vital Signs: 12/21/20 12:01 Temperature 97.9 F Temperature Source Temporal Pulse Rate 55 L Respiratory Rate 15 Blood Pressure 117/58 L Blood Pressure Mean 77 Pulse Ox 100 Oxygen Delivery Method Nasal Cannula Oxygen Flow Rate (L/min) 2 Positive well nourished, well developed and cachectic General Appearance ED: well developed, cachectic and NAD Nutritional Appearance: cachectic HEENT Reports moist mucous membranes normocephalic and atraumatic Eyes PERRL and EOMs intact bilaterally Neck full ROM and supple Resp normal respiratory effort and clear to auscultation bilaterally Cardio regular rate, regular rhythm and no murmurs GI non-distended Auscultation: normoactive bowel sounds Palpation: soft and tender epigastric, LUQ and RUQ; Negative for guarding, rigid or rebound tenderness present Rectal Exam: visual inspection normal and abnormal stool black stool (without gross blood/red); Negative for fecal impaction Back/Spine no CVA tenderness General Back: other FROM Extremity normal to inspection General Extremety ED: Negative for edema, pulses abnormal or tenderness General Extremity: Negative for edema or pulses abnormal Neuro CN's II-XII intact bilaterally and no sensory deficits noted Neuro Narrative: Oriented to person and place, baseline per Sensorium / Orientation: awake and alert Motor Exam: strength 5/5 throughout Skin no rashes or lesions noted and no wounds MDM MDM MDM Narrative Medical decision making narrative: Blood counts look good with hemoglobin 12.9, but BUN is elevated at 120, she is in acute renal failure with a creatinine of 3.38 and more concerning is a potassium of 8.6. Her last creatinine Darcy 2 years ago on our records was 0.81. An EKG was obtained, and it shows changes consistent with hyperkalemia including peaked T waves, prolonged PA interval, and a slightly widened QRS complex. Therefore the hyperkalemic order set was ordered in addition to giving calcium gluconate, and I discussed emergently with the school health assistant on-call, Dr. Dove. Her Hemoccult returned negative, her black stool is likely related to the iron supplementation she appears to be on. She was given prophylactic IV Protonix anyway, the patient is unable to take oral pills which were initially ordered. Holding off on Kayexalate at this time since the patient is a little lethargic. I did discuss with the and son at the bedside of the patient, they agree that the patient is DNR CCA, and that if she needs dialysis in order to keep her heart from stopping, and in order to treat the problem, they are comfortable with her getting it. Lab Data Attestation: I reviewed the patient's lab results. Labs: Laboratory Results - last 24 hr 12/21/20 12/21/20 12/21/20 12:50 12:50 12:50 WBC 7.2 RBC 4.25 Hgb 12.9 Hct 44.9 MCV 105.6 H MCH 30.4 MCHC 28.7 L RDW Std Deviation 59.7 H RDW Coeff of Calixto 15.2 H Plt Count 223 MPV 10.6 Immature Gran % (Auto) 0.400 Neut % (Auto) 80.1 H Lymph % (Auto) 11.2 L Clayton % (Auto) 7.5 Eos % (Auto) 0.1 Baso % (Auto) 0.7 Absolute Neuts (auto) 5.8 Absolute Lymphs (auto) 0.81 L Nucleated RBC % 0 Sodium 144 Potassium 8.6 H* Chloride 117 H Carbon Dioxide 19.0 L Anion Gap 8 BUN 120 H* Creatinine 3.38 H Estim Creat Clear Calc 8.28 Est GFR (MDRD) Af Amer 17 L Est GFR (MDRD) Non-Af 14 L BUN/Creatinine Ratio 35.5 H Glucose 97 Calcium 10.2 H Total Bilirubin 0.40 AST 34 ALT 36 Alkaline Phosphatase 174 H Total Protein 8.9 H Albumin 4.2 Globulin 4.7 H Albumin/Globulin Ratio 0.9 Lipase 530 H Blood Type A NEGATIVE Antibody Screen NEGATIVE EKG Initial EKG: Attestation: I personally reviewed and interpreted this EKG as follows: Interpretation: Sinus Rhythm and No Acute Injury Pattern Comments: Peaked T waves, prolonged PA interval, slightly widened QRS complex Critical Care Time Critical Care Time: Yes Critical care time (excluding procedures): 30-74 minutes (35 min), Including time spent:, Discussing w/Patient &/or Family/Dermatologist Managing Partner, Discussing w/Consultants, Arranging Admission or Transfer and Performing Direct Patient Care at Bedside Discharge Plan Dx/Rx/DC Orders Clinical Impression: Acute renal failure (ARF), Acute hyperkalemia Disposition Disposition: [facility]
[2020-12-21 13:03] LABS: Absolute Lymphocyte Count 0.81 X10^3/uL (0.83-4.51); Absolute Neutrophil Count 5.8 X10^3/uL (2.0-7.7); Basophil# 0.05 X10^3/uL; Basophil% 0.7 % (0-1); Eosinophil# 0.01 X10^3/uL; Eosinophils% 0.1 % (0-5); Hematocrit 44.9 % (37-47); Hemoglobin 12.9 g/dL (12.0-15.0); Lymphocyte # 0.81 X10^3/ul (0.83-4.51); Lymphocyte % 11.2 % (19-41); Mean Corp Hgb Conc 28.7 g/dL (32-36); Mean Corpuscular Hgb 30.4 pg (27.0-32.0); Mean Corpuscular Volume 105.6 fL (81-99); Mean Platelet Vol. 10.6 fl (6.2-12.0); Monocyte# 0.54 X10^3/uL; Monocyte% 7.5 % (0-10); NRBC Flagged by Analyzer 0 % (0-5); Neutrophil # 5.78 X10^3/uL (2.7-7.7); Neutrophil % 80.1 % (47-70); Platelet Count 223 K/mm3 (150-450); RBC Distribution Width CV 15.2 % (11.6-14.6); RBC Distribution Width SD 59.7 fl (35.1-43.9); Red Blood Count 4.25 M/mm3 (4.2-5.4); White Blood Count 7.2 K/mm3 (4.4-11.0)
[2020-12-21] MEDS: Ondansetron 4 MG/2 ML Vial IV ×2 (13:06→19:50)
[2020-12-21 13:23] LABS: ALB/GLOB Ratio 0.9 RATIO (0.9-2.4); AST(SGOT) 34 U/L (15-37); Alanine Aminotransfer ALT/SGPT 36 U/L (13-56); Albumin, Serum 4.2 g/dL (3.2-5.0); Alkaline Phosphatase 174 U/L (45-117); Anion Gap 8 (5-15); BUN 120 mg/dL (7-18); BUN/Creat Ratio 35.5 RATIO (10-20); Calcium,Total 10.2 mg/dL (8.5-10.1); Chloride 117 mmol/L (98-107); Creatinine, Serum 3.38 mg/dL (0.55-1.02); EST Glomerular Filtration Rate 14 mL/min (>60); Est Glom Filt Rate - Afr Amer 17 mL/min (>60); Estimated Creatinine Clearance 8.28 ml/min; Globulin 4.7 g/dL (2.2-4.2); Glucose 97 mg/dL (74-106); Lipase 530 U/L (73-393); Potassium 8.6 mmol/L (3.5-5.1); Protein, Total 8.9 g/dL (6.4-8.2); Sodium Level 144 mmol/L (136-145)
--- NOTE | 2020-12-21 13:36 | EKG12_ITS ---
Test Reason : HIGH K Blood Pressure : / mmHG Vent. Rate : 053 BPM Atrial Rate : 053 BPM P-R Int : 284 ms QRS Dur : 128 ms QT Int : 496 ms P-R-T Axes : 076 -58 072 degrees QTc Int : 465 ms Sinus bradycardia with 1st degree A-V block Left axis deviation Non-specific intra-ventricular conduction block Abnormal ECG Confirmed by WALE ROJO, CARTER ([id number]), editorial manager EVA LEY ([id number]) on 12/23/2020 10:34:11 AM Referred By: MJ Confirmed By:CARTER ECHEVARRIA MD
--- NOTE | 2020-12-21 13:56 | PCM.HP.STD ---
HPI - General General Date of Admission: 12/21/20 Date of Service: 12/21/20 Chief Complaint: Abdominal pain, black dark diarrhea with N/V, near syncope HPI Narrative The patient is an 85 y/o F w/ PMHx: Chronic Anemia, Chronic atrial fibrillation, Hx Syncope, Chronic bradycardia, HTN, HLD, Hypothyroidism, Chronic Diastolic CHF (HFpEF)/Ischemic Cardiomyopathy, CAD s/p PCI (circumflex PCI, disease noted also LAD and RCA), Dementia, Unclear Type with Unclear Behavioral Disturbance history, Chronic Noninfected R Heel Pressure Ulcer, Unclear stage, Hypothyroidism who presents to the [facility] ED on 12/21/20 with history of 4 days of generalized intermittent abdominal pain with black stools although patient on Fe supplementation with nausea and episode of emesis on day of presentation with concern for black appearing emesis with near syncope event per EMS upon their evaluation with gagging in process however improved following with no recurrence. Patient complains of generalized discomfort, not specifically focal, feels a little distended, rating discomfort 4/10, worse with attempted oral intake, more pain with palpation of the epigastric region. Work-up in the ED included T 97.9, heart rate 55, BP 117/55, respiratory rate 15, 100% on 2 L nasal cannula, CBC with WBC 7.2, hemoglobin 12.2, platelet 223 with lymphopenia, CMP with potassium 8.6, chloride 117, carbon dioxide 19, BUN/creatinine 120/3.38, alk phos 174 otherwise not marked, patient with no marked QRS widening with sinus rhythm. [place] profile, lipase mildly elevated at 530, occult blood despite history negative. In the ED patient ministered Protonix 40 mg IV, Zofran, albuterol inhalation x1, calcium gluconate 3 g, dextrose as well as insulin lispro given hyperkalemia. [facility] Medical History Adult BMI <19 kg/sq m UDAY (acute kidney injury) Atherosclerosis of [place] coronary artery of [place] heart without angina pectoris Chronic anemia Coronary artery disease Dementia Dementia Dysphagia Edema Elevated troponin Essential (primary) hypertension Essential hypertension HFrEF (heart failure with reduced ejection fraction) Hyperlipidemia Hypertension Hypomagnesemia Hypophosphatemia Hypotension Hypothyroidism Ischemic cardiomyopathy Malnutrition NSTEMI (non-ST elevated myocardial infarction) Paroxysmal atrial fibrillation Pulmonary hypertension Shortness of breath ST elevation (STEMI) myocardial infarction involving left circumflex coronary artery Vitamin D deficiency Home Medications aspirin 81 mg PO DAILY@0800 tab 09/26/16 [Rx Last Taken 02/03/17 81 MG] atorvastatin 20 mg tablet 20 mg PO QHS #90 tab 05/19/17 [Rx Last Taken Unknown] cholecalciferol (vitamin D3) 1,000 unit PO DAILY 07/07/17 [History Last Taken Unknown] clopidogrel 75 mg tablet 75 mg PO DAILY #90 tab 11/23/17 [Rx Last Taken Unknown] magnesium oxide 400 mg PO DAILY cap 02/07/18 [History Last Taken Unknown] lisinopril 10 mg PO DAILY tab 03/07/18 [Rx Last Taken Unknown] pantoprazole 40 mg PO DAILY 04/19/18 [History Last Taken Unknown] amiodarone 100 mg PO DAILY #30 tab 04/20/18 [Rx Last Taken Unknown] lorazepam 0.5 mg tablet 0.5 mg PO BID tab 08/09/18 [History Last Taken Unknown] acetaminophen 325 mg tablet 500 mg PO Q6H PRN PRN tab 04/23/19 [History Last Taken Unknown] donepezil 5 mg tablet 10 mg PO QHS tab 04/23/19 [History Last Taken Unknown] ferrous gluconate 324 mg (37.5 mg iron) tablet 325 mg PO BID tab 01/27/20 [History Last Taken Unknown] magnesium hydroxide 400 mg/5 mL oral suspension 30 ml PO DAILY PRN ml 01/27/20 [History Last Taken Unknown] furosemide 20 mg tablet 40 mg PO BID tab 11/18/20 [History Last Taken Unknown] potassium chloride 20 mEq tablet,extended release 40 meq PO BID tab 11/18/20 [History Last Taken Unknown] hydroxyzine HCl 25 mg tablet 25 mg PO .COMPLEX tab 11/23/20 [History Last Taken Unknown] levothyroxine 150 mcg tablet 150 mcg PO DAILY 11/23/20 [History Last Taken Unknown] metoprolol tartrate 25 mg tablet 25 mg PO BID tab 11/23/20 [History Last Taken Unknown] ondansetron HCl 4 mg tablet 4 mg PO Q6H PRN 11/23/20 [History Last Taken Unknown] Allergy/AdvReac Type Severity Reaction Status Date / Time tuberculin,PPD,multi-puncture AdvReac Unknown Verified 11/23/20 16:04 Family History Father CVA (cerebral vascular accident) Mother CVA (cerebral vascular accident) Surgical History History of cholecystectomy History of left heart catheterization Hx of tonsillectomy Postsurgical percutaneous transluminal coronary angioplasty (PTCA) status Presence of stent in coronary artery Social History (Updated 12/21/20 @ 14:[address] Alexia White MD) housing: [facility] Smoking Status: Never smoker alcohol intake: never substance use type: does not use caffeine: Yes Type: coffee and tea what type of physical activity do you participate in: weight training frequency: 3-4 times per week duration: < 15 minutes/day seatbelt use: always do you feel safe at home: Yes ROS ROS Narrative Admission Review of Systems: CONSTITUTIONAL: No weight loss, fever, chills, + weakness or fatigue. HEENT: Eyes: No visual loss, blurred vision, double vision or yellow sclerae. Ears, Nose, Throat: No hearing loss, sneezing, congestion, runny nose or sore throat. SKIN: No rash or itching, lesions, wounds. CARDIOVASCULAR: + Near syncope, No chest pain, chest pressure or chest discomfort, palpitations, edema, orthopnea. RESPIRATORY: No shortness of breath, cough or sputum, wheezing, hemoptysis. GASTROINTESTINAL: + anorexia, nausea, vomiting, abdominal pain, dark black stools, ? dark black emesis. No diarrhea or constipation. GENITOURINARY: No dysuria, frequency, urgency or retention. NEUROLOGICAL: + Near syncope. No headache, dizziness, syncope, paralysis, ataxia, numbness or tingling in the extremities, focal weakness, change in bowel or bladder control, seizure. MUSCULOSKELETAL: + muscle, back pain, joint pain or stiffness. HEMATOLOGIC: + anemia, bleeding or bruising. LYMPHATICS: No enlarged nodes. No history of splenectomy. PSYCHIATRIC: + history of depression or anxiety. ENDOCRINOLOGIC: No reports of sweating, cold or heat intolerance. No polyuria or polydipsia. ALLERGIES: No history of asthma, hives, eczema or rhinitis. Vital Signs Vital Signs Vital Signs: 12/21/20 12:01 Temperature 97.9 F Temperature Source Temporal Pulse Rate 55 L Respiratory Rate 15 Blood Pressure 117/58 L Blood Pressure Mean 77 Pulse Ox 100 Oxygen Delivery Method Nasal Cannula Oxygen Flow Rate (L/min) 2 Weight Weight: 95 lb Body Mass Index (BMI) 17.4 Physical Exam Narrative Physical Examination: General: Awake, alert, oriented to self, place, family present, underlying dementia, remains cooperative, fatigued appearing, seated upright in the ED bed, no acute distress. Skin: Normal color, normal turgor, no icterus, no cyanosis except occasional staged ecchymoses. HEENT: AT/NC, EOMI, PERRLA, mild bilateral scleral injection, dry MM with oral thrush, cracked tongue, no carotid bruits or JVD noted. Lungs: Diminished, greater bases, no evidence of any distress, moderate effort, no rales, ronchi or wheezing. Heart: Bradycardic with regular rhythm; no gallop, rub audible. Abdomen: Soft, cachectic, generalized discomfort although worse to palpation of the epigastric region, mildly distended, hyperactive bowel sounds, no obvious HSM however discomfort makes examination difficult. Extremities: No cyanosis, clubbing, or edema. Neurological: Patient awake, alert, oriented as noted, cognitive function reduced baseline with underlying dementia, do suspect baseline intact; pupils equally reactive to light and accommodation, cranial nerves II-XII grossly normal, moving all 4 extremities, no focal deficits, strength severely global decreased secondary to acute presentation, complicated by underlying comorbidities. Psychiatric: Affect appears fatigued, no acute evidence of depressive or anxiety feelings. Results Lab / Micro Data Result Diagrams: 12/21/20 12:50 12/21/20 12:50 Labs: Laboratory Results - last 24 hr 12/21/20 12:50: Sodium 144, Potassium 8.6 H*, Chloride 117 H, Carbon Dioxide 19.0 L, Anion Gap 8, BUN 120 H*, Creatinine 3.38 H, Estim Creat Clear Calc 8.28, Est GFR (MDRD) Af Amer 17 L, Est GFR (MDRD) Non-Af 14 L, BUN/Creatinine Ratio 35.5 H, Glucose 97, Calcium 10.2 H, Total Bilirubin 0.40, AST 34, ALT 36, Alkaline Phosphatase 174 H, Total Protein 8.9 H, Albumin 4.2, Globulin 4.7 H, Albumin/Globulin Ratio 0.9, Lipase 530 H 12/21/20 12:50: Blood Type A NEGATIVE, Antibody Screen NEGATIVE 12/21/20 12:50: WBC 7.2, RBC 4.25, Hgb 12.9, Hct 44.9, MCV 105.6 H, MCH 30.4, MCHC 28.7 L, RDW Std Deviation 59.7 H, RDW Coeff of [place] 15.2 H, Plt Count 223, MPV 10.6, Immature Gran % (Auto) 0.400, Neut % (Auto) 80.1 H, Lymph % (Auto) 11.2 L, [place] % (Auto) 7.5, Eos % (Auto) 0.1, Baso % (Auto) 0.7, Absolute Neuts (auto) 5.8, Absolute Lymphs (auto) 0.81 L, Nucleated RBC % 0 Micro: Microbiology 12/21/20 12:30 Stool Stool Occult Blood (ELAYNE) - Final Assessment & Plan Assessment/Plan (1) Acute hyperkalemia: (2) Acute renal failure (ARF): QUALIFIERS: Acute renal failure type: unspecified Qualified Code(s): N17.9 - Acute kidney failure, unspecified PLAN: The patient is an 85 y/o F w/ PMHx: Chronic Anemia, Chronic atrial fibrillation, Hx Syncope, Chronic bradycardia, HTN, HLD, Hypothyroidism, Chronic Diastolic CHF (HFpEF)/Ischemic Cardiomyopathy, CAD s/p PCI (circumflex PCI, disease noted also LAD and RCA), Dementia, Unclear Type with Unclear Behavioral Disturbance history, Chronic Noninfected R Heel Pressure Ulcer, Unclear stage, Hypothyroidism who presents to the [facility] ED on 12/21/20 with history of 4 days of generalized intermittent abdominal pain with black stools although patient on Fe supplementation with nausea and episode of emesis on day of presentation with concern for black appearing emesis. 1. Questionable Acute GI Bleed with underlying Chronic anemia, normocytic history: Hgb stable, lower suspicion with noted negative guiac, admission Hgb 12.2, will admit to ICU given notable electrolyte disturbances, maintain on IVFs, obtain serial H+H q 4 hours, T+S already obtained per ED, maintain on IV PPI. If Hgb remains stable would plan to resume asa, plavix given history and allow diet. 2. Acute kidney injury: Likely associated with #1, admission BUN/Cr 120/3.38, prior baseline creatinine noted to be 0.8-1.0. Will judiciously hydrate, hold nephrotoxic medications, trend CMP, obtain renal ultrasound and FeNa as well as nephrology consultation given significant associated hyperkalemia as noted. 3. Hyperkalemia: Admission potassium 8.6, not hemolyzed per lab report, in the ED patient administered albuterol inhalation x1, calcium gluconate 3 g, dextrose as well as insulin lispro given hyperkalemia, will additionally administer Kayexalate given significant hyperkalemia, trend closely BMP every 2 hours to continue to closely assure reduction and further medication administration planning, deferring any consideration for dialysis per discussion with family and patient also discussed with nephrology, plan as noted ICU admission given severity of level, nephrology consulted and following. 4. Acute mild pancreatitis w/ abdominal pain, N/V: Admission lipase very minimally elevated 530, maintain on IVFs, NPO, PPI, IV/po pain control, trend lipase, s/p cholecystectomy, will obtain FLP, no EtOH usage. 5. Chronic atrial fibrillation: We will continue patient amiodarone, holding aspirin and Plavix therapy given presentation as noted. 6. CAD: Patient s/p PTCA/DONNELL proximal LCx September 2016, PTCA/DONNELL to PDA and PTCA of PLVB November 17, 2016; PCI with PTCA to ostial diagonal and PTCA/DONNELL to proximal LAD November 29, 2016, holding asa, plavix given noted concerns above, continue BB with hold parameters and statin therapy. Patient with recent ECHO. Noted near syncope upon presentation, maintain on telemetry, cycle cardiac enzymes. 7. Chronic Diastolic CHF (HFpEF)/Ischemic Cardiomyopathy: 12/03/20 ECHO w/ normal LV systolic function, EF 55%, moderately enlarged LA, mildly enlarged RA, mild MVI, moderate TVI, moderate to severe focal AV calcification with calcified aortic root, RVSP 64 mmHg, transmitral diastolic flow velocity suggestive of diastolic dysfunction. Will holding asa, plavix given noted concerns above, continue BB with hold parameters and statin therapy and additionally holding lasix/lisinopril given UDAY/hyperkalemia as noted also. 8. Dementia, Unclear Type with Unclear Behavioral Disturbance history: Will continue home donepzil regimen, maintain on fall precautions, therapies and CM consulted. 9. Hypertension: Continue home regimen including metoprolol with hold parameters given presentation, holding nephrotoxic regimen otherwise given as noted #1, #2, #3, PRN hydralazine. 10. Hyperlipidemia: Continue home statin regimen. 11. Hypothyroidism: Continue home synthroid regimen. 12. Severe protein calorie malnutrition: Evidenced by reduced BMI, obvious fat and muscle loss, nutrition consulted. 13. Oral Thrush: Will maintain on nystatin SS. 14. DVT Prophylaxis: SCDs, holding chemoprophylaxis given presentation as noted. 15. CODE status: Patient HCPOA is her son who is present, also present and living will is in place. Discussed CODE status at length including difference between FULL code, DNR-CCA and DNR-CC status. Following discussions about the differences in these status, requested DNR-CCA, no intubation status. Also, liane discussed and family adamant about no aggressive procedures including dialysis or central lines. Advanced Care Planning Face to Face Time: 16 minutes. Charges/Coding Visit Charges Inpatient E&M: 89281 Init Hosp L3 Procedures Hospitalists Procedures: 73046 Advncd Care Plan 30 Min
[2020-12-21] MEDS: Dextrose 50%-Water 25 GM/50 ML DISP.SYRIN IV (14:33)
[2020-12-21] MEDS: Insulin Lispro 10 UNIT in Syringe 0 ML 6 UNIT IV (14:33)
[2020-12-21 14:46] LABS: Magnesium 3.5 mg/dL (1.6-2.6); Phosphorus 6.7 mg/dL (2.5-4.9)
--- NOTE | 2020-12-21 15:31 | US_ITS ---
STUDY: RENAL ULTRASOUND - COMPLETE REASON FOR EXAM: Female, 85 years old. UDAY TECHNIQUE: Ultrasound evaluation of the kidneys was performed with real-time and static vallecillo-scale imaging. COMPARISON: None. FINDINGS: RIGHT KIDNEY: with moderate renal atrophy. The right kidney measures 7.2 cm x 3 cm x 3.2 cm. There is diffuse thinning of the renal cortex. The renal cortex measures 8.7 cm. There is no right renal mass or cyst. There are no right renal calculi. There is no right hydronephrosis. DISTAL RIGHT URETER: There is non-visualization of the distal right ureter. There is no demonstrated right ureterovesical junction calculus. There is no demonstrated right ureteral jet. LEFT KIDNEY: with mild renal atrophy. The left kidney measures 8.7 cm x 4 cm x 4.2 cm. There is a normal cortex of the left kidney. The renal cortex measures 1.4 cm. There is no left renal mass or cyst. There are no left renal calculi. There is no left hydronephrosis. DISTAL LEFT URETER: There is non-visualization of the distal left ureter. There is no demonstrated left ureterovesical junction calculus. There is no demonstrated left ureteral jet. BLADDER: The bladder was not adequately distended for assessment. US/Kidney and Bladder IMPRESSION: Bilateral renal atrophy is more prominent on the right side. Electronically Signed: Deshawn Lopez MD at 9:57 EDT , Service support ,
[2020-12-21 16:14] LABS: Hematocrit 37.1 % (37-47); Hemoglobin 10.7 g/dL (12.0-15.0)
[2020-12-21 16:19] LABS: Anion Gap 8 (5-15); BUN 119 mg/dL (7-18); BUN/Creat Ratio 35.5 RATIO (10-20); Calcium,Total 10.7 mg/dL (8.5-10.1); Chloride 121 mmol/L (98-107); Creatinine, Serum 3.35 mg/dL (0.55-1.02); EST Glomerular Filtration Rate 14 mL/min (>60); Est Glom Filt Rate - Afr Amer 17 mL/min (>60); Estimated Creatinine Clearance 7.91 ml/min; Glucose 175 mg/dL (74-106); Sodium Level 147 mmol/L (136-145)
[2020-12-21] MEDS: 0.9% Normal Saline 1,000 ML 100 ML IV (16:23)
[2020-12-21 16:27] LABS: Troponin-I HS 97.1 pg/mL (3.0-53.7)
[2020-12-21] MEDS: Aspirin 300 MG Suppository RC (17:35)
[2020-12-21] MEDS: Sodium Polystyrene Sulfonate 15 GM/60 ML UDC 30 GM RC (17:43)
[2020-12-21] MEDS: Menthol/Lanolin/Calamine/Znox 113 GM Tube 1 APPLIC TOPICAL ×2 (17:44→20:50)
[2020-12-21 19:10] LABS: BUN 119 mg/dL (7-18); Calcium,Total 10.7 mg/dL (8.5-10.1); Chloride 121 mmol/L (98-107); Creatinine, Serum 3.39 mg/dL (0.55-1.02); Estimated Creatinine Clearance 7.81 ml/min; Glucose 109 mg/dL (74-106); Potassium 7.3 mmol/L (3.5-5.1); Sodium Level 148 mmol/L (136-145); Troponin-I HS 100.1 pg/mL (3.0-53.7)
[2020-12-21] MEDS: HEPARIN/D5w 25,000 UNITS 25,000 UNITS/250 ML IV.SOLN. 7 UNITS IV (19:11)
[2020-12-21] MEDS: Heparin Injection (Vial) 5,000 UNIT/ML VIAL 3500 UNIT IV (19:13)
[2020-12-21 19:22] LABS: International Normalized Ratio 1.1; Partial Thromboplast Time 29.2 Seconds (24.1-36.2)
[2020-12-21 19:30] LABS: Anion Gap 8 (5-15); BUN/Creat Ratio 35.1 RATIO (10-20); EST Glomerular Filtration Rate 14 mL/min (>60); Est Glom Filt Rate - Afr Amer 17 mL/min (>60)
[2020-12-21] MEDS: 0.9% Saline Lock 10 ML Syringe IV (19:50)
--- NOTE | 2020-12-21 20:40 | CON.PCM.RE_ITS ---
Assessment & Plan Assessment/Plan (1) UDAY (acute kidney injury): PLAN: liKeLy dUe to diuretics, ACEI, poor oral intake and access to water with dysphagia. Gentle hydration, hold diuretics. Poor dialysis candidate due to multiple comorbid conditions, dementia, FTT in ECF long-term care. Pt DNR CCA, agree with conservative mgmt. DW hospitalist, pt family at bedside in ED (2) Hyperkalemia: PLAN: medical mgmt per pt family. Pt DNR CCA (3) Pulmonary hypertension: PLAN: on chronic diuretics, no edema on exam (4) Dementia: (5) Chronic anemia: (6) Senile debility: (7) FTT (failure to thrive) in adult: HPI Consult Data Date of Consult: 12/21/20 HPI Narrative HPI Narrative: NORM MOORE, is a 85 y/o cachectic, frail F who presents to [facility] ER from [facility] [address] past 4 days with abdominal discomfort. HER POTASSIUM WAS ELEVATED AT 8.6 with wide QRS complex, UDAY with creatinine 3.39 WITH BUN 120. LIPASE ELEVATED AT 530. FAMILY AT BEDSIDE. PT UNABLE TO PROVIDE HISTORY. SHE HAS UNDERLYING DEMENTIA, HAS TROUBLE WITH SWALLOWING. SHE IS ON ASPIRATION RISK AT ECF. SHE HAS BEEN ON LASIX POTASSIUM AND LISINOPRIL AT ECF FOR HISTORY OF PULMONARY HYPERTENSION. Pt with limited access to water at ECF per pt son. SHE IS MORE LETHARGIC AND WEAKER than HER BASELINE. SHE IS DNR CCA AND FAMILY EXPRESSED NO DIALYSIS AND WANT MEDICAL MGMT. THEY WANT TO KEEP PT COMFORTABLE WITHOUT AGGRESSIVE INTERVENTION. In the ED patient RECEIVED Protonix 40 mg IV, Zofran, albuterol inhalation x1, calcium gluconate 3 g, dextrose as well as insulin FOR hyperkalemia. [facility] Medical History Adult BMI <19 kg/sq m UDAY (acute kidney injury) Atherosclerosis of [place] coronary artery of [place] heart without angina pectoris Chronic anemia Coronary artery disease Dementia Dementia Dysphagia Edema Elevated troponin Essential (primary) hypertension Essential hypertension HFrEF (heart failure with reduced ejection fraction) Hyperlipidemia Hypertension Hypomagnesemia Hypophosphatemia Hypotension Hypothyroidism Ischemic cardiomyopathy Malnutrition NSTEMI (non-ST elevated myocardial infarction) Paroxysmal atrial fibrillation Pulmonary hypertension Shortness of breath ST elevation (STEMI) myocardial infarction involving left circumflex coronary artery Vitamin D deficiency Home Medications atorvastatin 20 mg tablet 20 mg PO QHS #90 tab 05/19/17 [Rx Last Taken 12/20/20] cholecalciferol (vitamin D3) 1,000 unit PO DAILY 07/07/17 [History Last Taken 12/21/20] clopidogrel 75 mg tablet 75 mg PO DAILY #90 tab 11/23/17 [Rx Last Taken 02/02] pantoprazole 40 mg PO DAILY 04/19/18 [History Last Taken 12/21/20] lorazepam 0.5 mg tablet 0.5 mg PO BID tab 08/09/18 [History Last Taken 12/21/20] ferrous gluconate 324 mg (37.5 mg iron) tablet 324 mg PO BID tab 01/27/20 [History Last Taken 12/21/20] potassium chloride 20 mEq tablet,extended release 40 meq PO BID tab 11/18/20 [History Last Taken 12/21/20] hydroxyzine HCl 25 mg tablet 25 mg PO DAILY tab 11/23/20 [History Last Taken 12/21/20] levothyroxine 150 mcg tablet 150 mcg PO DAILY 11/23/20 [History Last Taken 12/21/20] metoprolol tartrate 25 mg tablet 25 mg PO BID tab 11/23/20 [History Last Taken 12/21/20] acetaminophen [Tylenol Extra Strength] 1,000 mg PO BID 12/21/20 [History Last Taken 12/21/20] amiodarone 100 mg PO DAILY 12/21/20 [History Last Taken 12/21/20] aspirin 81 mg PO DAILY@0800 12/21/20 [History Last Taken 12/21/20] donepezil 10 mg PO QHS 12/21/20 [History Last Taken 12/20/20] escitalopram oxalate 5 mg PO DAILY 12/21/20 [History Last Taken 12/21/20] food supplemt, lactose-reduced [Boost Breeze] 120 ml PO ACHS 12/21/20 [History Last Taken 12/21/20] furosemide 40 mg PO BID 12/21/20 [History Last Taken 12/21/20] hydroxyzine HCl 50 mg PO QHS 12/21/20 [History Last Taken 12/20/20] lisinopril 10 mg PO DAILY 12/21/20 [History Last Taken 12/21/20] magnesium oxide 400 mg PO DAILY 12/21/20 [History Last Taken 12/21/20] Allergy/AdvReac Type Severity Reaction Status Date / Time tuberculin,PPD,multi-puncture AdvReac Unknown Verified 11/23/20 16:04 Family History Father CVA (cerebral vascular accident) Mother CVA (cerebral vascular accident) Surgical History History of cholecystectomy History of left heart catheterization Hx of tonsillectomy Postsurgical percutaneous transluminal coronary angioplasty (PTCA) status Presence of stent in coronary artery Social History (Updated 12/21/20 @ 14:[address] Alexia White MD) housing: [facility] Smoking Status: Never smoker alcohol intake: never substance use type: does not use caffeine: Yes Type: coffee and tea what type of physical activity do you participate in: weight training frequency: 3-4 times per week duration: < 15 minutes/day seatbelt use: always do you feel safe at home: Yes ROS ROS Narrative HISTORY OBTAINED FROM FAMILY AT BEDSIDE Review of Systems ROS Unobtainable: due to encephalopathy Constitutional Constitutional: Reports weakness Cardiovascular Cardiovascular: Denies chest pain Respiratory/Chest Respiratory/Chest: Denies shortness of breath at rest Gastrointestinal Gastrointestinal: Reports abdominal pain, anorexia, diarrhea, nausea, vomiting and other Details: WEAK SWALLOW, ON PUREED DIET ; Denies hematemesis, hematochezia or melena Genitourinary Genitourinary: Reports other Details: POOR URINE OUTPUT Musculoskeletal Musculoskeletal: Reports other Details: WEAK, WHEELCHAIR BOUND Psychiatric Psychiatric: Reports confusion and other Details: DEMENTIA Hematologic/Lymphatic Hematologic/Lymphatic: Reports anemia Physical Exam Const Constitutional Narrative: POOR HISTORIAN, UNDERLYING DEMENTIA General Appearance: frail Nutritional Appearance: cachectic and thin Resp clear to auscultation bilaterally Cardio Cardio Narrative: NARROW QRS COMPLEX, IRREGULAR RHYTHM, Rate: bradycardia Extremity no clubbing, cyanosis or edema Extremity Narrative: GEN WEAKNESS Neuro Neuro Narrative: ARROUSABLE, POOR HISTORIAN, GEN WEAKNESS, DEBILITATED Sensorium / Orientation: lethargic Psych Psych Narrative: DEMENTIA Memory / Cognition: cognition impaired Medical Records Data Medical Nutrition Assessment Dietitian: Nutrition Therapy Diagnosis Start: 12/21/20 16:30 Freq: Status: Active Protocol: Document 12/21/20 16:48 [facility] (Rec: 12/21/20 16:48 [facility] [id number]) Nutrition Malnutrition Evidence of Malnutrition Exists Yes Malnutrition (severe): Chronic Evidenced By Suboptimal Energy Intake ( Moderate),Weight Loss (Severe) ,Physical Changes (Severe) Clinical Problem Altered Nutrient-Related Laboratory Values Etiology related to UDAY, hyperkalemia and renal dysfunction Signs/Symptoms as evidenced by K 8.6, BUN 120 , Cr 3.38, phos 6.7, mag 3.5 Status Active Problem Chronic Disease or Condition Related Malnutrition Etiology related to hx dementia, dysphagia Signs/Symptoms as evidenced by 28.1% wt loss x 1 month, suspected inadequate 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 Status Active Problem Recommendation Dietitian Recommendations/Changes As medically able, rec diet as tolerated to liberal Regular diet - consistency per KISS MACHINE OPERATOR - [facility] Monitor for signs/symptoms of refeeding syndrome as po intake resumes. Lab / Micro Data Result Diagrams: 12/21/20 15:45 12/21/20 17:50 Labs: Laboratory Results - last 24 hr 12/21/20 12:50: Sodium 144, Potassium 8.6 H*, Chloride 117 H, Carbon Dioxide 19.0 L, Anion Gap 8, BUN 120 H*, Creatinine 3.38 H, Estim Creat Clear Calc 8.28, Est GFR (MDRD) Af Amer 17 L, Est GFR (MDRD) Non-Af 14 L, BUN/Creatinine Ratio 35.5 H, Glucose 97, Calcium 10.2 H, Total Bilirubin 0.40, AST 34, ALT 36, Alkaline Phosphatase 174 H, Total Protein 8.9 H, Albumin 4.2, Globulin 4.7 H, Albumin/Globulin Ratio 0.9, Lipase 530 H 12/21/20 12:50: Blood Type A NEGATIVE, Antibody Screen NEGATIVE 12/21/20 12:50: WBC 7.2, RBC 4.25, Hgb 12.9, Hct 44.9, MCV 105.6 H, MCH 30.4, MCHC 28.7 L, RDW Std Deviation 59.7 H, RDW Coeff of Calixto 15.2 H, Plt Count 223, MPV 10.6, Immature Gran % (Auto) 0.400, Neut % (Auto) 80.1 H, Lymph % (Auto) 11.2 L, [place] % (Auto) 7.5, Eos % (Auto) 0.1, Baso % (Auto) 0.7, Absolute Neuts (auto) 5.8, Absolute Lymphs (auto) 0.81 L, Nucleated RBC % 0 12/21/20 12:50: Phosphorus 6.7 H, Magnesium 3.5 H 12/21/20 15:45: Sodium 147 H, Potassium 7.0 H*, Chloride 121 H, Carbon Dioxide 18.0 L, Anion Gap 8, BUN 119 H*, Creatinine 3.35 H, Estim Creat Clear Calc 7.91, Est GFR (MDRD) Af Amer 17 L, Est GFR (MDRD) Non-Af 14 L, BUN/Creatinine Ratio 35.5 H, Glucose 175 H, Calcium 10.7 H 12/21/20 15:45: Hgb 10.7 L, Hct 37.1 12/21/20 15:45: Troponin I High Sens 97.1 H* 12/21/20 17:50: Sodium 148 H, Potassium 7.3 H*, Chloride 121 H, Carbon Dioxide 19.0 L, Anion Gap 8, BUN 119 H*, Creatinine 3.39 H, Estim Creat Clear Calc 7.81, Est GFR (MDRD) Af Amer 17 L, Est GFR (MDRD) Non-Af 14 L, BUN/Creatinine Ratio 35.1 H, Glucose 109 H, Calcium 10.7 H, Troponin I High Sens 100.1 H* 12/21/20 17:50: PT 14.0, INR 1.1, APTT 29.2 Micro: Microbiology 12/21/20 12:30 Stool Stool Occult Blood (ELAYNE) - Final
[2020-12-21] MEDS: 0.9% Normal Saline 250 ML IV.SOLN. 500 ML IV (20:49)
--- NOTE | 2020-12-21 21:10 | NURSING ---
Pt's son/POA Devang called in for updates and asked if Mom is holding her own, right? Devang informed that pt is not producing any urine, is needing higher amts of oxygen flow and she cannot maintain an appropriate BP. Devang informed that pt's current presentation seemed to be more of an end of life situation. Devang responded,that was what we were thinking. I'll let Dad know. If she goes, just let her go.
[2020-12-21 21:31] LABS: Hematocrit 30.2 % (37-47); Hemoglobin 8.5 g/dL (12.0-15.0)
[2020-12-21 22:14] LABS: Troponin-I HS 95.4 pg/mL (3.0-53.7)
--- NOTE | 2020-12-21 22:35 | NURSING ---
Called pt's son/POA Devang Fernandez to verify family's wishes regarding the care of Gladis. Devang states that checking her labwork is OK to cont with, no central lines, no dialysis/lines, no aggressive medications to boost her BP. Discussed w/Devang the possibility of needing to transfuse blood and questioned if that was ok and Devang replied yes, consent for blood transfusion obtained over the phone and verified by LYLE Benito.
[2020-12-22] VITALS (23 sets, daily range): BP systolic 84–116; BP diastolic 29–65; PULSE 55–76; RESP 16–24; TEMP 37–37.5; O2SAT 66–100
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
[2020-12-22 00:53] LABS: Hematocrit 33.3 % (37-47); Hemoglobin 9.4 g/dL (12.0-15.0)
[2020-12-22] MEDS: 0.9% Normal Saline 1,000 ML 100 ML IV (02:23)
[2020-12-22 03:49] LABS: Urine Sodium 23 mmol/L (Not Establ.)
[2020-12-22] MEDS: 0.9% Saline Lock 10 ML Syringe IV (04:55)
[2020-12-22 05:02] LABS: Absolute Lymphocyte Count 0.79 X10^3/uL (0.83-4.51); Absolute Neutrophil Count 6.5 X10^3/uL (2.0-7.7); Basophil# 0.03 X10^3/uL; Basophil% 0.4 % (0-1); Eosinophil# 0.01 X10^3/uL; Eosinophils% 0.1 % (0-5); Hematocrit 33.6 % (37-47); Hemoglobin 9.7 g/dL (12.0-15.0); Lymphocyte # 0.79 X10^3/ul (0.83-4.51); Mean Corp Hgb Conc 28.9 g/dL (32-36); Mean Corpuscular Hgb 30.7 pg (27.0-32.0); Mean Corpuscular Volume 106.3 fL (81-99); Mean Platelet Vol. 9.8 fl (6.2-12.0); Monocyte# 0.57 X10^3/uL; Monocyte% 7.2 % (0-10); NRBC Flagged by Analyzer 0 % (0-5); Neutrophil # 6.48 X10^3/uL (2.7-7.7); Neutrophil % 81.8 % (47-70); Platelet Count 163 K/mm3 (150-450); RBC Distribution Width CV 15.3 % (11.6-14.6); RBC Distribution Width SD 60.9 fl (35.1-43.9); Red Blood Count 3.16 M/mm3 (4.2-5.4); White Blood Count 7.9 K/mm3 (4.4-11.0)
[2020-12-22 05:33] LABS: ALB/GLOB Ratio 1.1 RATIO (0.9-2.4); AST(SGOT) 22 U/L (15-37); Alanine Aminotransfer ALT/SGPT 27 U/L (13-56); Albumin, Serum 3.3 g/dL (3.2-5.0); Alkaline Phosphatase 128 U/L (45-117); Anion Gap 7 (5-15); BUN 102 mg/dL (7-18); BUN/Creat Ratio 33.2 RATIO (10-20); Calcium,Total 9.1 mg/dL (8.5-10.1); Chloride 126 mmol/L (98-107); Cholesterol 149 mg/dL (200); Creatinine, Serum 3.07 mg/dL (0.55-1.02); EST Glomerular Filtration Rate 15 mL/min (>60); Est Glom Filt Rate - Afr Amer 19 mL/min (>60); Estimated Creatinine Clearance 8.63 ml/min; Globulin 3.1 g/dL (2.2-4.2); Glucose 83 mg/dL (74-106); High Density Lipoprotein 51 mg/dL; Lipase 347 U/L (73-393); Potassium 7.6 mmol/L (3.5-5.1); Protein, Total 6.4 g/dL (6.4-8.2); Sodium Level 150 mmol/L (136-145); Triglycerides 93 mg/dL; Very Low Density Lipoprotein 19 mg/dL (5-40)
--- NOTE | 2020-12-22 05:36 | CON.PCM.CC_ITS ---
Assessment & Plan Assessment/Plan (1) Hyperkalemia: (2) Acute renal failure (ARF): QUALIFIERS: Acute renal failure type: unspecified Qualified Code(s): N17.9 - Acute kidney failure, unspecified PLAN: RECOMMENDATIONS: 1. Discontinue normal saline and transition to D5W, given rising sodium and chloride. 2. Medical management of hyperkalemia per nephrology recommendations. 3. Continue PPI. 4. Goals of care discussion with the patient's family. The patient seems most appropriate for hospice care services. 5. The patient does not need ICU level of care, given that the family is not wishing to pursue aggressive measures including central line placement or dialysis. IMPRESSIONS: 1. Acute kidney injury/hyperkalemia Likely prerenal in etiology in the setting of inadequate p.o. intake and GI losses. Although attempts were made to manage the patient's hyperkalemia medically, her potassium remains elevated this morning. Her creatinine has shown some improvement in light of volume expansion. However, her sodium and chloride levels are rising. Therefore, her normal saline will be stopped and she will be placed on D5W. Recommend ongoing medical management of hyperkalemia per nephrology recommendations, as the patient's family does not wish for any invasive procedures such as temporary HD line placement or hemodialysis to be considered. 2. Abdominal discomfort/nausea/vomiting Potentially related to mild pancreatitis versus gastroenteritis. Plan to continue supportive measures with IV fluids. Patient to remain n.p.o. for now. Continue antiemetics as needed. 3. Chronic atrial fibrillation/coronary artery disease/chronic heart failure with preserved ejection fraction Continue baseline outpatient cardiac regimen. 4. Advanced age/severe protein calorie malnutrition/dementia/deconditioning/hypothyroidism/hypertension/hyperlipidemia Complicates care, management, recovery and prognosis. Given the patient's overall clinical state and overall quality of life, hospice care services seems most appropriate. This note was generated with [employer] dictation software. It may contain incorrect words, spelling, and punctuation that were not noted in checking the note before signing. HPI Consult Data Date of Consult: 12/22/20 HPI Narrative Reason for Consultation: Hyperkalemia, acute kidney injury HPI Narrative: The patient is an 85-year-old female, with a history as outlined below, who presented to the emergency department on December 21 via EMS with several days of abdominal discomfort, nausea, vomiting and diarrhea. The patient has dementia and is apparently mostly catatonic at her baseline. According to documentation received from the patient's shelter facility, she was previously a DNR CC CODE STATUS, which was then transitioned to DNR CCA without intubation on arrival to the ED. On presentation to the emergency department, the patient was noted to be afebrile and hemodynamically stable. She was bradycardic with heart rates in the 50s. Initial laboratory evaluation revealed no evidence of a leukocytosis. Chemistry profile was notable for a sodium of 144, potassium of 8.6, chloride of 117, bicarbonate of 19, BUN of 120 and creatinine of 3.38. Phosphorus was elevated at 6.7 with a magnesium of 3.5. Troponin was elevated at 97. Lipase was elevated at 530. The patient received supplemental IV fluid hydration, along with insulin and calcium gluconate. She was subsequently admitted to the medical intensive care unit for further management. [facility] Medical History Adult BMI <19 kg/sq m UDAY (acute kidney injury) Atherosclerosis of [place] coronary artery of [place] heart without angina pectoris Chronic anemia Coronary artery disease Dementia Dementia Dysphagia Edema Elevated troponin Essential (primary) hypertension Essential hypertension HFrEF (heart failure with reduced ejection fraction) Hyperlipidemia Hypertension Hypomagnesemia Hypophosphatemia Hypotension Hypothyroidism Ischemic cardiomyopathy Malnutrition NSTEMI (non-ST elevated myocardial infarction) Paroxysmal atrial fibrillation Pulmonary hypertension Shortness of breath ST elevation (STEMI) myocardial infarction involving left circumflex coronary artery Vitamin D deficiency Home Medications atorvastatin 20 mg tablet 20 mg PO QHS #90 tab 05/19/17 [Rx Last Taken 12/20/20] cholecalciferol (vitamin D3) 1,000 unit PO DAILY 07/07/17 [History Last Taken 12/21/20] clopidogrel 75 mg tablet 75 mg PO DAILY #90 tab 11/23/17 [Rx Last Taken 12/21/20] pantoprazole 40 mg PO DAILY 04/19/18 [History Last Taken 12/21/20] lorazepam 0.5 mg tablet 0.5 mg PO BID tab 08/09/18 [History Last Taken 12/21/20] ferrous gluconate 324 mg (37.5 mg iron) tablet 324 mg PO BID tab 01/27/20 [History Last Taken 12/21/20] potassium chloride 20 mEq tablet,extended release 40 meq PO BID tab 11/18/20 [History Last Taken 12/21/20] hydroxyzine HCl 25 mg tablet 25 mg PO DAILY tab 11/23/20 [History Last Taken 12/21/20] levothyroxine 150 mcg tablet 150 mcg PO DAILY 11/23/20 [History Last Taken 12/21/20] metoprolol tartrate 25 mg tablet 25 mg PO BID tab 11/23/20 [History Last Taken 12/21/20] acetaminophen [Tylenol Extra Strength] 1,000 mg PO BID 12/21/20 [History Last Taken 12/21/20] amiodarone 100 mg PO DAILY 12/21/20 [History Last Taken 12/21/20] aspirin 81 mg PO DAILY@0800 12/21/20 [History Last Taken 12/21/20] donepezil 10 mg PO QHS 12/21/20 [History Last Taken 12/20/20] escitalopram oxalate 5 mg PO DAILY 12/21/20 [History Last Taken 12/21/20] food supplemt, lactose-reduced [Boost Breeze] 120 ml PO ACHS 12/21/20 [History Last Taken 12/21/20] furosemide 40 mg PO BID 12/21/20 [History Last Taken 12/21/20] hydroxyzine HCl 50 mg PO QHS 12/21/20 [History Last Taken 12/20/20] lisinopril 10 mg PO DAILY 12/21/20 [History Last Taken 12/21/20] magnesium oxide 400 mg PO DAILY 12/21/20 [History Last Taken 12/21/20] Allergy/AdvReac Type Severity Reaction Status Date / Time tuberculin,PPD,multi-puncture AdvReac Unknown Verified 11/23/20 16:04 Family History Father CVA (cerebral vascular accident) Mother CVA (cerebral vascular accident) Surgical History History of cholecystectomy History of left heart catheterization Hx of tonsillectomy Postsurgical percutaneous transluminal coronary angioplasty (PTCA) status Presence of stent in coronary artery Social History (Updated 12/21/20 @ 14:[address] Alexia White MD) housing: [facility] Smoking Status: Never smoker alcohol intake: never substance use type: does not use caffeine: Yes Type: coffee and tea what type of physical activity do you participate in: weight training frequency: 3-4 times per week duration: < 15 minutes/day seatbelt use: always do you feel safe at home: Yes ROS Review of Systems ROS Unobtainable: due to mental status Physical Exam Const Constitutional Narrative: Chronically ill in appearance, extremely frail and debilitated elderly female. HEENT normocephalic and head/scalp atraumatic Mouth: dry mucous membranes Teeth and Gingiva: edentulous Eyes PERRL Neck supple General: trachea midline Resp normal respiratory effort Effort and Inspection: tachypneic Auscultation: Negative for rales, rhonchi or wheezes Cardio regular rate and regular rhythm GI soft to palpation and non-tender Extremity no clubbing, cyanosis or edema Neuro no focal motor deficits Speech: speech abnormal Details: Positive for garbled Psych Mood & Affect: flat affect Medical Records Data Medical Nutrition Assessment Dietitian: Nutrition Therapy Diagnosis Start: 12/21/20 16:30 Freq: Status: Active Protocol: Document 12/21/20 16:48 [facility] (Rec: 12/21/20 16:48 SLA [id number]) Nutrition Malnutrition Evidence of Malnutrition Exists Yes Malnutrition (severe): Chronic Evidenced By Suboptimal Energy Intake ( Moderate),Weight Loss (Severe) ,Physical Changes (Severe) Clinical Problem Altered Nutrient-Related Laboratory Values Etiology related to UDAY, hyperkalemia and renal dysfunction Signs/Symptoms as evidenced by K 8.6, BUN 120 , Cr 3.38, phos 6.7, mag 3.5 Status Active Problem Chronic Disease or Condition Related Malnutrition Etiology related to hx dementia, dysphagia Signs/Symptoms as evidenced by 28.1% wt loss x 1 month, suspected inadequate 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 Status Active Problem Recommendation Dietitian Recommendations/Changes As medically able, rec diet as tolerated to liberal Regular diet - consistency per ACID DIPPER - with po supplements at [facility] . Monitor for signs/symptoms of refeeding syndrome as po intake resumes. Lab / Micro Data Result Diagrams: 12/22/20 05:00 12/22/20 05:00 Labs: Laboratory Results - last 24 hr 12/21/20 12:50: Sodium 144, Potassium 8.6 H*, Chloride 117 H, Carbon Dioxide 19.0 L, Anion Gap 8, BUN 120 H*, Creatinine 3.38 H, Estim Creat Clear Calc 8.28, Est GFR (MDRD) Af Amer 17 L, Est GFR (MDRD) Non-Af 14 L, BUN/Creatinine Ratio 35.5 H, Glucose 97, Calcium 10.2 H, Total Bilirubin 0.40, AST 34, ALT 36, Alkaline Phosphatase 174 H, Total Protein 8.9 H, Albumin 4.2, Globulin 4.7 H, Albumin/Globulin Ratio 0.9, Lipase 530 H 12/21/20 12:50: Blood Type A NEGATIVE, Antibody Screen NEGATIVE 12/21/20 12:50: WBC 7.2, RBC 4.25, Hgb 12.9, Hct 44.9, MCV 105.6 H, MCH 30.4, MCHC 28.7 L, RDW Std Deviation 59.7 H, RDW Coeff of Calixto 15.2 H, Plt Count 223, MPV 10.6, Immature Gran % (Auto) 0.400, Neut % (Auto) 80.1 H, Lymph % (Auto) 11.2 L, [place] % (Auto) 7.5, Eos % (Auto) 0.1, Baso % (Auto) 0.7, Absolute Neuts (auto) 5.8, Absolute Lymphs (auto) 0.81 L, Nucleated RBC % 0 12/21/20 12:50: Phosphorus 6.7 H, Magnesium 3.5 H 12/21/20 15:45: Sodium 147 H, Potassium 7.0 H*, Chloride 121 H, Carbon Dioxide 18.0 L, Anion Gap 8, BUN 119 H*, Creatinine 3.35 H, Estim Creat Clear Calc 7.91, Est GFR (MDRD) Af Amer 17 L, Est GFR (MDRD) Non-Af 14 L, BUN/Creatinine Ratio 35.5 H, Glucose 175 H, Calcium 10.7 H 12/21/20 15:45: Hgb 10.7 L, Hct 37.1 12/21/20 15:45: Troponin I High Sens 97.1 H* 12/21/20 17:50: Sodium 148 H, Potassium 7.3 H*, Chloride 121 H, Carbon Dioxide 19.0 L, Anion Gap 8, BUN 119 H*, Creatinine 3.39 H, Estim Creat Clear Calc 7.81, Est GFR (MDRD) Af Amer 17 L, Est GFR (MDRD) Non-Af 14 L, BUN/Creatinine Ratio 35.1 H, Glucose 109 H, Calcium 10.7 H, Troponin I High Sens 100.1 H* 12/21/20 17:50: PT 14.0, INR 1.1, APTT 29.2 12/21/20 21:15: Hgb 8.5 L, Hct 30.2 L 12/21/20 21:15: Troponin I High Sens 95.4 H* 12/22/20 00:45: Hgb 9.4 L, Hct 33.3 L 12/22/20 03:00: Ur Random Sodium 23, Urine Creatinine 91.80 12/22/20 05:00: WBC 7.9, RBC 3.16 L, Hgb 9.7 L, Hct 33.6 L, MCV 106.3 H, MCH 30.7, MCHC 28.9 L, RDW Std Deviation 60.9 H, RDW Coeff of Calixto 15.3 H, Plt Count 163, MPV 9.8, Immature Gran % (Auto) 0.500, Neut % (Auto) 81.8 H, Lymph % (Auto) 10.0 L, [place] % (Auto) 7.2, Eos % (Auto) 0.1, Baso % (Auto) 0.4, Absolute Neuts (auto) 6.5, Absolute Lymphs (auto) 0.79 L, Nucleated RBC % 0 12/22/20 05:00: Sodium 150 H, Potassium 7.6 H*, Chloride 126 H, Carbon Dioxide 17.0 L, Anion Gap 7, BUN 102 H*, Creatinine 3.07 H, Estim Creat Clear Calc 8.63, Est GFR (MDRD) Af Amer 19 L, Est GFR (MDRD) Non-Af 15 L, BUN/Creatinine Ratio 33.2 H, Glucose 83, Calcium 9.1, Total Bilirubin 0.30, AST 22, ALT 27, Alkaline Phosphatase 128 H, Total Protein 6.4, Albumin 3.3, Globulin 3.1, Albumin/Globulin Ratio 1.1, Triglycerides 93, Cholesterol 149, LDL Cholesterol 79, VLDL Cholesterol 19, HDL Cholesterol 51, Lipase 347 Micro: Microbiology 12/21/20 12:30 Stool Stool Occult Blood (ELAYNE) - Final Charges/Coding Visit Charges Inpatient E&M: 60159 Init Hosp L3
--- NOTE | 2020-12-22 07:16 | PN.HOSP_ITS ---
Subjective Subjective Patient is an 85-year-old lady with underlying history of dementia a resident is on a standard care facility who presented with nausea vomiting with questionable coffee-ground emesis and diarrhea and a near syncopal episode with bradycardia. Patient was found to have acute kidney injury with hyperkalemia admitted to the intensive care unit for further management Objective Data Objective Data Vital Signs: Vital Signs Temp Pulse Resp BP Pulse Ox 99.1 F 66 18 104/30 L 96 12/22/20 06:00 12/22/20 06:00 12/22/20 06:00 12/22/20 06:00 12/22/20 06:00 Oxygen Flow Rate (L/min) 4 Oxygen Delivery Method Room Air Weight: 42.502 kg Body Mass Index (BMI) 16.5 Intake & Output: Intake and Output for Last 24 Hours 12/20/20 12/21/20 12/22/20 23:59 23:59 23:59 Intake Total 1687.55 / 1687.55 1000 / 1000 Output Total 0 / 0 150 / 150 Balance 1687.55 / 1687.55 850 / 850 Medical Nutrition Assessment Dietitian: Nutrition Therapy Diagnosis Start: 12/21/20 16:30 Freq: Status: Active Protocol: Document 12/21/20 16:48 SLA (Rec: 12/21/20 16:48 SLA [id number]) Nutrition Malnutrition Evidence of Malnutrition Exists Yes Malnutrition (severe): Chronic Evidenced By Suboptimal Energy Intake ( Moderate),Weight Loss (Severe) ,Physical Changes (Severe) Clinical Problem Altered Nutrient-Related Laboratory Values Etiology related to UDAY, hyperkalemia and renal dysfunction Signs/Symptoms as evidenced by K 8.6, BUN 120 , Cr 3.38, phos 6.7, mag 3.5 Status Active Problem Chronic Disease or Condition Related Malnutrition Etiology related to hx dementia, dysphagia Signs/Symptoms as evidenced by 28.1% wt loss x 1 month, suspected inadequate liz/pro po intake boot trimmer/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 Status Active Problem Recommendation Dietitian Recommendations/Changes As medically able, rec diet as tolerated to liberal Regular diet - consistency per FORK LIFT TECHNICIAN - with po supplements at [facility] . Monitor for signs/symptoms of refeeding syndrome as po intake resumes. Lab / Micro Data Result Diagrams: 12/22/20 05:00 12/22/20 05:00 Labs: Laboratory Results - last 24 hr 12/21/20 12:50: Sodium 144, Potassium 8.6 H*, Chloride 117 H, Carbon Dioxide 19.0 L, Anion Gap 8, BUN 120 H*, Creatinine 3.38 H, Estim Creat Clear Calc 8.28, Est GFR (MDRD) Af Amer 17 L, Est GFR (MDRD) Non-Af 14 L, BUN/Creatinine Ratio 35.5 H, Glucose 97, Calcium 10.2 H, Total Bilirubin 0.40, AST 34, ALT 36, Alkaline Phosphatase 174 H, Total Protein 8.9 H, Albumin 4.2, Globulin 4.7 H, Albumin/Globulin Ratio 0.9, Lipase 530 H 12/21/20 12:50: Blood Type A NEGATIVE, Antibody Screen NEGATIVE 12/21/20 12:50: WBC 7.2, RBC 4.25, Hgb 12.9, Hct 44.9, MCV 105.6 H, MCH 30.4, MCHC 28.7 L, RDW Std Deviation 59.7 H, RDW Coeff of Calixto 15.2 H, Plt Count 223, MPV 10.6, Immature Gran % (Auto) 0.400, Neut % (Auto) 80.1 H, Lymph % (Auto) 11.2 L, [place] % (Auto) 7.5, Eos % (Auto) 0.1, Baso % (Auto) 0.7, Absolute Neuts (auto) 5.8, Absolute Lymphs (auto) 0.81 L, Nucleated RBC % 0 12/21/20 12:50: Phosphorus 6.7 H, Magnesium 3.5 H 12/21/20 15:45: Sodium 147 H, Potassium 7.0 H*, Chloride 121 H, Carbon Dioxide 18.0 L, Anion Gap 8, BUN 119 H*, Creatinine 3.35 H, Estim Creat Clear Calc 7.91, Est GFR (MDRD) Af Amer 17 L, Est GFR (MDRD) Non-Af 14 L, BUN/Creatinine Ratio 35.5 H, Glucose 175 H, Calcium 10.7 H 12/21/20 15:45: Hgb 10.7 L, Hct 37.1 12/21/20 15:45: Troponin I High Sens 97.1 H* 12/21/20 17:50: Sodium 148 H, Potassium 7.3 H*, Chloride 121 H, Carbon Dioxide 19.0 L, Anion Gap 8, BUN 119 H*, Creatinine 3.39 H, Estim Creat Clear Calc 7.81, Est GFR (MDRD) Af Amer 17 L, Est GFR (MDRD) Non-Af 14 L, BUN/Creatinine Ratio 35.1 H, Glucose 109 H, Calcium 10.7 H, Troponin I High Sens 100.1 H* 12/21/20 17:50: PT 14.0, INR 1.1, APTT 29.2 12/21/20 21:15: Hgb 8.5 L, Hct 30.2 L 12/21/20 21:15: Troponin I High Sens 95.4 H* 12/22/20 00:45: Hgb 9.4 L, Hct 33.3 L 12/22/20 03:00: Ur Random Sodium 23, Urine Creatinine 91.80 12/22/20 05:00: WBC 7.9, RBC 3.16 L, Hgb 9.7 L, Hct 33.6 L, MCV 106.3 H, MCH 30.7, MCHC 28.9 L, RDW Std Deviation 60.9 H, RDW Coeff of Calixto 15.3 H, Plt Count 163, MPV 9.8, Immature Gran % (Auto) 0.500, Neut % (Auto) 81.8 H, Lymph % (Auto) 10.0 L, [place] % (Auto) 7.2, Eos % (Auto) 0.1, Baso % (Auto) 0.4, Absolute Neuts (auto) 6.5, Absolute Lymphs (auto) 0.79 L, Nucleated RBC % 0 12/22/20 05:00: Sodium 150 H, Potassium 7.6 H*, Chloride 126 H, Carbon Dioxide 17.0 L, Anion Gap 7, BUN 102 H*, Creatinine 3.07 H, Estim Creat Clear Calc 8.63, Est GFR (MDRD) Af Amer 19 L, Est GFR (MDRD) Non-Af 15 L, BUN/Creatinine Ratio 33.2 H, Glucose 83, Calcium 9.1, Total Bilirubin 0.30, AST 22, ALT 27, Alkaline Phosphatase 128 H, Total Protein 6.4, Albumin 3.3, Globulin 3.1, Albumin/G lobulin Ratio 1.1, Triglycerides 93, Cholesterol 149, LDL Cholesterol 79, VLDL Cholesterol 19, HDL Cholesterol 51, Lipase 347 Micro: Microbiology 12/21/20 12:30 Stool Stool Occult Blood (ELAYNE) - Final Physical Exam Narrative GENERAL: Frail looking HEENT: Atraumatic; EYES; Anicteric, Normal Conjunctiva NECK; supple, normal thyroid, RESPIRATORY: Diminished to auscultation CARDIOVASCULAR: Regular S1 S2, GI: soft, normoactive bowel sounds, : No Renal angle tenderness; EXTREMITIES: No edema, no clubbing, MUSCULOSKELETAL: no muscle waisting NEURO: Lethargic but arousable SKIN: No Rash PSYCH; Flat affect Assessment & Plan Assessment/Plan (1) Acute hyperkalemia: (2) Acute renal failure (ARF): QUALIFIERS: Acute renal failure type: unspecified Qualified Code(s): N17.9 - Acute kidney failure, unspecified PLAN: Patient is an 85-year-old lady with underlying history of dementia a resident is on a standard care facility who presented with nausea vomiting with questionable coffee-ground emesis and diarrhea and a near syncopal episode with bradycardia. Patient was found to have acute kidney injury with hyperkalemia admitted to the intensive care unit for further management 1. Acute kidney injury -Secondary to severe dehydration as a result of patient nausea vomiting and diarrhea. Admitted to the intensive care unit patient being managed with aggressive IV fluid resuscitation with serial monitoring of electrolytes ordered. Patient was offered dialysis family apparently declined 2. Hyperkalemia -This is being treated aggressively with Kayexalate as well as calcium gluconate and insulin and dextrose. Every 4 BMP ordered patient remains on telemetry monitoring 3. Upper GI bleed -Patient started on PPI 4. Essential hypertension -Patient blood pressure remained stable. Patient was on lisinopril discontinued in view of her impaired kidney function 5. Dyslipidemia -Patient is on statin therapy, continued at home dose 6. Hypothyroidism - Patient is on levothyroxine home dose continued 7. Chronic congestive heart failure with preserved ejection fraction -Currently not in exacerbation. Patient was on Lasix and potassium supple mentation both medications discontinued 8. Coronary artery disease -with previous PCI 9. Dementia -Supportive care 10. DVT prophylaxis ?Bilateral SCDs Charges/Coding Visit Charges Inpatient E&M: 84125 Subs Hosp L3
[2020-12-22] MEDS: Aspirin 300 MG Suppository RC (08:28)
[2020-12-22] MEDS: Sodium Polystyrene Sulfonate 15 GM/60 ML UDC 30 GM RC (08:28)
[2020-12-22] MEDS: Menthol/Lanolin/Calamine/Znox 113 GM Tube 1 APPLIC TOPICAL ×4 (08:29→21:37)
[2020-12-22] MEDS: Sodium Bicarbonate 8.4% 50 ML Syringe 50 MEQ IV (10:03)
[2020-12-22] MEDS: NYSTATIN 500,000 UNIT/5 ML UDC 500000 UNIT PO ×2 (10:15→21:36)
[2020-12-22] MEDS: Insulin Lispro 10 UNIT in Syringe 0 ML 6 UNIT IV (10:35)
[2020-12-22] MEDS: Dextrose 50%-Water 25 GM/50 ML DISP.SYRIN IV (10:36)
[2020-12-22] MEDS: Dextrose 10%-Water 250 ML 40 ML IV (10:46)
--- NOTE | 2020-12-22 10:55 | CASEMGMT ---
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. SW faxed updates to [facility]. SW to continue to follow for d/c planning. Rajani Bowen RUNNER MAN VANE
[2020-12-22 11:33] LABS: Anion Gap 5 (5-15); BUN 101 mg/dL (7-18); BUN/Creat Ratio 34.4 RATIO (10-20); Calcium,Total 9.2 mg/dL (8.5-10.1); Chloride 127 mmol/L (98-107); Creatinine, Serum 2.94 mg/dL (0.55-1.02); EST Glomerular Filtration Rate 16 mL/min (>60); Est Glom Filt Rate - Afr Amer 20 mL/min (>60); Estimated Creatinine Clearance 9.39 ml/min; Glucose 228 mg/dL (74-106); Potassium 6.2 mmol/L (3.5-5.1); Sodium Level 153 mmol/L (136-145)
--- NOTE | 2020-12-22 11:43 | PN.RENAL_ITS ---
Subjective Subjective admitted to icu, creatinine slightly improved with iv hydration, off diuretics. Hx dementia poor historian but aware she is in the hospital. QRS narrow complex on tele. Potassium improving. Speech eval for swallow Objective Data Objective Data Vital Signs: Vital Signs Temp Pulse Resp BP Pulse Ox 99.2 F H 75 23 H 101/32 L 94 12/22/20 10:00 12/22/20 10:59 12/22/20 10:59 12/22/20 10:00 12/22/20 10:00 Oxygen Flow Rate (L/min) 3 Oxygen Delivery Method Nasal Cannula Weight: 42.502 kg Body Mass Index (BMI) 16.5 Intake & Output: Intake and Output for Last 24 Hours 12/20/20 12/21/20 12/22/20 23:59 23:59 23:59 Intake Total 1687.55 / 1687.55 2234.25 / 2234.25 Output Total 0 / 0 200 / 200 Balance 1687.55 / 1687.55 2034.25 / 2034.25 Medical Nutrition Assessment Dietitian: Nutrition Therapy Diagnosis Start: 12/21/20 16:30 Freq: Status: Active Protocol: Document 12/22/20 09:44 SLA (Rec: 12/22/20 09:44 SLA [id number]) Nutrition Malnutrition Evidence of Malnutrition Exists Yes Malnutrition (severe): Chronic Evidenced By Suboptimal Energy Intake ( Moderate),Weight Loss (Severe) ,Physical Changes (Severe) Clinical Problem Altered Nutrient-Related Laboratory Values Etiology related to UDAY, hyperkalemia and renal dysfunction Signs/Symptoms as evidenced by K 7.6, BUN 102 , Cr 3.07 Status Active Problem Chronic Disease or Condition Related Malnutrition Etiology related to hx dementia, dysphagia Signs/Symptoms as evidenced by 28.1% wt loss x 1 month, suspected inadequate liz/pro po intake 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 Status Active Problem Recommendation Dietitian Recommendations/Changes As medically able, rec diet as tolerated to liberal Regular diet - consistency per FRENCH LECTURER - with po supplements at [facility] . Monitor for signs/symptoms of refeeding syndrome as po intake resumes. Lab / Micro Data Result Diagrams: 12/22/20 05:00 12/22/20 11:00 Labs: Laboratory Results - last 24 hr 12/21/20 12:50: Sodium 144, Potassium 8.6 H*, Chloride 117 H, Carbon Dioxide 19.0 L, Anion Gap 8, BUN 120 H*, Creatinine 3.38 H, Estim Creat Clear Calc 8.28, Est GFR (MDRD) Af Amer 17 L, Est GFR (MDRD) Non-Af 14 L, BUN/Creatinine Ratio 35.5 H, Glucose 97, Calcium 10.2 H, Total Bilirubin 0.40, AST 34, ALT 36, Alkaline Phosphatase 174 H, Total Protein 8.9 H, Albumin 4.2, Globulin 4.7 H, Albumin/Globulin Ratio 0.9, Lipase 530 H 12/21/20 12:50: Blood Type A NEGATIVE, Antibody Screen NEGATIVE 12/21/20 12:50: WBC 7.2, RBC 4.25, Hgb 12.9, Hct 44.9, MCV 105.6 H, MCH 30.4, MCHC 28.7 L, RDW Std Deviation 59.7 H, RDW Coeff of Calixto 15.2 H, Plt Count 223, MPV 10.6, Immature Gran % (Auto) 0.400, Neut % (Auto) 80.1 H, Lymph % (Auto) 11.2 L, [place] % (Auto) 7.5, Eos % (Auto) 0.1, Baso % (Auto) 0.7, Absolute Neuts (auto) 5.8, Absolute Lymphs (auto) 0.81 L, Nucleated RBC % 0 12/21/20 12:50: Phosphorus 6.7 H, Magnesium 3.5 H 12/21/20 15:45: Sodium 147 H, Potassium 7.0 H*, Chloride 121 H, Carbon Dioxide 18.0 L, Anion Gap 8, BUN 119 H*, Creatinine 3.35 H, Estim Creat Clear Calc 7.91, Est GFR (MDRD) Af Amer 17 L, Est GFR (MDRD) Non-Af 14 L, BUN/Creatinine Ratio 35.5 H, Glucose 175 H, Calcium 10.7 H 12/21/20 15:45: Hgb 10.7 L, Hct 37.1 12/21/20 15:45: Troponin I High Sens 97.1 H* 12/21/20 17:50: Sodium 148 H, Potassium 7.3 H*, Chloride 121 H, Carbon Dioxide 19.0 L, Anion Gap 8, BUN 119 H*, Creatinine 3.39 H, Estim Creat Clear Calc 7.81, Est GFR (MDRD) Af Amer 17 L, Est GFR (MDRD) Non-Af 14 L, BUN/Creatinine Ratio 35.1 H, Glucose 109 H, Calcium 10.7 H, Troponin I High Sens 100.1 H* 12/21/20 17:50: PT 14.0, INR 1.1, APTT 29.2 12/21/20 21:15: Hgb 8.5 L, Hct 30.2 L 12/21/20 21:15: Troponin I High Sens 95.4 H* 12/22/20 00:45: Hgb 9.4 L, Hct 33.3 L 12/22/20 03:00: Ur Random Sodium 23, Urine Creatinine 91.80 12/22/20 05:00: WBC 7.9, RBC 3.16 L, Hgb 9.7 L, Hct 33.6 L, MCV 106.3 H, MCH 30.7, MCHC 28.9 L, RDW Std Deviation 60.9 H, RDW Coeff of Calixto 15.3 H, Plt Count 163, MPV 9.8, Immature Gran % (Auto) 0.500, Neut % (Auto) 81.8 H, Lymph % (Auto) 10.0 L, [place] % (Auto) 7.2, Eos % (Auto) 0.1, Baso % (Auto) 0.4, Absolute Neuts (auto) 6.5, Absolute Lymphs (auto) 0.79 L, Nucleated RBC % 0 12/22/20 05:00: Sodium 150 H, Potassium 7.6 H*, Chloride 126 H, Carbon Dioxide 17.0 L, Anion Gap 7, BUN 102 H*, Creatinine 3.07 H, Estim Creat Clear Calc 8.63, Est GFR (MDRD) Af Amer 19 L, Est GFR (MDRD) Non-Af 15 L, BUN/Creatinine Ratio 33.2 H, Glucose 83, Calcium 9.1, Total Bilirubin 0.30, AST 22, ALT 27, Alkaline Phosphatase 128 H, Total Protein 6.4, Albumin 3.3, Globulin 3.1, Albumin/Globulin Ratio 1.1, Triglycerides 93, Cholesterol 149, LDL Cholesterol 79, VLDL Cholesterol 19, HDL Cholesterol 51, Lipase 347 12/22/20 11:00: Sodium 153 H, Potassium 6.2 H*, Chloride 127 H*, Carbon Dioxide 21.0, Anion Gap 5, BUN 101 H*, Creatinine 2.94 H, Estim Creat Clear Calc 9.39, Est GFR (MDRD) Af Amer 20 L, Est GFR (MDRD) Non-Af 16 L, BUN/Creatinine Ratio 34.4 H, Glucose 228 H, Calcium 9.2 Micro: Microbiology 12/21/20 12:30 Stool Stool Occult Blood (ELAYNE) - Final Radiography Diagnostic Testing: Radiology Impression Renal Ultrasound 12/21/20 15:31 IMPRESSION: Bilateral renal atrophy is more prominent on the right side. Electronically Signed: Deshawn Lopez MD at 9:57 EDT , Service support , Physical Exam Const Constitutional Narrative: poor historian General Appearance: comfortable and frail Orientation / Consciousness: awake and confused Nutritional Appearance: cachectic and other Other Details: mouth breather HEENT Mouth: dry mucous membranes Resp clear to auscultation bilaterally Cardio regular rate Cardio Narrative: narrow QRS complex GI non-tender and non-distended Palpation: soft Bladder / Kidney Exam: catheter in place Extremity no clubbing, cyanosis or edema Assessment & Plan Assessment/Plan (1) UDAY (acute kidney injury): PLAN: liKeLy dUe to diuretics, ACEI, poor oral intake and access to water with dysphagia. continue Gentle hydration, hold diuretics. Creatinine slightly improved. Continue conservative mgmt, no dialysis (2) Hyperkalemia: PLAN: medical mgmt per pt family. Pt DNR CCA (3) Pulmonary hypertension: PLAN: on chronic diuretics, no edema on exam (4) Dementia: (5) Chronic anemia: (6) Senile debility: (7) FTT (failure to thrive) in adult: (8) Hypernatremia: PLAN: NPO due to aspiration risk, speech eval. change iv fluids to hypotonic saline
[2020-12-22 14:40] LABS: Anion Gap 6 (5-15); BUN 92 mg/dL (7-18); BUN/Creat Ratio 34.2 RATIO (10-20); Chloride 124 mmol/L (98-107); Creatinine, Serum 2.69 mg/dL (0.55-1.02); EST Glomerular Filtration Rate 18 mL/min (>60); Est Glom Filt Rate - Afr Amer 22 mL/min (>60); Estimated Creatinine Clearance 10.26 ml/min; Glucose 192 mg/dL (74-106); Potassium 5.6 mmol/L (3.5-5.1); Sodium Level 150 mmol/L (136-145)
[2020-12-22 18:37] LABS: Anion Gap 4 (5-15); BUN 91 mg/dL (7-18); BUN/Creat Ratio 35.7 RATIO (10-20); Calcium,Total 9.5 mg/dL (8.5-10.1); Chloride 123 mmol/L (98-107); Creatinine, Serum 2.55 mg/dL (0.55-1.02); EST Glomerular Filtration Rate 19 mL/min (>60); Est Glom Filt Rate - Afr Amer 23 mL/min (>60); Estimated Creatinine Clearance 10.82 ml/min; Glucose 195 mg/dL (74-106); Potassium 5.7 mmol/L (3.5-5.1); Sodium Level 148 mmol/L (136-145)
[2020-12-22] MEDS: fentaNYL 100 MCG/2 ML Ampul 25 MCG IV (21:35)
--- NOTE | 2020-12-22 22:20 | NURSING ---
spoke with son for pt update. encouraged to call at any time and informed that this RN will call through the night with any change in condition.
[2020-12-23] VITALS (9 sets, daily range): BP systolic 82–95; BP diastolic 33–61; PULSE 52–88; RESP 18–20; TEMP 36.3–37.3; O2SAT 92–100
[2020-12-23] MEDS: fentaNYL 100 MCG/2 ML Ampul 25 MCG IV ×4 (00:19→16:11)
[2020-12-23] MEDS: proCHLORPERazine 10 MG/2 ML Vial 5 MG IV (02:24)
[2020-12-23] MEDS: 0.9% Saline Lock 10 ML Syringe IV ×2 (05:11→16:12)
[2020-12-23 05:30] LABS: Absolute Neutrophil Count 7.3 X10^3/uL (2.0-7.7); Basophil# 0.04 X10^3/uL; Basophil% 0.4 % (0-1); Eosinophil# 0.17 X10^3/uL; Eosinophils% 1.8 % (0-5); Hematocrit 30.9 % (37-47); Hemoglobin 8.8 g/dL (12.0-15.0); Lymphocyte % 10.7 % (19-41); Mean Corp Hgb Conc 28.5 g/dL (32-36); Mean Corpuscular Hgb 30.7 pg (27.0-32.0); Mean Corpuscular Volume 107.7 fL (81-99); Mean Platelet Vol. 10.8 fl (6.2-12.0); Monocyte# 0.74 X10^3/uL; Monocyte% 7.9 % (0-10); NRBC Flagged by Analyzer 0 % (0-5); Neutrophil % 78.3 % (47-70); Platelet Count 139 K/mm3 (150-450); RBC Distribution Width CV 15.6 % (11.6-14.6); RBC Distribution Width SD 61.7 fl (35.1-43.9); Red Blood Count 2.87 M/mm3 (4.2-5.4); White Blood Count 9.3 K/mm3 (4.4-11.0)
--- NOTE | 2020-12-23 05:52 | NURSING ---
spoke with son on phone for pt update
[2020-12-23 05:54] LABS: Anion Gap 5 (5-15); BUN 76 mg/dL (7-18); BUN/Creat Ratio 36.5 RATIO (10-20); Chloride 117 mmol/L (98-107); Creatinine, Serum 2.08 mg/dL (0.55-1.02); EST Glomerular Filtration Rate 24 mL/min (>60); Est Glom Filt Rate - Afr Amer 29 mL/min (>60); Estimated Creatinine Clearance 14.16 ml/min; Glucose 128 mg/dL (74-106); Magnesium 2.1 mg/dL (1.6-2.6); Potassium 5.4 mmol/L (3.5-5.1); Sodium Level 143 mmol/L (136-145)
--- NOTE | 2020-12-23 06:33 | PN.CC_ITS ---
Assessment & Plan Assessment/Plan (1) Hyperkalemia: (2) Acute renal failure (ARF): QUALIFIERS: Acute renal failure type: unspecified Qualified Code(s): N17.9 - Acute kidney failure, unspecified PLAN: RECOMMENDATIONS: 1. Continue D5W. 2. Medical management of hyperkalemia per nephrology recommendations. 3. Continue PPI. 4. Pain control regimen per hospitalist. 5. Goals of care discussion with the patient's family. The patient seems most appropriate for hospice care services. 6. Given the patient's lack of ICU needs, will sign off. Please call with any additional questions. IMPRESSIONS: 1. Acute kidney injury/hyperkalemia Likely prerenal in etiology in the setting of inadequate p.o. intake and GI losses. Her creatinine has shown improvement in light of volume expansion. Plan continue D5W accordingly. Continue medical management of hyperkalemia per nephrology recommendations, as the patient's family does not wish for any invasi ve procedures such as temporary HD line or hemodialysis to be considered. 2. Abdominal discomfort/nausea/vomiting Potentially related to mild pancreatitis versus gastroenteritis. Plan to continue supportive measures with IV fluids. Patient to remain n.p.o. for now. Continue antiemetics as needed. 3. Chronic atrial fibrillation/coronary artery disease/chronic heart failure with preserved ejection fraction Continue baseline outpatient cardiac regimen. 4. Advanced age/severe protein calorie malnutrition/dementia/deconditio estevan/hypothyroidism/hypertension/hyperlipidemia Complicates care, management, recovery and prognosis. Given the patient's overall clinical state and overall quality of life, hospice care services seems most appropriate. This note was generated with [employer] dictation software. It may contain incorrect words, spelling, and punctuation that were not noted in checking the note before signing. Subjective Subjective The patient was seen and examined at the bedside this morning. Events from the last 24 hours have been reviewed. The patient currently has a low-grade fever and has been relatively hypotensive with a blood pressure this morning noted to be 85/37 mmHg. The patient is currently maintaining appropriate oxygen saturations on 6 L/min via nasal cannula. The patient is documented to be overall net +4.8 L for the hospital admission. Hemoglobin was noted to be 8.8 g/dL this morning. Platelet count is low at 139,000. Sodium has improved to 143 with a potassium of 5.4 and chloride of 117. Creatinine has improved to 2.08. The patient continues to audibly moan in pain with any form of physical manipulation. Objective Data Objective Data The patient's most recent lab work, culture data and imaging studies have all been personally reviewed. Surface echocardiogram from November 2020 demonstrated normal LV size and function with an ejection fraction of 55%. Right ventricular systolic pressure was estimated to be 64 mmHg. Diastolic dysfunction was noted. Vital Signs: Vital Signs Temp Pulse Resp BP Pulse Ox 99.2 F H 77 20 H 85/37 L 93 12/23/20 05:09 12/23/20 05:09 12/23/20 05:09 12/23/20 05:09 12/23/20 05:09 Oxygen Flow Rate (L/min) 6 Oxygen Delivery Method Nasal Cannula Weight: 45.359 kg Body Mass Index (BMI) 16.5 Intake & Output: Intake and Output for Last 24 Hours 12/21/20 12/22/20 12/23/20 23:59 23:59 23:59 Intake Total 1687.55 / 1687.55 3260.92 / 3260.92 1000 / 1000 Output Total 0 / 0 950 / 1050 200 / 200 Balance 1687.55 / 1687.55 2310.92 / 2210.92 800 / 800 Medical Nutrition Assessment Dietitian: Nutrition Therapy Diagnosis Start: 12/21/20 16:30 Freq: Status: Active Protocol: Document 12/22/20 09:44 GELACIO (Rec: 12/22/20 09:44 [facility] [id number]) Nutrition Malnutrition Evidence of Malnutrition Exists Yes Malnutrition (severe): Chronic Evidenced By Suboptimal Energy Intake ( Moderate),Weight Loss (Severe) ,Physical Changes (Severe) Clinical Problem Altered Nutrient-Related Laboratory Values Etiology related to UDAY, hyperkalemia and renal dysfunction Signs/Symptoms as evidenced by K 7.6, BUN 102 , Cr 3.07 Status Active Problem Chronic Disease or Condition Related Malnutrition Etiology related to hx dementia, dysphagia Signs/Symptoms as evidenced by 28.1% wt loss x 1 month, suspected inadequate liz/pro po intake mud analysis 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 Status Active Problem Recommendation Dietitian Recommendations/Changes As medically able, rec diet as tolerated to liberal Regular diet - consistency per EARTH MOVER - with po supplements at [facility] . Monitor for signs/symptoms of refeeding syndrome as po intake resumes. Lab / Micro Data Attestation: I reviewed the patient's lab results. Result Diagrams: 12/23/20 05:00 12/23/20 05:00 Labs: Laboratory Results - last 24 hr 12/22/20 11:00: Sodium 153 H, Potassium 6.2 H*, Chloride 127 H*, Carbon Dioxide 21.0, Anion Gap 5, BUN 101 H*, Creatinine 2.94 H, Estim Creat Clear Calc 9.39, Est GFR (MDRD) Af Amer 20 L, Est GFR (MDRD) Non-Af 16 L, BUN/Creatinine Ratio 34.4 H, Glucose 228 H, Calcium 9.2 12/22/20 14:05: Sodium 150 H, Potassium 5.6 H, Chloride 124 H, Carbon Dioxide 20.0 L, Anion Gap 6, BUN 92 H, Creatinine 2.69 H, Estim Creat Clear Calc 10.26, Est GFR (MDRD) Af Amer 22 L, Est GFR (MDRD) Non-Af 18 L, BUN/Creatinine Ratio 34.2 H, Glucose 192 H, Calcium 10.0 12/22/20 18:00: Sodium 148 H, Potassium 5.7 H, Chloride 123 H, Carbon Dioxide 21.0, Anion Gap 4 L, BUN 91 H, Creatinine 2.55 H, Estim Creat Clear Calc 10.82, Est GFR (MDRD) Af Amer 23 L, Est GFR (MDRD) Non-Af 19 L, BUN/Creatinine Ratio 35.7 H, Glucose 195 H, Calcium 9.5 12/23/20 05:00: WBC 9.3, RBC 2.87 L, Hgb 8.8 L, Hct 30.9 L, MCV 107.7 H, MCH 30.7, MCHC 28.5 L, RDW Std Deviation 61.7 H, RDW Coeff of Calixto 15.6 H, Plt Count 139 L, MPV 10.8, Immature Gran % (Auto) 0.900, Neut % (Auto) 78.3 H, Lymph % (Auto) 10.7 L, [place] % (Auto) 7.9, Eos % (Auto) 1.8, Baso % (Auto) 0.4, Absolute Neuts (auto) 7.3, Absolute Lymphs (auto) 1.00, Nucleated RBC % 0 12/23/20 05:00: Sodium 143, Potassium 5.4 H, Chloride 117 H, Carbon Dioxide 21.0, Anion Gap 5, BUN 76 H, Creatinine 2.08 H, Estim Creat Clear Calc 14.16, Est GFR (MDRD) Af Amer 29 L, Est GFR (MDRD) Non-Af 24 L, BUN/Creatinine Ratio 36.5 H, Glucose 128 H, Calcium 9.0, Magnesium 2.1 Micro: Microbiology 12/21/20 12:30 Stool Stool Occult Blood (ELAYNE) - Final Radiography Diagnostic Testing: Radiology Impression Renal Ultrasound 12/21/20 15:31 IMPRESSION: Bilateral renal atrophy is more prominent on the right side. Electronically Signed: Deshawn Lopez MD at 9:57 EDT , Service support , Physical Exam Const Constitutional Narrative: Chronically ill in appearance, extremely frail and debilitated elderly female. Audibly moaning. HEENT normocephalic and head/scalp atraumatic Mouth: dry mucous membranes Teeth and Gingiva: edentulous Eyes PERRL Neck supple General: trachea midline Resp normal respiratory effort Effort and Inspection: tachypneic Auscultation: Negative for rales, rhonchi or wheezes Cardio regular rate and regular rhythm GI soft to palpation and non-tender Extremity no clubbing, cyanosis or edema Neuro no focal motor deficits Speech: speech abnormal Details: Positive for garbled Psych Mood & Affect: flat affect Charges/Coding Visit Charges Inpatient E&M: 84045 Subs Hosp L2
--- NOTE | 2020-12-23 07:16 | PN.HOSP_ITS ---
Subjective Subjective Patient seen, remains barely responsive. Moans to the least touch. Patient did fail her speech and swallow eval and is currently n.p.o. Had a discussion with the patient's son who is the POA regarding mom's condition. He wanted me to discuss with the father about hospice. Called the father twice no one answered to plan to try again later on in the afternoon Objective Data Objective Data Vital Signs: Vital Signs Temp Pulse Resp BP Pulse Ox 99.2 F H 77 20 H 85/37 L 93 12/23/20 05:09 12/23/20 05:09 12/23/20 05:09 12/23/20 05:09 12/23/20 05:09 Oxygen Flow Rate (L/min) 6 Oxygen Delivery Method Nasal Cannula Weight: 45.359 kg Body Mass Index (BMI) 16.5 Intake & Output: Intake and Output for Last 24 Hours 12/21/20 12/22/20 12/23/20 23:59 23:59 23:59 Intake Total 1687.55 / 1687.55 3260.92 / 3260.92 1000 / 1000 Output Total 0 / 0 950 / 1050 200 / 200 Balance 1687.55 / 1687.55 2310.92 / 2210.92 800 / 800 Medical Nutrition Assessment Dietitian: Nutrition Therapy Diagnosis Start: 12/21/20 16:30 Freq: Status: Active Protocol: Document 12/22/20 09:44 SLA (Rec: 12/22/20 09:44 SLA [id number]) Nutrition Malnutrition Evidence of Malnutrition Exists Yes Malnutrition (severe): Chronic Evidenced By Suboptimal Energy Intake ( Moderate),Weight Loss (Severe) ,Physical Changes (Severe) Clinical Problem Altered Nutrient-Related Laboratory Values Etiology related to UDAY, hyperkalemia and renal dysfunction Signs/Symptoms as evidenced by K 7.6, BUN 102 , Cr 3.07 Status Active Problem Chronic Disease or Condition Related Malnutrition Etiology related to hx dementia, dysphagia Signs/Symptoms as evidenced by 28.1% wt loss x 1 month, suspected inadequate liz/pro po intake mud analysis 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 Status Active Problem Recommendation Dietitian Recommendations/Changes As medically able, rec diet as tolerated to liberal Regular diet - consistency per [employer] - with po supplements at [facility] . Monitor for signs/symptoms of refeeding syndrome as po intake resumes. Lab / Micro Data Result Diagrams: 12/23/20 05:00 12/23/20 05:00 Labs: Laboratory Results - last 24 hr 12/22/20 11:00: Sodium 153 H, Potassium 6.2 H*, Chloride 127 H*, Carbon Dioxide 21.0, Anion Gap 5, BUN 101 H*, Creatinine 2.94 H, Estim Creat Clear Calc 9.39, Est GFR (MDRD) Af Amer 20 L, Est GFR (MDRD) Non-Af 16 L, BUN/Creatinine Ratio 34.4 H, Glucose 228 H, Calcium 9.2 12/22/20 14:05: Sodium 150 H, Potassium 5.6 H, Chloride 124 H, Carbon Dioxide 20.0 L, Anion Gap 6, BUN 92 H, Creatinine 2.69 H, Estim Creat Clear Calc 10.26, Est GFR (MDRD) Af Amer 22 L, Est GFR (MDRD) Non-Af 18 L, BUN/Creatinine Ratio 34.2 H, Glucose 192 H, Calcium 10.0 12/22/20 18:00: Sodium 148 H, Potassium 5.7 H, Chloride 123 H, Carbon Dioxide 21.0, Anion Gap 4 L, BUN 91 H, Creatinine 2.55 H, Estim Creat Clear Calc 10.82, Est GFR (MDRD) Af Amer 23 L, Est GFR (MDRD) Non-Af 19 L, BUN/Creatinine Ratio 35.7 H, Glucose 195 H, Calcium 9.5 12/23/20 05:00: WBC 9.3, RBC 2.87 L, Hgb 8.8 L, Hct 30.9 L, MCV 107.7 H, MCH 30.7, MCHC 28.5 L, RDW Std Deviation 61.7 H, RDW Coeff of Calixto 15.6 H, Plt Count 139 L, MPV 10.8, Immature Gran % (Auto) 0.900, Neut % (Auto) 78.3 H, Lymph % (Auto) 10.7 L, [place] % (Auto) 7.9, Eos % (Auto) 1.8, Baso % (Auto) 0.4, Absolute Neuts (auto) 7.3, Absolute Lymphs (auto) 1.00, Nucleated RBC % 0 12/23/20 05:00: Sodium 143, Potassium 5.4 H, Chloride 117 H, Carbon Dioxide 21.0, Anion Gap 5, BUN 76 H, Creatinine 2.08 H, Estim Creat Clear Calc 14.16, Est GFR (MDRD) Af Amer 29 L, Est GFR (MDRD) Non-Af 24 L, BUN/Creatinine Ratio 36.5 H, Glucose 128 H, Calcium 9.0, Magnesium 2.1 Micro: Microbiology 12/21/20 12:30 Stool Stool Occult Blood (ELAYNE) - Final Radiography Diagnostic Testing: Radiology Impression Renal Ultrasound 12/21/20 15:31 IMPRESSION: Bilateral renal atrophy is more prominent on the right side. Electronically Signed: Deshawn Lopez MD at 9:57 EDT , Service support , Physical Exam Narrative GENERAL: Frail looking HEENT: Atraumatic; EYES; Anicteric, Normal Conjunctiva NECK; supple, normal thyroid, RESPIRATORY: Diminished to auscultation CARDIOVASCULAR: Regular S1 S2, GI: soft, normoactive bowel sounds, : No Renal angle tenderness; EXTREMITIES: No edema, no clubbing, MUSCULOSKELETAL: no muscle waisting NEURO: Lethargic but arousable SKIN: No Rash PSYCH; Flat affect Assessment & Plan Assessment/Plan (1) Acute hyperkalemia: (2) Acute renal failure (ARF): QUALIFIERS: Acute renal failure type: unspecified Qualified Code(s): N17.9 - Acute kidney failure, unspecified PLAN: Patient is an 85-year-old lady with underlying history of dementia a resident is on a standard care facility who presented with nausea vomiting with questionable coffee-ground emesis and diarrhea and a near syncopal episode with bradycardia. Patient was found to have acute kidney injury with hyperkalemia admitted to the intensive care unit for further management 1. Acute kidney injury -Secondary to severe dehydration as a result of patient nausea vomiting and diarrhea. Admitted to the intensive care unit patient being managed with aggressive IV fluid resuscitation with serial monitoring of electrolytes ordered. Patient was offered dialysis family apparently declined -12/23/2020. BUN and creatinine remains elevated. 2. Hyperkalemia -This is being treated aggressively with Kayexalate as well as calcium gluconate and insulin and dextrose. Every 4 BMP ordered patient remains on telemetry monitoring 3. Upper GI bleed -Patient started on PPI 4. Acute metabolic encephalopathy ?As a result of patient acute kidney injury. Patient seen, remains barely responsive. Moans to the least touch. Patient did fail her speech and swallow eval and is currently n.p.o. Had a discussion with the patient's son who is the POA regarding mom's condition. He wanted me to discuss with the father about hospice. Called the father twice no one answered to plan to try again later on in the afternoon 5. Hypernatremia ?Secondary to severe dehydration patient IV fluid adjusted to D5W with every 4 monitoring of electrolytes 6. Hypothyroidism - Patient is on levothyroxine home dose continued 7. Chronic congestive heart failure with preserved ejection fraction -Currently not in exacerbation. Patient was on Lasix and potassium supplementation both medications discontinued 8. Coronary artery disease -with previous PCI 9. Dementia -Supportive care 10. DVT prophylaxis ?Bilateral SCDs 11. Dyslipidemia -Patient is on statin therapy at home 12. . Essential hypertension -Patient blood pressure remained stable. Patient was on lisinopril discontinued in view of her impaired kidney function Charges/Coding Visit Charges Inpatient E&M: 97751 [facility] Hosp L3
[2020-12-23] MEDS: NYSTATIN 500,000 UNIT/5 ML UDC 500000 UNIT PO (08:12)
[2020-12-23] MEDS: Ferrous Gluconate 324 MG Tablet PO (08:13)
[2020-12-23] MEDS: Aspirin 300 MG Suppository RC (08:14)
[2020-12-23] MEDS: Menthol/Lanolin/Calamine/Znox 113 GM Tube 1 APPLIC TOPICAL ×2 (08:14→13:46)
[2020-12-23] MEDS: oxyCODONE 5 MG Tablet PO (08:20)
--- NOTE | 2020-12-23 10:47 | CASEMGMT ---
Palliative screen tool completed per [facility] policy d/t [employer] 3. Patient currently not meeting Palliative referral criteria. Radha Shipman RNCM
--- NOTE | 2020-12-23 13:20 | CASEMGMT ---
KATHRYN spoke with RN and family would like Hospice. KATHRYN called patient's son, Devang who is also patient's POA. KATHRYN asked if [facility] is okay or if they had another Hospice agency in mind. He said they want the one in [place] because they want her to go to the unit on [address]. KATHRYN explained SW will make the referral and someone should be calling him from Hospice to set up appt. KATHRYN called Hospice and spoke with Coty regarding referral. KATHRYN also faxed information. Physician will need to call Dr Knowles at Hospice to get patient approved for the inpatient unit. Coty said she would let SW know as she has to talk with Dr Knowles first. Rajani Bowen TELECOM MANAGER VANE
--- NOTE | 2020-12-23 13:46 | PN.RENAL_ITS ---
Subjective Subjective confused, poor historian Objective Data Objective Data Vital Signs: Vital Signs Temp Pulse Resp BP Pulse Ox 99.1 F 74 18 91/44 L 94 12/23/20 08:00 12/23/20 11:54 12/23/20 08:00 12/23/20 08:00 12/23/20 08:00 Oxygen Flow Rate (L/min) 6 Oxygen Delivery Method Nasal Cannula Weight: 45.359 kg Body Mass Index (BMI) 16.5 Intake & Output: Intake and Output for Last 24 Hours 12/21/20 12/22/20 12/23/20 23:59 23:59 23:59 Intake Total 1687.55 / 1687.55 3260.92 / 3260.92 2110.00 / 2110.00 Output Total 0 / 0 950 / 1050 450 / 450 Balance 1687.55 / 1687.55 2310.92 / 2210.92 1660.00 / 1660.00 Medical Nutrition Assessment Dietitian: Nutrition Therapy Diagnosis Start: 12/21/20 16:30 Freq: Status: Active Protocol: Document 12/23/20 13:03 (Rec: 12/23/20 13:03 [id number]) Nutrition Malnutrition Evidence of Malnutrition Exists Yes Malnutrition (severe): Chronic Evidenced By Suboptimal Energy Intake ( Moderate),Weight Loss (Severe) ,Physical Changes (Severe) Clinical Problem Altered Nutrient-Related Laboratory Values Etiology related to UDAY, renal dysfunction Signs/Symptoms as evidenced by K 5.4, BUN 76, Cr 2.08 Status Active Problem Chronic Disease or Condition Related Malnutrition Etiology severe, chronic malnutrition related to inadequate energy intake d/t hx dementia, dysphagia Signs/Symptoms as evidenced by suspected significant wt loss of 28.1% wt loss x 1 month;estimated PO intake meeting <75% of estimated nutritional needs >3 months; fat/muscle loss to eyes, temporal area, clavicle region, arms/legs; BMI 18.4 Status Active Problem Recommendation Dietitian Recommendations/Changes advance diet as tolerated to regular, consistency/texture modifications per [employer]. Potassium restriction as clinically indicated. Oral nutrition supplements when PO diet appropriate. Lab / Micro Data Result Diagrams: 12/23/20 05:00 12/23/20 05:00 Labs: Laboratory Results - last 24 hr 12/22/20 14:05: Sodium 150 H, Potassium 5.6 H, Chloride 124 H, Carbon Dioxide 20.0 L, Anion Gap 6, BUN 92 H, Creatinine 2.69 H, Estim Creat Clear Calc 10.26, Est GFR (MDRD) Af Amer 22 L, Est GFR (MDRD) Non-Af 18 L, BUN/Creatinine Ratio 34.2 H, Glucose 192 H, Calcium 10.0 12/22/20 18:00: Sodium 148 H, Potassium 5.7 H, Chloride 123 H, Carbon Dioxide 21.0, Anion Gap 4 L, BUN 91 H, Creatinine 2.55 H, Estim Creat Clear Calc 10.82, Est GFR (MDRD) Af Amer 23 L, Est GFR (MDRD) Non-Af 19 L, BUN/Creatinine Ratio 35.7 H, Glucose 195 H, Calcium 9.5 12/23/20 05:00: WBC 9.3, RBC 2.87 L, Hgb 8.8 L, Hct 30.9 L, MCV 107.7 H, MCH 30.7, MCHC 28.5 L, RDW Std Deviation 61.7 H, RDW Coeff of Calixto 15.6 H, Plt Count 139 L, MPV 10.8, Immature Gran % (Auto) 0.900, Neut % (Auto) 78.3 H, Lymph % (Auto) 10.7 L, [place] % (Auto) 7.9, Eos % (Auto) 1.8, Baso % (Auto) 0.4, Absolute Neuts (auto) 7.3, Absolute Lymphs (auto) 1.00, Nucleated RBC % 0 12/23/20 05:00: Sodium 143, Potassium 5.4 H, Chloride 117 H, Carbon Dioxide 21.0, Anion Gap 5, BUN 76 H, Creatinine 2.08 H, Estim Creat Clear Calc 14.16, Est GFR (MDRD) Af Amer 29 L, Est GFR (MDRD) Non-Af 24 L, BUN/Creatinine Ratio 36.5 H, Glucose 128 H, Calcium 9.0, Magnesium 2.1 Micro: Microbiology 12/21/20 12:30 Stool Stool Occult Blood (ELAYNE) - Final Physical Exam Const General Appearance: anxious Orientation / Consciousness: confused HEENT HEENT Narrative: dry membranes Resp Auscultation: rhonchi Cardio regular rate GI non-tender and non-distended Palpation: soft Extremity no clubbing, cyanosis or edema Assessment & Plan Assessment/Plan (1) UDAY (acute kidney injury): PLAN: Creatinine slightly improved. Continue conservative mgmt, no dialysis (2) Hyperkalemia: PLAN: improving Pt DNR CCA (3) Pulmonary hypertension: PLAN: on chronic diuretics, no edema on exam (4) Dementia: (5) Chronic anemia: (6) Senile debility: (7) FTT (failure to thrive) in adult: (8) Hypernatremia: PLAN: NPO due to aspiration risk, speech eval. change iv fluids to 1/2NS
[2020-12-23] MEDS: 0.45% Normal Saline 1,000 ML 75 ML IV (15:05)
--- NOTE | 2020-12-23 15:17 | PCM.DC.SUM ---
Providers Date of Admission: 12/21/20 Primary Care Physician: Dr. Augie Rajan MD Consultations 12/21/20 15:31 Consult: Data Management / Pulmonary Medicine Routine Consulting Provider: Vishnu Morton Reason for Consult: Hyperkalemia, UDAY, poss GI bleed EMERGENT Consult: No Notified: Yes Date Notified: 12/21/20 Time Notified: 14:16 Method of Notification: cortext Consult: Nephrology Routine Consulting Provider: Jennifer Dove Reason for Consult: UDAY, hyperkalemia EMERGENT Consult: No Notified: Yes Date Notified: 12/21/20 Time Notified: 14:17 Method of Notification: Called per ED. Reason For Visit: UDAY HYPERKALEMIA ? GI BLEED Diagnosis Discharge Diagnosis (1) UDAY (acute kidney injury): Status: Acute Code(s): N17.9 - Acute kidney failure, unspecified (2) Hyperkalemia: Status: Acute Code(s): E87.5 - Hyperkalemia (3) Pulmonary hypertension: Status: Chronic Code(s): I27.2 - Other secondary pulmonary hypertension (4) Dementia: Status: Chronic Code(s): F03.90 - Unspecified dementia without behavioral disturbance (5) Chronic anemia: Status: Chronic Code(s): D64.9 - Anemia, unspecified (6) Senile debility: Status: Acute Code(s): R54 - Age-related physical debility (7) FTT (failure to thrive) in adult: Status: Acute Code(s): R62.7 - Adult failure to thrive (8) Hypernatremia: Status: Acute Code(s): E87.0 - Hyperosmolality and hypernatremia Hospital Course Summary of Care Provided Minutes Spent on Discharge: 55 Hospital Course: Patient is an 85-year-old lady with underlying history of dementia a resident is on a standard care facility who presented with nausea vomiting with questionable coffee-ground emesis and diarrhea and a near syncopal episode with bradycardia. Patient was found to have acute kidney injury with hyperkalemia admitted to the intensive care unit for further management 1. Acute kidney injury -Secondary to severe dehydration as a result of patient nausea vomiting and diarrhea. Admitted to the intensive care unit patient being managed with aggressive IV fluid resuscitation with serial monitoring of electrolytes ordered. Patient was offered dialysis family apparently declined -12/23/2020. BUN and creatinine remains elevated. -Decision was made to change CODE STATUS to DNR comfort care only given her advanced debility and functional decline. 2. Hyperkalemia -This is being treated aggressively with Kayexalate as well as calcium gluconate and insulin and dextrose. Every 4 BMP ordered patient remains on telemetry monitoring 3. Upper GI bleed -Patient started on PPI 4. Acute metabolic encephalopathy ?As a result of patient acute kidney injury. Patient seen, remains barely responsive. Moans to the least touch. Patient did fail her speech and swallow eval and is currently n.p.o. 5. Hypernatremia ?Secondary to severe dehydration patient IV fluid adjusted to D5W with every 4 monitoring of electrolytes 6. Hypothyroidism - Patient is on levothyroxine home dose continued 7. Chronic congestive heart failure with preserved ejection fraction -Currently not in exacerbation. Patient was on Lasix and potassium supplementation both medications discontinued 8. Coronary artery disease -with previous PCI 9. Dementia -Supportive care 10. DVT prophylaxis ?Bilateral SCDs 11. Dyslipidemia -Patient is on statin therapy at home 12. . Essential hypertension -Patient blood pressure remained stable. Patient was on lisinopril discontinued in view of her impaired kidney function Advance planning; Had a discussion with the patient's family regarding her condition. Presented various scenarios with respect to patient's care. Family elected to change CODE STATUS from DNR CCA no intubation to DNR comfort care. Also suggested consulting the hospice care service. Patient family did agree. Patient was accepted for transfer to the inpatient medical facility. Signout was given to the attending at the medical facility Dr. Barragan. Total time spent on this discussion 25 minutes Medical Records Data Medical Nutrition Assessment Dietitian: Nutrition Therapy Diagnosis Start: 12/21/20 16:30 Freq: Status: Active Protocol: Document 12/23/20 13:03 (Rec: 12/23/20 13:03 [id number]) Nutrition Malnutrition Evidence of Malnutrition Exists Yes Malnutrition (severe): Chronic Evidenced By Suboptimal Energy Intake ( Moderate),Weight Loss (Severe) ,Physical Changes (Severe) Clinical Problem Altered Nutrient-Related Laboratory Values Etiology related to UDAY, renal dysfunction Signs/Symptoms as evidenced by K 5.4, BUN 76, Cr 2.08 Status Active Problem Chronic Disease or Condition Related Malnutrition Etiology severe, chronic malnutrition related to inadequate energy intake d/t hx dementia, dysphagia Signs/Symptoms as evidenced by suspected significant wt loss of 28.1% wt loss x 1 month;estimated PO intake meeting <75% of estimated nutritional needs >3 months; fat/muscle loss to eyes, temporal area, clavicle region, arms/legs; BMI 18.4 Status Active Problem Recommendation Dietitian Recommendations/Changes advance diet as tolerated to regular, consistency/texture modifications per [employer]IEUTENANT. Potassium restriction as clinically indicated. Oral nutrition supplements when PO diet appropriate. Weight / BMI Weight Weight: 45.359 kg Body Mass Index (BMI) 16.5 ABG / Lab / Microbiology Data Result Diagrams: 12/23/20 05:00 12/23/20 05:00 Laboratory: Laboratory Results - last 24 hr 12/22/20 18:00: Sodium 148 H, Potassium 5.7 H, Chloride 123 H, Carbon Dioxide 21.0, Anion Gap 4 L, BUN 91 H, Creatinine 2.55 H, Estim Creat Clear Calc 10.82, Est GFR (MDRD) Af Amer 23 L, Est GFR (MDRD) Non-Af 19 L, BUN/Creatinine Ratio 35.7 H, Glucose 195 H, Calcium 9.5 12/23/20 05:00: WBC 9.3, RBC 2.87 L, Hgb 8.8 L, Hct 30.9 L, MCV 107.7 H, MCH 30.7, MCHC 28.5 L, RDW Std Deviation 61.7 H, RDW Coeff of Calixto 15.6 H, Plt Count 139 L, MPV 10.8, Immature Gran % (Auto) 0.900, Neut % (Auto) 78.3 H, Lymph % (Auto) 10.7 L, [place] % (Auto) 7.9, Eos % (Auto) 1.8, Baso % (Auto) 0.4, Absolute Neuts (auto) 7.3, Absolute Lymphs (auto) 1.00, Nucleated RBC % 0 12/23/20 05:00: Sodium 143, Potassium 5.4 H, Chloride 117 H, Carbon Dioxide 21.0, Anion Gap 5, BUN 76 H, Creatinine 2.08 H, Estim Creat Clear Calc 14.16, Est GFR (MDRD) Af Amer 29 L, Est GFR (MDRD) Non-Af 24 L, BUN/Creatinine Ratio 36.5 H, Glucose 128 H, Calcium 9.0, Magnesium 2.1 Microbiology: Microbiology 12/21/20 12:30 Stool Stool Occult Blood (ELAYNE) - Final Meaningful Use Info Meaningful Use Diagnoses (Choose all that apply): None applicable Discharge Plan Admission Admit Date/Time: 12/21/20 14:19 Primary Reason for Your Visit: Acute kidney injury, Hyperkalemia Hypernatremia Attending Provider: Shemar Lyon Primary Care Provider: Augie Rajan Chi Consulting Providers: Vishnu Morton ; Jennifer Dove Discharge Orders/Prescriptions Prescriptions: Discontinued lorazepam 0.5 mg tablet 0.5 mg PO BID RF: 0 metoprolol tartrate 25 mg tablet 25 mg PO BID RF: 0 hydroxyzine HCl 25 mg tablet 25 mg PO DAILY RF: 0 levothyroxine 150 mcg tablet 150 mcg PO DAILY RF: 0 ferrous gluconate 324 mg (37.5 mg iron) tablet 324 mg PO BID RF: 0 cholecalciferol (vitamin D3) 1,000 UNIT tablet 1,000 unit PO DAILY RF: 0 pantoprazole 40 MG tablet 40 mg PO DAILY RF: 0 furosemide 40 mg tablet 40 mg PO BID RF: 0 donepezil 10 mg tablet 10 mg PO QHS RF: 0 hydroxyzine HCl 50 mg tablet 50 mg PO QHS RF: 0 acetaminophen [Tylenol Extra Strength] 500 mg Tablet 1,000 mg PO BID RF: 0 Boost Breeze Liquid 120 ml PO ACHS RF: 0 escitalopram oxalate 5 mg Tablet 5 mg PO DAILY RF: 0 magnesium oxide 400 mg magnesium Capsule 400 mg PO DAILY RF: 0 aspirin 81 MG tablet,delayed release (DR/EC) 81 mg PO DAILY@0800 RF: 0 lisinopril 10 MG tablet 10 mg PO DAILY RF: 0 amiodarone 100 MG tablet 100 mg PO DAILY RF: 0 atorvastatin 20 MG tablet 20 mg PO QHS Qty: 90 RF: 3 clopidogrel 75 mg tablet 75 mg PO DAILY Qty: 90 RF: 3 potassium chloride 20 mEq tablet extended release 40 meq PO BID RF: 0 Referrals / Follow Up: Augie Rajan Chi, MD [Primary Care Provider] - Disposition Disposition (needs filled in before D/C Order can be placed): Hospice in Medical Facility Charges/Coding Visit Charges Inpatient E&M: 03747 Disch Hosp Procedures Hospitalists Procedures: 50210 Advncd Care Plan 30 Min
--- NOTE | 2020-12-23 15:36 | CASEMGMT ---
Patient was approved to go to the inpatient Hospice facility. KATHRYN faxed d/c information to Hospice as well as DNR. KATHRYN arranged for patient to get picked up at 430 via cot. KATHRYN notified RN, assistant secretary, and Marino at Hospice. Patient's family was at Hospice and Marino told them she will arrive between 430 and 530. Plan: d/c to [facility] inpatient unit. [facility] transported. Rajani CIFUENTES
--- NOTE | 2020-12-23 15:46 | CASEMGMT ---
KATHRYN called [facility] and spoke with Ciera. KATHRYN let her know that patient will not be coming back as she is going to the inpatient Hospice unit. Rajani CIFUENTES
== END 2020-12-23 16:40 | disposition hospice, inpatient (51) | DRG 682 ==
LOC: ED 13:56 → ICU 14:23
PROVIDERS: Admitting Provider Family Medicine; Emergency Provider Emergency Medicine; PCP Family Medicine Geriatric Medicine; Visit Provider Internal Medicine
DX: N17.9 Acute kidney failure, unspecified (principal); G93.41 Metabolic encephalopathy; E43 Unspecified severe protein-calorie malnutrition; K85.90 Acute pancreatitis without necrosis or infection, unspecified; E87.0 Hyperosmolality and hypernatremia; I50.32 Chronic diastolic (congestive) heart failure; Z68.1 Body mass index [BMI] 19.9 or less, adult; I48.20 Chronic atrial fibrillation, unspecified; B37.0 Candidal stomatitis; K92.0 Hematemesis; K92.1 Melena; D62 Acute posthemorrhagic anemia; I11.0 Hypertensive heart disease with heart failure; E87.5 Hyperkalemia; E86.0 Dehydration; I25.10 Atherosclerotic heart disease of native coronary artery without angina pectoris; I27.29 Other secondary pulmonary hypertension; I25.5 Ischemic cardiomyopathy; F03.90 Unspecified dementia, unspecified severity, without behavioral disturbance, psychotic disturbance, mood disturbance, and anxiety; E03.9 Hypothyroidism, unspecified; E78.5 Hyperlipidemia, unspecified; R62.7 Adult failure to thrive; R13.10 Dysphagia, unspecified; R55 Syncope and collapse; Z66 Do not resuscitate; Z90.49 Acquired absence of other specified parts of digestive tract; Z95.5 Presence of coronary angioplasty implant and graft; Z79.890 Hormone replacement therapy; Z79.82 Long term (current) use of aspirin; Z79.02 Long term (current) use of antithrombotics/antiplatelets; Z79.899 Other long term (current) drug therapy
CPT/HCPCS: 76770; 80048; 80053; 80061; 82274; 82570; 83690; 83735; 84100; 84300; 84484; 85014; 85018; 85025; 85610; 85730; 86850; 86900; 86901; 92526; 92610; 93005; 94640; 97802; 99285; J7030; J7040; J7050; A4216; J0610; J2405; J3490